=== PATIENT | male | born 1935 | race Caucasian/White ===

== ENCOUNTER → 2018-04-26 16:21 | Outpatient (CLI) | payer MEDICARE, SELFPAY ==
--- NOTE | 2018-04-26 16:25 | DI.MRI.S_ITS ---
PROCEDURE: MR LUMBAR SPINE WO CON INDICATIONS: SACROILIAC JOINT DYSFUNCTION TECHNIQUE: Noncontrast sagittal T1 spin echo and T2 fast echo, sagittal STIR, axial T1 and T2 fast spin echo through the lumbar spine. In cases with scoliosis, additional coronal T2 fast spin echo may be performed. Oblique coronal STIR and T1-weighted images obtained through the sacrum. [facility], 3:20. FINDINGS: Image quality: Excellent. Alignment and Curvature: There is trace L3-L4 and L4-L5 retrolisthesis. There is convex right scoliosis. Bone Marrow: Reactive endplate change is noted adjacent to the L1-L2, L2-L3, L3-L4 and L4-L5 discs.. No acute vertebral body compression fractures. Spinal Cord: Conus medullaris terminates at the L1-2 disc level. Visualized cord demonstrates normal signal and size. Paraspinous Soft Tissues: No paravertebral masses. L1-L2: Loss of disc signal and height. Moderate, diffuse disc bulge. Mild bilateral facet hypertrophy. Mild to moderate narrowing of the central canal. Moderate bilateral neural foraminal narrowing. No neural impingement. L2-L3: Loss of disc signal and height. Moderate, diffuse disc bulge. Mild facet and moderate ligamentum flavum hypertrophy. Moderate narrowing of the central canal. Mild right and moderate left neural foraminal narrowing. No neural impingement. L3-L4: Loss of disc signal and height. Mild, diffuse disc bulge. Mild facet and moderate ligamentum flavum hypertrophy. Moderate to severe narrowing of the central canal. Moderate to severe bilateral neural foraminal narrowing. No neural impingement. L4-L5: Loss of disc signal and height. Moderate, diffuse disc bulge. Moderate bilateral facet hypertrophy. Moderate to severe narrowing of the central canal. Severe bilateral neural foraminal narrowing with flattening deformity exiting L4 nerve roots bilaterally. L5-S1: Loss of disc signal. Mild, diffuse disc bulge. Moderate right mild left facet hypertrophy. No central stenosis. Severe right and moderate left neural foraminal narrowing with flattening deformity right L5 nerve root. Sacrum: Mild osteoarthritic degenerative changes are noted in the sacroiliac joints. The lumbosacral plexus is normal in appearance. IMPRESSION: 1. Convex right scoliosis. 2. Multilevel degenerative disc disease. 3. Multilevel facet arthropathy. 4. Moderate to severe L3-L4 and L4-L5 central canal narrowing. Moderate L2-L3 central canal narrowing. Mild to moderate L1-L2 Central canal narrowing. 5. Severe bilateral L4-L5 neural foraminal narrowing. Severe right and moderate left L5-S1 neural foraminal narrowing. Moderate to severe bilateral L1-L2 and L3-L4 neural foraminal narrowing. Mild right and moderate left L2-L3 neural foraminal narrowing. 6. Flattened deformity exiting bilateral L4 nerve roots and the exiting right L5 nerve root secondary to neural foraminal narrowing. Dictated by: Rosana Salcido MD, PhD on 04/27/2018 at 9:11 Approved by: Rosana Salcido MD, PhD on 04/27/2018 at 9:48
== END ==
PROVIDERS: Family Provider Family Medicine; PCP Family Medicine; Visit Provider Physical Medicine & Rehabilitation
DX: M25.80 Other specified joint disorders, unspecified joint (principal); M41.9 Scoliosis, unspecified; M51.36 Other intervertebral disc degeneration, lumbar region; M47.816 Spondylosis without myelopathy or radiculopathy, lumbar region
CPT/HCPCS: 72148

== ENCOUNTER → 2018-06-21 14:11 | Outpatient (CLI) | payer MEDICARE, SELFPAY ==
--- NOTE | 2018-06-21 | DI.MRI.S_ITS ---
PROCEDURE: MR KNEE LT WO CON INDICATIONS: INTERNAL DERANGEMENT OF LEFT KNEE TECHNIQUE: Noncontrast sagittal PD fast spin echo and T2 fast spin echo with fat saturation, sagittal 3-D FLASH with fat saturation; coronal T1 spin echo and PD fast spin echo with fat saturation, and axial PD fast spin echo with fat saturation through the knee. COMPARISON: None. FINDINGS: Image quality: Excellent. Menisci: There is oblique tear involving posterior horn medial meniscus extending to inferior articulating surface. No focal lateral meniscal tear is seen. The meniscal root ligaments appear intact. Cruciate ligaments: The anterior and posterior cruciate ligaments appear intact. Medial structures: The medial collateral ligament appears intact. The posterior oblique ligament, semimembranosus tendon insertions, oblique popliteal ligament, and meniscocapsular junction appear intact. Visualized portions of the pes anserinus tendons appear normal. No abnormal bursal fluid. Lateral structures: The lateral collateral ligament, long and short heads of the biceps femoris tendon appear intact. The popliteus tendon appears normal; the popliteofibular ligament appears intact. The posterosuperior and anteroinferior popliteomeniscal fascicles appear intact. The arcuate and fabellofibular ligaments appear intact, on either side of the lateral inferior geniculate artery. Iliotibial band appears normal. Anterior structures: Thickened distal quadriceps tendinitis superior patella insertion is seen suggestive of tendinosis. Patellar tendon is intact. Patellar alignment is normal. No femoral trochlear dysplasia or ventral trochlear prominence. No edema in the infrapatellar fat pad. Bones and cartilage: There is [id number] tricompartmental osteoarthritis more prominently patellofemoral compartment. Extensive chondromalacia patella throughout patellar cartilage is seen. No fracture or dislocation. Joint space: There is small amount of knee joint fluid. No Wells's cyst. Normal appearing synovial plicae are incidentally noted. IMPRESSION: 1. 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 No fracture or dislocation. 2. Complete tear involving posterior horn of medial meniscus extending to inferior articulating surface. No focal lateral meniscal tear. 3. Distal quadriceps tendinosis. Patellar tendon is intact. Cruciate ligaments are intact. Dictated by: Irvin Hurst M.D. on 06/21/2018 at 16:04 Approved by: Irvin Hurst M.D. on 06/21/2018 at 16:07
== END ==
PROVIDERS: Family Provider Family Medicine; PCP Family Medicine; Visit Provider Orthopaedic Surgery
DX: S83.242A Other tear of medial meniscus, current injury, left knee, initial encounter (principal); M17.12 Unilateral primary osteoarthritis, left knee; M22.42 Chondromalacia patellae, left knee; M76.892 Other specified enthesopathies of left lower limb, excluding foot
CPT/HCPCS: 73721

== ENCOUNTER → 2019-07-22 09:57 | Outpatient (CLI) | payer MEDICARE, SELFPAY ==
--- NOTE | 2019-07-22 | DI.RAD.S_ITS ---
PROCEDURE: XR CHEST 2V INDICATIONS: DYSPNEA TECHNIQUE: 2 views of the chest were acquired. COMPARISON: None. FINDINGS: Surgical changes and devices: Surgical clip in the right axilla. Lungs and pleura: Mild bibasilar streaky opacity which is most compatible of atelectasis. No consolidation. Asymmetric lucency in the left upper chest. There is blunting of the right posterior phrenic angle which may represent trace pleural effusion. No pneumothorax. Mediastinum: Mediastinal contours are normal. Tortuous aorta. Heart size is normal. Bones and chest wall: No suspicious bony abnormalities. Soft tissues appear unremarkable. IMPRESSION: Bibasilar atelectasis and possible trace right pleural effusion. Dictated by: Orlando Stovall M.D. on 07/22/2019 at 11:15 Approved by: Bill Becerra M.D. on 07/26/2019 at 9:57
[2019-07-22 11:15] LABS: Add Manual Diff / Slide Review NO; Basophils Absolute Auto 100 /uL (0-100); Basophils Percent Auto 1.5 % (0-2); Eosinophils Absolute Auto 300 /uL (0-450); Eosinophils Percent Auto 4.4 % (2-4); Hematocrit 40.7 % (41-53); Hemoglobin 13.7 g/dL (13.5-17.5); Lymphocytes Absolute Auto 1300 /uL (1100-4500); Lymphocytes Percent Auto 17.4 % (25-40); Mean Corpuscular HGB Conc 33.7 % (30-36); Mean Corpuscular Hemoglobin 27.7 PG (26-34); Mean Corpuscular Volume 82.1 fL (80-100); Monocytes Absolute Auto 400 /uL (0-900); Monocytes Percent Auto 5.8 % (3-14); Neutrophils Absolute Auto 5400 /uL (1500-7000); Neutrophils Percent Auto 70.9 % (50-75); Red Blood Cell Count 4.96 X10^6/uL (4.5-5.9); Red Cell Distribution Width 15.7 % (11.6-14.8); White Blood Cell Count 7.6 X10^3/uL (4.5-11.0)
[2019-07-22 11:31] LABS: Alanine Aminotransferase 13 IU/L (21-72); Albumin Globulin Ratio 1.5 (1.0-2.8); Alkaline Phosphatase 82 U/L (38-126); Aspartate Aminotransferase 24 IU/L (17-59); BUN Creatinine Ratio 21.1 (6-22); Bilirubin Total 0.8 mg/dL (0.2-1.3); Blood Urea Nitrogen 19 mg/dL (9-20); Calcium 9.5 mg/dL (8.4-10.2); Carbon Dioxide 25 mmol/L (22-32); Chloride 106 mmol/L (98-107); Cholesterol 149 mg/dL (140-199); Estimated Glomerular Filt Rate > 60.0 mL/min (>60); Globulin 2.7 g/dL (1.7-4.1); Glucose 93 mg/dL (80-110); HDL Cholesterol 42 mg/dL (40-60); HEMOLYSIS < 15 (0-50); LDL Cholesterol Calculated 91 mg/dL (<100); Potassium 4.4 mmol/L (3.4-5.1); Sodium 141 mmol/L (137-145); Total Protein 6.7 g/dL (6.3-8.2); Triglycerides 82 mg/dL (35-150)
[2019-07-22 11:53] LABS: Platelet Count 54 X10^3/uL (150-400)
[2019-07-22 12:34] LABS: Thyroid Stimulating Hormone 1.91 uIU/mL (0.47-4.68)
== END ==
PROVIDERS: Family Provider Family Medicine; PCP Family Medicine; Visit Provider Family Medicine
DX: R06.09 Other forms of dyspnea (principal); R53.83 Other fatigue; J98.11 Atelectasis
CPT/HCPCS: 36415; 71046; 80053; 80061; 84443; 85025

== ENCOUNTER → 2019-08-30 15:11 | Outpatient (CLI) | payer MEDICARE, SELFPAY ==
--- NOTE | 2019-08-30 16:30 | PM.TREADMILL ---
Cardiac Stress Test Report Referral & Results Date Patient Seen: 08/30/19 Procedure Note: Patient was unable to walk on a treadmill even at the lowest speed safely. Therefore the entire test was abandoned and message was left with the ordering physician to reschedule this as a Lexiscan Cardiolite which will avoid patient having to walk on the treadmill at all. Obviously patient was aware of this change in need to reschedule Please note: Actual ECG tracings can be found in the PACS system.
== END ==
PROVIDERS: PCP Family Medicine; Visit Provider Family Medicine
DX: R06.09 Other forms of dyspnea (principal); Z53.09 Procedure and treatment not carried out because of other contraindication

== ENCOUNTER → 2019-09-09 13:42 | Outpatient (CLI) | payer MEDICARE, SELFPAY ==
--- NOTE | 2019-09-09 | DI.NM.S_ITS ---
PROCEDURE: NM VIANCA PERF SPECT R&S PHARM Rest and pharmacological stress myocardial perfusion SPECT with gated imaging and ejection fraction RADIOPHARMACEUTICAL: 25.6 mCi Tc-99m tetrafosmin IV at rest and 25.6 mCi Tc-99m tetrafosmin IV at peak effect of pharmacological stress. [id number] was performed. INDICATIONS: MORGAN TECHNIQUE: Radiopharmaceutical was injected at peak stress test, and also at rest. SPECT images were obtained. SPECT myocardial perfusion images were displayed in short axis, horizontal long axis, and vertical long axis views. Gated images were reviewed using [employer] software. COMPARISON: None. CARDIAC STRESS: A pharmacologic stress test was performed under the supervision of an attending staff, using an infusion of Lexiscan . Hemodynamic data: There is normal blood pressure and heart rate response to pharmacologic stress. Symptoms: The patient denied anginal chest pain. Aminophylline: Not given EKG: No diagnostic changes of ischemia; no ectopy. FINDINGS: Raw data: There is good myocardial uptake of radiotracer. No significant motion artifacts. Cpbv-nc-nrore ratio is 0.32 (normal is less than 0.38 for tetrafosmin tracer). Left ventricle function: Gated images demonstrate hypokinesis of the basal to mid inferior wall at stress; otherwise normal left ventricular wall thickening. No other segmental wall motion abnormalities. No transient ischemic dilation; TID is 0.94 (normal less than 1.3). Left ventricle resting end diastolic volume is 101 mL. Left ventricle stress ejection fraction is 72% ; normal range is above 45%. Myocardial perfusion: There is a moderate size, moderately severe perfusion defect in the basal to mid inferior and inferoseptal wall at stress with partial improvement on stress imaging. There is interfering subdiaphragmatic activity. Otherwise normal distribution of activity in the left ventricular myocardium. No fixed or reversible perfusion defects. IMPRESSION: 1) Probably abnormal myocardial perfusion study with predominantly ischemia in the inferior wall. 2) There is a moderate size, moderately severe perfusion defect in the basal to mid inferior and inferoseptal wall at stress, associated with hypokinesis. This improves on rest images but does not completely resolve, concerning for mixed ischemia and scar. However, there is significant subdiaphrgmatic interfering tracer activity which could not be corrected as patient could not lay prone for prone imaging. 3) No prior studies for comparison. Dictated by: Marlo Li M.D. on 09/12/2019 at 18:23 Approved by: Marlo Li M.D. on 09/12/2019 at 18:32
--- NOTE | 2019-09-09 14:52 | PM.TREADMILL ---
Cardiac Stress Test Report Referral & Results Date Patient Seen: 09/09/19 Requesting provider: Brian Moore Indication: Dyspnea upon exertion Procedure Note: After both written and verbal informed consent the patient had an IV started by the diagnostic imaging RN, and then was hooked up to the treadmill monitoring system. The Lexiscan material, and then the Cardiolite tracer, were administered sequentially. An additional 3 min was spent monitoring the patient while supine on the gurney. The patient had a normal response to all infused materials. Impression: Please see perfusion imaging report for details regarding possible ischemia Please note: Actual ECG tracings can be found in the PACS system.
== END ==
PROVIDERS: PCP Family Medicine; Visit Provider Family Medicine
DX: R06.09 Other forms of dyspnea (principal); I25.9 Chronic ischemic heart disease, unspecified
CPT/HCPCS: 78452; 93016; 93017; 93018; A9502; J2785

== ENCOUNTER → 2019-09-14 08:57 | Outpatient (CLI) | payer MEDICARE, SELFPAY ==
--- NOTE | 2019-09-14 | DI.RAD.S_ITS ---
PROCEDURE: FL BARIUM SWALLOW INDICATIONS: Dysphagia. COMPARISON: [facility], CR, XR CHEST 2V, 07/22/2019, 10:08. FINDINGS: Function: There are thin flash laryngeal penetrations without jayleen tracheal aspiration. There are mild tertiary contractions with mild proximal escape. There is observed gastroesophageal reflux to the level of the yosvany. There is delayed transit of a calibrated barium tablet within the esophagus, with the calibrated barium tablet becoming lodged above a prominent Schatzki's ring and failing to pass into the stomach despite delayed observation. Morphology: There is a small hiatal hernia with a prominent Schatzki's ring. A mild cricopharyngeal bar is identified. Air-contrast images demonstrate normal mucosal morphology. Single contrast views show no diverticula. Limited images of the stomach demonstrate normal appearance. IMPRESSION: 1. Small hiatal hernia with prominent Schatzki's ring, of sufficiently narrowed diameter that an administered calibrated barium tablet lodges above the level of the ring and fails to pass into the stomach despite delayed observation. Consider CT of the chest with contrast and gastroenterology consult if there is continued clinical concern. 2. Mild esophageal dysmotility. 3. Gastroesophageal reflux with mild cricopharyngeal bar formation. 4. Thin flash laryngeal penetrations without jayleen tracheal aspiration. Dictated by: Fabian Freedman M.D. on 09/14/2019 at 13:08 Approved by: Fabian Freedman M.D. on 09/14/2019 at 13:34
== END ==
PROVIDERS: PCP Family Medicine; Visit Provider Otolaryngology
DX: R13.10 Dysphagia, unspecified (principal); K22.2 Esophageal obstruction; K22.4 Dyskinesia of esophagus; K44.9 Diaphragmatic hernia without obstruction or gangrene; K21.9 Gastro-esophageal reflux disease without esophagitis
CPT/HCPCS: 74220

== ENCOUNTER → 2019-10-08 10:58 | Outpatient (CLI) | payer MEDICARE, SELFPAY ==
[2019-10-08 12:53] LABS: Hematocrit 40.7 % (41-53); Hemoglobin 13.2 g/dL (13.5-17.5); Mean Corpuscular HGB Conc 32.5 % (30-36); Mean Corpuscular Hemoglobin 26.9 PG (26-34); Mean Corpuscular Volume 82.8 fL (80-100); Platelet Count 65 X10^3/uL (150-400); Red Blood Cell Count 4.92 X10^6/uL (4.5-5.9); Red Cell Distribution Width 15.1 % (11.6-14.8); White Blood Cell Count 5.1 X10^3/uL (4.5-11.0)
[2019-10-08 12:58] LABS: INR 1.1 (0.9-1.3); Prothrombin Time 12.4 SECONDS (10.1-12.7)
[2019-10-08 13:07] LABS: Blood Urea Nitrogen 16 mg/dL (9-20); Calcium 9.2 mg/dL (8.4-10.2); Carbon Dioxide 27 mmol/L (22-32); Chloride 104 mmol/L (98-107); Estimated Glomerular Filt Rate > 60.0 mL/min (>60); Glucose 115 mg/dL (80-110); HEMOLYSIS < 15 (0-50); Potassium 4.4 mmol/L (3.4-5.1); Sodium 138 mmol/L (137-145)
== END ==
PROVIDERS: PCP Family Medicine; Visit Provider Internal Medicine Interventional Cardiology
DX: R06.09 Other forms of dyspnea (principal); R06.02 Shortness of breath; R94.39 Abnormal result of other cardiovascular function study; I10 Essential (primary) hypertension; E78.5 Hyperlipidemia, unspecified
CPT/HCPCS: 36415; 80048; 85027; 85610

== ENCOUNTER → 2019-11-24 11:20 | Outpatient (CLI) | payer MEDICARE, SELFPAY ==
--- NOTE | 2019-11-24 | DI.CT.S_ITS ---
PROCEDURE: CT CHEST WO CON INDICATIONS: Dyspnea, unspecified TECHNIQUE: Noncontrast 5 mm thick sections acquired from the pulmonary apices to the posterior costophrenic angles. 1 mm lung window, 5 mm thick coronal and sagittal and 7 mm axial MIP reformats were then acquired. For radiation dose reduction, the following was used: automated exposure control, adjustment of mA and/or kV according to patient size. COMPARISON: [facility], CR, XR CHEST 2V, 07/22/2019, 10:08. FINDINGS: Image quality: Excellent. Lungs and pleura: There are lingular, right middle lobe and lower lobe scars and atelectasis. Moderate centrilobular emphysema. No acute air space opacities. No pleural effusions or pneumothorax. Central and peripheral airways are patent and normal in caliber. There are calcified plaques in the right hemidiaphragm. Mediastinum: Heart size is normal. No pericardial effusion. Calcified densities in the pericardium. No mediastinal adenopathy by size criteria. Thoracic aorta and central pulmonary arteries are normal in size. Esophagus is normal in caliber. No hiatal hernia. Bones and chest wall: No suspicious bony lesions. No vertebral body compression fractures. No axillary or supraclavicular adenopathy by size criteria. Thyroid gland is normal. Abdomen: Visualized upper abdominal solid organs and bowel loops appear normal in the absence of contrast. A 1 mm calcification in right kidney, consistent with a nonobstructive stone. IMPRESSION: 1. Moderate centrilobular emphysema. 2. Lingula, right middle lobe and lower lobe scars and atelectasis. 3. Calcified plaques in the right milton-thorax. Recommend clinical correlation for asbestos exposure or prior pleural infection/procedure. 4. Calcified plaques along the pericardium. Recommend echocardiogram for further evaluation to rule out constrictive physiology. Dictated by: Suresh Lo M.D. on 11/24/2019 at 15:47 Approved by: Suresh Lo M.D. on 11/24/2019 at 15:58
== END ==
PROVIDERS: PCP Family Medicine; Visit Provider Family Medicine
DX: R06.00 Dyspnea, unspecified (principal); J43.2 Centrilobular emphysema; J98.4 Other disorders of lung; J98.11 Atelectasis; I31.1 Chronic constrictive pericarditis; N20.0 Calculus of kidney
CPT/HCPCS: 71250

== ENCOUNTER → 2019-12-07 10:56 | Outpatient (CLI) | payer MEDICARE, SELFPAY ==
--- NOTE | 2019-12-12 16:53 | PM.PFT.1 ---
Pulmonary Function Test Referral & Results Date Patient Seen: 12/07/19 Requesting provider: Brian Moore Results: The spirometry demonstrates an FVC of 3.69 L which is 88% of predicted. The FEV1 was measured at 2.11 L which is 72% of predicted. The FEV1/FVC ratio was 57 which is 81% of predicted. Following the administration of bronchodilator there was no significant change. Lung volumes show an SVC of 4.57 L which is 99% of predicted. The diffusing capacity was measured at 17.04 which is 48% of predicted. No hemoglobin value was provided, so no correction for potential anemia could be made, if appropriate. The maximum voluntary ventilation was reduced Interpretation: This study demonstrates mild/moderate obstructive lung disease based on reduction FEV1. There is no evidence of significant benefit following bronchodilator administration Patient's lung volumes are normal so no evidence of restrictive lung disease There is a moderate reduction in diffusing capacity suggesting significant disease at the capillary alveolar level as well
== END ==
PROVIDERS: PCP Family Medicine; Visit Provider Family Medicine
DX: R06.09 Other forms of dyspnea (principal); R53.83 Other fatigue; R94.39 Abnormal result of other cardiovascular function study
CPT/HCPCS: 94060; 94726; 94729

== ENCOUNTER 2020-03-03 21:19 | Emergency (ER) | payer MEDICARE, SELFPAY ==
[2020-03-03 21:36] VITALS: BP 204/90; PULSE 90; RESP 24; TEMP 37.1; O2SAT 99; BMI 24.7
--- NOTE | 2020-03-03 21:38 | ED_ITS ---
HPI - General Adult General Chief complaint: Shortness of Breath/Dyspnea Stated complaint: SOB/Anxiety Time Seen by Provider: 03/03/20 21:23 Source: patient and family Mode of arrival: Ambulatory Limitations: no limitations History of Present Illness HPI narrative: Patient is an 84-year-old male here for evaluation of what he states was anxiety, lack of the ability the sleep shortness of breath. Patient states that his shortness of breath is not new. He has had this for least the past several months. Has seen his primary doctor. Has had a cardiac workup. He states that he has had a cardiac catheterization and echocardiogram which he does not know the specific results but was told that everything was unr emarkable. Has had pulmonary function test. Is scheduled to see an certified ophthalmic medical technician. His shortness of breath that he is having today is not new. He states that his anxiety occurred this morning. He states that he was sleeping. He was woken up by his cat had approximately 0500 hours in the morning. He stated that he could not fall asleep after this which made him somewhat anxious because normally he can fall asleep. He stated that throughout the day he was feeling somewhat anxious about not being able to sleep that morning. He states he normally takes a nap during the day when he laid down to take an appy could not fall asleep again which again made him anxious. He called his daughter who is with him. He states he came into the emergency department this evening because he was anxious about not being able to fall asleep this evening. He states he has no prior history of anxiety. Related Data Home Medications Medication Instructions Recorded Confirmed acetaminophen [Tylenol Extra 1,000 mg PO TID #0 12/08/17 Strength] Previous Rx's Medication Instructions Recorded aspirin 81 mg PO BID #60 01/09/18 hydroxyzine pamoate 25 mg PO Q4HP PRN #60 cap 01/09/18 oxycodone 5 - 10 mg PO Q3HP PRN #60 tab 01/09/18 Allergies Allergy/AdvReac Type Severity Reaction Status Date / Time No Known Allergies Allergy Uncoded 02/17/18 11:56 Review of Systems Constitutional Constitutional: Denies fatigue and Denies headache(s) ENT Ears, Nose, Mouth, and Throat: Denies headache(s) Cardiovascular Cardiovascular: Denies chest pain and Reports dyspnea Respiratory Respiratory: Reports dyspnea Gastrointestinal Gastrointestinal: Denies abdominal pain, Denies nausea and Denies vomiting Musculoskeletal Musculoskeletal: Denies myalgias and Denies arthralgias Integumentary/Breasts Skin/Breast: Reports lesions and Reports rash Neurologic Neurologic: Denies behavioral changes and Denies headache(s) Psychiatric Psychiatric: Denies behavioral changes Endocrine Endocrine: Denies fatigue Hematologic/Lymphatic Hematologic/Lymphatic: Denies easy bleeding and Denies easy bruising Patient History Medical History Shortness of Breath (Inactive) Tricompartment osteoarthritis of right knee (Inactive) Surgical History S/P total knee arthroplasty (Inactive) Social History Smoking Status: Former smoker Smoking Status: Former smoker alcohol intake frequency: 0-2 drinks per day Substance Use Type: does not use Exam Initial Vital Signs Initial Vital Signs: Vital Signs Temperature 98.7 F 03/03/20 21:36 Pulse Rate 90 03/03/20 21:36 Respiratory Rate 24 03/03/20 21:36 Blood Pressure 204/90 H 03/03/20 21:36 Pulse Oximetry 99 03/03/20 21:36 Const General: cooperative, comfortable, well developed and well groomed Limitations: mental status not altered HENGA Head: normal to inspection and normocephalic Resp Effort & Inspection: normal respiratory effort Auscultation: clear to auscultation bilaterally Cardio Rate: regular rate Rhythm: regular rhythm GI Inspection: non-distended Palpation: soft, No firm and No tender Skin Lesions: no lesions Rashes: no rashes Neuro General: alert, awake and oriented x3 Cognition: normal cognition Speech: speech normal Extrem General: normal to inspection and capillary refill normal Psych Appearance: grossly normal and well kempt Thought Process: normal Thought Content: normal Judgment: judgment good Course Orders Ordered: ED Orders 03/03/20 21:30 Basic Metabolic Panel Stat Complete Blood Count AUTO DIFF Stat NT-proBNP (BNP-Adult 18+) Stat Troponin I Stat 03/03/20 21:36 EKG-12 Lead Stat 03/03/20 21:45 XR chest 1V Stat 03/03/20 22:05 Partial Thromboplastin Time Stat Prothrombin Time INR Stat Vital Signs Vital signs: Vital Signs - 8 hr 03/03/20 21:36 03/03/20 21:50 03/03/20 22:18 Temperature 98.7 F Pulse Rate 90 63 79 Respiratory Rate 24 20 20 Blood Pressure 204/90 H Blood Pressure [Right Arm] 196/91 H 157/76 H Pulse Oximetry 99 97 98 03/03/20 22:48 03/03/20 23:37 Temperature Pulse Rate 77 82 Respiratory Rate 20 22 Blood Pressure Blood Pressure [Right Arm] 161/77 H 175/95 H Pulse Oximetry 98 96 Medical Decision Making Lab Data Lab results reviewed: Yes I reviewed the patient's lab results. Result diagrams: 03/03/20 21:30 03/03/20 21:30 Labs: Lab Results 03/03/20 03/03/20 03/03/20 Range/Units 21:30 21:30 22:05 WBC 10.4 (4.5-11.0) X10^3/uL RBC 4.66 (4.5-5.9) X10^6/uL Hgb 12.8 L (13.5-17.5) g/dL Hct 38.5 L (41-53) % MCV 82.6 (80-100) fL MCH 27.5 (26-34) PG MCHC 33.3 (30-36) % RDW 16.5 H (11.6-14.8) % Plt Count 53 L (150-400) X10^3/uL Neut % (Auto) 68.7 (50-75) % Lymph % (Auto) 20.7 L (25-40) % Linn % (Auto) 6.0 (3-14) % Eos % (Auto) 3.5 (2-4) % Baso % (Auto) 1.1 (0-2) % Neut # (Auto) 7200 H (7644-7577) /uL Lymph # (Auto) 2200 (9486-4857) /uL Linn # (Auto) 600 (0-900) /uL Eos # (Auto) 400 (0-450) /uL Baso # (Auto) 100 (0-100) /uL PT 12.9 H (10.1-12.7) SECONDS INR 1.1 (0.9-1.3) APTT 34 (26.4-36.2) SECONDS Sodium 141 (137-145) mmol/L Potassium 3.9 (3.4-5.1) mmol/L Chloride 108 H (98-107) mmol/L Carbon Dioxide 27 (22-32) mmol/L BUN 17 (9-20) mg/dL Creatinine 0.77 (0.66-1.25) mg/dL Estimated GFR > 60.0 (>60) mL/min BUN/Creatinine Ratio 22.1 H (6-22) Glucose 110 (80-110) mg/dL Calcium 9.8 (8.4-10.2) mg/dL Troponin I < 0.012 (0.01-0.034) ng/mL NT-Pro-B Natriuret Pep 1090 H (<450) pg/mL Imaging Data Chest x-ray: Radiologist's Impression: [address] [address] XRay Report Signed Patient: Ady Lombardo SMR#: [id number] : 4Acct:[id number] Age/Sex: 84 / MDate of Service: 03/03/20 Loc: ED Accession Number: [id number] Procedure: XR chest 1V Ordering Provider: José Chun D.O. PROCEDURE: XR CHEST 1V INDICATIONS: Short of breath TECHNIQUE: One view of the chest was acquired. COMPARISON: [facility], , XR CHEST 2V, 07/22/2019, 10:08. FINDINGS: Surgical changes and devices: Right axillary clips are seen. Lungs and pleura: The lungs are hyperexpanded. Mild interstitial prominence is seen. Mild, streaky opacities are seen at the lung bases. No pleural effusions or pneumothorax. Mediastinum: The cardiac contours are within normal limits. The aorta demonstra justin calcification and tortuosity. Bones and chest wall: Age-appropriate bony degenerative changes are seen. Remote right rib fractures. No suspicious bony lesions. Overlying soft tissues appear unremarkable. IMPRESSION: Interstitial prominence is seen throughout. The interstitial promi nence is nonspecific, yet may be related to pulmonary edema. Likely mild atelectasis at the lung bases. Hyperexpanded lungs. Remote right rib fractures. Dictated by: David Biggs M.D. on 03/03/2020 at 21:13 Approved by: David Biggs M.D. on 03/03/2020 at 21:16 ECG Data Attestation: I personally reviewed and interpreted this ECG as follows: Prior ECG tracings: not available for review Interpretation: Sinus rhythm Ventricular rate 84 Normal axis Normal QRS Normal QTC Nonspecific ST T wave changes MDM Narrative Medical decision making narrative: Patient not hypoxic. Not tachypneic. Shortness of breath is not new. Chest x-ray shows no signs of pneumonia. He is not clinically in heart failure. Low suspicion for ACS. Informed patient he should continue talk with his primary doctor about further workup of his shortness of breath. Patient did admit that he is really here because he was anxious about sleeping this evening. We did discuss the use of potential sleep aids and sleep hygiene. He has used melatonin in the past and like to start taking that. He did not want any anxiety medications. Patient was tested for COVID-19 secondary to his shortness of breath. He was informed about precautions related to this. Discharged the patient home. I feel he is safe to be discharged home without further workup. Was given return precautions and follow-up instructions. He expressed understanding and agreement. Discharge Plan Departure Patient Disposition: Home Clinical Impression: Anxiety, Shortness of Breath Discharge Date/Time: 03/03/20 23:44 Instructions: DI for Anxiety -- Adult Activity Restrictions/Additional Instructions: I do recommend that you talk with your primary doctor about continued workup of your shortness of breath and also any long-term anxiety/sleep aids. Until then you can try melatonin. He can also tried Benadryl. Both of these are available [id number]. Return to the emergency department for any new or worsening symptoms. You were tested for COVID-19. We will contact you for any positive your negative results. This test takes anywhere from 2-5 days to result. Prescriptions: No Action acetaminophen [Tylenol Extra Strength] 500 MG tablet 1,000 mg PO TID Qty: 0 RF: 0 aspirin 81 MG tablet,delayed release (DR/EC) 81 mg PO BID Qty: 60 RF: 1 hydroxyzine pamoate 25 MG capsule 25 mg PO Q4HP PRNQty: 60 RF: 0 oxycodone 5 MG tablet 5 - 10 mg PO Q3HP PRNQty: 60 RF: 0 Referrals: Brian Moore MD [Primary Care Provider] -
--- NOTE | 2020-03-03 21:45 | DI.RAD.S_ITS ---
PROCEDURE: XR CHEST 1V INDICATIONS: Short of breath TECHNIQUE: One view of the chest was acquired. COMPARISON: [facility], CR, XR CHEST 2V, 07/22/2019, 10:08. FINDINGS: Surgical changes and devices: Right axillary clips are seen. Lungs and pleura: The lungs are hyperexpanded. Mild interstitial prominence is seen. Mild, streaky opacities are seen at the lung bases. No pleural effusions or pneumothorax. Mediastinum: The cardiac contours are within normal limits. The aorta demonstrates calcification and tortuosity. Bones and chest wall: Age-appropriate bony degenerative changes are seen. Remote right rib fractures. No suspicious bony lesions. Overlying soft tissues appear unremarkable. IMPRESSION: Interstitial prominence is seen throughout. The interstitial prominence is nonspecific, yet may be related to pulmonary edema. Likely mild atelectasis at the lung bases. Hyperexpanded lungs. Remote right rib fractures. Dictated by: David Biggs M.D. on 03/03/2020 at 21:13 Approved by: David Biggs M.D. on 03/03/2020 at 21:16
[2020-03-03 21:50] VITALS: BP 196/91; PULSE 63; RESP 20; O2SAT 97
[2020-03-03 22:02] LABS: Add Manual Diff / Slide Review NO; Basophils Absolute Auto 100 /uL (0-100); Basophils Percent Auto 1.1 % (0-2); Eosinophils Absolute Auto 400 /uL (0-450); Eosinophils Percent Auto 3.5 % (2-4); Hematocrit 38.5 % (41-53); Hemoglobin 12.8 g/dL (13.5-17.5); Lymphocytes Absolute Auto 2200 /uL (1100-4500); Lymphocytes Percent Auto 20.7 % (25-40); Mean Corpuscular HGB Conc 33.3 % (30-36); Mean Corpuscular Hemoglobin 27.5 PG (26-34); Mean Corpuscular Volume 82.6 fL (80-100); Monocytes Absolute Auto 600 /uL (0-900); Neutrophils Absolute Auto 7200 /uL (1500-7000); Neutrophils Percent Auto 68.7 % (50-75); Red Blood Cell Count 4.66 X10^6/uL (4.5-5.9); Red Cell Distribution Width 16.5 % (11.6-14.8); White Blood Cell Count 10.4 X10^3/uL (4.5-11.0)
[2020-03-03 22:03] LABS: BUN Creatinine Ratio 22.1 (6-22); Blood Urea Nitrogen 17 mg/dL (9-20); Calcium 9.8 mg/dL (8.4-10.2); Carbon Dioxide 27 mmol/L (22-32); Chloride 108 mmol/L (98-107); Estimated Glomerular Filt Rate > 60.0 mL/min (>60); Glucose 110 mg/dL (80-110); HEMOLYSIS 30 (0-50); Potassium 3.9 mmol/L (3.4-5.1); Sodium 141 mmol/L (137-145)
[2020-03-03 22:15] LABS: NT-proBNP (BNP-Adult 18+) 1090 pg/mL (<450); Troponin I < 0.012 ng/mL (0.01-0.034)
[2020-03-03 22:18] VITALS: BP 157/76; PULSE 79; RESP 20; O2SAT 98
[2020-03-03 22:20] LABS: INR 1.1 (0.9-1.3); Prothrombin Time 12.9 SECONDS (10.1-12.7)
--- NOTE | 2020-03-03 22:22 | PC.NURSE ---
At 2130 Pt admits pedal edema is normal for him, no increase in swelling.
[2020-03-03 22:23] LABS: PTT Partial Thromboplastin Tim 34 SECONDS (26.4-36.2)
[2020-03-03 22:44] LABS: Platelet Count 53 X10^3/uL (150-400)
[2020-03-03 22:48] VITALS: BP 161/77; PULSE 77; RESP 20; O2SAT 98
[2020-03-03 23:37] VITALS: BP 175/95; PULSE 82; RESP 22; O2SAT 96
[2020-03-07 09:39] LABS: COVID19 Sendout Not Detected (Not Detected)
== END 2020-03-03 23:44 | disposition home or self-care (01) ==
PROVIDERS: Emergency Provider Emergency Medicine; PCP Family Medicine
DX: R06.02 Shortness of breath (principal); F41.9 Anxiety disorder, unspecified
CPT/HCPCS: 36415; 71045; 80048; 83880; 84484; 85025; 85610; 85730; 87635; 93005; 93010; 99284

== ENCOUNTER → 2022-02-17 13:42 | Outpatient (CLI) | payer MEDICARE, SELFPAY ==
--- NOTE | 2022-02-17 13:46 | DI.MRI.S_ITS ---
PROCEDURE: MR SHOULDER LT WO/W CON INDICATIONS: LEFT SHOULDER MASS TECHNIQUE: Noncontrast oblique coronal T1 spin echo and T2 fast spin echo with fat saturation, oblique sagittal T1 spin echo and T2 fast spin echo with fat saturation, axial T1 spin echo and T2 fast spin echo with fat saturation through the shoulder. Post-contrast oblique coronal, oblique sagittal, and axial T1 spin echo with fat saturation through the shoulder. COMPARISON: [facility], CT, CT CHEST WO CON, 11/24/2019, 11:25. [facility], CR, XR SHOULDER 2+ VIEWS LEFT, 02/04/2022, 10:14. FINDINGS: Image quality: Suboptimal due to motion artifacts. Rotator cuff: There is supraspinatus, infraspinatus and subscapularis tendinitis without discrete tendon tear. Sagittal images demonstrate rotator cuff muscle atrophy. Bones and bursae: No suspicious bone marrow enhancement. No bone marrow contusions or fractures. Moderate acromioclavicular and glenohumeral joint degeneration joint degeneration. The acromion demonstrates conventional anatomy, without an os acromiale. Small subcoracoid bursal fluid is present consistent with mild bursitis. Capsule and soft tissues: No suspicious soft tissue enhancement. Labrum is intact. The long head of the biceps tendon demonstrates normal location and morphology. The rotator interval appears normal, without fibrosis. The coracohumeral ligament is normal in thickness. There is a large subcutaneous mass in the posterior medial aspect of the left upper arm measuring 3.7 cm AP, 5.5 cm transverse and 5.9 cm cephalocaudal (series 14, image 18; series 15 image 27; series 6, image 10). The distal portion of the mass is just beyond the field of view. The mass demonstrates lobulated contour and heterogeneous contrast enhancement, highly suspicious for neoplasm. No axillary lymphadenopathy. IMPRESSION: 1. A 3.7 x 5.5 x 5.9 cm subcutaneous mass in the posterior medial aspect of the left upper arm, demonstrating lobulated contour and heterogeneous enhancement. The mass is highly suspicious for neoplasm such as a liposarcoma or metastasis. If clinically indicated, the mass can be biopsied under ultrasound guidance. 2. Supraspinatus, infraspinatus and subscapularis tendinitis. 3. Mild subcoracoid bursitis. 4. Moderate acromioclavicular and glenohumeral joint degeneration. Dictated by: Suresh Lo M.D. on 02/17/2022 at 16:31 Approved by: Suresh Lo M.D. on 02/18/2022 at 12:16
== END ==
PROVIDERS: PCP Family Medicine; Referring Provider Orthopaedic Surgery; Visit Provider Orthopaedic Surgery
DX: R22.32 Localized swelling, mass and lump, left upper limb (principal); M19.012 Primary osteoarthritis, left shoulder; M75.52 Bursitis of left shoulder; M25.512 Pain in left shoulder
CPT/HCPCS: 73223; A9579

== ENCOUNTER → 2022-03-07 13:06 | Outpatient (CLI) | payer MEDICARE, SELFPAY ==
[2022-03-07 14:44] LABS: INR 1.1 (0.9-1.3); Prothrombin Time 12.7 SECONDS (10.1-12.7)
[2022-03-07 14:52] LABS: Add Manual Diff / Slide Review NO; Basophils Absolute Auto 0 /uL (0-100); Basophils Percent Auto 0.9 % (0-2); Eosinophils Absolute Auto 100 /uL (0-450); Eosinophils Percent Auto 2.1 % (2-4); Hemoglobin 12.9 g/dL (13.5-17.5); Lymphocytes Absolute Auto 1100 /uL (1100-4500); Lymphocytes Percent Auto 23.6 % (25-40); Mean Corpuscular HGB Conc 33.1 % (30-36); Mean Corpuscular Volume 81.6 fL (80-100); Monocytes Absolute Auto 500 /uL (0-900); Monocytes Percent Auto 10.1 % (3-14); Neutrophils Absolute Auto 2900 /uL (1500-7000); Neutrophils Percent Auto 63.3 % (50-75); Red Blood Cell Count 4.78 X10^6/uL (4.5-5.9); Red Cell Distribution Width 16.4 % (11.6-14.8); White Blood Cell Count 4.6 X10^3/uL (4.5-11.0)
[2022-03-07 15:14] LABS: Platelet Count 34 X10^3/uL (150-400)
[2022-03-07 15:16] LABS: Anisocytosis 1+
== END ==
PROVIDERS: PCP Family Medicine; Referring Provider Orthopaedic Surgery; Visit Provider Orthopaedic Surgery
DX: M23.92 Unspecified internal derangement of left knee (principal); Z96.651 Presence of right artificial knee joint
CPT/HCPCS: 36415; 85025; 85610

== ENCOUNTER → 2022-03-26 14:44 | Outpatient (CLI) | payer MEDICARE, SELFPAY ==
[2022-03-26 15:16] LABS: COVID19 -Nasal RAPID Negative (Negative)
== END ==
PROVIDERS: PCP Family Medicine; Visit Provider Physician Assistant
DX: Z20.822 Contact with and (suspected) exposure to COVID-19 (principal)
CPT/HCPCS: 87635

== ENCOUNTER → 2022-04-08 09:40 | Outpatient (CLI) | payer MEDICARE, SELFPAY ==
--- NOTE | 2022-04-08 09:42 | DI.MRI.S_ITS ---
PROCEDURE: MR HEAD/BRAIN WO/W CON INDICATIONS: Malignant Melanoma Staging TECHNIQUE: Noncontrast axial T1 spin echo, axial T2 fast spin echo, sagittal and axial FLAIR, coronal T2 fast spin echo, axial gradient echo, axial diffusion and ADC through the brain. After the administration of contrast, axial and coronal T1 spin echo with fat saturation through the brain. COMPARISON: None. FINDINGS: Image quality: Excellent. CSF spaces: Basal cisterns are patent. No extra-axial fluid collections. Ventricles are normal in size and shape. Brain: No midline shift. No intracranial bleeds or masses. No abnormal intracranial enhancement. There is cerebral volume loss for age. There is periventricular white matter chronic small vessel ischemic change. The brainstem appears normal. Diffusion-weighted images demonstrate no acute ischemic insults. No chronic ischemic insults. Normal intravascular flow voids are present. Skull and face: Calvarial marrow is normal in signal. Orbits appear normal. Sinuses: Sinuses and mastoids appear clear. IMPRESSION: 1. No acute intracranial process. No visualized metastatic disease. 2. Moderate atrophy and chronic microvascular ischemic changes. Dictated by: Mitra Sheth M.D. on 04/08/2022 at 13:02 Approved by: Mitra Sheth M.D. on 04/08/2022 at 13:05
== END ==
PROVIDERS: PCP Family Medicine; Referring Provider Internal Medicine Medical Oncology; Visit Provider Internal Medicine Medical Oncology
DX: C43.62 Malignant melanoma of left upper limb, including shoulder (principal); C43.9 Malignant melanoma of skin, unspecified
CPT/HCPCS: 70553; A9579

== ENCOUNTER 2022-06-10 09:48 | Inpatient (IN) | payer MEDICARE, SELFPAY ==
[2022-06-10] VITALS (72 sets, daily range): BP systolic 115–202; BP diastolic 57–95; PULSE 85–135; RESP 11–39; TEMP 36.2–36.8; O2SAT 93–100; BMI 26.4; BMI 25.0
--- NOTE | 2022-06-10 10:06 | ED_ITS ---
HPI - SOB/Dyspnea General Chief Complaint: Shortness of Breath/Dyspnea Stated Complaint: Can't breathe Time Seen by Provider: 06/10/22 10:05 History of Present Illness HPI Narrative: Patient is an 86-year-old male history of COPD recently diagnosed with metastatic melanoma underwent 1st cycle of chemotherapy in. 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 He says that he has been short of breath for at least 2 and half years on the got worse maybe last night. Demanding he needs oxygen right now although his room air O2 sat is 94% he has pursed lipped breathing. Patient denies any chest pain or fever. 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 Related Data Home Medications Medication Instructions Recorded Confirmed acetaminophen 500 mg tablet 1,000 mg PO TID ##0 12/08/17 05/21/22 (Tylenol Extra Strength) budesonide-formoterol HFA 80 1 puff inhalation 06/10/22 mcg-4.5 mcg/actuation aerosol inhaler (Symbicort) Previous Rx's Medication Instructions Recorded prednisone 5 mg tablet,delayed 10 mg PO DAILY #100 tabs 05/14/22 release Allergies Allergy/AdvReac Type Severity Reaction Status Date / Time No Known Allergies Allergy Uncoded 03/31/22 15:53 Review of Systems Review of Systems Narrative: GENERAL: Denies chills, fatigue, malaise, fever, sweats, travel HEENT: Denies sinus pain, ear pain, sore throat, difficulty swallowing, neck pain RESPIRATORY: Denies dyspnea, cough, wheezing, hemoptysis, sputum. CARDIOVASCULAR: Denies chest pain, palpitations, orthopnea, edema GASTROINTESTINAL: Denies nausea, vomiting, abdominal pain, diarrhea, constipation, melena. : Denies dysuria, frequency, incontinence, hematuria, urinary retention, flank pain. MUSCULOSKELETAL: Denies weakness, joint pain, or bony pain SKIN: No rash, no erythema, no pruritus NEUROLOGIC: Denies weakness, dizziness, headache, numbness, change in speech, confusion PSYCHIATRIC: No concerning psychosocial issues. 12 point review of systems is negative except for those stated above and HPI Patient History Medical History Malignant melanoma, metastatic Melanoma Shortness of Breath Tricompartment osteoarthritis of right knee Surgical History S/P total knee arthroplasty Social History Smoking Status: Former smoker alcohol intake: current Smoking Status: Former smoker alcohol intake frequency: 0-2 drinks per day Substance Use Type: does not use Exam Initial Vital Signs Initial Vital Signs: Vital Signs Pulse Rate 134 H 06/10/22 10:03 Respiratory Rate 32 H 06/10/22 10:03 Pulse Oximetry 97 06/10/22 10:03 GENERAL: Alert 86-year-old male and in no acute distress. HEENT: Head atraumatic,EOMI, pupils reactive, face symmetric, moist mucous membranes CARDIOVASCULAR: Regular rate and rhythm without murmurs, rubs or gallops. RESPIRATORY: Decreased breath sounds bilaterally no wheezing pursed lip breathing is slightly tachypneic can speak in full sentences no cyanosis ABDOMEN: Soft, nontender. Normoactive bowel sounds all 4 quadrants. No guarding or rebound. EXTREMITIES: Normal range of motion, no clubbing or bilateral nonpitting edema Neurovascularly intact NEUROLOGICAL: Alert and oriented x4.Normal gait and speech. SKIN: Warm, dry, no laceration, no petechiae, no rashes or lesions. Course Orders Ordered: ED Orders 06/10/22 10:10 XR chest 1V Stat EKG-12 Lead Stat 06/10/22 10:15 ABO RH Type Stat Complete Blood Count AUTO DIFF Stat Comprehensive Metabolic Panel Stat Lipase Stat NT-proBNP (BNP-Adult 18+) Stat Partial Thromboplastin Time Stat Platelets Stat Procalcitonin Stat Prothrombin Time INR Stat Troponin & CK Cardiac Panel Stat 06/10/22 10:34 Blood Culture Stat Lactate (Lactic Acid) Stat 06/10/22 11:02 CT head/brain wo con Stat 06/10/22 11:30 CT angio chest PE protocol Stat 06/10/22 12:40 COVID19 -Nasal RAPID/Pre-Proc Stat Acetaminophen (Acetaminophen 325 Mg Tablet) 650 mg PO Q6HR UMA DILTIAZEM (Diltiazem 125 Mg/125 Ml-D5w) 125 mg in 125 mls @ 5 mls/hr IV TITRATE ONE; Protocol Stop: 06/11/22 14:38 Last Titration: 06/10/22 16:37 Dose: 5 mg/hr, 5 mls/hr Documented By: Admin: 06/10/22 14:08 Dose: 5 mg/hr, 5 mls/hr Documented By: LAURA Pantoprazole Sodium (Pantoprazole Dr 40 Mg Tablet) 40 mg PO 0700 UMA Discontinued Medications Albuterol/Ipratropium (Albuterol/Ipratropium 3 Ml Ampul) 3 ml INH NOW ONE Stop: 06/10/22 13:00 Last Admin: 06/10/22 13:01 Dose: 3 ml Documented By: ZAN Diltiazem HCl (Diltiazem 5 Mg/Ml Sdv) 10 mg IV NOW ONE Stop: 06/10/22 11:21 Last Admin: 06/10/22 11:28 Dose: 10 mg Documented By: LAURA Metoprolol Tartrate (Metoprolol Ir 25 Mg Tablet) 12.5 mg PO NOW ONE Stop: 06/10/22 11:48 Last Admin: 06/10/22 12:31 Dose: 12.5 mg Documented By: LAURA Prednisone (Prednisone 20 Mg Tablet) 60 mg PO NOW ONE Stop: 06/10/22 11:31 Last Admin: 06/10/22 12:30 Dose: 60 mg Documented By: LAURA Vital Signs Vital signs: Vital Signs - 8 hr 06/10/22 11:28 06/10/22 10:30 06/10/22 11:00 Pulse Rate 127 H 129 H 135 H Respiratory Rate 39 H 36 H Blood Pressure 132/80 Pulse Oximetry 100 99 06/10/22 11:16 06/10/22 11:16 06/10/22 11:30 Pulse Rate 127 H Respiratory Rate 36 H Blood Pressure 150/67 H 132/80 Pulse Oximetry 100 06/10/22 11:30 06/10/22 11:35 06/10/22 11:35 Pulse Rate 130 H 104 H Respiratory Rate 21 21 Blood Pressure 144/63 H Pulse Oximetry 99 98 MDM - SOB/Dyspnea Lab Data Result diagrams: 06/10/22 10:15 06/10/22 10:15 Labs: Lab Results 06/10/22 06/10/22 06/10/22 Range/Units 10:15 10:15 10:15 WBC 10.0 (4.5-11.0) X10^3/uL RBC 3.42 L (4.5-5.9) X10^6/uL Hgb 9.6 L (13.5-17.5) g/dL Hct 28.8 L (41-53) % MCV 84.0 (80-100) fL MCH 28.1 (26-34) PG MCHC 33.4 (30-36) % RDW 16.4 H (11.6-14.8) % Plt Count 3 L* (150-400) X10^3/uL Neut % (Auto) 80.7 H (50-75) % Lymph % (Auto) 8.7 L (25-40) % Harris % (Auto) 8.0 (3-14) % Eos % (Auto) 1.6 L (2-4) % Baso % (Auto) 1.0 (0-2) % Neut # (Auto) 8100 H (2110-4813) /uL Lymph # (Auto) 900 L (2111-2693) /uL Harris # (Auto) 800 (0-900) /uL Eos # (Auto) 200 (0-450) /uL Baso # (Auto) 100 (0-100) /uL Platelet Estimate RBC Morphology See below Anisocytosis 1+ H PT 12.7 (10.1-12.7) SECONDS INR 1.1 (0.9-1.3) APTT 29 (26.4-36.2) SECONDS Sodium 136 L (137-145) mmol/L Potassium 3.7 (3.4-5.1) mmol/L Chloride 103 (98-107) mmol/L Carbon Dioxide 22 (22-32) mmol/L BUN 25 H (9-20) mg/dL Creatinine 1.00 (0.66-1.25) mg/dL Estimated GFR > 60 (>60) mL/min BUN/Creatinine Ratio 25.0 H (6-22) Glucose 128 H (80-110) mg/dL Lactate (0.7-2.1) mmol/L Calcium 9.1 (8.4-10.2) mg/dL Total Bilirubin 0.5 (0.2-1.3) mg/dL AST 21 (17-59) IU/L ALT 15 (<50) IU/L Alkaline Phosphatase 62 (38-126) U/L Total Creatine Kinase 48 L (55-170) U/L CK-MB (CK-2) TNP CK-MB (CK-2) Rel Index TNP Troponin I 0.028 (0.01-0.034) ng/mL NT-Pro-B Natriuret Pep 845 H (<450) pg/mL Total Protein 6.6 (6.3-8.2) g/dL Albumin 4.0 (3.5-5.0) g/dL Globulin 2.6 (1.7-4.1) g/dL Albumin/Globulin Ratio 1.5 (1.0-2.8) Lipase 38 (23-300) U/L Procalcitonin (<0.5) ng/mL Blood Type 06/10/22 06/10/22 06/10/22 Range/Units 10:15 10:15 10:34 WBC (4.5-11.0) X10^3/uL RBC (4.5-5.9) X10^6/uL Hgb (13.5-17.5) g/dL Hct (41-53) % MCV (80-100) fL MCH (26-34) PG MCHC (30-36) % RDW (11.6-14.8) % Plt Count (150-400) X10^3/uL Neut % (Auto) (50-75) % Lymph % (Auto) (25-40) % Harris % (Auto) (3-14) % Eos % (Auto) (2-4) % Baso % (Auto) (0-2) % Neut # (Auto) (9496-5383) /uL Lymph # (Auto) (7939-2840) /uL Harris # (Auto) (0-900) /uL Eos # (Auto) (0-450) /uL Baso # (Auto) (0-100) /uL Platelet Estimate RBC Morphology Anisocytosis PT (10.1-12.7) SECONDS INR (0.9-1.3) APTT (26.4-36.2) SECONDS Sodium (137-145) mmol/L Potassium (3.4-5.1) mmol/L Chloride (98-107) mmol/L Carbon Dioxide (22-32) mmol/L BUN (9-20) mg/dL Creatinine (0.66-1.25) mg/dL Estimated GFR (>60) mL/min BUN/Creatinine Ratio (6-22) Glucose (80-110) mg/dL Lactate 2.6 H (0.7-2.1) mmol/L Calcium (8.4-10.2) mg/dL Total Bilirubin (0.2-1.3) mg/dL AST (17-59) IU/L ALT (<50) IU/L Alkaline Phosphatase (38-126) U/L Total Creatine Kinase (55-170) U/L CK-MB (CK-2) CK-MB (CK-2) Rel Index Troponin I (0.01-0.034) ng/mL NT-Pro-B Natriuret Pep (<450) pg/mL Total Protein (6.3-8.2) g/dL Albumin (3.5-5.0) g/dL Globulin (1.7-4.1) g/dL Albumin/Globulin Ratio (1.0-2.8) Lipase (23-300) U/L Procalcitonin 0.16 (<0.5) ng/mL Blood Type O Positive Imaging Data Chest x-ray: Radiologist's Impression: [address] [address] XRay Report Signed Patient: Ady Lombardo MR#: [id number] : 1935 Acct:[id number] Age/Sex: 86 / M Date of Service: 06/10/22 Loc: ED Accession Number: [id number] ?? Procedure: XR chest 1V Ordering Provider: Jacqueline Chawla D.O. PROCEDURE:? XR CHEST 1V ? INDICATIONS:? short of breath ? TECHNIQUE:? One view of the chest was acquired.? ? COMPARISON:? [facility], CT, CT CHEST WO CON, 11/24/2019, 11:25.? [facility], CR, XR CHEST 2V, 07/22/2019, 10:08.? [facility], CR, XR CHEST 1V, 03/03/2020, 21:48. ? FINDINGS:? ? Surgical changes and devices:? Right axillary clips are seen. ? Lungs and pleura:? An incomplete inspiratory result is noted, causing a crowded appearance to the lung markings.? No focal infiltrates are seen.? No pneumothorax or significant pleural effusions are seen. ? ? Mediastinum:? The cardiac contours are within normal limits. The aorta demonstrates calcification and tortuosity. ? Bones and chest wall:? Age-appropriate bony degenerative changes are seen.? No suspicious bony lesions.? Remote right rib fractures can be seen.? Overlying soft tissues appear unremarkable.? ? IMPRESSION:? ? Limited portable chest examination, without a significant cardiopulmonary abnormality identified.? Incidental note is made of: Right axillary clips Remote right rib fractures ? Dictated by: David Biggs M.D. on 06/10/2022 at 10:56 ?? CT scan - chest: Radiologist's Impression: ient: Ady Lombardo MR#: [id number] : 1935 Acct:[id number] Age/Sex: 86 / M Date of Service: 06/10/22 Loc: 90E-1 Accession Number: [id number] ?? Procedure: CT angio chest PE protocol Ordering Provider: Jacqueline Chawla D.O. PROCEDURE:? CT ANGIO CHEST PE PROTOCOL ? INDICATIONS:? Short of breath, new onset afib cancer ? TECHNIQUE:? After the administration of intravenous contrast, 2 mm thick sections acquired from the pulmonary apices to the posterior costophrenic angles.? 3-dimensional maximum intensity projection (MIP) coronal and sagittal reformats were then acquired through the thorax.? For radiation dose reduction, the following was used:? automated exposure control, adjustment of mA and/or kV according to patient size.? ? COMPARISON:? [facility], CT, CT CHEST WO CON, 11/24/2019, 11:25.? [facility], CT, CT HEAD/BRAIN WO CON, 06/10/2022, 11:07.? [facility], CR, XR CHEST 1V, 06/10/2022, 10:21. ? FINDINGS:? Image quality:? The inferior most portions of the lung are not included within the field of view of this study. ? Pulmonary arteries:? Pulmonary arteries are normal in size, and demonstrate no intraluminal filling defects to suggest central pulmonary embolism.? ? Lungs and pleura:? Centrilobular emphysematous changes are seen. These are more prominent at the lung apices than at the lung bases.? Mild dependent atelectasis can be seen.? No pleural effusions or pneumothorax.? Central and peripheral airways are patent.? Areas of pleural calcification are seen. ? Mediastinum:? Heart size is normal, without pericardial effusion.? No mediastinal or hilar adenopathy.? Thoracic aorta is normal in caliber and enhancement.? Esophagus is normal in caliber, without hiatal hernia.? ? Bones and chest wall:? No suspicious bony lesions.? Remote appearing right anterolateral rib fractures are seen.? No acute rib fractures are detected.? Age-appropriate bony degenerative changes are seen.? Accentuated thoracic kyphosis is seen.? ? Thyroid gland demonstrates no significant abnormality.? No axillary or supraclavicular adenopathy.? ? Abdomen:? Visualized upper abdominal solid organs appear normal in the early arterial phase of enhancement.? IMPRESSION:? No findings of pulmonary embolism can be seen. ? ? ? Incidental note is made of: Pleural calcification.? Please correlate with a history of asbestos exposure.? Remote right anterolateral rib fractures ? Dictated by: David Biggs M.D. on 06/10/2022 at 12:17 ? ? CT scan - head: Radiologist's Impression: Signed Patient: Ady Lombardo MR#: [id number] : 1935 Acct:[id number] Age/Sex: 86 / M Date of Service: 06/10/22 Loc: 90E-1 Accession Number: [id number] ?? Procedure: CT head/brain wo con Ordering Provider: Jacqueline Chawla D.O. PROCEDURE:? CT HEAD/BRAIN WO CON ? INDICATIONS:? platelets 3. r/o bleed ? TECHNIQUE:? Noncontrast 4.5 mm thick angled axial sections acquired from the foramen magnum to the vertex, with coronal and sagittal reformats.? For radiation dose reduction, the following was used:? automated exposure control, adjustment of mA and/or kV according to patient size.? ? COMPARISON:? None. ? FINDINGS:? Image quality:? Excellent.? ? CSF spaces:? Basal cisterns are patent.? No extra-axial fluid collections.? The ventricles are symmetric in size and shape.? ? Brain:? No intracranial bleeds or masses.? There is cerebral volume loss for age, with resultant ventricular and sulcal prominence.? There are periventricular and deep white matter chronic small vessel ischemic changes.? There is intracranial internal carotid artery atherosclerosis.? ? Skull and face:? Calvarium and visualized facial bones appear intact, without suspicious lesions.? ? Sinuses:? Visualized sinuses and mastoids are clear.? ? IMPRESSION:? No acute finding. ? ? Dictated by: Shin Kerr M.D. on 06/10/2022 at 11:45 ? ? ECG Data Interpretation: Atrial fibrillation rate [address] changes new from previous EKG MDM Narrative Medical decision making narrative: Patient is found to be in new onset atrial fibrillation with RVR. He received off DuoNeb treatment which didn't seem to help his breathing much. He actually is not hypoxic. Heart rate in the 120s to 130s. He is found to be thrombocytopenic with platelets of 3. Patient is not a candidate for cardioversion difficulty telling when he went into atrial fibrillation might be last night however cannot confirm. He also not indicative for anticoagulation due to severe thrombocytopenia 1100 Dr. Adams, states that we can do a platelet transfusion. States that for the ITP he needs 60 mg of prednisone twice a day for 2 weeks and then taper off Dr. Moore in ED to see and evaluate patient. Diltiazem drip started. Discharge Plan Departure Patient Disposition: Admitted As Inpatient Clinical Impression: Acute ITP, Atrial fibrillation with rapid ventricular response Admit Date/Time: 06/10/22 11:47 Admit Provider: Brian Moore
--- NOTE | 2022-06-10 10:10 | DI.RAD.S_ITS ---
PROCEDURE: XR CHEST 1V INDICATIONS: short of breath TECHNIQUE: One view of the chest was acquired. COMPARISON: [facility], CT, CT CHEST WO CON, 11/24/2019, 11:25. [facility], CR, XR CHEST 2V, 07/22/2019, 10:08. [facility], CR, XR CHEST 1V, 03/03/2020, 21:48. FINDINGS: Surgical changes and devices: Right axillary clips are seen. Lungs and pleura: An incomplete inspiratory result is noted, causing a crowded appearance to the lung markings. No focal infiltrates are seen. No pneumothorax or significant pleural effusions are seen. Mediastinum: The cardiac contours are within normal limits. The aorta demonstrates calcification and tortuosity. Bones and chest wall: Age-appropriate bony degenerative changes are seen. No suspicious bony lesions. Remote right rib fractures can be seen. Overlying soft tissues appear unremarkable. IMPRESSION: Limited portable chest examination, without a significant cardiopulmonary abnormality identified. Incidental note is made of: Right axillary clips Remote right rib fractures Dictated by: David Biggs M.D. on 06/10/2022 at 10:56 Approved by: David Biggs M.D. on 06/10/2022 at 10:59
[2022-06-10 10:47] LABS: INR 1.1 (0.9-1.3); Prothrombin Time 12.7 SECONDS (10.1-12.7)
[2022-06-10 10:50] LABS: PTT Partial Thromboplastin Tim 29 SECONDS (26.4-36.2)
[2022-06-10 10:51] LABS: Basophils Absolute Auto 100 /uL (0-100); Eosinophils Absolute Auto 200 /uL (0-450); Eosinophils Percent Auto 1.6 % (2-4); Hematocrit 28.8 % (41-53); Hemoglobin 9.6 g/dL (13.5-17.5); Lymphocytes Absolute Auto 900 /uL (1100-4500); Lymphocytes Percent Auto 8.7 % (25-40); Mean Corpuscular HGB Conc 33.4 % (30-36); Mean Corpuscular Hemoglobin 28.1 PG (26-34); Monocytes Absolute Auto 800 /uL (0-900); Neutrophils Absolute Auto 8100 /uL (1500-7000); Neutrophils Percent Auto 80.7 % (50-75); Red Blood Cell Count 3.42 X10^6/uL (4.5-5.9); Red Cell Distribution Width 16.4 % (11.6-14.8)
[2022-06-10 10:52] LABS: Alanine Aminotransferase 15 IU/L (<50); Albumin Globulin Ratio 1.5 (1.0-2.8); Alkaline Phosphatase 62 U/L (38-126); Aspartate Aminotransferase 21 IU/L (17-59); Bilirubin Total 0.5 mg/dL (0.2-1.3); Blood Urea Nitrogen 25 mg/dL (9-20); Calcium 9.1 mg/dL (8.4-10.2); Carbon Dioxide 22 mmol/L (22-32); Chloride 103 mmol/L (98-107); Creatine Kinase 48 U/L (55-170); Estimated Glomerular Filt Rate > 60 mL/min (>60); Globulin 2.6 g/dL (1.7-4.1); Glucose 128 mg/dL (80-110); HEMOLYSIS < 15 (0-50); Lipase 38 U/L (23-300); Potassium 3.7 mmol/L (3.4-5.1); Sodium 136 mmol/L (137-145); Total Protein 6.6 g/dL (6.3-8.2)
[2022-06-10 10:56] LABS: Add Manual Diff / Slide Review SLIDE REVIEW; Platelet Count 3 X10^3/uL (150-400)
[2022-06-10 10:57] LABS: Anisocytosis 1+
--- NOTE | 2022-06-10 11:02 | DI.CT.S_ITS ---
PROCEDURE: CT HEAD/BRAIN WO CON INDICATIONS: platelets 3. r/o bleed TECHNIQUE: Noncontrast 4.5 mm thick angled axial sections acquired from the foramen magnum to the vertex, with coronal and sagittal reformats. For radiation dose reduction, the following was used: automated exposure control, adjustment of mA and/or kV according to patient size. COMPARISON: None. FINDINGS: Image quality: Excellent. CSF spaces: Basal cisterns are patent. No extra-axial fluid collections. The ventricles are symmetric in size and shape. Brain: No intracranial bleeds or masses. There is cerebral volume loss for age, with resultant ventricular and sulcal prominence. There are periventricular and deep white matter chronic small vessel ischemic changes. There is intracranial internal carotid artery atherosclerosis. Skull and face: Calvarium and visualized facial bones appear intact, without suspicious lesions. Sinuses: Visualized sinuses and mastoids are clear. IMPRESSION: No acute finding. Dictated by: Shin Kerr M.D. on 06/10/2022 at 11:45 Approved by: Shin Kerr M.D. on 06/10/2022 at 12:06
[2022-06-10 11:05] LABS: NT-proBNP (BNP-Adult 18+) 845 pg/mL (<450); Troponin I 0.028 ng/mL (0.01-0.034)
[2022-06-10 11:09] LABS: Procalcitonin 0.16 ng/mL (<0.5)
[2022-06-10] MEDS: dilTIAZem 5 MG/ML SDV 10 MG IV (11:28)
--- NOTE | 2022-06-10 11:30 | DI.CT.S_ITS ---
PROCEDURE: CT ANGIO CHEST PE PROTOCOL INDICATIONS: Short of breath, new onset afib cancer TECHNIQUE: After the administration of intravenous contrast, 2 mm thick sections acquired from the pulmonary apices to the posterior costophrenic angles. 3-dimensional maximum intensity projection (MIP) coronal and sagittal reformats were then acquired through the thorax. For radiation dose reduction, the following was used: automated exposure control, adjustment of mA and/or kV according to patient size. COMPARISON: [facility], CT, CT CHEST WO CON, 11/24/2019, 11:25. [facility], CT, CT HEAD/BRAIN WO CON, 06/10/2022, 11:07. [facility], CR, XR CHEST 1V, 06/10/2022, 10:21. FINDINGS: Image quality: The inferior most portions of the lung are not included within the field of view of this study. Pulmonary arteries: Pulmonary arteries are normal in size, and demonstrate no intraluminal filling defects to suggest central pulmonary embolism. Lungs and pleura: Centrilobular emphysematous changes are seen. These are more prominent at the lung apices than at the lung bases. Mild dependent atelectasis can be seen. No pleural effusions or pneumothorax. Central and peripheral airways are patent. Areas of pleural calcification are seen. Mediastinum: Heart size is normal, without pericardial effusion. No mediastinal or hilar adenopathy. Thoracic aorta is normal in caliber and enhancement. Esophagus is normal in caliber, without hiatal hernia. Bones and chest wall: No suspicious bony lesions. Remote appearing right anterolateral rib fractures are seen. No acute rib fractures are detected. Age-appropriate bony degenerative changes are seen. Accentuated thoracic kyphosis is seen. Thyroid gland demonstrates no significant abnormality. No axillary or supraclavicular adenopathy. Abdomen: Visualized upper abdominal solid organs appear normal in the early arterial phase of enhancement. IMPRESSION: No findings of pulmonary embolism can be seen. Incidental note is made of: Pleural calcification. Please correlate with a history of asbestos exposure. Remote right anterolateral rib fractures Dictated by: David Biggs M.D. on 06/10/2022 at 12:17 Approved by: David Biggs M.D. on 06/10/2022 at 12:20
[2022-06-10 11:39] LABS: Lactate (Lactic Acid) 2.6 mmol/L (0.7-2.1)
[2022-06-10] MEDS: predniSONE 20 MG TABLET 60 MG PO ×2 (12:30→20:57)
[2022-06-10] MEDS: METOPROLOL IR 25 MG TABLET 12.5 MG PO (12:31)
[2022-06-10] MEDS: ALBUTEROL/IPRATROPIUM 3 ML AMPUL INH (13:01)
[2022-06-10 13:11] LABS: Reflexed Lactate in 2 Hours Y
--- NOTE | 2022-06-10 13:34 | DI.ECHO.S_ITS ---
[facility] +---------+ : : [address] [place] : : : : [id number] : : : : Phone: [phone]+ Echocardiogram Report + + :Name: MARICHUY FOY Study Date: 06/11/2022 Height: 71 in : :[facility] ReadingLocation: Weight: 190 lb : : Gender: Male BSA: 2.1 m2 : :: 1935 Age: 86 yrs BP: 152/74 mmHg: :Reason For Study: ATRIAL FIBRILLATION : :Ordering Physician: CHRIST, : :MONI Performed By: Porsha Rebolledo : :Referring: MONI POLO : + + Interpretation Summary The patient was in atrial fibrillation with heart rates between 78-95 bpm during the exam. The left ventricle is normal in size. The ejection fraction is estimated to be 50-55%. The right ventricle is normal in size and function. The left atrium is severely dilated. There is mild tricuspid regurgitation. The right ventricular systolic pressure is estimated to be at least 31 mmHg based on an estimated right atrial pressure of 8 mm Hg. Procedure: A two-dimensional transthoracic echocardiogram with color flow and Doppler was performed. The study quality was technically adequate. There is no prior echocardiogram noted for this patient. The patient was in atrial fibrillation with heart rates between 78-95 bpm during the exam. Left Ventricle: The left ventricle is normal in size. Left ventricular wall thickness is borderline increased. There is no thrombus. Trabeculae near apex are visualized. No thrombus is observed. The ejection fraction is estimated to be 50-55%. There are no focal wall motion abnormalities. Diastolic function could not be accurately assessed due to atrial fibrillation. Right Ventricle: The right ventricle is normal in size and function. Atria: The left atrium is severely dilated. Right atrial size is normal. There is no Doppler evidence for an interatrial shunt. The interatrial septum bows toward right atrium consistent with elevated left atrial pressure. Mitral Valve: The mitral valve is normal in structure and function. There is systolic anterior motion of the chordal apparatus. There is trace mitral regurgitation. Aortic Valve: The aortic valve is trileaflet. The aortic valve opens well. There is no aortic valve stenosis. There is trace aortic regurgitation. Tricuspid Valve: The tricuspid valve is normal. There is mild tricuspid regurgitation. The right ventricular systolic pressure is estimated to be at least 31 mmHg based on an estimated right atrial pressure of 8 mm Hg. Pulmonic Valve: The pulmonic valve is not well visualized. There is no pulmonic valvular regurgitation. Great Vessels: The aortic root is normal size. The ascending aorta could not be visualized. The IVC is dilated (diameter is greater than 2.1 cm) yet it collapses greater than 50% with a sniff. This suggests a right atrial pressure of 8 mm Hg. Pericardium/ Pleura There is no pericardial effusion. There is an anterior echo-free space consistent with a fat pad. There is no pleural effusion. MMode/2D Measurements & Calculations LVIDd: 4.6 cm LVOT diam: 2.3 cm LVIDs: 3.3 cm Ao root diam: 4.0 cm FS: 26.9 % EPSS: 1.4 cm IVSd: 0.88 cm LVPWd: 1.1 cm LV palma. diameter/BSA (cm/m^2): 2.2 LV sys. diameter/BSA (cm/m^2): 1.6 LA A2 area: 32.9 cm2 RA long axis: 6.1 cm LA A4 area: 30.8 cm2 RA area: 21.3 cm2 LA length (vol): 6.8 cm RA vol: 62.7 ml LA vol: 127.2 ml RA : 30.4 ml/m2 LA vol index: 61.6 ml/m2 IVC diam: 2.2 cm RVD1 (basal): 3.9 cm RVD2 (mid): 3.0 cm TAPSE: 1.8 cm Doppler Measurements & Calculations Ao V2 max: 96.1 cm/sec LVOT Max Hossein: 70.6 cm/sec Ao V2 mean: 75.0 cm/sec LV V1 max P.0 mmHg Ao max P.7 mmHg LV V1 VTI: 14.0 cm Ao mean P.4 mmHg HERNÁN(I,D): 2.8 cm2 Ao V2 VTI: 20.5 cm HERNÁN(V,D): 3.0 cm2 sev ratio: 0.69 HERNÁN indexed to BSA (cm^2/m^2): 1.4 MV E max hossein: 85.8 cm/sec TR max hossein: 241.6 cm/sec MV A max hossein: 2.0 cm/sec TR max P.4 mmHg MV E/A: 44.0 PA V2 max: 72.1 cm/sec Med Peak E' Hossein: 10.8 cm/sec PA V2 mean: 53.2 cm/sec E/E' med: 7.9 PA mean P.3 mmHg Lat Peak E' Hossein: 11.9 cm/sec PA pr(Accel): 27.6 mmHg E/E' lat: 7.2 E/e' average: 7.6 MV dec time: 0.28 sec SV(LVOT): 57.7 ml Reading Physician:11:05 AM
[2022-06-10 13:46] LABS: COVID19 -Nasal RAPID Negative (Negative)
[2022-06-10 14:05] LABS: Lactate 2HR (Lactic Acid Rflx) 2.4 mmol/L (0.7-2.1)
[2022-06-10] MEDS: DILTIAZEM 125 MG/125 ML PIGGYBACK IV (14:08)
--- NOTE | 2022-06-10 18:38 | P.HP_ITS ---
History of Present Illness History of Present Illness Date Patient Seen: 06/10/22 Time Patient Seen: 18:38 Date of Onset of Symptoms: 06/09/22 Chief complaint: Can't breathe Narrative: PATIENT IS AN 86-YEAR-OLD MALE WHO PRESENTS WITH SHORTNESS OF BREATH. HAD ACUTE ONSET LAST NIGHT. NO CHEST PAIN. BUT FELT IF HE COULD HARDLY SLEEP. HAD NO OTHER SIGNIFICANT CHANGE. PATIENT HAS NOT HAD ANY PREVIOUS CARDIAC ISSUE. 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 STARTED TREATMENT. 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 WAS PLACED ON STEROIDS AND HAD BEEN ON STEROID WEAN. LAST NIGHT WAS SITTING AND HOHMANN BEAKING INCREASING SHORTNESS OF BREATH. PATIENT HAS HAD A HISTORY OF COPD AND HAS BEEN ON TREATMENT. HAS SEEN MULTIPLE PULMONARY PROVIDERS. AND HAS DONE WELL. HE HAS NO OTHER SIGNIFICANT CHANGE OR COMPLAINT. HE HAS HAD NO FEVERS CHILLS HEADACHES VISUAL SYMPTOMS NUMBNESS TINGLING WEAKNESS. SHE HAS NOT HAD ANY CHEST PAIN. NO PREVIOUS HISTORY OF CARDIAC DISEASE. PAST MEDICAL HISTORY IS SIGNIFICANT FOR COPD. ITP. Patient History Medical History Malignant melanoma, metastatic Melanoma Shortness of Breath Tricompartment osteoarthritis of right knee Surgical History S/P total knee arthroplasty Family & Social History Social History: Prior Living Arrangements House Safety & Behavioral: Feels Safe in Current Yes Environment Been Physically Hurt or No Threatened By a Person Tobacco & Substance use: Smoking Status Former smoker alcohol intake current alcohol intake frequency 0-2 drinks per day Substance Use Type does not use Meds Home Medications and Allergies Home Medications Medication Instructions Recorded Confirmed Type acetaminophen 500 mg tablet 1,000 mg PO TID ##0 12/08/17 05/21/22 History (Tylenol Extra Strength) prednisone 5 mg tablet,delayed 10 mg PO DAILY #100 tabs 05/14/22 06/10/22 Rx release budesonide-formoterol HFA 80 1 puff inhalation 06/10/22 History mcg-4.5 mcg/actuation aerosol inhaler (Symbicort) Allergies Allergy/AdvReac Type Severity Reaction Status Date / Time No Known Allergies Allergy Verified 06/10/22 18:44 Review of Systems Review of Systems Narrative: SEE ABOVE. Exam Vital Signs (past 8 hours): - 06/10/22 11:28 06/10/22 11:00 06/10/22 11:16 Temperature Pulse Rate 127 H 135 H 127 H Respiratory Rate 36 H 36 H Blood Pressure 132/80 Pulse Oximetry 99 100 Oxygen Flow Rate 06/10/22 11:16 06/10/22 11:30 06/10/22 11:30 Temperature Pulse Rate 130 H Respiratory Rate 21 Blood Pressure 150/67 H 132/80 Pulse Oximetry 99 Oxygen Flow Rate 06/10/22 11:35 06/10/22 11:35 06/10/22 11:48 Temperature Pulse Rate 104 H 104 H Respiratory Rate 21 30 H Blood Pressure 144/63 H Pulse Oximetry 98 Oxygen Flow Rate 06/10/22 11:48 06/10/22 12:00 06/10/22 12:00 Temperature Pulse Rate 112 H Respiratory Rate 27 H Blood Pressure 152/74 H 149/76 H Pulse Oximetry 100 Oxygen Flow Rate 06/10/22 12:30 06/10/22 12:30 06/10/22 14:15 Temperature 97.2 F L Pulse Rate 111 H 106 H Respiratory Rate 26 H 18 Blood Pressure 148/70 H 139/64 Pulse Oximetry 100 Oxygen Flow Rate 06/10/22 14:35 06/10/22 13:00 06/10/22 13:00 Temperature 97.8 F Pulse Rate 107 H 115 H Respiratory Rate 18 31 H Blood Pressure 143/68 H 170/89 H Pulse Oximetry 96 Oxygen Flow Rate 06/10/22 13:30 06/10/22 13:30 06/10/22 14:00 Temperature Pulse Rate 125 H 107 H Respiratory Rate 22 26 H Blood Pressure 202/86 H Pulse Oximetry 93 94 Oxygen Flow Rate 06/10/22 14:01 06/10/22 14:01 06/10/22 15:18 Temperature Pulse Rate 114 H 103 H Respiratory Rate 28 H 23 Blood Pressure 157/74 H Pulse Oximetry 100 99 Oxygen Flow Rate 06/10/22 15:20 06/10/22 15:20 06/10/22 15:22 Temperature Pulse Rate 104 H 96 H Respiratory Rate 24 21 Blood Pressure 126/63 Pulse Oximetry 97 100 Oxygen Flow Rate 06/10/22 15:24 06/10/22 15:24 06/10/22 15:26 Temperature Pulse Rate 99 H 99 H Respiratory Rate 22 21 Blood Pressure 145/63 H Pulse Oximetry 100 99 Oxygen Flow Rate 06/10/22 15:28 06/10/22 15:28 06/10/22 15:30 Temperature Pulse Rate 94 H 106 H Respiratory Rate 24 21 Blood Pressure 139/63 Pulse Oximetry 100 99 Oxygen Flow Rate 06/10/22 15:32 06/10/22 15:32 06/10/22 15:34 Temperature Pulse Rate 100 H 98 H Respiratory Rate 20 17 Blood Pressure 134/68 Pulse Oximetry 100 100 Oxygen Flow Rate 06/10/22 15:36 06/10/22 15:36 06/10/22 15:38 Temperature Pulse Rate 103 H 102 H Respiratory Rate 18 15 Blood Pressure 128/62 Pulse Oximetry 100 100 Oxygen Flow Rate 06/10/22 15:40 06/10/22 15:40 06/10/22 15:42 Temperature Pulse Rate 96 H 104 H Respiratory Rate 16 24 Blood Pressure 126/63 Pulse Oximetry 100 100 Oxygen Flow Rate 06/10/22 15:44 06/10/22 15:44 06/10/22 15:46 Temperature Pulse Rate 104 H 105 H Respiratory Rate 24 24 Blood Pressure 135/68 Pulse Oximetry 100 100 Oxygen Flow Rate 06/10/22 15:48 06/10/22 15:48 06/10/22 15:50 Temperature Pulse Rate 98 H 98 H Respiratory Rate 17 24 Blood Pressure 128/69 Pulse Oximetry 100 100 Oxygen Flow Rate 06/10/22 15:52 06/10/22 15:52 06/10/22 15:54 Temperature Pulse Rate 103 H 102 H Respiratory Rate 24 22 Blood Pressure 120/57 L Pulse Oximetry 99 100 Oxygen Flow Rate 06/10/22 15:56 06/10/22 15:56 06/10/22 15:58 Temperature Pulse Rate 99 H 97 H Respiratory Rate 22 17 Blood Pressure 135/63 Pulse Oximetry 100 100 Oxygen Flow Rate 06/10/22 16:00 06/10/22 16:00 06/10/22 16:02 Temperature Pulse Rate 102 H 99 H Respiratory Rate 11 L 24 Blood Pressure 125/60 Pulse Oximetry 100 100 Oxygen Flow Rate 06/10/22 16:04 06/10/22 16:04 06/10/22 16:06 Temperature Pulse Rate 99 H 98 H Respiratory Rate 15 12 Blood Pressure 127/60 Pulse Oximetry 100 100 Oxygen Flow Rate 06/10/22 16:08 06/10/22 16:08 06/10/22 16:10 Temperature Pulse Rate 99 H 106 H Respiratory Rate 17 24 Blood Pressure 131/62 Pulse Oximetry 100 100 Oxygen Flow Rate 06/10/22 16:12 06/10/22 16:12 06/10/22 16:14 Temperature Pulse Rate 98 H 99 H Respiratory Rate 23 24 Blood Pressure 124/64 Pulse Oximetry 100 100 Oxygen Flow Rate 06/10/22 16:16 06/10/22 16:17 06/10/22 16:17 Temperature Pulse Rate 107 H 107 H Respiratory Rate 18 25 H Blood Pressure 146/63 H Pulse Oximetry 99 99 Oxygen Flow Rate 06/10/22 16:18 06/10/22 16:20 06/10/22 16:20 Temperature Pulse Rate 102 H 102 H Respiratory Rate 21 23 Blood Pressure 129/65 Pulse Oximetry 100 100 Oxygen Flow Rate 06/10/22 16:22 06/10/22 16:24 06/10/22 16:24 Temperature Pulse Rate 104 H 104 H Respiratory Rate 21 28 H Blood Pressure 132/69 Pulse Oximetry 100 100 Oxygen Flow Rate 06/10/22 16:26 06/10/22 16:28 06/10/22 16:30 Temperature Pulse Rate 102 H 116 H Respiratory Rate 29 H 30 H Blood Pressure 157/78 H Pulse Oximetry 100 98 Oxygen Flow Rate 06/10/22 16:30 06/10/22 16:32 06/10/22 16:44 Temperature Pulse Rate 110 H 111 H 129 H Respiratory Rate 28 H 33 H 36 H Blood Pressure Pulse Oximetry 100 95 Oxygen Flow Rate 06/10/22 16:46 06/10/22 16:48 06/10/22 16:50 Temperature Pulse Rate 100 H 107 H 108 H Respiratory Rate 33 H 35 H 35 H Blood Pressure Pulse Oximetry 100 100 98 Oxygen Flow Rate 06/10/22 16:52 06/10/22 16:54 06/10/22 17:07 Temperature 97.8 F Pulse Rate 110 H 101 H 112 H Respiratory Rate 34 H 39 H 24 Blood Pressure 138/81 Pulse Oximetry 99 Oxygen Flow Rate 2 Fraction of Inspired Oxygen 28 Oxygen Delivery Method Nasal Cannula Oxygen Flow Rate 2 Narrative Exam Narrative: ALERT MALE ELDERLY IN NO ACUTE DISTRESS HEENT EXAM IS UNREMARKABLE NECK SUPPLE WITHOUT ADENOPATHY JVD OR BRUITS. LUNGS WITH BASILAR CRACKLES. HEART IS IRREGULAR AND INCREASED RATE. NO MURMURS CLICKS RUBS OR GALLOPS. ABDOMEN IS SOFT POSITIVE BOWEL SOUNDS NONTENDER. EXTREMITIES WITH TRACE TO 1+ EDEMA. WITH NO OTHER CHANGE. NEUROLOGIC EXAM IS NORMAL SKIN WITH MULTIPLE ECCHYMOSIS AREAS BUT NO OTHER CHANGE Objective Labs Result Diagrams: 06/10/22 10:15 06/10/22 10:15 Labs: Laboratory Results - last 24 hr 06/10/22 06/10/22 06/10/22 10:15 10:15 10:15 WBC 10.0 RBC 3.42 L Hgb 9.6 L Hct 28.8 L MCV 84.0 MCH 28.1 MCHC 33.4 RDW 16.4 H Plt Count 3 L* Neut % (Auto) 80.7 H Lymph % (Auto) 8.7 L [place] % (Auto) 8.0 Eos % (Auto) 1.6 L Baso % (Auto) 1.0 Neut # (Auto) 8100 H Lymph # (Auto) 900 L [place] # (Auto) 800 Eos # (Auto) 200 Baso # (Auto) 100 Platelet Estimate RBC Morphology See below Anisocytosis 1+ H PT 12.7 INR 1.1 APTT 29 Sodium 136 L Potassium 3.7 Chloride 103 Carbon Dioxide 22 BUN 25 H Creatinine 1.00 Estimated GFR > 60 BUN/Creatinine Ratio 25.0 H Glucose 128 H Lactate Calcium 9.1 Total Bilirubin 0.5 AST 21 ALT 15 Alkaline Phosphatase 62 Total Creatine Kinase 48 L CK-MB (CK-2) TNP CK-MB (CK-2) Rel Index TNP Troponin I 0.028 NT-Pro-B Natriuret Pep 845 H Total Protein 6.6 Albumin 4.0 Globulin 2.6 Albumin/Globulin Ratio 1.5 Lipase 38 Procalcitonin SARS-CoV-2 (PCR) Blood Type 06/10/22 06/10/22 06/10/22 10:15 10:15 10:34 WBC RBC Hgb Hct MCV MCH MCHC RDW Plt Count Neut % (Auto) Lymph % (Auto) [place] % (Auto) Eos % (Auto) Baso % (Auto) Neut # (Auto) Lymph # (Auto) [place] # (Auto) Eos # (Auto) Baso # (Auto) Platelet Estimate RBC Morphology Anisocytosis PT INR APTT Sodium Potassium Chloride Carbon Dioxide BUN Creatinine Estimated GFR BUN/Creatinine Ratio Glucose Lactate 2.6 H Calcium Total Bilirubin AST ALT Alkaline Phosphatase Total Creatine Kinase CK-MB (CK-2) CK-MB (CK-2) Rel Index Troponin I NT-Pro-B Natriuret Pep Total Protein Albumin Globulin Albumin/Globulin Ratio Lipase Procalcitonin 0.16 SARS-CoV-2 (PCR) Blood Type O Positive 06/10/22 06/10/22 12:40 13:44 WBC RBC Hgb Hct MCV MCH MCHC RDW Plt Count Neut % (Auto) Lymph % (Auto) [place] % (Auto) Eos % (Auto) Baso % (Auto) Neut # (Auto) Lymph # (Auto) [place] # (Auto) Eos # (Auto) Baso # (Auto) Platelet Estimate RBC Morphology Anisocytosis PT INR APTT Sodium Potassium Chloride Carbon Dioxide BUN Creatinine Estimated GFR BUN/Creatinine Ratio Glucose Lactate 2.4 H Calcium Total Bilirubin AST ALT Alkaline Phosphatase Total Creatine Kinase CK-MB (CK-2) CK-MB (CK-2) Rel Index Troponin I NT-Pro-B Natriuret Pep Total Protein Albumin Globulin Albumin/Globulin Ratio Lipase Procalcitonin SARS-CoV-2 (PCR) Negative Blood Type Assessment & Plan Assessment & Plan narrative: NEW ONSET AFIB WITH RVR. WILL ADMIT TO ICU. WILL BEGIN CARDIZEM DRIP. PATIENT OVERALL STABLE. NO EVIDENCE OF CARDIAC DAMAGE. PROBABLY RELATIVELY NEW ONSET. UNABLE TO COVER WITH ANTICOAGULATION SECONDARY TO HIS LOW PLATELETS. WILL SEE HOW THAT GOES. WILL OBTAIN TSH ALSO AT NEXT BLOOD DRAW. ECHO AND FOLLOW FROM THERE. MAY NEED CARDIOLOGY CONSULT. DEPENDING ON HOW THINGS GO. ITP. PER [facility] ONCOLOGIST. 60 MG PREDNISONE B.I.D. WAS GIVEN PLATELETS AND WILL SEE WHERE HE IS AT TOMORROW. MAY NEED MORE DEPENDING ON HOW THINGS GO. SEE HISTORY OF COPD. STABLE AT THIS TIME. USUAL MEDS. DYSPNEA. I THINK THIS IS ALL SECONDARY TO HIS ONSET OF AFIB. WILL SEE HOW THINGS GO. MALIGNANT MELANOMA PER ONCOLOGY. NO TREATMENT AT THIS TIME. GI PROTECTION PLACED ON OMEPRAZOLE SECONDARY TO LOW PLATELETS. DVT PROPHYLAXIS. NO TREATMENT EXCEPT MECHANICAL AT THIS TIME. DISPOSITION. WILL PROBABLY BE HERE AT LEAST 2 DAYS WILL SEE HOW THINGS GO. Time Spent With Patient Critical Care time: I spent a total of [] minutes of critical care time on this patient's care today; this time is exclusive of procedural time.
--- NOTE | 2022-06-10 20:31 | P.TELICUCN_ITS ---
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 No reported chest pain, N/V, fever/chills. CTA PE study showed no evidence of PE. HR notable for A fib w/ RVR. Started on cardiazem infusion and admitted to ICU for further management. In ICU, PLT notable for 3 -> transfused 1 U PLT. On cardiazem infusion 10 mg/hr w/ HR ~90s. Added metoprolol 25 mg BID. COUNTS INCLUDE 234 BEDS AT THE [facility] Medical History Malignant melanoma, metastatic Melanoma Shortness of Breath Tricompartment osteoarthritis of right knee Surgical History S/P total knee arthroplasty Social History Smoking Status: Former smoker alcohol intake: current Current Medications Current Medications Medications: Home Medications acetaminophen 500 mg tablet (Tylenol Extra Strength) 1,000 mg PO TID ##0 12/08/17 [History Confirmed 05/21/22] prednisone 5 mg tablet,delayed release 10 mg PO DAILY #100 tabs 05/14/22 [Rx Confirmed 06/10/22] budesonide-formoterol HFA 80 mcg-4.5 mcg/actuation aerosol inhaler (Symbicort) 1 puff inhalation 06/10/22 [History] Visit Medications (administered) Generic Name Dose Route Start Last Admin Trade Name Freq PRN Reason Stop Dose Admin DILTIAZEM 125 mg in 125 mls @ 5 mls/hr 06/10/22 13:39 06/10/22 18:00 Diltiazem 125 Mg/125 Ml-D5w IV 06/11/22 14:38 10 mg/hr TITRATE ONE 10 mls/hr Titration Protocol 5 MG/HR Exam Vital Signs (past 8 hours): - 06/10/22 14:15 06/10/22 14:35 06/10/22 13:00 Temperature 97.2 F L 97.8 F Pulse Rate 106 H 107 H Respiratory Rate 18 18 Blood Pressure 139/64 143/68 H 170/89 H Pulse Oximetry Oxygen Delivery Method Oxygen Flow Rate 06/10/22 13:00 06/10/22 13:30 06/10/22 13:30 Temperature Pulse Rate 115 H 125 H Respiratory Rate 31 H 22 Blood Pressure 202/86 H Pulse Oximetry 96 93 Oxygen Delivery Method Oxygen Flow Rate 06/10/22 14:00 06/10/22 14:01 06/10/22 14:01 Temperature Pulse Rate 107 H 114 H Respiratory Rate 26 H 28 H Blood Pressure 157/74 H Pulse Oximetry 94 100 Oxygen Delivery Method Oxygen Flow Rate 06/10/22 15:18 06/10/22 15:20 06/10/22 15:20 Temperature Pulse Rate 103 H 104 H Respiratory Rate 23 24 Blood Pressure 126/63 Pulse Oximetry 99 97 Oxygen Delivery Method Oxygen Flow Rate 06/10/22 15:22 06/10/22 15:24 06/10/22 15:24 Temperature Pulse Rate 96 H 99 H Respiratory Rate 21 22 Blood Pressure 145/63 H Pulse Oximetry 100 100 Oxygen Delivery Method Oxygen Flow Rate 06/10/22 15:26 06/10/22 15:28 06/10/22 15:28 Temperature Pulse Rate 99 H 94 H Respiratory Rate 21 24 Blood Pressure 139/63 Pulse Oximetry 99 100 Oxygen Delivery Method Oxygen Flow Rate 06/10/22 15:30 06/10/22 15:32 06/10/22 15:32 Temperature Pulse Rate 106 H 100 H Respiratory Rate 21 20 Blood Pressure 134/68 Pulse Oximetry 99 100 Oxygen Delivery Method Oxygen Flow Rate 06/10/22 15:34 06/10/22 15:36 06/10/22 15:36 Temperature Pulse Rate 98 H 103 H Respiratory Rate 17 18 Blood Pressure 128/62 Pulse Oximetry 100 100 Oxygen Delivery Method Oxygen Flow Rate 06/10/22 15:38 06/10/22 15:40 06/10/22 15:40 Temperature Pulse Rate 102 H 96 H Respiratory Rate 15 16 Blood Pressure 126/63 Pulse Oximetry 100 100 Oxygen Delivery Method Oxygen Flow Rate 06/10/22 15:42 06/10/22 15:44 06/10/22 15:44 Temperature Pulse Rate 104 H 104 H Respiratory Rate 24 24 Blood Pressure 135/68 Pulse Oximetry 100 100 Oxygen Delivery Method Oxygen Flow Rate 06/10/22 15:46 06/10/22 15:48 06/10/22 15:48 Temperature Pulse Rate 105 H 98 H Respiratory Rate 24 17 Blood Pressure 128/69 Pulse Oximetry 100 100 Oxygen Delivery Method Oxygen Flow Rate 06/10/22 15:50 06/10/22 15:52 06/10/22 15:52 Temperature Pulse Rate 98 H 103 H Respiratory Rate 24 24 Blood Pressure 120/57 L Pulse Oximetry 100 99 Oxygen Delivery Method Oxygen Flow Rate 06/10/22 15:54 06/10/22 15:56 06/10/22 15:56 Temperature Pulse Rate 102 H 99 H Respiratory Rate 22 22 Blood Pressure 135/63 Pulse Oximetry 100 100 Oxygen Delivery Method Oxygen Flow Rate 06/10/22 15:58 06/10/22 16:00 06/10/22 16:00 Temperature Pulse Rate 97 H 102 H Respiratory Rate 17 11 L Blood Pressure 125/60 Pulse Oximetry 100 100 Oxygen Delivery Method Oxygen Flow Rate 06/10/22 16:02 06/10/22 16:04 06/10/22 16:04 Temperature Pulse Rate 99 H 99 H Respiratory Rate 24 15 Blood Pressure 127/60 Pulse Oximetry 100 100 Oxygen Delivery Method Oxygen Flow Rate 06/10/22 16:06 06/10/22 16:08 06/10/22 16:08 Temperature Pulse Rate 98 H 99 H Respiratory Rate 12 17 Blood Pressure 131/62 Pulse Oximetry 100 100 Oxygen Delivery Method Oxygen Flow Rate 06/10/22 16:10 06/10/22 16:12 06/10/22 16:12 Temperature Pulse Rate 106 H 98 H Respiratory Rate 24 23 Blood Pressure 124/64 Pulse Oximetry 100 100 Oxygen Delivery Method Oxygen Flow Rate 06/10/22 16:14 06/10/22 16:16 06/10/22 16:17 Temperature Pulse Rate 99 H 107 H 107 H Respiratory Rate 24 18 25 H Blood Pressure Pulse Oximetry 100 99 99 Oxygen Delivery Method Oxygen Flow Rate 06/10/22 16:17 06/10/22 16:18 06/10/22 16:20 Temperature Pulse Rate 102 H Respiratory Rate 21 Blood Pressure 146/63 H 129/65 Pulse Oximetry 100 Oxygen Delivery Method Oxygen Flow Rate 06/10/22 16:20 06/10/22 16:22 06/10/22 16:24 Temperature Pulse Rate 102 H 104 H Respiratory Rate 23 21 Blood Pressure 132/69 Pulse Oximetry 100 100 Oxygen Delivery Method Oxygen Flow Rate 06/10/22 16:24 06/10/22 16:26 06/10/22 16:28 Temperature Pulse Rate 104 H 102 H 116 H Respiratory Rate 28 H 29 H 30 H Blood Pressure Pulse Oximetry 100 100 98 Oxygen Delivery Method Oxygen Flow Rate 06/10/22 16:30 06/10/22 16:30 06/10/22 16:32 Temperature Pulse Rate 110 H 111 H Respiratory Rate 28 H 33 H Blood Pressure 157/78 H Pulse Oximetry 100 95 Oxygen Delivery Method Oxygen Flow Rate 06/10/22 16:44 06/10/22 16:46 06/10/22 16:48 Temperature Pulse Rate 129 H 100 H 107 H Respiratory Rate 36 H 33 H 35 H Blood Pressure Pulse Oximetry 100 100 Oxygen Delivery Method Oxygen Flow Rate 06/10/22 16:50 06/10/22 16:52 06/10/22 16:54 Temperature Pulse Rate 108 H 110 H 101 H Respiratory Rate 35 H 34 H 39 H Blood Pressure Pulse Oximetry 98 Oxygen Delivery Method Oxygen Flow Rate 06/10/22 17:07 06/10/22 12:58 06/10/22 19:00 Temperature 97.8 F Pulse Rate 112 H Respiratory Rate 24 Blood Pressure 138/81 121/85 Pulse Oximetry 99 Oxygen Delivery Method Nasal Cannula Oxygen Flow Rate 2 06/10/22 19:00 06/10/22 19:30 06/10/22 19:30 Temperature Pulse Rate 102 H 104 H Respiratory Rate 26 H 29 H Blood Pressure 142/78 H Pulse Oximetry 100 99 Oxygen Delivery Method Oxygen Flow Rate 06/10/22 20:00 06/10/22 20:00 Temperature 98.3 F Pulse Rate 107 H Respiratory Rate 25 H Blood Pressure 139/80 Pulse Oximetry 99 Oxygen Delivery Method Oxygen Flow Rate 2 Fraction of Inspired Oxygen 28 Oxygen Delivery Method Nasal Cannula Oxygen Flow Rate 2 Narrative Exam Narrative: NAD. Sitting up in bed. Objective Labs Result Diagrams: 06/10/22 10:15 06/10/22 10:15 Labs: Laboratory Results - last 24 hr 06/10/22 06/10/22 06/10/22 10:15 10:15 10:15 WBC 10.0 RBC 3.42 L Hgb 9.6 L Hct 28.8 L MCV 84.0 MCH 28.1 MCHC 33.4 RDW 16.4 H Plt Count 3 L* Neut % (Auto) 80.7 H Lymph % (Auto) 8.7 L [place] % (Auto) 8.0 Eos % (Auto) 1.6 L Baso % (Auto) 1.0 Neut # (Auto) 8100 H Lymph # (Auto) 900 L [place] # (Auto) 800 Eos # (Auto) 200 Baso # (Auto) 100 Platelet Estimate RBC Morphology See below Anisocytosis 1+ H PT 12.7 INR 1.1 APTT 29 Sodium 136 L Potassium 3.7 Chloride 103 Carbon Dioxide 22 BUN 25 H Creatinine 1.00 Estimated GFR > 60 BUN/Creatinine Ratio 25.0 H Glucose 128 H Lactate Calcium 9.1 Total Bilirubin 0.5 AST 21 ALT 15 Alkaline Phosphatase 62 Total Creatine Kinase 48 L CK-MB (CK-2) TNP CK-MB (CK-2) Rel Index TNP Troponin I 0.028 NT-Pro-B Natriuret Pep 845 H Total Protein 6.6 Albumin 4.0 Globulin 2.6 Albumin/Globulin Ratio 1.5 Lipase 38 Procalcitonin SARS-CoV-2 (PCR) Blood Type 06/10/22 06/10/22 06/10/22 10:15 10:15 10:34 WBC RBC Hgb Hct MCV MCH MCHC RDW Plt Count Neut % (Auto) Lymph % (Auto) [place] % (Auto) Eos % (Auto) Baso % (Auto) Neut # (Auto) Lymph # (Auto) [place] # (Auto) Eos # (Auto) Baso # (Auto) Platelet Estimate RBC Morphology Anisocytosis PT INR APTT Sodium Potassium Chloride Carbon Dioxide BUN Creatinine Estimated GFR BUN/Creatinine Ratio Glucose Lactate 2.6 H Calcium Total Bilirubin AST ALT Alkaline Phosphatase Total Creatine Kinase CK-MB (CK-2) CK-MB (CK-2) Rel Index Troponin I NT-Pro-B Natriuret Pep Total Protein Albumin Globulin Albumin/Globulin Ratio Lipase Procalcitonin 0.16 SARS-CoV-2 (PCR) Blood Type O Positive 06/10/22 06/10/22 12:40 13:44 WBC RBC Hgb Hct MCV MCH MCHC RDW Plt Count Neut % (Auto) Lymph % (Auto) [place] % (Auto) Eos % (Auto) Baso % (Auto) Neut # (Auto) Lymph # (Auto) [place] # (Auto) Eos # (Auto) Baso # (Auto) Platelet Estimate RBC Morphology Anisocytosis PT INR APTT Sodium Potassium Chloride Carbon Dioxide BUN Creatinine Estimated GFR BUN/Creatinine Ratio Glucose Lactate 2.4 H Calcium Total Bilirubin AST ALT Alkaline Phosphatase Total Creatine Kinase CK-MB (CK-2) CK-MB (CK-2) Rel Index Troponin I NT-Pro-B Natriuret Pep Total Protein Albumin Globulin Albumin/Globulin Ratio Lipase Procalcitonin SARS-CoV-2 (PCR) Negative Blood Type Assessment & Plan Assessment & Plan narrative: NEURO: # Decondition -- Seek PT/OT -- Encourage early mobility RESP: # Hx of COPD -- On 2 liters NC -- On albuterol as needed -- Need outpatient PFTs to confirm airflow obstruction CVS: # A fib w/ RVR -- On dilatiazem infusion -- Added metoprolol 25 mg BID -- NOt a candidate for systemic AC given PLT 3 from ITP -- High lytes goal -- GOal HR < 11 HEME: # Anemia -- Daily CBC -- Goal Hb > 7 # Hx of ITP -- On chronic prednisone mg BID -- Daily CBC ENDO: D/w RN and patient. -- Goal BS < Time Spent With Patient Critical Care time: I spent a total of 32 minutes of critical care time on this patient's care today; this time is exclusive of procedural time.
[2022-06-10] MEDS: METOPROLOL IR 25 MG TABLET PO (20:57)
[2022-06-11] VITALS (27 sets, daily range): BP systolic 104–147; BP diastolic 56–108; PULSE 72–112; RESP 14–48; TEMP 36.3–36.8; O2SAT 91–100
[2022-06-11] MEDS: MELATONIN 3 MG TABLET 6 MG PO ×2 (00:35→20:43)
[2022-06-11] MEDS: DILTIAZEM 125 MG/125 ML PIGGYBACK 10 MG IV (01:53)
[2022-06-11 05:10] LABS: Hematocrit 25.3 % (41-53); Hemoglobin 8.5 g/dL (13.5-17.5); Mean Corpuscular HGB Conc 33.6 % (30-36); Mean Corpuscular Hemoglobin 28.2 PG (26-34); Mean Corpuscular Volume 83.7 fL (80-100); Red Blood Cell Count 3.03 X10^6/uL (4.5-5.9); Red Cell Distribution Width 16.7 % (11.6-14.8); White Blood Cell Count 7.1 X10^3/uL (4.5-11.0)
[2022-06-11 05:18] LABS: Alanine Aminotransferase 14 IU/L (<50); Albumin 3.8 g/dL (3.5-5.0); Albumin Globulin Ratio 1.6 (1.0-2.8); Alkaline Phosphatase 51 U/L (38-126); Aspartate Aminotransferase 20 IU/L (17-59); BUN Creatinine Ratio 30.1 (6-22); Bilirubin Total 0.4 mg/dL (0.2-1.3); Blood Urea Nitrogen 25 mg/dL (9-20); Calcium 8.9 mg/dL (8.4-10.2); Carbon Dioxide 20 mmol/L (22-32); Chloride 104 mmol/L (98-107); Estimated Glomerular Filt Rate > 60 mL/min (>60); Globulin 2.4 g/dL (1.7-4.1); Glucose 139 mg/dL (80-110); HEMOLYSIS < 15 (0-50); Potassium 4.3 mmol/L (3.4-5.1); Sodium 135 mmol/L (137-145); Total Protein 6.2 g/dL (6.3-8.2)
[2022-06-11 05:30] LABS: Platelet Count 7 X10^3/uL (150-400)
[2022-06-11 05:44] LABS: Thyroid Stimulating Hormone 0.143 uIU/mL (0.47-4.68)
[2022-06-11 07:09] LABS: Anisocytosis 1+; Neutrophils Absolute Manual 6319 /uL (3000-5900); Platelet Estimate Decreased on smear; Total Cells Counted 100
[2022-06-11] MEDS: PANTOPRAZOLE DR 40 MG TABLET PO (07:39)
--- NOTE | 2022-06-11 08:17 | P.PN_ITS ---
Subjective Subjective Date Patient Seen: 06/11/22 Time Patient Seen: 08:17 Interval history: Patient seen in follow-up of atrial fibrillation and thrombocytopenia. No other significant change. Feeling well. No chest pain. Or other changes. Patient usually takes Spiriva and Symbicort at home. Otherwise feeling well. No chest pain or shortness of breath. Heart rate seem better. Appreciate CCU evaluation. Exam Vital Signs (past 8 hours): - 06/11/22 01:00 06/11/22 01:00 06/11/22 02:00 Temperature Pulse Rate 93 H Respiratory Rate 34 H Blood Pressure 120/63 127/62 Pulse Oximetry 96 Oxygen Delivery Method Oxygen Flow Rate 2 06/11/22 02:00 06/11/22 03:00 06/11/22 03:01 Temperature Pulse Rate 90 106 H 105 H Respiratory Rate 27 H 34 H 34 H Blood Pressure Pulse Oximetry 96 97 96 Oxygen Delivery Method Oxygen Flow Rate 2 06/11/22 03:01 06/11/22 03:00 06/11/22 04:00 Temperature Pulse Rate 100 H Respiratory Rate 43 H Blood Pressure 134/108 H Pulse Oximetry 96 Oxygen Delivery Method Nasal Cannula Oxygen Flow Rate 06/11/22 04:01 06/11/22 04:01 06/11/22 05:00 Temperature 97.3 F L Pulse Rate 101 H Respiratory Rate 30 H Blood Pressure 104/76 115/80 Pulse Oximetry 97 Oxygen Delivery Method Oxygen Flow Rate 2 06/11/22 05:00 06/11/22 06:00 06/11/22 06:00 Temperature Pulse Rate 94 H 91 H Respiratory Rate 16 23 Blood Pressure 127/60 Pulse Oximetry 100 97 Oxygen Delivery Method Oxygen Flow Rate 2 06/11/22 07:00 06/11/22 07:00 Temperature Pulse Rate 90 Respiratory Rate 35 H Blood Pressure 121/73 Pulse Oximetry 98 Oxygen Delivery Method Oxygen Flow Rate Fraction of Inspired Oxygen 28 Oxygen Delivery Method Nasal Cannula Oxygen Flow Rate 2 Narrative Exam Narrative: Alert male smiling no acute distress HEENT exam is unremarkable neck supple without adenopathy JVD or bruits lungs are clear. Heart is irregular without murmurs clicks rubs or gallops. Rate is much better control. Extremities without edema. Objective Labs Result Diagrams: 06/11/22 04:25 06/11/22 04:25 Labs: Laboratory Results - last 24 hr 0806/10/22 06/10/22 10:15 10:15 10:15 WBC 10.0 RBC 3.42 L Hgb 9.6 L Hct 28.8 L MCV 84.0 MCH 28.1 MCHC 33.4 RDW 16.4 H Plt Count 3 L* Neut % (Auto) 80.7 H Lymph % (Auto) 8.7 L [place] % (Auto) 8.0 Eos % (Auto) 1.6 L Baso % (Auto) 1.0 Neut # (Auto) 8100 H Lymph # (Auto) 900 L [place] # (Auto) 800 Eos # (Auto) 200 Baso # (Auto) 100 Total Counted Seg Neutrophils % Band Neutrophils % Lymphocytes % (Manual) Neutrophils # (Manual) Platelet Estimate RBC Morphology See below Anisocytosis 1+ H PT 12.7 INR 1.1 APTT 29 Sodium 136 L Potassium 3.7 Chloride 103 Carbon Dioxide 22 BUN 25 H Creatinine 1.00 Estimated GFR > 60 BUN/Creatinine Ratio 25.0 H Glucose 128 H Lactate Calcium 9.1 Total Bilirubin 0.5 AST 21 ALT 15 Alkaline Phosphatase 62 Total Creatine Kinase 48 L CK-MB (CK-2) TNP CK-MB (CK-2) Rel Index TNP Troponin I 0.028 NT-Pro-B Natriuret Pep 845 H Total Protein 6.6 Albumin 4.0 Globulin 2.6 Albumin/Globulin Ratio 1.5 Lipase 38 Procalcitonin TSH Nasal Screen MRSA (PCR) SARS-CoV-2 (PCR) Blood Type 06/10/22 06/10/22 06/10/22 10:15 10:15 10:34 WBC RBC Hgb Hct MCV MCH MCHC RDW Plt Count Neut % (Auto) Lymph % (Auto) [place] % (Auto) Eos % (Auto) Baso % (Auto) Neut # (Auto) Lymph # (Auto) [place] # (Auto) Eos # (Auto) Baso # (Auto) Total Counted Seg Neutrophils % Band Neutrophils % Lymphocytes % (Manual) Neutrophils # (Manual) Platelet Estimate RBC Morphology Anisocytosis PT INR APTT Sodium Potassium Chloride Carbon Dioxide BUN Creatinine Estimated GFR BUN/Creatinine Ratio Glucose Lactate 2.6 H Calcium Total Bilirubin AST ALT Alkaline Phosphatase Total Creatine Kinase CK-MB (CK-2) CK-MB (CK-2) Rel Index Troponin I NT-Pro-B Natriuret Pep Total Protein Albumin Globulin Albumin/Globulin Ratio Lipase Procalcitonin 0.16 TSH Nasal Screen MRSA (PCR) SARS-CoV-2 (PCR) Blood Type O Positive 06/10/22 06/10/22 06/10/22 12:40 13:44 16:55 WBC RBC Hgb Hct MCV MCH MCHC RDW Plt Count Neut % (Auto) Lymph % (Auto) [place] % (Auto) Eos % (Auto) Baso % (Auto) Neut # (Auto) Lymph # (Auto) [place] # (Auto) Eos # (Auto) Baso # (Auto) Total Counted Seg Neutrophils % Band Neutrophils % Lymphocytes % (Manual) Neutrophils # (Manual) Platelet Estimate RBC Morphology Anisocytosis PT INR APTT Sodium Potassium Chloride Carbon Dioxide BUN Creatinine Estimated GFR BUN/Creatinine Ratio Glucose Lactate 2.4 H Calcium Total Bilirubin AST ALT Alkaline Phosphatase Total Creatine Kinase CK-MB (CK-2) CK-MB (CK-2) Rel Index Troponin I NT-Pro-B Natriuret Pep Total Protein Albumin Globulin Albumin/Globulin Ratio Lipase Procalcitonin TSH Nasal Screen MRSA (PCR) Negative for mrsa SARS-CoV-2 (PCR) Negative Blood Type 06/11/22 06/11/22 06/11/22 04:20 04:25 04:25 WBC 7.1 RBC 3.03 L Hgb 8.5 L Hct 25.3 L MCV 83.7 MCH 28.2 MCHC 33.6 RDW 16.7 H Plt Count 7 L* Neut % (Auto) Lymph % (Auto) [place] % (Auto) Eos % (Auto) Baso % (Auto) Neut # (Auto) Lymph # (Auto) [place] # (Auto) Eos # (Auto) Baso # (Auto) Total Counted 100 Seg Neutrophils % 87.0 H Band Neutrophils % 2.0 L Lymphocytes % (Manual) 11.0 L Neutrophils # (Manual) 6319 H Platelet Estimate Decreased on smear RBC Morphology Not Reportable Anisocytosis 1+ H PT INR APTT Sodium 135 L Potassium 4.3 Chloride 104 Carbon Dioxide 20 L BUN 25 H Creatinine 0.83 Estimated GFR > 60 BUN/Creatinine Ratio 30.1 H Glucose 139 H Lactate Calcium 8.9 Total Bilirubin 0.4 AST 20 ALT 14 Alkaline Phosphatase 51 Total Creatine Kinase CK-MB (CK-2) CK-MB (CK-2) Rel Index Troponin I NT-Pro-B Natriuret Pep Total Protein 6.2 L Albumin 3.8 Globulin 2.4 Albumin/Globulin Ratio 1.6 Lipase Procalcitonin TSH 0.143 L Nasal Screen MRSA (PCR) SARS-CoV-2 (PCR) Blood Type [facility] Medical History Malignant melanoma, metastatic Melanoma Shortness of Breath Tricompartment osteoarthritis of right knee Surgical History S/P total knee arthroplasty Social History Smoking Status: Former smoker alcohol intake: current Assessment & Plan Assessment & Plan narrative: ITP. Patient still with a 7 platelet count. Will repeat platelets today. Continue prednisone 60 b.i.d. as per oncologist re-evaluate in a.m.. New onset AFib with RVR. Echo today. Rate seems to be controlled or at least improved on Cardizem and beta-juana. Will switch to oral today. See how he tolerates it. Possible discharge tomorrow depending on hand things go and where his platelet count is but otherwise stable. No evidence of significant ischemic disease although will need to be worked up as an outpatient. Cardiology appointment will be set up as outpatient. COPD. Patient will be restarted on his inhalers today. Will follow. Dyspnea. I think this primarily is issue with his heart rate control which seems to be stable. Will see how things go. Is on the small-bowel oxygen. But looks like he was doing well otherwise ruled will follow from that. GI protection. On omeprazole. DVT prophylaxis no treatment secondary to low platelets Disposition. Unclear whether he will be discharged tomorrow or Thursday will see how things go. Time Spent With Patient Critical Care time: I spent a total of [] minutes of critical care time on this patient's care today; this time is exclusive of procedural time.
[2022-06-11] MEDS: dilTIAZem 30 MG TABLET PO ×3 (08:46→20:42)
[2022-06-11] MEDS: METOPROLOL IR 25 MG TABLET PO ×2 (08:46→20:43)
[2022-06-11] MEDS: predniSONE 20 MG TABLET 60 MG PO ×2 (08:46→20:42)
--- NOTE | 2022-06-11 10:30 | P.TELICUPN_ITS ---
Subjective Subjective Consent obtained for tele-wide area network administrator care: Yes Patient Location: ICU Provider location (State): [place] Other participants/roles: rn Interval history: Patient imrpoving, HR currently controlled on cardizen @ 10 Current Medications Current Medications Medications: Home Medications acetaminophen 500 mg tablet (Tylenol Extra Strength) 1,000 mg PO TID ##0 12/08/17 [History Confirmed 05/21/22] prednisone 5 mg tablet,delayed release 10 mg PO DAILY #100 tabs 05/14/22 [Rx Confirmed 06/10/22] budesonide-formoterol HFA 80 mcg-4.5 mcg/actuation aerosol inhaler (Symbicort) 1 puff inhalation 06/10/22 [History] Visit Medications (administered) Generic Name Dose Route Start Last Admin Trade Name Freq PRN Reason Stop Dose Admin Acetaminophen 650 mg 06/10/22 18:00 06/11/22 08:36 Acetaminophen 325 Mg Tablet PO Not Given Q6HR UMA Diltiazem HCl 30 mg 06/11/22 09:00 06/11/22 08:46 Diltiazem 30 Mg Tablet PO 30 mg Q6H UMA Administration Melatonin 6 mg 06/11/22 00:33 06/11/22 00:35 Melatonin 3 Mg Tablet PO 6 mg BEDTIME PRN Administration Insomnia Metoprolol Tartrate 25 mg 06/10/22 21:00 06/11/22 08:46 Metoprolol Ir 25 Mg Tablet PO 25 mg BID UMA Administration Pantoprazole Sodium 40 mg 06/11/22 07:00 06/11/22 07:[address] 40 Mg Tablet PO 40 mg 0700 UMA Administration Prednisone 60 mg 06/10/22 21:00 06/11/22 08:46 Prednisone 20 Mg Tablet PO 60 mg BID UMA Administration Objective Labs Result Diagrams: 06/11/22 04:25 06/11/22 04:25 Labs: Laboratory Results - last 24 hr 06/10/22 06/10/22 06/10/22 10:15 10:15 10:15 WBC 10.0 RBC 3.42 L Hgb 9.6 L Hct 28.8 L MCV 84.0 MCH 28.1 MCHC 33.4 RDW 16.4 H Plt Count 3 L* Neut % (Auto) 80.7 H Lymph % (Auto) 8.7 L Hudson % (Auto) 8.0 Eos % (Auto) 1.6 L Baso % (Auto) 1.0 Neut # (Auto) 8100 H Lymph # (Auto) 900 L Hudson # (Auto) 800 Eos # (Auto) 200 Baso # (Auto) 100 Total Counted Seg Neutrophils % Band Neutrophils % Lymphocytes % (Manual) Neutrophils # (Manual) Platelet Estimate RBC Morphology See below Anisocytosis 1+ H PT 12.7 INR 1.1 APTT 29 Sodium 136 L Potassium 3.7 Chloride 103 Carbon Dioxide 22 BUN 25 H Creatinine 1.00 Estimated GFR > 60 BUN/Creatinine Ratio 25.0 H Glucose 128 H Lactate Calcium 9.1 Total Bilirubin 0.5 AST 21 ALT 15 Alkaline Phosphatase 62 Total Creatine Kinase 48 L CK-MB (CK-2) TNP CK-MB (CK-2) Rel Index TNP Troponin I 0.028 NT-Pro-B Natriuret Pep 845 H Total Protein 6.6 Albumin 4.0 Globulin 2.6 Albumin/Globulin Ratio 1.5 Lipase 38 Procalcitonin TSH Nasal Screen MRSA (PCR) SARS-CoV-2 (PCR) Blood Type 06/10/22 06/10/22 06/10/22 10:15 10:15 10:34 WBC RBC Hgb Hct MCV MCH MCHC RDW Plt Count Neut % (Auto) Lymph % (Auto) Hudson % (Auto) Eos % (Auto) Baso % (Auto) Neut # (Auto) Lymph # (Auto) Hudson # (Auto) Eos # (Auto) Baso # (Auto) Total Counted Seg Neutrophils % Band Neutrophils % Lymphocytes % (Manual) Neutrophils # (Manual) Platelet Estimate RBC Morphology Anisocytosis PT INR APTT Sodium Potassium Chloride Carbon Dioxide BUN Creatinine Estimated GFR BUN/Creatinine Ratio Glucose Lactate 2.6 H Calcium Total Bilirubin AST ALT Alkaline Phosphatase Total Creatine Kinase CK-MB (CK-2) CK-MB (CK-2) Rel Index Troponin I NT-Pro-B Natriuret Pep Total Protein Albumin Globulin Albumin/Globulin Ratio Lipase Procalcitonin 0.16 TSH Nasal Screen MRSA (PCR) SARS-CoV-2 (PCR) Blood Type O Positive 06/10/22 06/10/22 06/10/22 12:40 13:44 16:55 WBC RBC Hgb Hct MCV MCH MCHC RDW Plt Count Neut % (Auto) Lymph % (Auto) Hudson % (Auto) Eos % (Auto) Baso % (Auto) Neut # (Auto) Lymph # (Auto) Hudson # (Auto) Eos # (Auto) Baso # (Auto) Total Counted Seg Neutrophils % Band Neutrophils % Lymphocytes % (Manual) Neutrophils # (Manual) Platelet Estimate RBC Morphology Anisocytosis PT INR APTT Sodium Potassium Chloride Carbon Dioxide BUN Creatinine Estimated GFR BUN/Creatinine Ratio Glucose Lactate 2.4 H Calcium Total Bilirubin AST ALT Alkaline Phosphatase Total Creatine Kinase CK-MB (CK-2) CK-MB (CK-2) Rel Index Troponin I NT-Pro-B Natriuret Pep Total Protein Albumin Globulin Albumin/Globulin Ratio Lipase Procalcitonin TSH Nasal Screen MRSA (PCR) Negative for mrsa SARS-CoV-2 (PCR) Negative Blood Type 06/11/22 06/11/22 06/11/22 04:20 04:25 04:25 WBC 7.1 RBC 3.03 L Hgb 8.5 L Hct 25.3 L MCV 83.7 MCH 28.2 MCHC 33.6 RDW 16.7 H Plt Count 7 L* Neut % (Auto) Lymph % (Auto) Hudson % (Auto) Eos % (Auto) Baso % (Auto) Neut # (Auto) Lymph # (Auto) Hudson # (Auto) Eos # (Auto) Baso # (Auto) Total Counted 100 Seg Neutrophils % 87.0 H Band Neutrophils % 2.0 L Lymphocytes % (Manual) 11.0 L Neutrophils # (Manual) 6319 H Platelet Estimate Decreased on smear RBC Morphology Not Reportable Anisocytosis 1+ H PT INR APTT Sodium 135 L Potassium 4.3 Chloride 104 Carbon Dioxide 20 L BUN 25 H Creatinine 0.83 Estimated GFR > 60 BUN/Creatinine Ratio 30.1 H Glucose 139 H Lactate Calcium 8.9 Total Bilirubin 0.4 AST 20 ALT 14 Alkaline Phosphatase 51 Total Creatine Kinase CK-MB (CK-2) CK-MB (CK-2) Rel Index Troponin I NT-Pro-B Natriuret Pep Total Protein 6.2 L Albumin 3.8 Globulin 2.4 Albumin/Globulin Ratio 1.6 Lipase Procalcitonin TSH 0.143 L Nasal Screen MRSA (PCR) SARS-CoV-2 (PCR) Blood Type Exam Vital Signs (past 8 hours): - 06/11/22 03:00 06/11/22 03:01 06/11/22 03:01 Temperature Pulse Rate 106 H 105 H Respiratory Rate 34 H 34 H Blood Pressure 134/108 H Pulse Oximetry 97 96 Oxygen Delivery Method Oxygen Flow Rate 06/11/22 03:00 06/11/22 04:00 06/11/22 04:01 Temperature Pulse Rate 100 H 101 H Respiratory Rate 43 H 30 H Blood Pressure Pulse Oximetry 96 97 Oxygen Delivery Method Nasal Cannula Oxygen Flow Rate 06/11/22 04:01 06/11/22 05:00 06/11/22 05:00 Temperature 97.3 F L Pulse Rate 94 H Respiratory Rate 16 Blood Pressure 104/76 115/80 Pulse Oximetry 100 Oxygen Delivery Method Oxygen Flow Rate 2 2 06/11/22 06:00 06/11/22 06:00 06/11/22 07:00 Temperature Pulse Rate 91 H Respiratory Rate 23 Blood Pressure 127/60 121/73 Pulse Oximetry 97 Oxygen Delivery Method Oxygen Flow Rate 06/11/22 07:00 06/11/22 08:00 06/11/22 08:00 Temperature Pulse Rate 90 93 H Respiratory Rate 35 H 33 H Blood Pressure 147/82 H Pulse Oximetry 98 99 Oxygen Delivery Method Oxygen Flow Rate 06/11/22 08:46 06/11/22 09:00 06/11/22 09:00 Temperature Pulse Rate 96 H 100 H Respiratory Rate 26 H Blood Pressure 147/82 H 118/86 Pulse Oximetry 91 Oxygen Delivery Method Oxygen Flow Rate 06/11/22 10:00 06/11/22 10:00 Temperature Pulse Rate 77 Respiratory Rate 26 H Blood Pressure 119/58 L Pulse Oximetry 98 Oxygen Delivery Method Oxygen Flow Rate Fraction of Inspired Oxygen 28 Oxygen Delivery Method Nasal Cannula Oxygen Flow Rate 2 Narrative Exam Narrative: surrogate for exam is primary team Quality TeleICU VTE Deep Vein Thrombosis/Pulmonary Embolism Present on Admission: No Stress Ulcer Stress ulcer prophylaxis: yes Assessment & Plan Assessment and plan (1) Atrial fibrillation with rapid ventricular response: Status: Acute (2) Malignant melanoma, metastatic: Status: Acute (3) Acute ITP: Status: Acute Assessment & Plan narrative: [address] [address] Teleintensivist Consult Note Patient: Ady Lombardo MR#: [id number] : 1935 Acct:[id number] Age/Sex: 86 / M ? Date of Service: 06/10/22 Provider:?Martinez Solomon MD History of Present Illness Consult details Date Patient Seen: 06/10/22 Chief complaint: Can't breathe Reason for consult: A fib RVR Consent obtained for tele-wide area network administrator care: Yes Patient Location: ICU Provider location (State): [place] Other participants/roles: STORM Brown Narrative: Patient is a 86 year old male with history of ITP and metastatic melanoma who presents with shortness of breath. No reported chest pain, N/V, fever/chills. CTA PE study showed no evidence of PE. HR notable for A fib w/ RVR. Started on cardiazem infusion and admitted to ICU for further management. In ICU, PLT notable for 3 -> transfused 1 U PLT.? On cardiazem infusion 10 mg/hr w/ HR ~90s. Added metoprolol 25 mg BID.? PFSH Medical History? Malignant melanoma, metastatic Melanoma Shortness of Breath Tricompartment osteoarthritis of right knee Surgical History? S/P total knee arthroplasty Social History? Smoking Status:? Former smoker alcohol intake:? current Current Medications Current Medications Medications: Home Medications acetaminophen 500 mg tablet (Tylenol Extra Strength) 1,000 mg PO TID ##0 12/08/17 [History Confirmed 05/21/22] prednisone 5 mg tablet,delayed release 10 mg PO DAILY #100 tabs 05/14/22 [Rx Confirmed 06/10/22] budesonide-formoterol HFA 80 mcg-4.5 mcg/actuation aerosol inhaler (Symbicort) 1 puff inhalation 06/10/22 [History] Visit Medications (administered) Generic Name Dose Route Start Last Admin ? Trade Name Freq? PRN Reason Stop Dose Admin DILTIAZEM ?125 mg in 125 mls @ 5 mls/hr ?06/10/22 13:39 ?06/10/22 18:00 ? Diltiazem 125 Mg/125 Ml-D5w ?IV ?06/11/22 14:38 ?10 mg/hr ? ?TITRATE ONE ? ?10 mls/hr ?Titration ? ?Protocol ?5 MG/HR ? ? Exam Vital Signs (past 8 hours): - ? 06/10/22 14:15 06/10/22 14:35 06/10/22 13:00 Temperature 97.2 F L 97.8 F ? Pulse Rate 106 H 107 H ? Respiratory Rate 18 18 ? Blood Pressure 139/64 143/68 H 170/89 H Pulse Oximetry ? ? ? Oxygen Delivery Method ? ? ? Oxygen Flow Rate ? 06/10/22 13:00 06/10/22 13:30 06/10/22 13:30 Temperature ? ? ? Pulse Rate 115 H ? 125 H Respiratory Rate 31 H ? 22 Blood Pressure ? 202/86 H ? Pulse Oximetry 96 ? 93 Oxygen Delivery Method ? ? ? Oxygen Flow Rate ? 06/10/22 14:00 06/10/22 14:01 06/10/22 14:01 Temperature ? ? ? Pulse Rate 107 H 114 H ? Respiratory Rate 26 H 28 H ? Blood Pressure ? ? 157/74 H Pulse Oximetry 94 100 ? Oxygen Delivery Method ? ? ? Oxygen Flow Rate ? 06/10/22 15:18 06/10/22 15:20 06/10/22 15:20 Temperature ? ? ? Pulse Rate 103 H ? 104 H Respiratory Rate 23 ? 24 Blood Pressure ? 126/63 ? Pulse Oximetry 99 ? 97 Oxygen Delivery Method ? ? ? Oxygen Flow Rate ? 06/10/22 15:22 06/10/22 15:24 06/10/22 15:24 Temperature ? ? ? Pulse Rate 96 H ? 99 H Respiratory Rate 21 ? 22 Blood Pressure ? 145/63 H ? Pulse Oximetry 100 ? 100 Oxygen Delivery Method ? ? ? Oxygen Flow Rate ? 06/10/22 15:26 06/10/22 15:28 06/10/22 15:28 Temperature ? ? ? Pulse Rate 99 H ? 94 H Respiratory Rate 21 ? 24 Blood Pressure ? 139/63 ? Pulse Oximetry 99 ? 100 Oxygen Delivery Method ? ? ? Oxygen Flow Rate ? 06/10/22 15:30 06/10/22 15:32 06/10/22 15:32 Temperature ? ? ? Pulse Rate 106 H ? 100 H Respiratory Rate 21 ? 20 Blood Pressure ? 134/68 ? Pulse Oximetry 99 ? 100 Oxygen Delivery Method ? ? ? Oxygen Flow Rate ? 06/10/22 15:34 06/10/22 15:36 06/10/22 15:36 Temperature ? ? ? Pulse Rate 98 H ? 103 H Respiratory Rate 17 ? 18 Blood Pressure ? 128/62 ? Pulse Oximetry 100 ? 100 Oxygen Delivery Method ? ? ? Oxygen Flow Rate ? 06/10/22 15:38 06/10/22 15:40 06/10/22 15:40 Temperature ? ? ? Pulse Rate 102 H ? 96 H Respiratory Rate 15 ? 16 Blood Pressure ? 126/63 ? Pulse Oximetry 100 ? 100 Oxygen Delivery Method ? ? ? Oxygen Flow Rate ? 06/10/22 15:42 06/10/22 15:44 06/10/22 15:44 Temperature ? ? ? Pulse Rate 104 H ? 104 H Respiratory Rate 24 ? 24 Blood Pressure ? 135/68 ? Pulse Oximetry 100 ? 100 Oxygen Delivery Method ? ? ? Oxygen Flow Rate ? 06/10/22 15:46 06/10/22 15:48 06/10/22 15:48 Temperature ? ? ? Pulse Rate 105 H ? 98 H Respiratory Rate 24 ? 17 Blood Pressure ? 128/69B ? Pulse Oximetry 100 ? 100 Oxygen Delivery Method ? ? ? Oxygen Flow Rate ? 06/10/22 15:50 06/10/22 15:52 06/10/22 15:52 D Temperature ? ? ? Pulse Rate 98 H ? 103 H Respiratory Rate 24 ? 24 Blood Pressure ? 120/57 L ? Pulse Oximetry 100 ?B 99 Oxygen Delivery Method ? ? ? Oxygen Flow Rate ? 06/10/22 15:54 06/10/22 15:56 06/10/22 15:56 Temperature ? ? ? Pulse Rate 102 H ? 99 H Respiratory Rate 22 ? 22 Blood Pressure ? 135/63 ? Pulse Oximetry 100 ? 100 Oxygen Delivery Method ? ? ? Oxygen Flow Rate ? 06/10/22 15:58 06/10/22 16:00 06/10/22 16:00 Temperature ? ? ? Pulse Rate 97 H ? 102 H Respiratory Rate 17 ? 11 L Blood Pressure ? 125/60 ? Pulse Oximetry 100 ? 100 Oxygen Delivery Method ? ? ? Oxygen Flow Rate ? 06/10/22 16:02 06/10/22 16:04 06/10/22 16:04 Temperature ? ? ? Pulse Rate 99 H ? 99 H Respiratory Rate 24 ? 15 Blood Pressure ? 127/60 ? Pulse Oximetry 100 ? 100 Oxygen Delivery Method ? ? ? Oxygen Flow Rate ? 06/10/22 16:06 06/10/22 16:08 06/10/22 16:08 Temperature ? ? ? Pulse Rate 98 H ? 99 H Respiratory Rate 12 ? 17 Blood Pressure ? 131/62 ? Pulse Oximetry 100 ? 100 Oxygen Delivery Method ? ? ? Oxygen Flow Rate ? 06/10/22 16:10 06/10/22 16:12 06/10/22 16:12 Temperature ? ? ? Pulse Rate 106 H ? 98 H Respiratory Rate 24 ? 23 Blood Pressure ? 124/64 ? Pulse Oximetry 100 ? 100 Oxygen Delivery Method ? ? ? Oxygen Flow Rate ? 06/10/22 16:14 06/10/22 16:16 06/10/22 16:17 Temperature ? ? ? Pulse Rate 99 H 107 H 107 H Respiratory Rate 24 18 25 H Blood Pressure ? ? ? Pulse Oximetry 100 99 99 Oxygen Delivery Method ? ? ? Oxygen Flow Rate ? 06/10/22 16:17 06/10/22 16:18 06/10/22 16:20 Temperature ? ? ? Pulse Rate ? 102 H ? Respiratory Rate ? 21 ? Blood Pressure 146/63 H ? 129/65 Pulse Oximetry ? 100 ? Oxygen Delivery Method ? ? ? Oxygen Flow Rate ? 06/10/22 16:20 06/10/22 16:22 06/10/22 16:24 Temperature ? ? ? Pulse Rate 102 H 104 H ? Respiratory Rate 23 21 ? Blood Pressure ? ? 132/69 Pulse Oximetry 100 100 ? Oxygen Delivery Method ? ? ? Oxygen Flow Rate ? 06/10/22 16:24 06/10/22 16:26 06/10/22 16:28 Temperature ? ? ? Pulse Rate 104 H 102 H 116 H Respiratory Rate 28 H 29 H 30 H Blood Pressure ? ? ? Pulse Oximetry 100 100 98 Oxygen Delivery Method ? ? ? Oxygen Flow RateB ? 06/10/22 16:30 06/10/22 16:30 06/10/22 16:32 Temperature ? ? ? Pulse Rate ? 110 H 111 H Respiratory Rate ? 28 H 33 H Blood Pressure 157/78 H ? ? Pulse Oximetry ? 100 95 Oxygen Delivery Method ? ? ? Oxygen Flow Rate ? 06/10/22 16:44 06/10/22 16:46 06/10/22 16:48 Temperature ? ? ? Pulse Rate 129 H 100 H 107 H Respiratory Rate 36 H 33 H 35 H Blood Pressure ? ? ? Pulse Oximetry ? 100 100 Oxygen Delivery Method ? ? ? Oxygen Flow Rate ? 06/10/22 16:50 06/10/22 16:52 06/10/22 16:54 Temperature ? ? ? Pulse Rate 108 H 110 H 101 H Respiratory Rate 35 H 34 H 39 H Blood Pressure ? ? ? Pulse Oximetry 98 ? ? Oxygen Delivery Method ? ? ? Oxygen Flow Rate ? 06/10/22 17:07 06/10/22 12:58 06/10/22 19:00 Temperature 97.8 F ? ? Pulse Rate 112 H ? ? Respiratory Rate 24B ? ? Blood Pressure 138/81 ? 121/85 Pulse Oximetry 99 ? ? Oxygen Delivery Method ? Nasal Cannula ? Oxygen Flow Rate 2 ? ? ? 06/10/22 19:00 06/10/22 19:30 06/10/22 19:30 Temperature ? ? ? Pulse Rate 102 H 104 H ? Respiratory Rate 26 H 29 H ? Blood Pressure ? ? 142/78 H Pulse Oximetry 100 99 ? Oxygen Delivery Method ? ? ? Oxygen Flow Rate ? 06/10/22 20:00 06/10/22 20:00 Temperature ? 98.3 F Pulse Rate ? 107 H Respiratory Rate ? 25 H Blood Pressure 139/80 ? Pulse Oximetry ? 99 Oxygen Delivery Method ? ? Oxygen Flow Rate ? 2 Fraction of Inspired Oxygen ? 28? Oxygen Delivery Method? Nasal Cannula ? Oxygen Flow Rate? 2 ? Narrative Exam Narrative: NAD. Sitting up in bed. Objective Labs Result Diagrams: 06/10/22 10:15? 06/10/22 10:15? Labs: Laboratory Results - last 24 hr ? 06/10/22 06/10/22 06/10/22 ? 10:15 10:15 10:15 WBC ? ?10.0 ? RBC ? ?3.42 L ? Hgb ? ?9.6 L ? HctB ? ?28.8 L ? MCV ? ?84.0 ? MCH ? ?28.1 ? D MCHC ? ?33.4 ? RDW ? ?16.4 H ? Plt Count ? ?3 L* ? Neut % (Auto) ? ?80.7 H ? Lymph % (Auto) ? ?8.7 L ? Hudson % (Auto) ? ?8.0 ? Eos % (Auto) ? ?1.6 L ? Baso % (Auto) ?B ?1.0 ? Neut # (Auto) ? ?8100 H ? Lymph # (Auto) ? ?900 L ? Hudson # (Auto) ? ?800 ? Eos # (Auto) ? ?200 ? Baso # (Auto) ? ?100 ? Platelet Estimate ? ? ? RBC Morphology ? ?See below ? Anisocytosis ? ?1+ H ? PT ?12.7 ? ? INR ?1.1 ? ? APTT ?29 ? ? Sodium ? ? ?136 L Potassium ? ? ?3.7 Chloride ? ? ?103 Carbon Dioxide ? ? ?22 BUN ? ? ?25 H Creatinine ? ? ?1.00 Estimated GFR ?B ? ?> 60 BUN/Creatinine Ratio ? ? ?25.0 H Glucose ? ? ?128 H Lactate ? ? ? Calcium ? ? ?9.1 Total Bilirubin ? ? ?0.5 AST ? ? ?21 ALT ? ? ?15 Alkaline Phosphatase ? ? ?62 Total Creatine Kinase ? ? ?48 L CK-MB (CK-2) ? ? ?TNP CK-MB (CK-2) Rel Index ? ? ?TNP Troponin I ? ? ?0.028 NT-Pro-B Natriuret Pep ? ? ?845 H Total Protein ? ? ?6.6 Albumin ? ? ?4.0 Globulin ? ? ?2.6 Albumin/Globulin Ratio ? ? ?1.5 Lipase ? ? ?38 Procalcitonin ? ? ? SARS-CoV-2 (PCR) ? ? ? Blood Type ? 06/10/22 06/10/22 06/10/22 ? 10:15 10:15 10:34 WBC ? ? ? RBC ? ? ? Hgb ? ? ? Hct ? ? ? MCV ? ? ? MCH ? ? ? MCHC ? ?B ? RDW ? ? ? Plt Count ? ? ? D Neut % (Auto) ? ? ? Lymph % (Auto) ? ? ? Hudson % (Auto) ? ? ? Eos % (Auto) ? ? ? Baso % (Auto) ? ? ? Neut # (Auto) ? ? ? Lymph # (Auto) ? ? ? Hudson # (Auto) ? ? ? Eos # (Auto) ? ? ? Baso # (Auto) ? ? ? Platelet Estimate ? ? ? RBC Morphology ? ? ? Anisocytosis ? ?B ? PT ? ? ? INR ? ? ? APTT ? ? ? Sodium ? ? ? Potassium ? ? ? Chloride ? ? ? Carbon Dioxide ? ? ? BUN ? ? ? Creatinine ? ? ? Estimated GFR ? ? ? BUN/Creatinine Ratio ? ? ? Glucose ? ? ? Lactate ? ? ?2.6 H Calcium ? ? ? Total Bilirubin ? ? ? AST ? ? ? ALT ? ? ? Alkaline Phosphatase ? ? ? Total Creatine Kinase ? ? ? CK-MB (CK-2) ? ? ? CK-MB (CK-2) Rel Index ? ? ? Troponin I ? ? ? NT-Pro-B Natriuret Pep ? ? ? Total Protein ? ? ? Albumin ? ? ? Globulin ? ? ? Albumin/Globulin Ratio ? ? ? Lipase ? ? ? Procalcitonin ?0.16 ? ? SARS-CoV-2 (PCR) ? ? ? Blood Type ? ?O Positive ? ? 06/10/22 06/10/22 ? 12:40 13:44 WBC ? ? RBC ? ? Hgb ? ? Hct ? ? MCV ? ? MCH ? ? MCHC ? ? RDW ? ? Plt Count ? ? Neut % (Auto) ? ? Lymph % (Auto) ? ? Hudson % (Auto) ? ? Eos % (Auto) ? ? Baso % (Auto) ? ? Neut # (Auto) ? ? Lymph # (Auto) ? ? Hudson # (Auto) ? ? Eos # (Auto) ? ? Baso # (Auto) ? ? Platelet Estimate ? ? RBC Morphology ? ? Anisocytosis ? ? PT ? ? INR ? ? APTT ? ? Sodium ? ? Potassium ? ? Chloride ? ? Carbon Dioxide ? ? BUN ? ? Creatinine ? ? Estimated GFR ? ? BUN/Creatinine Ratio ? ? Glucose ? ? D Lactate ? ?2.4 H Calcium ? ? Total Bilirubin ? ? AST ? ? ALT ? ? Alkaline Phosphatase ? ? Total Creatine Kinase ? ? CK-MB (CK-2) ? ? CK-MB (CK-2) Rel Index ? ? Troponin I ? ? NT-Pro-B Natriuret Pep ? ? Total Protein ? ? Albumin ? ? Globulin ? ? Albumin/Globulin Ratio ? ? Lipase ? ? Procalcitonin ? ? SARS-CoV-2 (PCR) ?Negative ? Blood Type ? ? Assessment & Plan Assessment & Plan narrative: -- Seek PT/OT -- Encourage early mobility -- On 2 liters NC -- On albuterol as needed -- Need outpatient PFTs to confirm airflow obstruction -- On dilatiazem infusion -- Added metoprolol 25 mg BID -- NOt a candidate for systemic AC given PLT 3 from ITP -- High lytes goal -- GOal HR < 110 -- Daily CBC -- Goal Hb > 7 -- On chronic prednisone? mg BID -- Blood glucose control Time Spent With Patient Critical Care time: I spent a total of [35] minutes of critical care time on this patient's care today; this time is exclusive of procedural time.
--- NOTE | 2022-06-11 16:39 | CM.DANOTE ---
Initial Discharge Planning Note: Case received, EMR reviewed. Patient known to me, identified my role. Payer:[employer] and [employer] 86 year old admitted 06/10/22 with SOB. History of COPD, newer dx of malignant melanoma and started 1st round of chemotherapy. Admitted with AFib with RVR and acute ITP. Platelets=7 this morning, per nurse will be receiving platelet transfusion. Cardiperlitam now po. MD wants early ambulation and PT/OT recommended per notes. Patient lives alone and is independent in ADLs. His daughter Morenita (a local [employer] CONSULTANT) is his POA and support. They visit or speak daily. He would benefit from Home Health upon discharge. Plan: Follow closely, speak with daughter with patient permission. Discuss Home Health with patient (he is familiar with, his had in past). [place] Discharge Planning/Care Management CM Discharge Assessment Start: 06/11/22 16:37 Freq: Status: Active Protocol: Document 06/11/22 16:37 (Rec: 06/11/22 16:39 [id number]) Discharge Planning Assessment Assigned Corporation Pilot Soniya Austin RN/DCP Advance Directives? Yes Advance Directives on File No History Provided By Patient Prior Living Arrangements House Household Members none Comment daughter lives up the street Type of transporation used prior to Drives own vehicle admit Independent with ADL's Yes Is patient alert and oriented? Yes Needs Assistance With Home Chores / Shopping Caregiver for Another No Comment possible home health Barriers to Discharge No Discharge Plan Home Additional Comment possible HH Review Status In Process Next Review Type Continued Stay Review
[2022-06-11] MEDS: ALBUTEROL 2.5 MG/3 ML NEB (ADULT) INH (18:07)
[2022-06-11] MEDS: FAMOTIDINE 20 MG TABLET PO (20:43)
[2022-06-11] MEDS: ACETAMINOPHEN 325 MG TABLET 650 MG PO (23:33)
[2022-06-12] VITALS (9 sets, daily range): BP systolic 125–153; BP diastolic 64–71; PULSE 73–109; RESP 17–24; TEMP 36.3–36.9; O2SAT 93–100
[2022-06-12] MEDS: dilTIAZem 30 MG TABLET PO ×2 (03:51→08:48)
[2022-06-12 04:27] LABS: Add Manual Diff / Slide Review NO; Basophils Absolute Auto 0 /uL (0-100); Basophils Percent Auto 0.1 % (0-2); Eosinophils Absolute Auto 0 /uL (0-450); Hematocrit 24.1 % (41-53); Lymphocytes Absolute Auto 500 /uL (1100-4500); Lymphocytes Percent Auto 3.9 % (25-40); Mean Corpuscular HGB Conc 33.2 % (30-36); Mean Corpuscular Volume 84.3 fL (80-100); Monocytes Absolute Auto 400 /uL (0-900); Monocytes Percent Auto 2.6 % (3-14); Neutrophils Absolute Auto 12900 /uL (1500-7000); Neutrophils Percent Auto 93.4 % (50-75); Red Blood Cell Count 2.86 X10^6/uL (4.5-5.9); Red Cell Distribution Width 17.7 % (11.6-14.8); White Blood Cell Count 13.8 X10^3/uL (4.5-11.0)
[2022-06-12 04:34] LABS: Alanine Aminotransferase 40 IU/L (<50); Albumin Globulin Ratio 1.6 (1.0-2.8); Alkaline Phosphatase 58 U/L (38-126); Aspartate Aminotransferase 43 IU/L (17-59); BUN Creatinine Ratio 31.6 (6-22); Bilirubin Total 0.4 mg/dL (0.2-1.3); Blood Urea Nitrogen 30 mg/dL (9-20); Calcium 9.2 mg/dL (8.4-10.2); Carbon Dioxide 24 mmol/L (22-32); Chloride 104 mmol/L (98-107); Estimated Glomerular Filt Rate > 60 mL/min (>60); Globulin 2.5 g/dL (1.7-4.1); Glucose 137 mg/dL (80-110); HEMOLYSIS < 15 (0-50); Sodium 136 mmol/L (137-145); Total Protein 6.5 g/dL (6.3-8.2)
[2022-06-12 04:35] LABS: Potassium 5.2 mmol/L (3.4-5.1)
[2022-06-12 04:42] LABS: Platelet Count 43 X10^3/uL (150-400)
[2022-06-12] MEDS: PANTOPRAZOLE DR 40 MG TABLET PO (06:08)
[2022-06-12] MEDS: ACETAMINOPHEN 325 MG TABLET 650 MG PO ×2 (06:08→11:48)
--- NOTE | 2022-06-12 06:34 | PC.NURSE ---
At 0625, patient had 26 beats of V-tach from the monitor, re-assessed was done, patient was alert and oriented, denies any pain/discomfort, vital signs are stable and within acceptable limits, Dr. Dunaway notified about the the V-tach and K level of 5.2, ordered stat Magnesium. Will continue to monitor.
[2022-06-12 06:47] LABS: Magnesium 2.2 mg/dL (1.6-2.3)
[2022-06-12] MEDS: ALBUTEROL 2.5 MG/3 ML NEB (ADULT) INH ×2 (08:38→11:25)
[2022-06-12] MEDS: BUDESONIDE 0.5 MG/2 ML NEB INH (08:38)
[2022-06-12] MEDS: METOPROLOL IR 25 MG TABLET PO (08:41)
[2022-06-12] MEDS: predniSONE 20 MG TABLET 60 MG PO (08:41)
[2022-06-12] MEDS: FAMOTIDINE 20 MG TABLET PO (08:41)
--- NOTE | 2022-06-12 10:55 | OT.IP.EVAL ---
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) Unspecified atrial fibrillation (06/10/22) Past Medical History (Last Reviewed 06/10/22 @ 18:44 by Brian Moore MD) Malignant melanoma, metastatic Melanoma Shortness of Breath Tricompartment osteoarthritis of right knee Surgical History (Last Reviewed 06/10/22 @ 18:44 by Brian Moore MD) S/P total knee arthroplasty Occupational Therapy Inpatient Evaluation/Re-Eval M1 PT/OT-IP Prior Functional Status Start: 06/12/22 12:44 Freq: NEEDED Status: Active Protocol: Document 06/12/22 10:55 [facility] (Rec: 06/12/22 13:02 [facility] [id number]) Medical Review Prior Functional Status Medical History Reviewed Yes Communication Independent Mobility and Gait Pt states does not use a device, however will use a wc for doctors appointments when his daughter is with him. Pt states at times furniture cruises in the house. Activities of Daily Living and IADL's Completely independent with all ADL and IADl needs. Prior Functional Level (Other details) Per pt diagnosed with Multiple melanoma with mets 2 months ago. Pt's daughter lives just up the street from him and a family member check on him daily. Social History Household Members none Living Arrangements House Number of Floors (Floors) Two Floors Number of Stairs To Enter/Railing? From the garage 7 steps with left hand rail and then landing and then another 7 step with left rail while going up to the main level. Home Environment High Toilet,Walk in Shower,Tub /Shower Home Equipment Front Wheel Walker,Four Wheel Walker,Quad Cane,Straight Cane ,Manual Wheelchair,Raised Toilet Seat w/Armrests,Grab Bars Near Toilet,Grab Bars In Shower Additional Social History Comment Pt has a built in shower seat, and transfer pole by his recliner. Pt states can have his grandson stay with him initially if needed. M2 OT-IP Current Condition Start: 06/12/22 12:44 Freq: Status: Active Protocol: Document 06/12/22 10:55 [facility] (Rec: 06/12/22 13:02 [facility] [id number]) Occupational Therapy Current Condition Current Condition Evaluation Date 06/12/22 Treatment Diagnosis New onset A-fib with RVR Diagnosis Onset Date 06/10/22 M3 OT- IP Subjective and Pain Start: 06/12/22 12:44 Freq: Status: Active Protocol: Document 06/12/22 10:55 [facility] (Rec: 06/12/22 13:02 [facility] [id number]) OT- Subjective Occupational Therapy Visit Type Type Initial Evaluation Visit Start Time 10:55 Visit Stop Time 10:33 Total Visit Minutes 44 Occupational Therapy Visit Comments Patient Comments Pt agreed to get up to brush his teeth at the sink. Patient/Caregiver Goals TO go home. OT Pain Assessment Pain When Pain Assessed At Rest Pain Present Pain Present Denied Pain M4 OT- IP ADL's Start: 06/12/22 12:44 Freq: Status: Active Protocol: Document 06/12/22 10:55 [facility] (Rec: 06/12/22 13:02 [facility] [id number]) OT [id number] Comments OT Self-Feeding Comments Not at meal time. OT ADL-Grooming General Evaluation Grooming Ability Independent Comments OT Grooming Comments able to do while standing at the sink with FWW. OT ADL-Oral Care General Eval Oral Care Ability Independent OT ADL-Dressing General Eval Lower Body Dressing Ability Independent Comments OT Dressing Comments Pt able to geoffrey/doff his socks while seated at the edge of the bed. OT ADL-Toileting Comments OT Toileting Comments Pt not having to go and states has been using the urinal on his own. Pt states usually uses the urinal at night 2-3 times at home. OT ADL-Bathing Comments OT Bathing Comments Not performed. M5 OT- IP IADL's Start: 06/12/22 12:44 Freq: Status: Active Protocol: Document 06/12/22 10:55 [facility] (Rec: 06/12/22 13:02 [facility] [id number]) OT-Instrumental Activities of Daily Living Home Safety Awareness Awareness of Need for Assistance at Home Good Awareness Home Safety Comments Due to decreased activity tolerance, pt would benefit from someone to assist with his needs at home initially. M6 OT- IP Functional Cognition Start: 06/12/22 12:44 Freq: Status: Active Protocol: Document 06/12/22 10:55 [facility] (Rec: 06/12/22 13:02 [facility] [id number]) Cognitive Factors Limiting Selfcare Function Cognitive Ability Level of Alertness Alert Patient Orientation Name,Age,Birthday,Month,Date, Year,Day of Week,Place, Situation Ability to Follow Commands Able to Follow One Step Commands Safety Awareness Underestimates Need for Assistance Cognitive Comments Cognitive Assessment Comments Pt able to follow commands for ADl and mobility needs. Pt feels thats he will be okay to take care of himself but open to having a family member stay with him after suggestion by OT. OT- Vision and Hearing OT- Hearing Assessment OT- Hearing Assessment WFL OT- Vision Assessment Visual Acuity Glasses All The Time M7 OT- IP Mobility and Balance Start: 06/12/22 12:44 Freq: Status: Active Protocol: Document 06/12/22 10:55 [facility] (Rec: 06/12/22 13:02 [facility] [id number]) OT- Bed Mobility Assessment Supine to Sit Supine to Sit Assist Standby Assistance Sit to Supine Sit to Supine Assist Standby Assistance OT-Transfer Assessment Sit to and From Stand Sit to and from Stand Standby Assistance Transfers Transfer Ability Standby Assistance,Contact Guard Assistance Technique Transfer Destination Bed Transfer Technique Stand Step Pivot Devices Transfer Assistive Devices Gait Belt,Front Wheeled Walker Comments Mobility Comments SBA for bed mobility needs. Pt much steadier on his feet with use of FWW and needing CGA for balance without a device at this time. Pt'2 O2 not able to get an accurate reading, RT came in and able to attach the probe on his forehead and reading 98%. OT- Balance Assessment Sitting Balance and Reactions Static Sitting Balance Ability Good Dynamic Sitting Balance Ability Fair Standing Balance and Reactions Static Standing Balance Ability Fair Dynamic Standing Balance Ability Poor Comments Other Balance Tests/Deviations/Treatment Pt having loss of balance to : the left while trying to geoffrey his right sock. M8 OT- IP Objective Assessments Start: 06/12/22 12:44 Freq: Status: Active Protocol: Document 06/12/22 10:55 [facility] (Rec: 06/12/22 13:02 [facility] [id number]) OT Gross Range of Motion Upper Extremity Range of Motion Assessment Within Functional Limits OT Strength Upper Extremity Strength Assessment Within Functional Limits OT- Coordination Assessment Upper Extremity Finger to Nose Test Within Functional Limits OT-Muscle Tone Assessment Muscle Tone WNL Yes M9 OT- IP Assessment and Plan Start: 06/12/22 12:44 Freq: Status: Active Protocol: Document 06/12/22 10:55 [facility] (Rec: 06/12/22 13:02 [facility] [id number]) OT Summary Assessment and Plan Potential Rehabilitation Potential Good Analytic Complexity at Evaluation Moderate Summary OT Impairments Balance,Functional Mobility, Dressing,Toileting,Bathing, Toilet Transfers,Shower Transfers,Activity Tolerance Progress Towards Goals Slow Progress due to Medical Issues,Slow Progress due to Activity Tolerance Assessment Summary Pt MOD complexity and main barriers are steps, decreased activity tolerance and dynamic balance and would benefit from someone to stay with the pt initially at home to assist with his needs. Pt would also benefit from home health. Goals Grooming Goal Independent Dressing Goal Independent Toileting Goal Independent Bathing Goal Independent Toilet Transfer Goal Independent Shower Transfer Goal Independent Patient/Caregiver Education Goal Demonstrate Energy Conservation and Pacing Days to Meet Goals 2 Frequency of Treatment Frequency Of Treatment Once a Day Treatment Plan OT Treatment Plan ADL Training,Functional Mobility,Patient/Family Education,Discharge Planning Other Treatment Recommendations and Next shower, energy conservation Treatment Focus Discharge Recommendations OT Discharge Recommendations Home with 24/7 Assist Available Other Discharge Recommendations Pt does not need 1:1 assist, but someone to stay with him initially due to his decreased activity tolerance and dynamic balance. Transportation Needs at Discharge Private Vehicle
--- NOTE | 2022-06-12 11:51 | CM.DPNOTE ---
Faxed referral to [facility]. Ramonita Larson CM Assist.
--- NOTE | 2022-06-12 11:53 | CM.DPC ---
Addendum entered by TERE Ellison 06/13/22 07:56: ADD: Per , pt remains stable for d/c home and discharged yesterday evening 06/12/22 after SW shift and SW faxed d/c summary to [facility] today as referral and F2F and orders previously faxed yesterday. BF Original Note: DCP Cont: Per MD, pt making good progress and to work with PT/OT today and orders placed and RT to assess for possible need for new Home O2 and likely stable for discharge today vs tomorrow. MD agreeable with likely need of HH and signed F2F. Per OT, pt a little below baseline with weakness but able to ambulate and recommending FWW which pt already has at home and feels pt would benefit from HH and recommending family stay the first night or two for additional assist and pt has local family support. SW made HH referral based on [employer] Calendar and JAMEE Shipman kindly faxed referral along with F2F and orders to [facility] and SW provided the brochure to RN to give to pt at d/c. Plan: SW to follow for plan of pt d/c home with local family assist and new [facility] referral made either today or tomorrow when medically stable. D/C summary just needs to be faxed to [facility] at discharge. TERE Ellison
--- NOTE | 2022-06-12 11:55 | PT.IIE ---
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) Unspecified atrial fibrillation (06/10/22) Surgical History (Last Reviewed 06/10/22 @ 18:44 by Brian Moore MD) S/P total knee arthroplasty Medical History (Last Reviewed 06/10/22 @ 18:44 by Brian Moore MD) Malignant melanoma, metastatic Melanoma Shortness of Breath Tricompartment osteoarthritis of right knee Physical Therapy Inpatient Evaluation/Re-Eval M1 PT/OT-IP Prior Functional Status Start: 06/12/22 13:39 Freq: NEEDED Status: Active Protocol: Document 06/12/22 11:55 [facility] (Rec: 06/12/22 13:59 [facility] [id number]) Medical Review Prior Functional Status Communication able to make needs known; MARSHALL Mobility and Gait pt stated that he is modified independent with all mobilities and ambulation without AD Activities of Daily Living and IADL's per OT note: Completely independent with all ADL and IADl needs. Social History Household Members none Living Arrangements House Number of Floors (Floors) Two Floors Number of Stairs To Enter/Railing? no steps to enter the house; from the garage door: 7 steps+ landing +7 steps R rails to get to main level of the house Home Environment Standard Height Toilet,Walk in Shower,Tub/Shower Home Equipment Front Wheel Walker,Four Wheel Walker,Manual Wheelchair, Raised Toilet Seat w/Armrests, Shower Seat with Backrest,Grab Bars Near Toilet,Grab Bars In Shower Additional Social History Comment Pt stated that somebody checks on him daily: daughter and grandson lives ~ 1 mile away per OT note: Pt has a built in shower seat,and transfer pole by his recliner. Pt states can have his grandson stay with him initially if needed. M2 PT-IP Current Condition Start: 06/12/22 13:39 Freq: NEEDED Status: Active Protocol: Document 06/12/22 11:55 [facility] (Rec: 06/12/22 13:59 [facility] [id number]) Physical Therapy Current Condition Current Condition Evaluation Date 06/12/22 Treatment Diagnosis Acute ITP; A-fib; difficulty in walking Onset Date 06/10/22 M3 PT-IP Subjective Start: 06/12/22 13:39 Freq: NEEDED Status: Active Protocol: Document 06/12/22 11:55 [facility] (Rec: 06/12/22 13:59 [facility] [id number]) Subjective Physical Therapy Visit Type Type Initial Evaluation Visit Start Time 11:55 Visit Stop Time 12:25 Total Visit Minutes 30 Number of PLASTICS FABRICATION SUPERVISOR Visits 0 Physical Therapy Visit Comments Patient Comments agreeable to do PT M4 PT-IP Mobility and Gait Start: 06/12/22 13:39 Freq: NEEDED Status: Active Protocol: Document 06/12/22 11:55 [facility] (Rec: 06/12/22 13:59 [facility] [id number]) PT-Bed Mobility Assessment Supine to Sit Supine to Sit Standby Assistance PT-Transfer Assessment Sit to and From Stand Sit to and from Stand Moderate Assistance,1 Person Assistance,Use of Upper Extremities Equipment Transfer Assistive Device Gait Belt,Front Wheeled Walker Orthotic/Prosthetic Devices or Brace: No Transfers Transfer Destination Chair Transfer Technique ambulated Transfer Ability Level of Assist Contact Guard Assistance,1 Person Assistance,Use of Upper Extremities Comments Mobility Comments O2 sat at room air: 96-98%. completed supine to sit SBA. able to sit on EOB SBA. completed sit to stand mod A and cues. attempted ambulation without AD but unable to take up step requiring max A and LOB. instructed to sit back down. educated on safety and agreed to use FWW. completed sit to stand mod A and ambulated to the chair using FWW CGA. agreed to sit up on the chair for lunch and set up. call light and table placed within reach. Gait Assessment Gait Gait Assistance Required: Contact Guard Assist,Maximum Assistance,1 Person Assist Distance (Feet) 12 Able to Maintain Weight Bearing Status Yes During Gait Assistive Devices Assistive Device Gait Belt,Front Wheeled Walker Orthotic/Prosthetic Devices or Brace: No Gait Deviations General Gait Pattern Ataxic,Decreased Stride Length ,Decreased Feet Clearance, Narrow Based Gait,Step-to Gait Factors Limiting Gait Function Factors Limiting Gait Function Decreased Activity Tolerance, Decreased Strength,Difficulty Following Directions,Limited Range of Motion,Poor Balance, Poor Safety Awareness, Respiratory Distress PT-Balance Assessment Sitting Balance and Reactions Static Sitting Balance Ability Good Dynamic Sitting Balance Ability Good Standing Balance and Reactions Static Standing Balance Ability Fair Dynamic Standing Balance Ability Fair Device Used FWW M5 PT-IP Objective Assessments Start: 06/12/22 13:39 Freq: NEEDED Status: Active Protocol: Document 06/12/22 11:55 [facility] (Rec: 06/12/22 13:59 [facility] [id number]) Orientation Orientation/Cognition Level of Alertness Alert Orientation Name,Place Language Function Ability Hard of Hearing Safety Awareness Decreased Safety Awareness Memory Description Short Term Impaired Gross Range of Motion Lower Extremity ROM Assessment Within Functional Limits Strength Lower Extremity Strength Assessment Left Impaired Hip 4-/5 Knee 4-/5 Comments Strength Comments RLE: 4/5 Coordination Assessment Gross Coordination Gross Coordination WNL Sensation Assessment Sensation Gross Sensation WNL Muscle Tone Muscle Tone WNL Yes M6 PT-IP Treatment Start: 06/12/22 13:39 Freq: NEEDED Status: Active Protocol: Document 06/12/22 11:55 [facility] (Rec: 06/12/22 13:59 [facility] [id number]) Physical Therapy Treatment Education Education Provided Safety M7 PT-IP Assessment and Plan Start: 06/12/22 13:39 Freq: NEEDED Status: Active Protocol: Document 06/12/22 11:55 [facility] (Rec: 06/12/22 13:59 [facility] [id number]) PT Summary Assessment and Plan Potential Rehabilitation Potential Fair Status of Condition at Evaluation Evolving Summary Impairments Pain,ROM,Strength,Balance, Coordination,Sensation,Tone, Cognition,Bed Mobility, Transfers,Gait,Activity Tolerance Assessment Summary pt requiring CGA with ambulation using FWW and recommending use of fWW at this time. Pt unable to ambulate without AD and with LOB in standing without AD max A. pt will need assistance at home and HHPT. will continue to assess progress. Goals Bed Mobility Goal Independent Transfer Goal Independent,Front Wheeled Walker Gait Goal Independent,Front Wheel Walker Gait Distance 200 Other Goals up/down 15 steps B rails SBA Days to Meet Goals 10 Frequency of Treatment Frequency Of Treatment Once a Day Treatment Plan Physical Therapy Treatment Plan Bed Mobility Training,Transfer Training,Gait Training, Therapeutic Exercise,Balance Retraining,Discharge Planning, Hot or Cold Pack,Neuromuscular Re-ed,Coordination Retraining Precautions Other Precautions falls Recommendations To Nursing Amount of Assist Needed 1 Person Assist Discharge Recommendations PT Discharge Recommendations Home with Assistance,Home Health Transportation Needs at Discharge Private Vehicle
--- NOTE | 2022-06-12 15:16 | P.DS_ITS ---
History of Present Illness History of Present Illness Date Patient Seen: 06/12/22 Time Patient Seen: 09:00 Chief complaint: Can't breathe Narrative: Feeling well this morning ate breakfast with gusto, platelets are almost normalized s/p xfusion yesterday, potassium is coming down nicely, he feels ready to go home. Worked with PT today who confirm he is good to go with RW and assistance at home. Passed O2 test ambulating not hypoxic. Discharge Providers Provider Date of admission: 06/10/22 11:47 Discharge Date: 06/12/22 Primary care physician: Brian Moore MD Consults: 06/10/22 13:31 Consult to Tele-concessions manager Routine Comment: Consulting Provider: Robbie [employer] Reason for consultation: [employer] services 06/12/22 09:39 Consult to Occupational Therapy Evaluate & Treat Comment: Physician Instructions: Evaluate and treat Consult to Physical Therapy Evaluate & Treat Comment: Physician Instructions: Evaluate and Treat 06/12/22 10:37 Consult to Home Health Routine Comment: AFIB with RVR, COPD, metastatic melanoma Reason For Exam: Set up HH RN/PT/OT for discharge home Discharge provider: Trey León MD Summary Hospital Course Discharge Diagnosis: ITP Afib w/RVR COPD Dyspnea Hospital Course: admitted via ED with shortness of breath found to be acutely thrombocytopenia in setting of ITP, this seems to have resolved with increased steroids and platelet transufions. She idd have aom afib swith RVR as well as some runs while sleeping which responded to cardizem dripwhich transitioned to orals ok. By DoD he was VSS and ambulating ok on RA with PT who recommended HH and RW. Status at Discharge Cognitive/behavioral status at discharge: at baseline, confused Functional status at discharge: uses cane/walker Overall status at discharge: patient is progressing back to baseline Exam Vital Signs (past 8 hours): - 06/12/22 08:00 06/12/22 08:38 06/12/22 08:48 Temperature 97.4 F L Pulse Rate 88 91 H 98 H Respiratory Rate 24 20 Blood Pressure 125/64 125/64 Pulse Oximetry 98 93 Oxygen Delivery Method Room Air Oxygen Flow Rate 0 06/12/22 08:49 06/12/22 10:30 06/12/22 11:25 Temperature Pulse Rate 94 H 107 H Respiratory Rate 20 20 Blood Pressure Pulse Oximetry 93 98 Oxygen Delivery Method Room Air Nasal Cannula Room Air Oxygen Flow Rate 06/12/22 12:00 Temperature 98.5 F Pulse Rate 73 Respiratory Rate 17 Blood Pressure 153/71 H Pulse Oximetry 96 Oxygen Delivery Method Oxygen Flow Rate Fraction of Inspired Oxygen 28 Oxygen Delivery Method Room Air Oxygen Flow Rate 0 Narrative Exam Narrative: sitting up in bed watching TV Const General: cooperative and healthy appearing Eyes General: appearance normal, both eyes and all related structures Resp Other: moving air well clear to auscultation bilaterally Cardio Other: regular rate strong pulses bilaterally GI Other: soft nontender nondistended normal bowel sounds Skin General: no rashes or lesions noted Neuro General: patient alert, patient awake, patient oriented x3 and CN's II-XI intact bilaterally Extrem General: normal to inspection Psych Appearance: grossly normal Mental Status: mental status grossly normal Speech and Movement: speech and movement normal Thought Process: tangential (discoursive but redirectable) Objective Labs Result Diagrams: 06/12/22 04:09 06/12/22 04:09 Labs: Laboratory Results - last 24 hr 06/10/22 06/12/22 06/12/22 10:15 04:09 04:09 WBC 13.8 H D RBC 2.86 L Hgb 8.0 L Hct 24.1 L MCV 84.3 MCH 28.0 MCHC 33.2 RDW 17.7 H Plt Count 43 L Neut % (Auto) 93.4 H Lymph % (Auto) 3.9 L [place] % (Auto) 2.6 L Eos % (Auto) 0.0 L Baso % (Auto) 0.1 Neut # (Auto) 48209 H Lymph # (Auto) 500 L [place] # (Auto) 400 Eos # (Auto) 0 Baso # (Auto) 0 Sodium 136 L Potassium 5.2 H Chloride 104 Carbon Dioxide 24 BUN 30 H Creatinine 0.95 Estimated GFR > 60 BUN/Creatinine Ratio 31.6 H Glucose 137 H Calcium 9.2 Magnesium Total Bilirubin 0.4 AST 43 ALT 40 Alkaline Phosphatase 58 Total Protein 6.5 Albumin 4.0 Globulin 2.5 Albumin/Globulin Ratio 1.6 Blood Type O Positive 06/12/22 04:09 WBC RBC Hgb Hct MCV MCH MCHC RDW Plt Count Neut % (Auto) Lymph % (Auto) [place] % (Auto) Eos % (Auto) Baso % (Auto) Neut # (Auto) Lymph # (Auto) [place] # (Auto) Eos # (Auto) Baso # (Auto) Sodium Potassium Chloride Carbon Dioxide BUN Creatinine Estimated GFR BUN/Creatinine Ratio Glucose Calcium Magnesium 2.2 Total Bilirubin AST ALT Alkaline Phosphatase Total Protein Albumin Globulin Albumin/Globulin Ratio Blood Type [facility] Medical History Malignant melanoma, metastatic Melanoma Shortness of Breath Tricompartment osteoarthritis of right knee Surgical History S/P total knee arthroplasty Social History household members: none Smoking Status: Former smoker alcohol intake: current Discharge Assessment & Plan Assessment and Plan Assessment: #ITP:Platelets better after transfusion yesterday. Continue high dose prednisone on d/c. #new aFib with RVR Echo looks ok today but i do note atrial enlargement. Rate seems controlled or at least improved on Cardizem and beta-juana with successful switch to orals yesterday.? Cardiology appointment will be set up as outpatient.? #COPD: doing well breathing easy today resume home inhalers #Dyspnea: seems resolved today breathing ok passed O2 testing on room air Dispo: home with HH to f/u with PCP and oncology as outpt Discharge Plan Discharge Plan Patient Disposition: Home Health Service Discharge orders & Medications Prescriptions: New prednisone 20 mg Tablet 60 mg PO BID Qty: 14 0RF diltiazem HCl 30 mg Tablet 30 mg PO Q6H Qty: 120 0RF metoprolol tartrate 25 mg Tablet 25 mg PO BID Qty: 60 0RF Continued acetaminophen [Tylenol Extra Strength] 500 MG tablet 1,000 mg PO TID Qty: 0 budesonide-formoterol [Symbicort] 80-4.5 mcg/actuation HFA aerosol inhaler 2 puff INHALATION BID Discontinued prednisone 5 mg Tablet,Delayed Release (Dr/Ec) 10 mg PO DAILY Qty: 100 0RF Rx Instructions: TAake 4 tablets daily for 1 week then 3 tablets daily for 1 week 2 tablets daily for 1 week then 1 tablets daily for 1 week Follow up/Referrals: Brian Moore MD [Primary Care Provider] - Discharge Data Primary Care Provider: Oscar,Brian P Quality VTE Deep Vein Thrombosis/Pulmonary Embolism Present on Admission: No
--- NOTE | 2022-06-12 16:07 | PC.NURSE ---
1610- Patient discharge instruction given to him and family member. IV x2 removed and Telemetry removed. Patient and family member state they understand the instruction. Patient discharged via wheelchair to private car.
== END 2022-06-12 16:10 | disposition home health service (06) | DRG 309 ==
LOC: ED 10:05 → AC 11:48 → ICU 16:44
PROVIDERS: Family Medicine; Admitting Provider Family Medicine; Emergency Provider Emergency Medicine; PCP Family Medicine; Referring Provider Emergency Medicine; Visit Provider Family Medicine
DX: I48.91 Unspecified atrial fibrillation (principal); D69.3 Immune thrombocytopenic purpura; C49.9 Malignant neoplasm of connective and soft tissue, unspecified; C79.9 Secondary malignant neoplasm of unspecified site; D63.0 Anemia in neoplastic disease; J44.9 Chronic obstructive pulmonary disease, unspecified; Z87.891 Personal history of nicotine dependence; Z20.822 Contact with and (suspected) exposure to COVID-19
CPT/HCPCS: 36415; 36430; 70450; 71045; 71275; 80053; 82550; 83605; 83690; 83735; 83880; 84145; 84443; 84484; 85025; 85610; 85730; 86900; 86901; 87040; 87635; 87797; 93005; 93306; 94618; 94640; 94762; 96365; 96366; 96376; 97162; 97166; 99285; C9803; A9270; J7613; P9035; Q9967

== ENCOUNTER → 2022-11-04 11:00 | Outpatient (CLI) | payer MEDICARE, SELFPAY ==
[2022-06-10 12:58] VITALS: BMI 25.0
[2022-11-04 11:37] LABS: Add Manual Diff / Slide Review NO; Basophils Absolute Auto 100 /uL (0-100); Basophils Percent Auto 0.7 % (0-2); Eosinophils Absolute Auto 200 /uL (0-450); Eosinophils Percent Auto 1.9 % (2-4); Hematocrit 31.7 % (41-53); Hemoglobin 10.3 g/dL (13.5-17.5); Lymphocytes Absolute Auto 800 /uL (1100-4500); Lymphocytes Percent Auto 7.6 % (25-40); Mean Corpuscular HGB Conc 32.7 % (30-36); Mean Corpuscular Hemoglobin 24.9 PG (26-34); Mean Corpuscular Volume 76.4 fL (80-100); Monocytes Absolute Auto 1400 /uL (0-900); Monocytes Percent Auto 14.3 % (3-14); Neutrophils Absolute Auto 7600 /uL (1500-7000); Neutrophils Percent Auto 75.5 % (50-75); Platelet Count 121 X10^3/uL (150-400); Red Blood Cell Count 4.15 X10^6/uL (4.5-5.9)
[2022-11-04 11:53] LABS: Alanine Aminotransferase 14 IU/L (<50); Albumin 3.7 g/dL (3.5-5.0); Albumin Globulin Ratio 1.1 (1.0-2.8); Alkaline Phosphatase 85 U/L (38-126); Aspartate Aminotransferase 23 IU/L (17-59); BUN Creatinine Ratio 17.6 (6-22); Bilirubin Total 0.4 mg/dL (0.2-1.3); Blood Urea Nitrogen 13 mg/dL (9-20); Calcium 9.1 mg/dL (8.4-10.2); Carbon Dioxide 28 mmol/L (22-32); Chloride 97 mmol/L (98-107); Estimated Glomerular Filt Rate > 60 mL/min (>60); Globulin 3.3 g/dL (1.7-4.1); Glucose 105 mg/dL (80-110); HEMOLYSIS < 15 (0-50); Potassium 4.4 mmol/L (3.4-5.1); Sodium 134 mmol/L (137-145)
[2022-11-04 16:39] LABS: C-Reactive Protein Quant 0.7 mg/dL (<1.0)
== END ==
PROVIDERS: Internal Medicine Medical Oncology; PCP Family Medicine; Referring Provider Internal Medicine Gastroenterology; Visit Provider Internal Medicine Gastroenterology
DX: D64.9 Anemia, unspecified (principal); R19.7 Diarrhea, unspecified; C43.9 Malignant melanoma of skin, unspecified
CPT/HCPCS: 36415; 80053; 85025; 86140

== ENCOUNTER 2022-12-13 17:06 | Inpatient (IN) | payer MEDICARE, SELFPAY ==
[2022-06-10 12:58] VITALS: BMI 25.0
[2022-12-13] VITALS (21 sets, daily range): BP systolic 127–161; BP diastolic 58–77; PULSE 109–123; RESP 18–30; TEMP 36.4–37.2; O2SAT 92–98; BMI 25.4
[2022-12-13 17:23] LABS: Add Manual Diff / Slide Review NO; Basophils Absolute Auto 100 /uL (0-100); Basophils Percent Auto 0.4 % (0-2); Eosinophils Absolute Auto 0 /uL (0-450); Hematocrit 34.7 % (41-53); Hemoglobin 11.1 g/dL (13.5-17.5); Lymphocytes Absolute Auto 800 /uL (1100-4500); Lymphocytes Percent Auto 3.6 % (25-40); Mean Corpuscular HGB Conc 31.9 % (30-36); Mean Corpuscular Hemoglobin 24.6 PG (26-34); Mean Corpuscular Volume 77.1 fL (80-100); Monocytes Absolute Auto 2000 /uL (0-900); Monocytes Percent Auto 8.4 % (3-14); Neutrophils Absolute Auto 20500 /uL (1500-7000); Neutrophils Percent Auto 87.6 % (50-75); Platelet Count 192 X10^3/uL (150-400); Red Cell Distribution Width 16.7 % (11.6-14.8); White Blood Cell Count 23.4 X10^3/uL (4.5-11.0)
[2022-12-13 17:27] LABS: Alanine Aminotransferase 23 IU/L (<50); Albumin 4.2 g/dL (3.5-5.0); Albumin Globulin Ratio 1.2 (1.0-2.8); Alkaline Phosphatase 111 U/L (38-126); Aspartate Aminotransferase 28 IU/L (17-59); BUN Creatinine Ratio 26.7 (6-22); Bilirubin Total 0.4 mg/dL (0.2-1.3); Blood Urea Nitrogen 23 mg/dL (9-20); Calcium 9.7 mg/dL (8.4-10.2); Carbon Dioxide 25 mmol/L (22-32); Chloride 97 mmol/L (98-107); Estimated Glomerular Filt Rate > 60 mL/min (>60); Globulin 3.5 g/dL (1.7-4.1); Glucose 132 mg/dL (80-110); HEMOLYSIS < 15 (0-50); Lipase 112 U/L (23-300); Potassium 4.4 mmol/L (3.4-5.1); Sodium 137 mmol/L (137-145); Total Protein 7.7 g/dL (6.3-8.2)
--- NOTE | 2022-12-13 17:35 | DI.RAD.S_ITS ---
PROCEDURE: XR CHEST 1V INDICATIONS: Eval for pneumonia TECHNIQUE: One view of the chest was acquired. COMPARISON: [facility], CR, XR CHEST 1V, 06/10/2022, 10:21. FINDINGS: Surgical changes and devices: None. Lungs and pleura: Left basilar atelectasis and infiltrate. Both pleural spaces are clear. Mediastinum: Mediastinal contours appear normal. Heart size is normal. Bones and chest wall: No suspicious bony lesions. Overlying soft tissues appear unremarkable. Generalized osteopenia IMPRESSION: Left basilar atelectasis and or infiltrate Approved by: Jovanny Chaidez M.D. on 12/13/2022 at 17:19
[2022-12-13 17:36] LABS: Appearance Urine UA CLEAR; Bilirubin Urine UA NEGATIVE (NEGATIVE); Color Urine UA YELLOW; Glucose Urine UA NEGATIVE (Negative); Ketones Urine UA NEGATIVE (NEGATIVE); Leukocyte Esterase Urine UA NEGATIVE (NEGATIVE); Nitrite Urine UA NEGATIVE (Negative); Occult Blood Urine UA TRACE-INTACT (Negative); Protein Urine UA NEGATIVE (Negative); Urobilinogen Urine UA 0.2 E.U./dL (0.2)
--- NOTE | 2022-12-13 17:37 | ED_ITS ---
HPI - General Adult <José Chun DO - Last Filed: 12/14/22 07:10> General Chief complaint: Abdominal Pain Stated complaint: Pain all over & Urinary retention Time Seen by Provider: 12/13/22 17:19 Source: patient and family Mode of arrival: Ambulatory Limitations: no limitations History of Present Illness HPI narrative: Patient is an 87-year-old male. Does have a history of metastatic melanoma. Is under the care of Oncology. He is getting immunotherapy. He is here for continued shortness of breath. He has a history of emphysema and he states this is baseline for him. He also states he has ?pain all over? he states that he is also constipated and feeling like he needs to use the bathroom but is having diarrhea. He is unable to empty his bladder. Is having penile pain. Is having itching all over his skin. Is having problems swallowing because of potential thrush. Has not been eating solid foods but is able to tolerate boost in other liquid drinks. He has been putting Biofreeze on his skin because of itching. He describes abdominal pain. Does have lower extremity swelling. Is here with his family providing some of the HPI Related Data Home Medications Medication Instructions Recorded Confirmed acetaminophen 500 mg tablet 1,000 mg PO TID ##0 12/08/17 12/13/22 (Tylenol Extra Strength) budesonide-formoterol HFA 80 2 puff inhalation DAILY 06/10/22 12/13/22 mcg-4.5 mcg/actuation aerosol inhaler (Symbicort) psyllium 1 packet PO TID 10/08/22 12/13/22 Previous Rx's Medication Instructions Recorded eltrombopag 50 mg tablet (Promacta) 50 mg PO DAILY #30 tabs 07/09/22 ondansetron 4 mg disintegrating 4 mg PO Q4HR PRN Nausea #30 tabs 12/03/22 tablet ondansetron 4 mg disintegrating 4 mg PO Q4HR PRN Nausea #30 tabs 12/03/22 tablet Allergies Allergy/AdvReac Type Severity Reaction Status Date / Time No Known Allergies Allergy Verified 12/13/22 18:27 Review of Systems <DO Douglas Carrasco Last Filed: 12/14/22 07:10> Review of Systems ROS Unobtainable: All systems reviewed & are unremarkable except as noted in HPI and below Patient History <José Chun DO - Last Filed: 12/14/22 07:10> Medical History Malignant melanoma, metastatic Melanoma Shortness of Breath Tricompartment osteoarthritis of right knee Surgical History S/P total knee arthroplasty Social History household members: none Smoking Status: Former smoker alcohol intake: former Smoking Status: Former smoker tobacco type: cigarettes alcohol intake frequency: 0-2 drinks per day Substance Use Type: does not use Exam <José Chun DO - Last Filed: 12/14/22 07:10> Initial Vital Signs Initial Vital Signs: Vital Signs Temperature 97.6 F 12/13/22 17:00 Pulse Rate 116 H 12/13/22 17:00 Respiratory Rate 20 12/13/22 17:00 Blood Pressure 161/77 H 12/13/22 17:00 Pulse Oximetry 98 12/13/22 17:00 Oxygen Delivery Method 12/13/22 17:00 Const General: cooperative and No acute distress HENMT Head: normal to inspection Mouth: No moist mucous membranes (Dry mucous membranes) and tongue abnormal (White patches on tongue) Chest Chest: No crepitus and No tenderness Resp Effort & Inspection: not labored, no respiratory distress and tachypneic Auscultation: clear to auscultation bilaterally Cardio Rate: tachycardic Rhythm: regular rhythm GI Inspection: normal to inspection Palpation: soft, No firm and No tender Other: Fried catheter in place Skin Other: No indication of cellulitis Neuro General: patient alert, patient awake, patient oriented x3 and moves all extremities Extrem General: edema Psych Appearance: grossly normal and well kempt <Lucia Pettti MD - Last Filed: 12/14/22 00:29> Initial Vital Signs Initial Vital Signs: Vital Signs Temperature 97.6 F 12/13/22 17:00 Pulse Rate 116 H 12/13/22 17:00 Respiratory Rate 20 12/13/22 17:00 Blood Pressure 161/77 H 12/13/22 17:00 Pulse Oximetry 98 12/13/22 17:00 Oxygen Delivery Method 12/13/22 17:00 Scores <José Chun DO - Last Filed: 12/14/22 07:10> [facility]CS [place] coma scale eye opening: Spontaneous [place] coma scale verbal response: Orientated [place] coma scale motor response: Obey commands [place] coma scale total score: 15 <Lucia Pettit MD - Last Filed: 12/14/22 00:29> GCS [place] coma scale total score: 15 Course <José Chun DO - Last Filed: 12/14/22 07:10> Orders Ordered: Acetaminophen (Acetaminophen 325 Mg Tablet) 650 mg PO Q6H PRN PRN Reason: Fever/Mild Pain (1-3) Last Admin: 12/14/22 00:53 Dose: 650 mg Documented By: Albuterol (Albuterol 2.5 Mg/3 Ml Neb (Adult)) 2.5 mg INH [id number] PRN PRN Reason: Shortness Of Breath Albuterol (Albuterol 2.5 Mg/3 Ml Neb (Adult)) 2.5 mg INH [id number] [facility] Last Admin: 12/14/22 01:04 Dose: Not Given Documented By: Bisacodyl (Bisacodyl 5 Mg Tablet) 10 mg PO DAILY PRN PRN Reason: Constipation Budesonide (Budesonide 0.5 Mg/2 Ml Neb) 0.5 mg INH RTBID [facility] Clotrimazole (Clotrimazole Rosa 10 Mg) 10 mg PO 5XD [facility] Last Admin: 12/14/22 06:42 Dose: Not Given Documented By: Admin: 12/13/22 23:30 Dose: Not Given Documented By: Ceftriaxone Sodium 1,000 mg/ (Sodium Chloride) 100 mls @ 200 mls/hr IV Q24H [facility] Magnesium Hydroxide (Magnesium Hydroxide 30 Ml Udc) 30 ml PO DAILY PRN PRN Reason: Constipation Naloxone HCl (Naloxone 0.4 Mg/Ml Vial) 0.2 mg IV Q2MIN PRN PRN Reason: Opiate Reversal Non-Formulary Medication (Eltrombopag [Promacta]) 50 mg PO DAILY [facility] Nystatin (Nystatin Susp 500,000 Unit/5 Ml Udc) 500,000 unit PO QID [facility] Ondansetron HCl (Ondansetron 4 Mg/2 Ml Inj) 4 mg IV Q6HR PRN PRN Reason: Nausea And Vomiting Oxycodone HCl (Oxycodone Ir 5 Mg Tablet) 5 mg PO Q3H PRN PRN Reason: Pain, Moderate (4-6) Psyllium Hydrophilic Mucilloid (Psyllium Husk 1 Packet) 1 packet PO TID UMA Discontinued Medications Clotrimazole (Clotrimazole Rosa 10 Mg) 10 mg PO NOW ONE Stop: 12/13/22 18:22 Last Admin: 12/13/22 19:58 Dose: Not Given Documented By: OSVALDOS Sodium Chloride (Normal Saline 0.9%) 1,000 mls @ 1,000 mls/hr IV BOLUS ONE Stop: 12/13/22 18:35 Last Infusion: 12/13/22 18:46 Dose: 0 mls/hr Documented By: Admin: 12/13/22 17:53 Dose: 1,000 mls/hr Documented By: ZAHRAA Vancomycin HCl (Vancomycin) 1,000 mg in 200 mls @ 200 mls/hr IV NOW ONE Stop: 12/13/22 18:43 Last Infusion: 12/13/22 20:31 Dose: 0 mls/hr Documented By: Admin: 12/13/22 18:47 Dose: 200 mls/hr Documented By: ZAHRAA Ceftriaxone Sodium 1,000 mg/ (Sodium Chloride) 100 mls @ 200 mls/hr IV NOW ONE Stop: 12/13/22 17:45 Last Infusion: 12/13/22 18:47 Dose: 0 mls/hr Documented By: Admin: 12/13/22 18:00 Dose: 200 mls/hr Documented By: ZAHRAA Sodium Chloride (Normal Saline 0.9%) 1,000 mls @ 150 mls/hr IV CONT UMA Last Infusion: 12/14/22 02:22 Dose: 0 mls/hr Documented By: Infusion: 12/13/22 22:07 Dose: 150 mls/hr Documented By: Admin: 12/13/22 18:47 Dose: 150 mls/hr Documented By: ZAHRAA Nystatin (Nystatin Susp 500,000 Unit/5 Ml Udc) 500,000 unit PO NOW ONE Stop: 12/13/22 21:04 Last Admin: 12/13/22 21:33 Dose: 500,000 unit Documented By: JIMBO Ondansetron HCl (Ondansetron 4 Mg Odt) 4 mg PO NOW PRN PRN Reason: Nausea And Vomiting Ondansetron HCl (Ondansetron 4 Mg/2 Ml Inj) 4 mg IV NOW PRN PRN Reason: Nausea And Vomiting Vital Signs Vital signs: Vital Signs - 8 hr 12/13/22 17:00 12/13/22 17:20 12/13/22 17:30 Temperature 97.6 F Pulse Rate 116 H 115 H Respiratory Rate 20 20 Blood Pressure 161/77 H 133/63 Pulse Oximetry 98 96 Oxygen Delivery Method Room Air 12/13/22 17:30 12/13/22 17:45 12/13/22 18:00 Temperature Pulse Rate 113 H 110 H Respiratory Rate 29 H 25 H Blood Pressure 142/59 H Pulse Oximetry 96 97 Oxygen Delivery Method Room Air 12/13/22 18:00 12/13/22 18:15 12/13/22 18:30 Temperature Pulse Rate 109 H 112 H 121 H Respiratory Rate 26 H 26 H 30 H Blood Pressure Pulse Oximetry 95 97 Oxygen Delivery Method Room Air 12/13/22 18:45 12/13/22 19:00 12/13/22 19:19 Temperature Pulse Rate 115 H 114 H 117 H Respiratory Rate 28 H 19 25 H Blood Pressure Pulse Oximetry 96 95 96 Oxygen Delivery Method 12/13/22 19:30 12/13/22 19:45 12/13/22 20:00 Temperature Pulse Rate 116 H 115 H 115 H Respiratory Rate 20 22 26 H Blood Pressure Pulse Oximetry 92 94 Oxygen Delivery Method 12/13/22 20:15 12/13/22 20:30 12/13/22 20:41 Temperature Pulse Rate 114 H 115 H Respiratory Rate 19 19 Blood Pressure 142/63 H Pulse Oximetry 95 95 Oxygen Delivery Method 12/13/22 20:41 12/13/22 20:45 12/13/22 21:00 Temperature Pulse Rate 116 H 116 H Respiratory Rate 20 19 Blood Pressure 127/58 L Pulse Oximetry 95 95 Oxygen Delivery Method 12/13/22 21:00 12/13/22 21:15 Temperature Pulse Rate 117 H 117 H Respiratory Rate 20 21 Blood Pressure Pulse Oximetry 94 94 Oxygen Delivery Method <Lucia Pettit MD - Last Filed: 12/14/22 00:29> Orders Ordered: Acetaminophen (Acetaminophen 325 Mg Tablet) 650 mg PO Q6H PRN PRN Reason: Fever/Mild Pain (1-3) Last Admin: 12/14/22 00:53 Dose: 650 mg Documented By: Albuterol (Albuterol 2.5 Mg/3 Ml Neb (Adult)) 2.5 mg INH [id number] PRN PRN Reason: Shortness Of Breath Albuterol (Albuterol 2.5 Mg/3 Ml Neb (Adult)) 2.5 mg INH [id number] [facility] Last Admin: 12/14/22 01:04 Dose: Not Given Documented By: Bisacodyl (Bisacodyl 5 Mg Tablet) 10 mg PO DAILY PRN PRN Reason: Constipation Budesonide (Budesonide 0.5 Mg/2 Ml Neb) 0.5 mg INH RTBID [facility] Clotrimazole (Clotrimazole Rosa 10 Mg) 10 mg PO 5XD [facility] Last Admin: 12/14/22 06:42 Dose: Not Given Documented By: Admin: 12/13/22 23:30 Dose: Not Given Documented By: Ceftriaxone Sodium 1,000 mg/ (Sodium Chloride) 100 mls @ 200 mls/hr IV Q24H [facility] Magnesium Hydroxide (Magnesium Hydroxide 30 Ml Udc) 30 ml PO DAILY PRN PRN Reason: Constipation Naloxone HCl (Naloxone 0.4 Mg/Ml Vial) 0.2 mg IV Q2MIN PRN PRN Reason: Opiate Reversal Non-Formulary Medication (Eltrombopag [Promacta]) 50 mg PO DAILY [facility] Nystatin (Nystatin Susp 500,000 Unit/5 Ml Udc) 500,000 unit PO QID [facility] Ondansetron HCl (Ondansetron 4 Mg/2 Ml Inj) 4 mg IV Q6HR PRN PRN Reason: Nausea And Vomiting Oxycodone HCl (Oxycodone Ir 5 Mg Tablet) 5 mg PO Q3H PRN PRN Reason: Pain, Moderate (4-6) Psyllium Hydrophilic Mucilloid (Psyllium Husk 1 Packet) 1 packet PO TID [facility] Discontinued Medications Clotrimazole (Clotrimazole Rosa 10 Mg) 10 mg PO NOW ONE Stop: 12/13/22 18:22 Last Admin: 12/13/22 19:58 Dose: Not Given Documented By: KLS Sodium Chloride (Normal Saline 0.9%) 1,000 mls @ 1,000 mls/hr IV BOLUS ONE Stop: 12/13/22 18:35 Last Infusion: 12/13/22 18:46 Dose: 0 mls/hr Documented By: Admin: 12/13/22 17:53 Dose: 1,000 mls/hr Documented By: ZAHRAA Vancomycin HCl (Vancomycin) 1,000 mg in 200 mls @ 200 mls/hr IV NOW ONE Stop: 12/13/22 18:43 Last Infusion: 12/13/22 20:31 Dose: 0 mls/hr Documented By: Admin: 12/13/22 18:47 Dose: 200 mls/hr Documented By: ZAHRAA Ceftriaxone Sodium 1,000 mg/ (Sodium Chloride) 100 mls @ 200 mls/hr IV NOW ONE Stop: 12/13/22 17:45 Last Infusion: 12/13/22 18:47 Dose: 0 mls/hr Documented By: Admin: 12/13/22 18:00 Dose: 200 mls/hr Documented By: ZAHRAA Sodium Chloride (Normal Saline 0.9%) 1,000 mls @ 150 mls/hr IV CONT UMA Last Infusion: 12/14/22 02:22 Dose: 0 mls/hr Documented By: Infusion: 12/13/22 22:07 Dose: 150 mls/hr Documented By: Admin: 12/13/22 18:47 Dose: 150 mls/hr Documented By: ZAHRAA Nystatin (Nystatin Susp 500,000 Unit/5 Ml Udc) 500,000 unit PO NOW ONE Stop: 12/13/22 21:04 Last Admin: 12/13/22 21:33 Dose: 500,000 unit Documented By: JIMBO Ondansetron HCl (Ondansetron 4 Mg Odt) 4 mg PO NOW PRN PRN Reason: Nausea And Vomiting Ondansetron HCl (Ondansetron 4 Mg/2 Ml Inj) 4 mg IV NOW PRN PRN Reason: Nausea And Vomiting Vital Signs Vital signs: Vital Signs - 8 hr 12/13/22 17:00 12/13/22 17:20 12/13/22 17:30 Temperature 97.6 F Pulse Rate 116 H 115 H Respiratory Rate 20 20 Blood Pressure 161/77 H 133/63 Pulse Oximetry 98 96 Oxygen Delivery Method Room Air 12/13/22 17:30 12/13/22 17:45 12/13/22 18:00 Temperature Pulse Rate 113 H 110 H Respiratory Rate 29 H 25 H Blood Pressure 142/59 H Pulse Oximetry 96 97 Oxygen Delivery Method Room Air 12/13/22 18:00 12/13/22 18:15 12/13/22 18:30 Temperature Pulse Rate 109 H 112 H 121 H Respiratory Rate 26 H 26 H 30 H Blood Pressure Pulse Oximetry 95 97 Oxygen Delivery Method Room Air 12/13/22 18:45 12/13/22 19:00 12/13/22 19:19 Temperature Pulse Rate 115 H 114 H 117 H Respiratory Rate 28 H 19 25 H Blood Pressure Pulse Oximetry 96 95 96 Oxygen Delivery Method 12/13/22 19:30 12/13/22 19:45 12/13/22 20:00 Temperature Pulse Rate 116 H 115 H 115 H Respiratory Rate 20 22 26 H Blood Pressure Pulse Oximetry 92 94 Oxygen Delivery Method 12/13/22 20:15 12/13/22 20:30 12/13/22 20:41 Temperature Pulse Rate 114 H 115 H Respiratory Rate 19 19 Blood Pressure 142/63 H Pulse Oximetry 95 95 Oxygen Delivery Method 12/13/22 20:41 12/13/22 20:45 12/13/22 21:00 Temperature Pulse Rate 116 H 116 H Respiratory Rate 20 19 Blood Pressure 127/58 L Pulse Oximetry 95 95 Oxygen Delivery Method 12/13/22 21:00 12/13/22 21:15 Temperature Pulse Rate 117 H 117 H Respiratory Rate 20 21 Blood Pressure Pulse Oximetry 94 94 Oxygen Delivery Method Medical Decision Making <José Chun DO - Last Filed: 12/14/22 07:10> Medical Records Medical records reviewed: Yes I reviewed the patient's medical records. Lab Data Lab results reviewed: Yes I reviewed the patient's lab results. 12/13/22 17:00 12/13/22 17:00 Labs: Lab Results 12/13/22 12/13/22 12/13/22 Range/Units 17:00 17:00 17:00 WBC 23.4 H (4.5-11.0) X10^3/uL RBC 4.50 (4.5-5.9) X10^6/uL Hgb 11.1 L (13.5-17.5) g/dL Hct 34.7 L (41-53) % MCV 77.1 L (80-100) fL MCH 24.6 L (26-34) PG MCHC 31.9 (30-36) % RDW 16.7 H (11.6-14.8) % Plt Count 192 (150-400) X10^3/uL Neut % (Auto) 87.6 H (50-75) % Lymph % (Auto) 3.6 L (25-40) % [place] % (Auto) 8.4 (3-14) % Eos % (Auto) 0.0 L (2-4) % Baso % (Auto) 0.4 (0-2) % Neut # (Auto) 73810 H (4581-5258) /uL Lymph # (Auto) 800 L (8522-7279) /uL [place] # (Auto) 2000 H (0-900) /uL Eos # (Auto) 0 (0-450) /uL Baso # (Auto) 100 (0-100) /uL Sodium 137 (137-145) mmol/L Potassium 4.4 (3.4-5.1) mmol/L Chloride 97 L (98-107) mmol/L Carbon Dioxide 25 (22-32) mmol/L BUN 23 H (9-20) mg/dL Creatinine 0.86 (0.66-1.25) mg/dL Estimated GFR > 60 (>60) mL/min BUN/Creatinine Ratio 26.7 H (6-22) Glucose 132 H (80-110) mg/dL Lactate 4.1 H* (0.7-2.1) mmol/L Calcium 9.7 (8.4-10.2) mg/dL Total Bilirubin 0.4 (0.2-1.3) mg/dL AST 28 (17-59) IU/L ALT 23 (<50) IU/L Alkaline Phosphatase 111 (38-126) U/L Total Creatine Kinase (55-170) U/L CK-MB (CK-2) CK-MB (CK-2) Rel Index Troponin I (0.01-0.034) ng/mL NT-Pro-B Natriuret Pep (<450) pg/mL Total Protein 7.7 (6.3-8.2) g/dL Albumin 4.2 (3.5-5.0) g/dL Globulin 3.5 (1.7-4.1) g/dL Albumin/Globulin Ratio 1.2 (1.0-2.8) Lipase 112 (23-300) U/L Procalcitonin (<0.5) ng/mL Urine Color Urine Appearance Urine pH (4.5-8.0) Ur Specific [place] (1.000-1.035) Urine Protein (Negative) Urine Glucose (UA) (Negative) g/dL Urine Ketones (NEGATIVE) Urine Occult Blood (Negative) Urine Nitrate (Negative) Urine Bilirubin (NEGATIVE) Urine Urobilinogen (0.2) E.U./dL Ur Leukocyte Esterase (NEGATIVE) Urine RBC (0-5/HPF) Urine WBC (0-5/HPF) Urine Bacteria (None) Ur Culture Indicated? SARS-CoV-2 (PCR) (Negative) Influenza A (RT-PCR) (NEGATIVE) Influenza B (RT-PCR) (NEGATIVE) RSV (PCR) (Negative) 12/13/22 12/13/22 12/13/22 Range/Units 17:00 17:00 17:15 WBC (4.5-11.0) X10^3/uL RBC (4.5-5.9) X10^6/uL Hgb (13.5-17.5) g/dL Hct (41-53) % MCV (80-100) fL MCH (26-34) PG MCHC (30-36) % RDW (11.6-14.8) % Plt Count (150-400) X10^3/uL Neut % (Auto) (50-75) % Lymph % (Auto) (25-40) % [place] % (Auto) (3-14) % Eos % (Auto) (2-4) % Baso % (Auto) (0-2) % Neut # (Auto) (2196-4810) /uL Lymph # (Auto) (4676-5669) /uL [place] # (Auto) (0-900) /uL Eos # (Auto) (0-450) /uL Baso # (Auto) (0-100) /uL Sodium (137-145) mmol/L Potassium (3.4-5.1) mmol/L Chloride (98-107) mmol/L Carbon Dioxide (22-32) mmol/L BUN (9-20) mg/dL Creatinine (0.66-1.25) mg/dL Estimated GFR (>60) mL/min BUN/Creatinine Ratio (6-22) Glucose (80-110) mg/dL Lactate (0.7-2.1) mmol/L Calcium (8.4-10.2) mg/dL Total Bilirubin (0.2-1.3) mg/dL AST (17-59) IU/L ALT (<50) IU/L Alkaline Phosphatase (38-126) U/L Total Creatine Kinase 89 (55-170) U/L CK-MB (CK-2) TNP CK-MB (CK-2) Rel Index TNP Troponin I 0.017 (0.01-0.034) ng/mL NT-Pro-B Natriuret Pep 2410 H (<450) pg/mL Total Protein (6.3-8.2) g/dL Albumin (3.5-5.0) g/dL Globulin (1.7-4.1) g/dL Albumin/Globulin Ratio (1.0-2.8) Lipase (23-300) U/L Procalcitonin 0.30 (<0.5) ng/mL Urine Color Yellow Urine Appearance Clear Urine pH 6.0 (4.5-8.0) Ur Specific [place] 1.010 (1.000-1.035) Urine Protein Negative (Negative) Urine Glucose (UA) Negative (Negative) g/dL Urine Ketones Negative (NEGATIVE) Urine Occult Blood Trace-intact (Negative) Urine Nitrate Negative (Negative) Urine Bilirubin Negative (NEGATIVE) Urine Urobilinogen 0.2 (0.2) E.U./dL Ur Leukocyte Esterase Negative (NEGATIVE) Urine RBC 5-10/hpf H (0-5/HPF) Urine WBC 0-1/hpf (0-5/HPF) Urine Bacteria Occasional (0-1) (None) Ur Culture Indicated? Cult not indicated SARS-CoV-2 (PCR) (Negative) Influenza A (RT-PCR) (NEGATIVE) Influenza B (RT-PCR) (NEGATIVE) RSV (PCR) (Negative) 12/13/22 12/13/22 Range/Units 17:48 19:43 WBC (4.5-11.0) X10^3/uL RBC (4.5-5.9) X10^6/uL Hgb (13.5-17.5) g/dL Hct (41-53) % MCV (80-100) fL MCH (26-34) PG MCHC (30-36) % RDW (11.6-14.8) % Plt Count (150-400) X10^3/uL Neut % (Auto) (50-75) % Lymph % (Auto) (25-40) % [place] % (Auto) (3-14) % Eos % (Auto) (2-4) % Baso % (Auto) (0-2) % Neut # (Auto) (8102-4925) /uL Lymph # (Auto) (8911-3747) /uL [place] # (Auto) (0-900) /uL Eos # (Auto) (0-450) /uL Baso # (Auto) (0-100) /uL Sodium (137-145) mmol/L Potassium (3.4-5.1) mmol/L Chloride (98-107) mmol/L Carbon Dioxide (22-32) mmol/L BUN (9-20) mg/dL Creatinine (0.66-1.25) mg/dL Estimated GFR (>60) mL/min BUN/Creatinine Ratio (6-22) Glucose (80-110) mg/dL Lactate 2.8 H (0.7-2.1) mmol/L Calcium (8.4-10.2) mg/dL Total Bilirubin (0.2-1.3) mg/dL AST (17-59) IU/L ALT (<50) IU/L Alkaline Phosphatase (38-126) U/L Total Creatine Kinase (55-170) U/L CK-MB (CK-2) CK-MB (CK-2) Rel Index Troponin I (0.01-0.034) ng/mL NT-Pro-B Natriuret Pep (<450) pg/mL Total Protein (6.3-8.2) g/dL Albumin (3.5-5.0) g/dL Globulin (1.7-4.1) g/dL Albumin/Globulin Ratio (1.0-2.8) Lipase (23-300) U/L Procalcitonin (<0.5) ng/mL Urine Color Urine Appearance Urine pH (4.5-8.0) Ur Specific [place] (1.000-1.035) Urine Protein (Negative) Urine Glucose (UA) (Negative) g/dL Urine Ketones (NEGATIVE) Urine Occult Blood (Negative) Urine Nitrate (Negative) Urine Bilirubin (NEGATIVE) Urine Urobilinogen (0.2) E.U./dL Ur Leukocyte Esterase (NEGATIVE) Urine RBC (0-5/HPF) Urine WBC (0-5/HPF) Urine Bacteria (None) Ur Culture Indicated? SARS-CoV-2 (PCR) Negative (Negative) Influenza A (RT-PCR) Flu a negative (NEGATIVE) Influenza B (RT-PCR) Flu b negative (NEGATIVE) RSV (PCR) Negative (Negative) Imaging Data Chest x-ray: Radiologist's Impression: [address] [address] XRay Report Signed Patient: Ady Lombardo MR#: [id number] : 1935 Acct:[id number] Age/Sex: 87 / M Date of Service: 12/13/22 Loc: ED Accession Number: [id number] ?? Procedure: XR chest 1V Ordering Provider: José Chun D.O. PROCEDURE:? XR CHEST 1V ? INDICATIONS:? Eval for pneumonia ? TECHNIQUE:? One view of the chest was acquired.? ? COMPARISON:? [facility], CR, XR CHEST 1V, 06/10/2022, 10:21. ? FINDINGS:? ? Surgical changes and devices:? None.? ? Lungs and pleura:? Left basilar atelectasis and infiltrate.? Both pleural spaces are clear. ? Mediastinum:? Mediastinal contours appear normal.? Heart size is normal.? ? Bones and chest wall:? No suspicious bony lesions.? Overlying soft tissues appear unremarkable.? Generalized osteopenia ? IMPRESSION:? Left basilar atelectasis and or infiltrate ? ? ? Approved by: Jovanny Chaidez M.D. on 12/13/2022 at 17:19? ECG Data Attestation: I personally reviewed and interpreted this ECG as follows: Interpretation: Sinus tachycardia Ventricular rate 112 Normal axis We will QRS Normal QTC No ST T wave changes MDM Narrative Medical decision making narrative: Patient does have metastatic melanoma. Is receiving immunotherapy. Arrived with multiple complaints. Is tachycardic. Not hypotensive. Is tachypneic. Does have leukocytosis. Has an elevated lactate. Cultures were obtained. Antibiotics ordered. Will hold on the 30 cc/kilogram because the patient is mentating fine, is not hypotensive, is tolerating oral intake and also has signs of fluid overload secondary to lower extremity swelling. Urinary catheter placed in the patient states he feels much better. There was no signs of urinary tract infection. He does have thrush. Clotrimazole ordered. There does not appear to be any signs of a cellulitis. Does have shortness of breath but not worse than his baseline. Care turned over to Dr. Pettit to continue to evaluate and disposition. <Lucia Pettit MD - Last Filed: 12/14/22 00:29> Lab Data Labs: Lab Results 12/13/22 12/13/22 12/13/22 Range/Units 17:00 17:00 17:00 WBC 23.4 H (4.5-11.0) X10^3/uL RBC 4.50 (4.5-5.9) X10^6/uL Hgb 11.1 L (13.5-17.5) g/dL Hct 34.7 L (41-53) % MCV 77.1 L (80-100) fL MCH 24.6 L (26-34) PG MCHC 31.9 (30-36) % RDW 16.7 H (11.6-14.8) % Plt Count 192 (150-400) X10^3/uL Neut % (Auto) 87.6 H (50-75) % Lymph % (Auto) 3.6 L (25-40) % [place] % (Auto) 8.4 (3-14) % Eos % (Auto) 0.0 L (2-4) % Baso % (Auto) 0.4 (0-2) % Neut # (Auto) 63854 H (7105-1513) /uL Lymph # (Auto) 800 L (6285-8373) /uL [place] # (Auto) 2000 H (0-900) /uL Eos # (Auto) 0 (0-450) /uL Baso # (Auto) 100 (0-100) /uL Sodium 137 (137-145) mmol/L Potassium 4.4 (3.4-5.1) mmol/L Chloride 97 L (98-107) mmol/L Carbon Dioxide 25 (22-32) mmol/L BUN 23 H (9-20) mg/dL Creatinine 0.86 (0.66-1.25) mg/dL Estimated GFR > 60 (>60) mL/min BUN/Creatinine Ratio 26.7 H (6-22) Glucose 132 H (80-110) mg/dL Lactate 4.1 H* (0.7-2.1) mmol/L Calcium 9.7 (8.4-10.2) mg/dL Total Bilirubin 0.4 (0.2-1.3) mg/dL AST 28 (17-59) IU/L ALT 23 (<50) IU/L Alkaline Phosphatase 111 (38-126) U/L Total Creatine Kinase (55-170) U/L CK-MB (CK-2) CK-MB (CK-2) Rel Index Troponin I (0.01-0.034) ng/mL NT-Pro-B Natriuret Pep (<450) pg/mL Total Protein 7.7 (6.3-8.2) g/dL Albumin 4.2 (3.5-5.0) g/dL Globulin 3.5 (1.7-4.1) g/dL Albumin/Globulin Ratio 1.2 (1.0-2.8) Lipase 112 (23-300) U/L Procalcitonin (<0.5) ng/mL Urine Color Urine Appearance Urine pH (4.5-8.0) Ur Specific [place] (1.000-1.035) Urine Protein (Negative) Urine Glucose (UA) (Negative) g/dL Urine Ketones (NEGATIVE) Urine Occult Blood (Negative) Urine Nitrate (Negative) Urine Bilirubin (NEGATIVE) Urine Urobilinogen (0.2) E.U./dL Ur Leukocyte Esterase (NEGATIVE) Urine RBC (0-5/HPF) Urine WBC (0-5/HPF) Urine Bacteria (None) Ur Culture Indicated? SARS-CoV-2 (PCR) (Negative) Influenza A (RT-PCR) (NEGATIVE) Influenza B (RT-PCR) (NEGATIVE) RSV (PCR) (Negative) 12/13/22 12/13/22 12/13/22 Range/Units 17:00 17:00 17:15 WBC (4.5-11.0) X10^3/uL RBC (4.5-5.9) X10^6/uL Hgb (13.5-17.5) g/dL Hct (41-53) % MCV (80-100) fL MCH (26-34) PG MCHC (30-36) % RDW (11.6-14.8) % Plt Count (150-400) X10^3/uL Neut % (Auto) (50-75) % Lymph % (Auto) (25-40) % [place] % (Auto) (3-14) % Eos % (Auto) (2-4) % Baso % (Auto) (0-2) % Neut # (Auto) (8118-2501) /uL Lymph # (Auto) (5366-7443) /uL [place] # (Auto) (0-900) /uL Eos # (Auto) (0-450) /uL Baso # (Auto) (0-100) /uL Sodium (137-145) mmol/L Potassium (3.4-5.1) mmol/L Chloride (98-107) mmol/L Carbon Dioxide (22-32) mmol/L BUN (9-20) mg/dL Creatinine (0.66-1.25) mg/dL Estimated GFR (>60) mL/min BUN/Creatinine Ratio (6-22) Glucose (80-110) mg/dL Lactate (0.7-2.1) mmol/L Calcium (8.4-10.2) mg/dL Total Bilirubin (0.2-1.3) mg/dL AST (17-59) IU/L ALT (<50) IU/L Alkaline Phosphatase (38-126) U/L Total Creatine Kinase 89 (55-170) U/L CK-MB (CK-2) TNP CK-MB (CK-2) Rel Index TNP Troponin I 0.017 (0.01-0.034) ng/mL NT-Pro-B Natriuret Pep 2410 H (<450) pg/mL Total Protein (6.3-8.2) g/dL Albumin (3.5-5.0) g/dL Globulin (1.7-4.1) g/dL Albumin/Globulin Ratio (1.0-2.8) Lipase (23-300) U/L Procalcitonin 0.30 (<0.5) ng/mL Urine Color Yellow Urine Appearance Clear Urine pH 6.0 (4.5-8.0) Ur Specific [place] 1.010 (1.000-1.035) Urine Protein Negative (Negative) Urine Glucose (UA) Negative (Negative) g/dL Urine Ketones Negative (NEGATIVE) Urine Occult Blood Trace-intact (Negative) Urine Nitrate Negative (Negative) Urine Bilirubin Negative (NEGATIVE) Urine Urobilinogen 0.2 (0.2) E.U./dL Ur Leukocyte Esterase Negative (NEGATIVE) Urine RBC 5-10/hpf H (0-5/HPF) Urine WBC 0-1/hpf (0-5/HPF) Urine Bacteria Occasional (0-1) (None) Ur Culture Indicated? Cult not indicated SARS-CoV-2 (PCR) (Negative) Influenza A (RT-PCR) (NEGATIVE) Influenza B (RT-PCR) (NEGATIVE) RSV (PCR) (Negative) 12/13/22 12/13/22 Range/Units 17:48 19:43 WBC (4.5-11.0) X10^3/uL RBC (4.5-5.9) X10^6/uL Hgb (13.5-17.5) g/dL Hct (41-53) % MCV (80-100) fL MCH (26-34) PG MCHC (30-36) % RDW (11.6-14.8) % Plt Count (150-400) X10^3/uL Neut % (Auto) (50-75) % Lymph % (Auto) (25-40) % [place] % (Auto) (3-14) % Eos % (Auto) (2-4) % Baso % (Auto) (0-2) % Neut # (Auto) (9586-7071) /uL Lymph # (Auto) (9853-5578) /uL [place] # (Auto) (0-900) /uL Eos # (Auto) (0-450) /uL Baso # (Auto) (0-100) /uL Sodium (137-145) mmol/L Potassium (3.4-5.1) mmol/L Chloride (98-107) mmol/L Carbon Dioxide (22-32) mmol/L BUN (9-20) mg/dL Creatinine (0.66-1.25) mg/dL Estimated GFR (>60) mL/min BUN/Creatinine Ratio (6-22) Glucose (80-110) mg/dL Lactate 2.8 H (0.7-2.1) mmol/L Calcium (8.4-10.2) mg/dL Total Bilirubin (0.2-1.3) mg/dL AST (17-59) IU/L ALT (<50) IU/L Alkaline Phosphatase (38-126) U/L Total Creatine Kinase (55-170) U/L CK-MB (CK-2) CK-MB (CK-2) Rel Index Troponin I (0.01-0.034) ng/mL NT-Pro-B Natriuret Pep (<450) pg/mL Total Protein (6.3-8.2) g/dL Albumin (3.5-5.0) g/dL Globulin (1.7-4.1) g/dL Albumin/Globulin Ratio (1.0-2.8) Lipase (23-300) U/L Procalcitonin (<0.5) ng/mL Urine Color Urine Appearance Urine pH (4.5-8.0) Ur Specific [place] (1.000-1.035) Urine Protein (Negative) Urine Glucose (UA) (Negative) g/dL Urine Ketones (NEGATIVE) Urine Occult Blood (Negative) Urine Nitrate (Negative) Urine Bilirubin (NEGATIVE) Urine Urobilinogen (0.2) E.U./dL Ur Leukocyte Esterase (NEGATIVE) Urine RBC (0-5/HPF) Urine WBC (0-5/HPF) Urine Bacteria (None) Ur Culture Indicated? SARS-CoV-2 (PCR) Negative (Negative) Influenza A (RT-PCR) Flu a negative (NEGATIVE) Influenza B (RT-PCR) Flu b negative (NEGATIVE) RSV (PCR) Negative (Negative) MDM Narrative Medical decision making narrative: Patient does have metastatic melanoma. Is receiving immunotherapy. Arrived with multiple complaints. Is tachycardic. Not hypotensive. Is tachypneic. Does have leukocytosis. Has an elevated lactate. Cultures were obtained. Antibiotics ordered. Will hold on the 30 cc/kilogram because the patient is mentating fine, is not hypotensive, is tolerating oral intake and also has signs of fluid overload secondary to lower extremity swelling. Urinary catheter placed in the patient states he feels much better. There was no signs of urinary tract infection. He does have thrush. Clotrimazole ordered. There does not appear to be any signs of a cellulitis. Does have shortness of breath but not worse than his baseline. Care turned over to Dr. Pettit to continue to evaluate and disposition. 845pm care is assumed. Patient is independently examined and notes reviewed. Studies independently reviewed: Chest x-ray suggests left basilar atelectasis or infiltrate. CT scan of the chest abdomen and pelvis shows no acute pathology does note increased stool throughout with fecal impaction in the rectum Lactic acid has come down nicely Discussion: 87-year-old gentleman with multiple medical problems and multiple acute exacerbations of some of his chronic ones. I am still concerned that he is septic with an unidentified source given his persistent tachycardia and general malaise. He is feeling much better with his Fried catheter in place and notes that he typically had been voiding 12-15 times night with significant sleep deprivation as a result of that. With the bladder decompressed he is not having the pain on his rectum and declines manual disimpaction for the CTA identified rectal fecal impaction. Clotrimazole troches to treat his thrush are not going to be available until pharmacy is open in the morning we will see if nystatin swish and swallow may be available this evening. His exam does not suggest significant wheezing or rhonchi. I do not think that steroids are going to be of benefit at this point. He is not hypoxic nor tachypneic. He is not complaining of headache nor showing any signs of nuchal rigidity to suggest meningitis as an etiology. Reviewed all findings with the patient and suggested hospital admission overnight to make sure that all of his symptoms are returning to baseline, that his heart rate comes down and that his leukocytosis resolves. High concern for blood cultures that will eventually turned positive given that initial leukocytosis without additional source identified. At this point remains normotensive, tachycardic, oxygen saturations 94% on room air with continued global weakness. Consultation: Dr Lechuga is lead fire protection engineer for Dr Arndt. Care is reviewed with him and he will admit the patient. Additional Information: Severe Sepsis Criteria [ x ] bacterial source of infection suspected and documented [ ] 2 SIRS Criteria met [ x ] HR >90 [ ] RR >20 [ ] fever or hypothermia [ x] leukocytosis/leukopenia/bandemia [ ] Evidence of at least 1 organ system dysfunction [ x] Lactate > 2 [ ] BP < 90 or MAP <65, >40mm decrease from normal baseline [ ] Creat > 2.0 [ ] T. Bili > 2.0 [ ] platelet count < 100k [ ] altered mental status [ ] mechanical ventilation [ ] provider documentation of severe sepsis Severe Sepsis Determination. the patient has been screened and [ x ] DOES meet criteria for severe sepsis [ ] DOES NOT meet criteria for severe sepsis Goal directed treatment Within 3 hours [ x ] blood cx drawn prior to abx [ x] broad spectrum abx started [ x] lactic acid level checked [ x] lactic redrawn within 6 hours if >2.0 Septic Shock Criteria [ ] lactic > 4 at any time [ ] SBP ,90 or MAP , 65 [ ] documentation of septic shock Time Septic Shock diagnosed: [ ] Septic Shock Determination. the patient has been screened and [ ] DOES meet criteria for septic shock [ ] DOES NOT meet criteria for septic shock Goal directed therapy within 3 hours of septic shock or initial hypotension [ ] 30ml/kg fluid [ ] ABW used [ ] IBW (33.6) used due to BMI > 30 [ x ] patient or advocate declining fluid administration after shared decision making conversation Clinical reason for NOT initiating fluid bolus: Patient with clinical volume overload, elevated proBNP and elevated blood pressure. Fluids are not indicated clinically at this time Within 6 hours (if continued hypotension after fluids or initial lactate >4) [ ] repeat volume status and tissue perfusion assessment documented after fluid bolus was completed at [Date/Time] Must include vital signs, cardiopulmonary exam, capillary refill, peripheral pulse evaluation, skin exam [ ] Initiate vasopressor therapy if persistent hypotension after adequate fluid bolus Discharge Plan Departure Patient Disposition: Admitted As Inpatient Clinical Impression: Thrush of mouth and esophagus, Acute urinary retention, Acute exacerbation of chronic obstructive pulmonary disease, Fecal impaction in rectum Leukocytosis Qualifiers: Leukocytosis type: unspecified Qualified Code(s): D72.829 - Elevated white blood cell count, unspecified CHF (congestive heart failure) Qualifiers: Heart failure type: unspecified Heart failure chronicity: acute on chronic Qualified Code(s): I50.9 - Heart failure, unspecified Sepsis Qualifiers: Sepsis type: sepsis due to unspecified organism Sepsis acute organ dysfunction status: unspecified Qualified Code(s): A41.9 - Sepsis, unspecified organism Admit Date/Time: 12/13/22 21:19 Admit Provider: Malcolm Lechuga
[2022-12-13 17:43] LABS: Lactate (Lactic Acid) 4.1 mmol/L (0.7-2.1)
[2022-12-13 17:51] LABS: Bacteria Urine Occasional (0-1); Culture Indicated Urine Cult Not Indicated; RBC Urine 5-10/HPF (0-5/HPF); WBC Urine 0-1/HPF (0-5/HPF)
[2022-12-13] MEDS: SODIUM CHLORIDE 0.9% 1,000 ML 1000 ML IV (17:53)
[2022-12-13] MEDS: cefTRIAXone 1,000 MG in SODIUM CHLORIDE 0.9% 100 ML 200 MG IV (18:00)
[2022-12-13 18:07] LABS: Creatine Kinase 89 U/L (55-170)
--- NOTE | 2022-12-13 18:31 | DI.CT.S_ITS ---
PROCEDURE: CT CHEST ABD PEL W CON COMPARISON: [place], [place], [place] PET CT FUSION WHOLE BODY, 04/09/2022, 11:08. INDICATIONS: sepsis, met melanoma, abd pain, dyspnea FINDINGS: Image quality: Excellent. CHEST: Lungs and pleura: The lungs have centrilobular emphysematous changes. There is bibasilar atelectasis. No pleural effusions or pneumothorax. Central and peripheral airways are patent and normal in caliber. Pleural calcifications are seen in the right lung posteriorly. Mediastinum: Heart size is normal. No pericardial effusion. No mediastinal adenopathy by size criteria. Thoracic aorta and central pulmonary arteries are normal in size. Aorta atherosclerotic calcifications. Esophagus is normal in caliber. No hiatal hernia. Chest wall: No axillary or supraclavicular adenopathy by size criteria. Thyroid gland is normal . A soft tissue mass in the left posterior shoulder measuring 5.0 x 1.8 cm is seen, similar to prior PET scan.. ABDOMEN: Liver: The liver has no mass or intrahepatic biliary ductal dilatation. The portal vein and hepatic veins are patent. Biliary: The gallbladder has no gallstones, pericholecystic fluid, gallbladder wall thickening, or surrounding inflammatory change. Pancreas: The pancreas has no mass or ductal dilatation. There is no surrounding inflammation. Spleen: Normal size. There are no masses. Adrenals: No hypertrophy or nodules. Kidneys: No obstructive calculus or hydronephrosis. No solid mass. No cystic mass. Bowel: The distal esophagus and stomach are normal. The small bowel has a normal caliber and appearance. The terminal ileum is normal. The large bowel has increased stool throughout with fecal impaction in the rectum.. The appendix is not definitively visualized and therefore acute appendicitis cannot be excluded; however there are no secondary findings to suggest acute appendicitis. No free fluid or air. An 8 millimeter nodule in the right lower quadrant posteriorly series 2, image 96 which previously had hypermetabolic activity is unchanged. An 8 millimeter nodule in the left lower quadrant laterally series 2, image 85 which previously had hypermetabolic activity is unchanged. Nodes and vessels: No retroperitoneal or mesenteric adenopathy by size criteria. The aorta has atherosclerosis with no aneurysmal dilatation. Abdominal wall: Fat containing left inguinal hernia. A right inguinal hernia has a 2.4 x 1.9 centimeter nodule in the inguinal canal, larger compared to prior PET scan. A subcutaneous soft tissue nodule in the left flank series 2, image 78 is unchanged compared to prior PET scan. A previously seen nodule in the left intergluteal fold on prior PET scan is not seen on today's CT. No new subcutaneous nodules are present. Soft tissue density of the medial right clavicle is unchanged and previously had no hypermetabolic activity. PELVIS: Genitourinary: The bladder is decompressed with a Fried. Bone: Multilevel degenerative changes. Degenerative disc disease with intradiscal gas in the lumbar spine. No vertebral body compression fractures. IMPRESSION: 1. No acute abnormality of the chest, abdomen, or pelvis. 2. Unchanged nodules and masses in the left flank and left posterior shoulder compared to prior PET scan. 3. Previously hypermetabolic nodules in the abdomen are unchanged. 4. No abnormality seen to explain fever or abdominal pain. Dictated by: Alistair Castrejon M.D. on 12/13/2022 at 19:36 Approved by: Alistair Castrejon M.D. on 12/13/2022 at 19:53
[2022-12-13 18:32] LABS: Influenza A - CEPHEID Flu A NEGATIVE (NEGATIVE); Influenza B - CEPHEID Flu B NEGATIVE (NEGATIVE); Respiratory Syncytial Virus Negative (Negative)
[2022-12-13] MEDS: VANCOMYCIN 1,000 MG/200 ML PIGGYBACK 200 MG IV (18:47)
[2022-12-13] MEDS: SODIUM CHLORIDE 0.9% 1,000 ML 150 ML IV (18:47)
[2022-12-13 18:48] LABS: COVID-19 CEPHEID 4-PLEX PCR Negative (Negative)
[2022-12-13 18:52] LABS: NT-proBNP (BNP-Adult 18+) 2410 pg/mL (<450); Troponin I 0.017 ng/mL (0.01-0.034)
[2022-12-13 19:30] LABS: Reflexed Lactate in 2 Hours Y
[2022-12-13 20:21] LABS: Lactate 2HR (Lactic Acid Rflx) 2.8 mmol/L (0.7-2.1)
[2022-12-13] MEDS: NYSTATIN SUSP 500,000 UNIT/5 ML UDC 500000 UNIT PO (21:33)
--- NOTE | 2022-12-14 00:22 | PC.NURSE ---
admitted pt to acute care; pt alert, oriented, and able to provide past medical history and medication list; wallet itemized and placed in safe; full skin assessment documented and pictures taken as follows
[2022-12-14] MEDS: ACETAMINOPHEN 325 MG TABLET 650 MG PO ×3 (00:53→18:04)
[2022-12-14 06:01] LABS: Add Manual Diff / Slide Review NO; Basophils Absolute Auto 0 /uL (0-100); Basophils Percent Auto 0.3 % (0-2); Eosinophils Absolute Auto 100 /uL (0-450); Eosinophils Percent Auto 0.9 % (2-4); Hematocrit 28.9 % (41-53); Hemoglobin 9.3 g/dL (13.5-17.5); Lymphocytes Absolute Auto 800 /uL (1100-4500); Lymphocytes Percent Auto 5.7 % (25-40); Mean Corpuscular HGB Conc 32.2 % (30-36); Mean Corpuscular Hemoglobin 24.9 PG (26-34); Mean Corpuscular Volume 77.1 fL (80-100); Monocytes Absolute Auto 1800 /uL (0-900); Monocytes Percent Auto 13.1 % (3-14); Neutrophils Absolute Auto 11000 /uL (1500-7000); Platelet Count 145 X10^3/uL (150-400); Red Blood Cell Count 3.75 X10^6/uL (4.5-5.9); Red Cell Distribution Width 16.3 % (11.6-14.8); White Blood Cell Count 13.7 X10^3/uL (4.5-11.0)
[2022-12-14 06:05] LABS: Alanine Aminotransferase 17 IU/L (<50); Albumin 3.2 g/dL (3.5-5.0); Albumin Globulin Ratio 1.1 (1.0-2.8); Alkaline Phosphatase 81 U/L (38-126); Aspartate Aminotransferase 22 IU/L (17-59); BUN Creatinine Ratio 23.4 (6-22); Bilirubin Total 0.7 mg/dL (0.2-1.3); Blood Urea Nitrogen 18 mg/dL (9-20); Calcium 8.4 mg/dL (8.4-10.2); Carbon Dioxide 24 mmol/L (22-32); Chloride 106 mmol/L (98-107); Estimated Glomerular Filt Rate > 60 mL/min (>60); Glucose 121 mg/dL (80-110); HEMOLYSIS < 15 (0-50); Potassium 3.9 mmol/L (3.4-5.1); Sodium 138 mmol/L (137-145); Total Protein 6.2 g/dL (6.3-8.2)
[2022-12-14 06:12] LABS: NT-proBNP (BNP-Adult 18+) 2420 pg/mL (<450)
[2022-12-14 07:55] VITALS: BP 141/69; PULSE 101; RESP 16; TEMP 36.7; O2SAT 95
[2022-12-14] MEDS: NYSTATIN SUSP 500,000 UNIT/5 ML UDC 500000 UNIT PO ×4 (08:18→21:08)
[2022-12-14] MEDS: BISACODYL 5 MG TABLET 10 MG PO (08:18)
[2022-12-14] MEDS: BUDESONIDE 0.5 MG/2 ML NEB INH ×2 (08:55→19:24)
[2022-12-14] MEDS: ALBUTEROL 2.5 MG/3 ML NEB (ADULT) INH ×4 (08:55→19:24)
[2022-12-14 09:02] VITALS: O2SAT 93
--- NOTE | 2022-12-14 09:21 | PC.NURSE ---
0830 Patient stated that he spoke with his daughter over his cell phone and asked her to bring his ELTROMBOPAG (PROMACTA) from home since our pharmacy does not carry it.
[2022-12-14] MEDS: CLOTRIMAZOLE TROCHE 10 MG PO ×4 (09:40→21:08)
--- NOTE | 2022-12-14 10:00 | P.HP_ITS ---
History of Present Illness History of Present Illness Date Patient Seen: 12/14/22 Time Patient Seen: 10:00 Chief complaint: Pain all over & Urinary retention Narrative: 87-year-old male being actively treated with immunotherapy for metastatic melanoma via Oncology here at [facility] presented to the emergency department with generalized pain some slight increased dyspnea rectal pain urinary pain etcetera. ER evaluation suggested infectious etiology had elevated lactate levels was tachycardic and tachypneic with leukocytosis. Initial chest x-ray suggested pneumonia but follow-up CT scan did not demonstrate pneumonia. No clear source of infection has been discovered his urine is unremarkable and again CT imaging did not support a source of infection. He was given broad-spectrum IV antibiotics. Repeat lactate improved significantly. Vital signs improved some with some IV fluids although they were not given as per sepsis protocol over concerns about possible congestive heart failure etcetera. Patient was admitted for further evaluation Patient's medical history otherwise reviewed history of COPD, paroxysmal atrial fibrillation, and chronic ITP. Patient is tachycardic upon presentation but in a sinus tachycardia not AFib Patient History Medical History (Updated 12/14/22 @ 09:59 by Malcolm Lechuga MD) Chronic ITP (idiopathic thrombocytopenic purpura) COPD (chronic obstructive pulmonary disease) Malignant melanoma, metastatic Melanoma Paroxysmal atrial fibrillation Shortness of Breath Tricompartment osteoarthritis of right knee Surgical History S/P total knee arthroplasty Family & Social History Social History: household members none Prior Living Arrangements House Safety & Behavioral: Feels Safe in Current Yes Environment Been Physically Hurt or No Threatened By a Person Tobacco & Substance use: Smoking Status Former smoker alcohol intake former alcohol intake frequency 0-2 drinks per day Substance Use Type does not use Meds Home Medications and Allergies Home Medications Medication Instructions Recorded Confirmed Type acetaminophen 500 mg tablet 1,000 mg PO TID ##0 12/08/17 12/13/22 History (Tylenol Extra Strength) budesonide-formoterol HFA 80 2 puff inhalation DAILY 06/10/22 12/13/22 History mcg-4.5 mcg/actuation aerosol inhaler (Symbicort) eltrombopag 50 mg tablet (Promacta) 50 mg PO DAILY #30 tabs 07/09/22 12/13/22 Rx psyllium 1 packet PO TID 10/08/22 12/13/22 History ondansetron 4 mg disintegrating 4 mg PO Q4HR PRN Nausea #30 tabs 12/03/22 12/13/22 Rx tablet ondansetron 4 mg disintegrating 4 mg PO Q4HR PRN Nausea #30 tabs 12/03/22 12/13/22 Rx tablet Allergies Allergy/AdvReac Type Severity Reaction Status Date / Time No Known Allergies Allergy Verified 12/13/22 18:27 Review of Systems Review of Systems ROS: Yes All systems reviewed with the patient and are negative except as otherwise documented Exam Vital Signs (past 8 hours): - 12/14/22 09:02 12/14/22 07:00 Pulse Oximetry 93 Oxygen Delivery Method Room Air Room Air Oxygen Delivery Method Room Air Oxygen Flow Rate 0 Narrative Exam Narrative: Elderly male in no obvious distress lying in his hospital bed HEENT-unremarkable, normocephalic atraumatic Neck-no lymphadenopathy no bruits Lungs-clear anteriorly and posteriorly no wheezes no crackles good breath sounds Heart-regular rate and rhythm, no murmur, rub, or gallop. normal S1-S2 Abdomen-positive bowel tones, soft, nontender, nondistended, no hepatosplenomegaly, no masses palpable Neuro-normal to screening exam, gait not tested Extremities-no cyanosis clubbing or edema Objective Labs 12/14/22 05:00 12/14/22 05:00 Labs: Laboratory Results - last 24 hr 12/13/22 12/13/22 12/13/22 17:00 17:00 17:00 WBC 23.4 H RBC 4.50 Hgb 11.1 L Hct 34.7 L MCV 77.1 L MCH 24.6 L MCHC 31.9 RDW 16.7 H Plt Count 192 Neut % (Auto) 87.6 H Lymph % (Auto) 3.6 L [place] % (Auto) 8.4 Eos % (Auto) 0.0 L Baso % (Auto) 0.4 Neut # (Auto) 01171 H Lymph # (Auto) 800 L [place] # (Auto) 2000 H Eos # (Auto) 0 Baso # (Auto) 100 Sodium 137 Potassium 4.4 Chloride 97 L Carbon Dioxide 25 BUN 23 H Creatinine 0.86 Estimated GFR > 60 BUN/Creatinine Ratio 26.7 H Glucose 132 H Lactate 4.1 H* Calcium 9.7 Total Bilirubin 0.4 AST 28 ALT 23 Alkaline Phosphatase 111 Total Creatine Kinase CK-MB (CK-2) CK-MB (CK-2) Rel Index Troponin I NT-Pro-B Natriuret Pep Total Protein 7.7 Albumin 4.2 Globulin 3.5 Albumin/Globulin Ratio 1.2 Lipase 112 Procalcitonin Urine Color Urine Appearance Urine pH Ur Specific [place] Urine Protein Urine Glucose (UA) Urine Ketones Urine Occult Blood Urine Nitrate Urine Bilirubin Urine Urobilinogen Ur Leukocyte Esterase Urine RBC Urine WBC Urine Bacteria Ur Culture Indicated? SARS-CoV-2 (PCR) Influenza A (RT-PCR) Influenza B (RT-PCR) RSV (PCR) 12/13/22 12/13/22 12/13/22 17:00 17:00 17:15 WBC RBC Hgb Hct MCV MCH MCHC RDW Plt Count Neut % (Auto) Lymph % (Auto) [place] % (Auto) Eos % (Auto) Baso % (Auto) Neut # (Auto) Lymph # (Auto) [place] # (Auto) Eos # (Auto) Baso # (Auto) Sodium Potassium Chloride Carbon Dioxide BUN Creatinine Estimated GFR BUN/Creatinine Ratio Glucose Lactate Calcium Total Bilirubin AST ALT Alkaline Phosphatase Total Creatine Kinase 89 CK-MB (CK-2) TNP CK-MB (CK-2) Rel Index TNP Troponin I 0.017 NT-Pro-B Natriuret Pep 2410 H Total Protein Albumin Globulin Albumin/Globulin Ratio Lipase Procalcitonin 0.30 Urine Color Yellow Urine Appearance Clear Urine pH 6.0 Ur Specific [place] 1.010 Urine Protein Negative Urine Glucose (UA) Negative Urine Ketones Negative Urine Occult Blood Trace-intact Urine Nitrate Negative Urine Bilirubin Negative Urine Urobilinogen 0.2 Ur Leukocyte Esterase Negative Urine RBC 5-10/hpf H Urine WBC 0-1/hpf Urine Bacteria Occasional (0-1) Ur Culture Indicated? Cult not indicated SARS-CoV-2 (PCR) Influenza A (RT-PCR) Influenza B (RT-PCR) RSV (PCR) 12/13/22 12/13/22 12/14/22 17:48 19:43 05:00 WBC 13.7 H RBC 3.75 L Hgb 9.3 L Hct 28.9 L MCV 77.1 L MCH 24.9 L MCHC 32.2 RDW 16.3 H Plt Count 145 L Neut % (Auto) 80.0 H Lymph % (Auto) 5.7 L [place] % (Auto) 13.1 Eos % (Auto) 0.9 L Baso % (Auto) 0.3 Neut # (Auto) 90331 H Lymph # (Auto) 800 L [place] # (Auto) 1800 H Eos # (Auto) 100 Baso # (Auto) 0 Sodium Potassium Chloride Carbon Dioxide BUN Creatinine Estimated GFR BUN/Creatinine Ratio Glucose Lactate 2.8 H Calcium Total Bilirubin AST ALT Alkaline Phosphatase Total Creatine Kinase CK-MB (CK-2) CK-MB (CK-2) Rel Index Troponin I NT-Pro-B Natriuret Pep Total Protein Albumin Globulin Albumin/Globulin Ratio Lipase Procalcitonin Urine Color Urine Appearance Urine pH Ur Specific [place] Urine Protein Urine Glucose (UA) Urine Ketones Urine Occult Blood Urine Nitrate Urine Bilirubin Urine Urobilinogen Ur Leukocyte Esterase Urine RBC Urine WBC Urine Bacteria Ur Culture Indicated? SARS-CoV-2 (PCR) Negative Influenza A (RT-PCR) Flu a negative Influenza B (RT-PCR) Flu b negative RSV (PCR) Negative 12/14/22 05:00 WBC RBC Hgb Hct MCV MCH MCHC RDW Plt Count Neut % (Auto) Lymph % (Auto) [place] % (Auto) Eos % (Auto) Baso % (Auto) Neut # (Auto) Lymph # (Auto) [place] # (Auto) Eos # (Auto) Baso # (Auto) Sodium 138 Potassium 3.9 Chloride 106 Carbon Dioxide 24 BUN 18 Creatinine 0.77 Estimated GFR > 60 BUN/Creatinine Ratio 23.4 H Glucose 121 H Lactate Calcium 8.4 Total Bilirubin 0.7 AST 22 ALT 17 Alkaline Phosphatase 81 Total Creatine Kinase CK-MB (CK-2) CK-MB (CK-2) Rel Index Troponin I NT-Pro-B Natriuret Pep 2420 H Total Protein 6.2 L Albumin 3.2 L Globulin 3.0 Albumin/Globulin Ratio 1.1 Lipase Procalcitonin Urine Color Urine Appearance Urine pH Ur Specific [place] Urine Protein Urine Glucose (UA) Urine Ketones Urine Occult Blood Urine Nitrate Urine Bilirubin Urine Urobilinogen Ur Leukocyte Esterase Urine RBC Urine WBC Urine Bacteria Ur Culture Indicated? SARS-CoV-2 (PCR) Influenza A (RT-PCR) Influenza B (RT-PCR) RSV (PCR) Assessment & Plan Assessment & Plan narrative: 1. Infectious disease-patient with elevated lactate and leukocytosis consistent with some source of infection. Unclear as to exact etiology at this point. Patient's course receiving immunotherapy for his metastatic melanoma which would increase his overall risk. Continue with parental broad-spectrum antibiotics and await culture results as he is had blood and urine cultured. Continue with gentle IV fluids as well. 2. Acute urinary retention-patient had Fried catheter placed in the ER with relief of his acute urinary symptoms. This also helped with his rectal pain. Plan to leave Fried in place until his clinical course is more well defined hopefully in the next 24 hours or so it can be removed 3. Fecal impaction/chronic constipation-will use gentle oral methods and or if need be suppositories to help with patient's rectal impaction/chronic constipation. Symptoms much improved once bladder was drained with Fried catheter that maybe having a role as well and ensuring he has adequate drainage of his bladder may well help significantly with his stool issues 4. Chronic ITP-CBC appears stable with platelet count pretty much at baseline for patient. No further intervention at this time. Not a candidate for any sort of heparin of course because of his ITP 5. VTE prophylaxis-SCDs alone. Not a candidate for any form of heparin given his platelet disorder 6. Code status-patient previously requested do not resuscitate in the setting of a sudden cardiac or respiratory arrest which is confirmed for this hospitalization as well. 7. Chronic anemia-patient with a chronic microcytic anemia. Numbers currently are pretty much at baseline for patient. Defer further evaluation workup to patient's local oncologist. No need for transfusion or intervention at this time in my opinion 8. Question congestive heart failure-patient with elevated BNP but no clear evidence of congestive heart failure on CT imaging of his chest. Continue to be gentle with IV fluids. Echo done in June 2022 when he was hospitalized for atrial fibrillation showed probably normal left ventricular function and no significant valvular abnormalities. He should be able to tolerate some IV fluids therefore. Patient not hypoxic and I do not believe has evidence of active congestive heart failure at this time COVID-19 COVID-19 status: Negative Result date/Date tested (Pos, Neg/Pending): 12/13/22 Quality VTE Deep Vein Thrombosis/Pulmonary Embolism Present on Admission: No
[2022-12-14 11:13] VITALS: O2SAT 93
--- NOTE | 2022-12-14 11:17 | CM.DANOTE ---
Patient is an 87 yo male who was admitted on 12/13/22 for Urinary Retention/Feeling Ill. Pt has [facility] and [employer] for insurance and his PCP is Dr. Brian Moore. EMR was reviewed. Per MD, pt with metastatic melanoma at baseline and getting immunotherapy with Oncology and admitted for thrush, urinary retention, tachy, fluid overload. SW met bedside with pt and explained role and he confirms that he lives in [place] but that Son grazyna moved in with him a few months ago which helps a lot when I need something or assist. Pt states he typically ambulates with a cane but has walker at home but has been having bowel issues and therefore has a commode next to my bed, next to my chair when I watch tv and typically I can make it to the toilet without having an accident. Pt cannot remember if R[facility] GONZALEZ started services with him when he discharged last summer in Jun 2022 when he was last admitted. Pt thinks he would be agreeable to HH if recommended at d/c but suggested SW call his Yevgeniyr/CECILIA Xavier. Pt clearly still feeling poorly and per not yet medically stable to discharge yet today. Pt's Oncologist is Dr. Adams at [facility]. Plan: SW to follow closely tomorrow towards determining any d/c planning needs and coordination with pt and family to r/o HH and any further identified discharge needs. TERE Ellison Discharge Planning/Care Management CM Discharge Assessment Start: 12/14/22 11:13 Freq: Status: Active Protocol: Document 12/14/22 11:13 BF (Rec: 12/14/22 11:15 BF [id number]) Discharge Planning Assessment Assigned Textile Conservator TERE Vann/Assigned Designee Name Bina Xavier Advance Directives? Yes Advance Directives on File No History Provided By Patient,Medical Record Has Patient been admitted in last 30 No days? Comment Last admission in Jun 2022 last year and discharged home with Ritu GONZALEZ Prior Living Arrangements House Comment 2 story home; pt is able to go up and down the stairs; Household Members family Comment Pt states that is Son grazyna moved in with him a few months ago and assists when needed Type of transporation used prior to Relies on Others admit Independent with ADL's Yes: somewhat Is patient alert and oriented? Yes Needs Assistance With Meal Prep,Managing Medications ,Home Chores / Shopping Caregiver for Another No DME Already Rented / Owned FWW / Walker Comment Pending pt's needs, r/o HH Barriers to Discharge No Discharge Plan Home Transportation Arrangement Likely family to transport when medically stable Additional Comment possible HH Whiteboard Updated in Patient Room with Yes name and ext. # of Textile Conservator Review Status In Process Please Provide Date Initial DC 12/14/22 Assessment Was Performed Next Review Type Continued Stay Review
[2022-12-14] MEDS: ELTROMBOPAG 50 MG 50 EACH PO (12:45)
[2022-12-14] MEDS: HYDROCORTISONE 1% CREAM 28 GM 1 APPLIC TOP (13:46)
[2022-12-14] MEDS: OXYCODONE IR 5 MG TABLET PO (13:47)
[2022-12-14 14:00] VITALS: BP 120/62; PULSE 101; RESP 25; TEMP 36.8; O2SAT 96
[2022-12-14] MEDS: LORazepam 0.5 MG TABLET PO ×2 (14:12→21:08)
--- NOTE | 2022-12-14 14:23 | PC.NURSE ---
[address] Lechuga and left voicemail that patient is very anxious. Patient stated I am panicking. I can't breathe. Bilateral lungs sound clear, RR is 25 per minute, temp is 98.2 by temporal, BP is 120/62 (80), heart rate 101. RT called and states he is coming as soon as he can to give patient a breathing treatment. 1415 Dr. Lechuga ordered Lorazepam 0.5mg PO. Given to patient and explained to patient it is for anxiety and that RT is coming as soon as he can.
[2022-12-14 14:39] VITALS: O2SAT 99
[2022-12-14] MEDS: cefTRIAXone 1,000 MG in SODIUM CHLORIDE 0.9% 100 ML 200 MG IV (18:04)
[2022-12-14 20:00] VITALS: BP 106/73; PULSE 101; RESP 18; TEMP 36.9; O2SAT 95
[2022-12-15] MEDS: OXYCODONE IR 5 MG TABLET PO ×2 (00:26→10:05)
[2022-12-15] MEDS: LORazepam 0.5 MG TABLET PO ×2 (00:27→21:48)
--- NOTE | 2022-12-15 05:39 | PC.NURSE ---
Patient sleeping off and on throughout shift. Calling out multiple times for help, confused but slowly clearing mentally as morning arrived. Spoke with daughter and she states that the patient has not showered or changed clothes in 2 weeks, but to fear of falling. Patient slightly awakening then falling back to sleep.
[2022-12-15] MEDS: ELTROMBOPAG 50 MG 50 EACH PO (05:50)
[2022-12-15] MEDS: CLOTRIMAZOLE TROCHE 10 MG PO ×3 (05:50→21:51)
[2022-12-15 09:10] VITALS: BP 125/61; PULSE 105; RESP 21; TEMP 37; O2SAT 92
[2022-12-15 09:26] VITALS: O2SAT 98
[2022-12-15] MEDS: ALBUTEROL 2.5 MG/3 ML NEB (ADULT) INH ×2 (09:26→15:23)
[2022-12-15] MEDS: BUDESONIDE 0.5 MG/2 ML NEB INH (09:26)
[2022-12-15] MEDS: NYSTATIN SUSP 500,000 UNIT/5 ML UDC 500000 UNIT PO ×4 (10:05→21:51)
[2022-12-15] MEDS: PSYLLIUM HUSK 1 PACKET PO ×3 (10:05→21:51)
[2022-12-15] MEDS: ACETAMINOPHEN 325 MG TABLET 650 MG PO ×2 (10:05→21:48)
[2022-12-15] MEDS: BISACODYL 5 MG TABLET 10 MG PO (10:11)
--- NOTE | 2022-12-15 11:44 | DIET.CONS ---
Dietary Consultation Note Admission Date: 12/13/2022 21:19 Assessment: 87y M admitted for UTI and pain referred to nutrition for food aversions and difficulty eating. Pt sleeping when RD visited, spoke with bedside nurse and performed chart review. Pt recently diagnosed with malignant metastatic melanoma having [place] [facility] Pt not tolerating solid diet, has several food aversions. Oncologist noted pt gained 7# between visits due to initiation of ONS therapy-Boost. Pt accepting OJ, ONS and chicken noodle soup at this time. Pt does not currently meet criteria for malnutrition as he is weight stable with current home ONS intervention. Pt at high risk of malnutrition due to chemotherapy treatments and food aversion in the future. Ht: 182.88 cm Wt: 81.6 kg BMI: 25.4 UBW: 82kg Last BM: 12/15/22 (12/15/22 03:32) MNA: 5 Moises Score: 18 Diet: 12/13/22 Breakfast Low Sodium Diet (2gm) Diet Modifications: Nutrition Percent Meal Consumed 0% 12/14/22 08:30 Labs: RBC 3.75 X10^6/uL (4.5-5.9) L 12/14/22 05:00 Hgb 9.3 g/dL (13.5-17.5) L 12/14/22 05:00 Hct 28.9 % (41-53) L 12/14/22 05:00 Creatinine 0.77 mg/dL (0.66-1.25) 12/14/22 05:00 Lactate 2.8 mmol/L (0.7-2.1) H 12/13/22 19:43 NT-Pro-B Natriuret Pep 2420 pg/mL (<450) H 12/14/22 05:00 Nutrition Diagnosis: none at this time. Interventions: 1. Sending ONS Chocolate Ensure Enlive tid to support nutrition status in addition to meal items of choice. ONS provides 50-75% kcal and 80% protein needs in addition to meal trays. Pt can consume 4/d as desired to better meet nutrition needs if additional meal choices are limited. EER: 80g PRO (1.g/kg per elder nutrition), 4563-4211 kcals (25-30kcal/kg) Monitoring/Evaluations: Electronically Signed by: Clarissa Be 12/15/22 11:44 Clinical Dietitian [address] [address]
--- NOTE | 2022-12-15 11:56 | PC.NURSE ---
Addendum entered by Eusebia Mares R.N. 12/15/22 18:06: Patient just given a fleets enema, he is trying to have a bowel movement. We are doing this before trying digital impaction. Patients abdomen is slightly distended. Will continue to watch progress. Addendum entered by Eusebia Mares R.N. 12/15/22 16:19: Patient is doing well, he is now letting this RN do care and help him with needs. We are going to try digital impaction for patient to see if this will help promote a bowel movement. Addendum entered by Eusebia Mares R.N. 12/15/22 14:34: Patients daughter Pamela states that her father may not working with woman and does better with male care givers. Addendum entered by Eusebia Mares R.N. 12/15/22 13:29: Patient also being rude to his daughter, and she states that he can be like this at home. She is concerned that he will not be able to care for himself at home, he sits in his chair and states that he cannot walk but daughter states that he can. He was taking metamucil and then exlax to try and preston have a bowel movement but it just ende up constipating him. Patient seems to be confused and he is not making any sense. He has had oxycodone for discomfort and this was helpful to him but this may have made him also confused and agitated. We will just use tylenol from now on for discomfort. Addendum entered by Eusebia Mares R.N. 12/15/22 13:22: Patient being rude to staff, doesnt want to tell staff what he needs. Patient was cooperative and pleasant this morning but demeanor has changed. Addendum entered by Eusebia Mares R.N. 12/15/22 12:34: Patient seems confused, he wants us to rub his abdomen to try and promote a bowel movement, this is what he has been doing. This RN also tried for a few minutes. Patient just given a suppository, explained to patient to try and keep this in his rectum for about 30 minutes and he did not understand. Explained to patient that this will allow the glycerin to melt and promote a bowel movement. He did not understand what this RN meant. Patient rolled onto his r.side so that we could put the suppository in and he had a medium soft stool. Patient is visiting with his daughter now. Resting comfortably. Original Note: Patient is alert and oriented x4 today. Given percolone and tylenol for discomfort to back, hydrocortisone cream applied to chest and back, and this seems to have helped patient feel better. He is napping now. Lunch will be here soon. Patient can be anxious at times, but he easily calms down.
--- NOTE | 2022-12-15 15:09 | CM.DPC ---
DCP Cont: Per RN, pt more confused and agitated today and Dtr was bedside earlier today and SW was unable to meet with her again to provide the additional PP CG list that was printed. Per RN, family now considering SNF but unsure if pt would be agreeable. PT ordered and pending until tomorrow when PT available to eval towards assist in determining home with family and new [facility] HH referral made vs possible SNF. Family lives in town and [facility] would be the preference per staff. SW called [facility] and made initial referral requesting review in case SNF needed pending pt progress and PT eval tomorrow. MD has not rounded bedside yet and therefore F2F not yet signed by MD but filled out. Plan: SW to follow closely for pt progress and PT eval tomorrow towards determining home with family and new [facility] HH referral vs possible SNF and [facility] reviewing. TERE Ellison
[2022-12-15] MEDS: FLEETS ENEMA 1 EACH PR (17:33)
--- NOTE | 2022-12-15 17:51 | PM.PN.1 ---
Subjective Subjective Date Patient Seen: 12/15/22 Time Patient Seen: 08:33 Interval history: Met with patient and and reviewed chart and reviewed workup thus far. Patient states that he feels 100% better since he was admitted to the hospital but he is trying to have a bowel movement. He is not having any nausea or vomiting. His pain seems to be well-controlled. He would some confusion with oxycodone that was given for pain. Patient denies any chest pain. He is a history of shortness of breath but is not having any acute respiratory symptoms Twelve point review of systems is otherwise negative Exam Vital Signs (past 8 hours): Oxygen Delivery Method Room Air Oxygen Flow Rate 0 Narrative Exam Narrative: Patient is alert and oriented in no apparent distress. HEENT shows dry mucous membranes Chest: Clear to auscultation without wheezes rhonchi or crackles but prolonged expiratory phase and decreased breath sounds bilateral bases Cor: Regular rate and rhythm with distant S1-S2 Abdomen: Positive bowel sounds x4. Abdomen feels slightly distended but there is no guarding or rebound and he does not have clear tenderness. Extremities: Show trace edema. Skin: Patient has chronic cracking, lichenification of bilateral feet Diffusely patient has ecchymosis throughout the skin Neurologic exam is nonfocal Objective Labs 12/14/22 05:00 12/14/22 05:00 [facility] Medical History (Updated 12/14/22 @ 09:59 by Malcolm Lechuga MD) Chronic ITP (idiopathic thrombocytopenic purpura) COPD (chronic obstructive pulmonary disease) Malignant melanoma, metastatic Melanoma Paroxysmal atrial fibrillation Shortness of Breath Tricompartment osteoarthritis of right knee Surgical History S/P total knee arthroplasty Social History household members: family Smoking Status: Former smoker alcohol intake: former Assessment & Plan Assessment & Plan narrative: 1. Infectious disease-patient with elevated lactate and leukocytosis consistent with some source of infection.? Unclear as to exact etiology at this point.? Patient's course receiving immunotherapy for his metastatic melanoma which would increase his overall risk.? Continue with parental broad-spectrum antibiotics, ceftriaxone and await culture results as he is had blood and urine cultured.? Continue with gentle IV fluids as well.? 2. Acute urinary retention-patient had Fried catheter placed in the ER with relief of his acute urinary symptoms.? This also helped with his rectal pain.? Plan to leave Fried in place until his clinical course is more well defined and constipation is treated and then likely will give a trial of discontinuing. 3. Fecal impaction/chronic constipation-will use gentle oral methods and or if need be suppositories to help with patient's rectal impaction/chronic constipation.? Symptoms much improved once bladder was drained with Fried catheter that maybe having a role as well and ensuring he has adequate drainage of his bladder may well help significantly with his stool issues. We have given him Metamucil and nurse recently gave him an enema on he is had some results. We will add MiraLax. This seems that it has been a chronic problem for him in may be the extent of his symptoms. 4.? Chronic ITP-CBC appears stable with platelet count pretty much at baseline for patient.? No further intervention at this time.? Not a candidate for any sort of heparin of course because of his ITP. Will recheck CBC tomorrow. 5.? VTE prophylaxis-SCDs alone.? Not a candidate for any form of heparin given his platelet disorder 6.? Code status-patient previously requested do not resuscitate in the setting of a sudden cardiac or respiratory arrest which is confirmed for this hospitalization as well. 7. Chronic anemia-patient with a chronic microcytic anemia.? Numbers currently are pretty much at baseline for patient.? Defer further evaluation workup to patient's local oncologist.? No evidence of acute bleeding. We will continue to monitor. We will recheck CBC in a.m.. 8.? Question congestive heart failure-patient with elevated BNP but no clear evidence of congestive heart failure on CT imaging of his chest.? Continue to be gentle with IV fluids.? Echo done in June 2022 when he was hospitalized for atrial fibrillation showed probably normal left ventricular function and no significant valvular abnormalities.? He should be able to tolerate some IV fluids therefore.? Patient not hypoxic and I do not believe has evidence of active congestive heart failure at this time. We will continue to monitor. BNP was stable today. COVID-19 COVID-19 status: Negative Result date/Date tested (Pos, Neg/Pending): 12/13/22 Time Spent With Patient Critical Care time: I spent a total of [] minutes of critical care time on this patient's care today; this time is exclusive of procedural time. Quality VTE Deep Vein Thrombosis/Pulmonary Embolism Present on Admission: No
[2022-12-15] MEDS: cefTRIAXone 1,000 MG in SODIUM CHLORIDE 0.9% 100 ML 200 MG IV (18:33)
[2022-12-15] MEDS: polyethylene glycoL 3350 17 GM POWD.PACK PO ×2 (18:34→21:50)
[2022-12-15 19:05] VITALS: BP 132/75; PULSE 98; RESP 18; TEMP 36.9; O2SAT 96
[2022-12-16] VITALS (7 sets, daily range): BP systolic 125–132; BP diastolic 74–80; PULSE 106–118; RESP 17–21; TEMP 36.7–37; O2SAT 91–94
[2022-12-16] MEDS: LORazepam 0.5 MG TABLET PO ×4 (02:13→23:56)
[2022-12-16 04:49] LABS: Add Manual Diff / Slide Review NO; Basophils Absolute Auto 100 /uL (0-100); Basophils Percent Auto 0.8 % (0-2); Eosinophils Absolute Auto 200 /uL (0-450); Eosinophils Percent Auto 1.8 % (2-4); Hematocrit 29.3 % (41-53); Hemoglobin 9.5 g/dL (13.5-17.5); Lymphocytes Absolute Auto 800 /uL (1100-4500); Lymphocytes Percent Auto 7.4 % (25-40); Mean Corpuscular HGB Conc 32.4 % (30-36); Mean Corpuscular Hemoglobin 25.1 PG (26-34); Mean Corpuscular Volume 77.6 fL (80-100); Monocytes Absolute Auto 1700 /uL (0-900); Monocytes Percent Auto 16.1 % (3-14); Neutrophils Absolute Auto 8000 /uL (1500-7000); Neutrophils Percent Auto 73.9 % (50-75); Platelet Count 199 X10^3/uL (150-400); Red Blood Cell Count 3.78 X10^6/uL (4.5-5.9); Red Cell Distribution Width 16.1 % (11.6-14.8); White Blood Cell Count 10.8 X10^3/uL (4.5-11.0)
[2022-12-16 05:11] LABS: Alanine Aminotransferase 16 IU/L (<50); Albumin Globulin Ratio 0.9 (1.0-2.8); Alkaline Phosphatase 83 U/L (38-126); Aspartate Aminotransferase 22 IU/L (17-59); BUN Creatinine Ratio 23.2 (6-22); Bilirubin Total 0.4 mg/dL (0.2-1.3); Blood Urea Nitrogen 16 mg/dL (9-20); Calcium 8.2 mg/dL (8.4-10.2); Carbon Dioxide 26 mmol/L (22-32); Chloride 104 mmol/L (98-107); Estimated Glomerular Filt Rate > 60 mL/min (>60); Globulin 3.2 g/dL (1.7-4.1); Glucose 97 mg/dL (80-110); HEMOLYSIS < 15 (0-50); Potassium 4.1 mmol/L (3.4-5.1); Sodium 138 mmol/L (137-145); Total Protein 6.2 g/dL (6.3-8.2)
[2022-12-16] MEDS: CLOTRIMAZOLE TROCHE 10 MG PO (05:38)
[2022-12-16] MEDS: ELTROMBOPAG 50 MG 50 EACH PO (05:38)
[2022-12-16] MEDS: OXYCODONE IR 5 MG TABLET PO ×3 (05:38→16:29)
[2022-12-16] MEDS: ACETAMINOPHEN 325 MG TABLET 650 MG PO ×3 (05:39→20:07)
[2022-12-16] MEDS: ALBUTEROL 2.5 MG/3 ML NEB (ADULT) INH ×4 (08:11→19:36)
[2022-12-16] MEDS: BUDESONIDE 0.5 MG/2 ML NEB INH ×2 (08:11→19:36)
--- NOTE | 2022-12-16 08:33 | P.PN_ITS ---
Subjective Subjective Date Patient Seen: 12/16/22 Time Patient Seen: 08:34 Interval history: Patient seen in follow-up of dehydration constipation and urinary retention. Patient feeling better today. Had a large bowel movement yesterday. Still being treated for his constipation. No abdominal pain. Otherwise feeling better. Mouth is bothering him less. Has no other changes. Energy level slowly getting better. Exam Vital Signs (past 8 hours): - 12/16/22 08:13 Pulse Oximetry 92 Oxygen Delivery Method Room Air Oxygen Delivery Method Room Air Oxygen Flow Rate 0 Narrative Exam Narrative: Alert elderly male no acute distress Mucous membranes moist. No thrush. Neck supple without adenopathy. Lungs are clear. Heart is regular rate and rhythm. Neurologic exam is nonfocal. Fatigued in appearance Objective Labs 12/16/22 03:58 12/16/22 03:58 Labs: Laboratory Results - last 24 hr 12/16/22 12/16/22 03:58 03:58 WBC 10.8 RBC 3.78 L Hgb 9.5 L Hct 29.3 L MCV 77.6 L MCH 25.1 L MCHC 32.4 RDW 16.1 H Plt Count 199 Neut % (Auto) 73.9 Lymph % (Auto) 7.4 L Cobb % (Auto) 16.1 H Eos % (Auto) 1.8 L Baso % (Auto) 0.8 Neut # (Auto) 8000 H Lymph # (Auto) 800 L Cobb # (Auto) 1700 H Eos # (Auto) 200 Baso # (Auto) 100 Sodium 138 Potassium 4.1 Chloride 104 Carbon Dioxide 26 BUN 16 Creatinine 0.69 Estimated GFR > 60 BUN/Creatinine Ratio 23.2 H Glucose 97 Calcium 8.2 L Total Bilirubin 0.4 AST 22 ALT 16 Alkaline Phosphatase 83 Total Protein 6.2 L Albumin 3.0 L Globulin 3.2 Albumin/Globulin Ratio 0.9 L [facility] Medical History (Updated 12/14/22 @ 09:59 by Malcolm Lechuga MD) Chronic ITP (idiopathic thrombocytopenic purpura) COPD (chronic obstructive pulmonary disease) Malignant melanoma, metastatic Melanoma Paroxysmal atrial fibrillation Shortness of Breath Tricompartment osteoarthritis of right knee Surgical History S/P total knee arthroplasty Social History household members: family Smoking Status: Former smoker alcohol intake: former Assessment & Plan Assessment & Plan narrative: Acute urinary retention. Long discussion with patient. He would like to keep catheter. Feels like he has persistent frequent urination and just would like to continue with catheter. We had a long discussion about risks of catheter which he understands especially infection. And would prefer to stay with that. Will make living at his house easier. And does not want to make any changes. Discussed with nurse on catheter management. Education. Infectious disease. Her elevated lactate but everything looks okay will repeat CBC and CMP tomorrow. May have been secondary to urinary but culture does not appear to be present. Blood cultures are negative. Will repeat UA. Consider discontinue antibiotics tomorrow. Almost certainly well. Fecal impaction chronic constipation. Patient on constipation treatment. Will go home on MiraLax. But hopefully tomorrow will be the day. Chronic ITP. CBC stable. No change. Generalized weakness. Patient basically wheelchair managing at home. Will have PT see him today. Plan for home discharge home tomorrow as long as they feel like he is stable. Chronic anemia. Stable. Congestive heart failure probably more related to chronic renal failure but nothing significant. Do not believe there has been a significant change. Will continue current therapy and re-evaluate a.m.. Code status DNR. Disposition. Probable discharge tomorrow. Time Spent With Patient Critical Care time: I spent a total of [] minutes of critical care time on this patient's care today; this time is exclusive of procedural time. Quality VTE Deep Vein Thrombosis/Pulmonary Embolism Present on Admission: No
[2022-12-16] MEDS: NYSTATIN SUSP 500,000 UNIT/5 ML UDC 500000 UNIT PO ×3 (09:18→20:07)
[2022-12-16] MEDS: polyethylene glycoL 3350 17 GM POWD.PACK PO (09:18)
[2022-12-16] MEDS: PSYLLIUM HUSK 1 PACKET PO (09:18)
[2022-12-16] MEDS: HYDROCORTISONE 1% CREAM 28 GM 1 APPLIC TOP (09:19)
[2022-12-16] MEDS: ONDANSETRON 4 MG/2 ML INJ IV (09:19)
[2022-12-16 13:32] LABS: Bacteria Urine None Seen; Culture Indicated Urine Cult Not Indicated; RBC Urine 1-5/HPF (0-5/HPF); Squamous Epithelial Cell Urine None Seen (0-5/HPF); WBC Urine None Seen (0-5/HPF)
--- NOTE | 2022-12-16 13:58 | PT-IP ANOTE ---
PT rory received. EMR reviewed. check on pt and pt refused PT. stated that he is going home tomorrow and does not want to do PT here in the hospital. stated that he is going home tomorrow, will have homehealth services and his family will help him at home. informed pt regarding importance of PT here in the hospital but pt refused. pt stated that he does not want to argue with PT but he does not want to do PT and that he is just going to rest today. asked pt if he wants PT to check on him this afternoon. pt stated that it is up to PT but he is not going to do anything today. informed casework specialist.
[2022-12-16] MEDS: hydrOXYzine pamoate 25 MG CAPSULE PO ×2 (14:09→20:07)
--- NOTE | 2022-12-16 14:16 | CM.DPC ---
DCP Cont: Met with patient's daughter, Morenita, outside of the room. Gave her the private caregiver list. Confirmed that patient is mostly in his wheel-chair at home, son lives with him, works from home, daughter indicated, he's not really a caregiver. Asked her if she has Senior Resources Guide, stated, she already has. Discussed [facility] care, patient takes on more than 5000.00 with social security, would not qualify for any type of Medicaid. Daughter indicated, he can't afford to go to assisted living either. Daughter works in mental health social worker. Encouraged her to start making phone calls today, daughter had not started calling. She was hoping that patient might be able to go to skilled temporarily, until home, if she can talk him into going. Let daughter know that skilled can be attempted, and can follow up with [facility], as is noted that they were sent the referral. Contacted Jessica at [facility]. She has been reviewing, stated, her concerns are that he does not have a true diagnosis. Checked with Agustina in [facility], as case had been sent to EHR, and was made inpatient for bacteremia/sepsis, as patient is immunocompromised, and has been getting chemo. Left Jessica another message. P: DCP to continue to follow. Patient may be ready for discharge tomorrow, either home with R[facility] versus residential. Daughter may appeal discharge, does not feel that patient is at his cognitive baseline, but will see if provider can call and update daughter. Radha Pierre, RN/Commercial Loan Manager
[2022-12-16] MEDS: cefTRIAXone 1,000 MG in SODIUM CHLORIDE 0.9% 100 ML 200 MG IV (18:51)
--- NOTE | 2022-12-16 21:03 | DI.RAD.S_ITS ---
PROCEDURE: XR KUB INDICATIONS: constipation TECHNIQUE: One view of the abdomen acquired. COMPARISON: [facility], CT, CT CHEST ABD PEL W CON, 12/13/2022, 19:10. FINDINGS: Surgical changes and devices: None. Bowel: Bowel gas pattern demonstrates moderate stool distention within the rectosigmoid colon as well as a moderate amount of colonic stool in a tortuous sigmoid colon or ascending colon. Moderate gaseous distention also demonstrated in the colon. Soft tissues: No suspicious abdominal calcifications. Bones: No suspicious bony lesions. IMPRESSION: 1. Moderate stool distention in the rectosigmoid colon consistent with history of constipation and possible stool impaction. 2. Moderate gaseous distention in the colon may reflect an ileus or developing obstruction secondary to stool impaction distally. Dictated by: Aleksandr Santiago M.D. on 12/16/2022 at 22:07 Approved by: Aleksandr Santiago M.D. on 12/16/2022 at 22:10
[2022-12-16 21:52] LABS: Hematocrit 30.9 % (41-53); Hemoglobin 9.8 g/dL (13.5-17.5); Mean Corpuscular HGB Conc 31.6 % (30-36); Mean Corpuscular Hemoglobin 24.6 PG (26-34); Mean Corpuscular Volume 77.9 fL (80-100); Platelet Count 245 X10^3/uL (150-400); Red Blood Cell Count 3.97 X10^6/uL (4.5-5.9); Red Cell Distribution Width 16.4 % (11.6-14.8); White Blood Cell Count 20.6 X10^3/uL (4.5-11.0)
[2022-12-16 22:12] LABS: Alanine Aminotransferase 18 IU/L (<50); Albumin 3.1 g/dL (3.5-5.0); Albumin Globulin Ratio 0.9 (1.0-2.8); Alkaline Phosphatase 82 U/L (38-126); Aspartate Aminotransferase 24 IU/L (17-59); Bilirubin Total 0.6 mg/dL (0.2-1.3); Blood Urea Nitrogen 20 mg/dL (9-20); Calcium 8.1 mg/dL (8.4-10.2); Carbon Dioxide 25 mmol/L (22-32); Chloride 102 mmol/L (98-107); Estimated Glomerular Filt Rate > 60 mL/min (>60); Globulin 3.3 g/dL (1.7-4.1); Glucose 108 mg/dL (80-110); HEMOLYSIS < 15 (0-50); Potassium 4.8 mmol/L (3.4-5.1); Sodium 136 mmol/L (137-145); Total Protein 6.4 g/dL (6.3-8.2)
--- NOTE | 2022-12-16 22:34 | DI.RAD.S_ITS ---
PROCEDURE: XR CHEST 1V INDICATIONS: hypoxia TECHNIQUE: One view of the chest was acquired. COMPARISON: [facility], CR, XR CHEST 1V, 12/13/2022, 17:36. FINDINGS: Surgical changes and devices: None. Lungs and pleura: No pleural effusions or pneumothorax. There is bilateral pulmonary edema with medial left retrocardiac and confluent right suprahilar. Mediastinum: Mediastinal contours appear normal. Heart size is normal. Bones and chest wall: No suspicious bony lesions. Overlying soft tissues appear unremarkable. IMPRESSION: 1. Pulmonary edema with left retrocardiac and confluent right suprahilar atelectasis or consolidation. Dictated by: Aleksandr Santiago M.D. on 12/17/2022 at 0:16 Approved by: Aleksandr Santiago M.D. on 12/17/2022 at 0:17
[2022-12-17] MEDS: PIPERACILLIN/TAZO 3.375 GM in SODIUM CHLORIDE 0.9% 100 ML IV ×3 (01:46→15:57)
[2022-12-17 02:05] VITALS: O2SAT 95
[2022-12-17] MEDS: ACETAMINOPHEN 325 MG TABLET 650 MG PO ×3 (04:54→22:15)
[2022-12-17] MEDS: hydrOXYzine pamoate 25 MG CAPSULE PO ×3 (04:54→22:15)
[2022-12-17] MEDS: HYDROCORTISONE 1% CREAM 28 GM 1 APPLIC TOP (04:58)
[2022-12-17 05:54] LABS: Add Manual Diff / Slide Review NO; Basophils Absolute Auto 100 /uL (0-100); Basophils Percent Auto 0.5 % (0-2); Eosinophils Absolute Auto 100 /uL (0-450); Eosinophils Percent Auto 0.6 % (2-4); Hematocrit 31.7 % (41-53); Hemoglobin 9.9 g/dL (13.5-17.5); Lymphocytes Absolute Auto 800 /uL (1100-4500); Lymphocytes Percent Auto 3.7 % (25-40); Mean Corpuscular HGB Conc 31.1 % (30-36); Mean Corpuscular Hemoglobin 24.5 PG (26-34); Mean Corpuscular Volume 78.6 fL (80-100); Monocytes Absolute Auto 3000 /uL (0-900); Neutrophils Absolute Auto 17700 /uL (1500-7000); Neutrophils Percent Auto 81.2 % (50-75); Platelet Count 257 X10^3/uL (150-400); Red Blood Cell Count 4.04 X10^6/uL (4.5-5.9); White Blood Cell Count 21.8 X10^3/uL (4.5-11.0)
[2022-12-17 06:06] LABS: Alanine Aminotransferase 17 IU/L (<50); Albumin 3.3 g/dL (3.5-5.0); Alkaline Phosphatase 87 U/L (38-126); Aspartate Aminotransferase 25 IU/L (17-59); Bilirubin Total 0.8 mg/dL (0.2-1.3); Blood Urea Nitrogen 20 mg/dL (9-20); Calcium 8.4 mg/dL (8.4-10.2); Carbon Dioxide 27 mmol/L (22-32); Chloride 102 mmol/L (98-107); Estimated Glomerular Filt Rate > 60 mL/min (>60); Globulin 3.3 g/dL (1.7-4.1); Glucose 98 mg/dL (80-110); HEMOLYSIS < 15 (0-50); Potassium 4.6 mmol/L (3.4-5.1); Sodium 138 mmol/L (137-145); Total Protein 6.6 g/dL (6.3-8.2)
[2022-12-17] MEDS: ELTROMBOPAG 50 MG 50 EACH PO (06:22)
[2022-12-17] MEDS: CLOTRIMAZOLE TROCHE 10 MG PO ×2 (06:22→21:39)
[2022-12-17] MEDS: ALBUTEROL 2.5 MG/3 ML NEB (ADULT) INH ×4 (07:53→19:42)
[2022-12-17] MEDS: BUDESONIDE 0.5 MG/2 ML NEB INH ×2 (07:53→19:42)
[2022-12-17 07:57] VITALS: O2SAT 92
[2022-12-17 08:00] VITALS: BP 123/68; PULSE 104; RESP 16; TEMP 36.7; O2SAT 95
--- NOTE | 2022-12-17 08:44 | DI.CT.S_ITS ---
PROCEDURE: CT ABDOMEN PELVIS W CON INDICATIONS: abd distention and increase wbc TECHNIQUE: After the administration of intravenous contrast, axial sections acquired from the lung bases to the pubic symphysis. Coronal and sagittal reformats were performed. For radiation dose reduction, the following was used: automated exposure control, adjustment of mA and/or kV according to patient size. COMPARISON: None. FINDINGS: Image quality: Excellent. Lung bases: Trace pleural effusions. Pleural calcifications. Trace fluid adjacent to the esophagus. Heart: No significant findings. ABDOMEN: Liver: Unremarkable. Gallbladder: Distended, without wall thickening. No radiopaque stones. Biliary ducts: Unremarkable. Pancreas: Unremarkable. Spleen: Unremarkable. Adrenal Glands: Unremarkable. Kidneys and Ureters: Small burden of punctate, nonobstructing stones. Stomach and Bowel: Large burden of stool within the large bowel and rectum. No wall thickening to suggest stercoral colitis or proctitis. Peritoneum: No abnormal intraperitoneal fluid. No free air. Ventral Wall: No hernias. Abdominal Nodes: No retroperitoneal or mesenteric adenopathy by size criteria. Vessels: Aorta and inferior vena cava are normal in size. PELVIS: Pelvic Organs: Unremarkable. Bladder: Fried catheter present. Pelvic Nodes: No enlarged lymph nodes. Miscellaneous: Small, fat containing left inguinal hernia. Bones: Osteoporosis by Hounsfield unit criteria. IMPRESSION: 1. Large burden of stool within the large bowel and rectum. No wall thickening to suggest stercoral colitis or proctitis. 2. Gallbladder distension without secondary evidence of acute cholecystitis. 3. Trace pleural effusions. Dictated by: Nato Stephens M.D. on 12/17/2022 at 11:15 Approved by: Nato Stephens M.D. on 12/17/2022 at 11:28
--- NOTE | 2022-12-17 08:45 | DI.CT.S_ITS ---
PROCEDURE: CT ANGIO CHEST PE PROTOCOL INDICATIONS: respiratory failure TECHNIQUE: After the administration of intravenous contrast, 2 mm thick sections acquired from the pulmonary apices to the posterior costophrenic angles. 3-dimensional maximum intensity projection (MIP) coronal and sagittal reformats were then acquired through the thorax. For radiation dose reduction, the following was used: automated exposure control, adjustment of mA and/or kV according to patient size. COMPARISON: [facility], [place], CT ANGIO CHEST PE PROTOCOL, 06/10/2022, 11:39. FINDINGS: Image quality: Excellent. Pulmonary arteries: Pulmonary arteries are normal in size, and demonstrate no intraluminal filling defects to suggest central pulmonary embolism. Lungs and pleura: There is severe centrilobular emphysema. Patchy airspace opacities are present within the posterior right upper lobe. Loculated fluid is present within the right oblique fissure. There are small low-density bilateral pleural effusions and compressive atelectasis in the dependent lungs bilaterally. There is a small region of calcified pleural plaque within the right hemithorax. Mediastinum: Heart size is normal, without pericardial effusion. No mediastinal or hilar adenopathy. Thoracic aorta is normal in caliber and enhancement. Esophagus is normal in caliber, without hiatal hernia. Bones and chest wall: No suspicious bony lesions. Ribs and thoracic spine appear intact throughout. Thyroid gland is unremarkable. No axillary or supraclavicular adenopathy. Abdomen: Visualized upper abdominal solid organs appear normal in the early arterial phase of enhancement. IMPRESSION: 1. No acute pulmonary embolus. 2. Small low-density pleural effusions and compressive atelectasis. 3. Focal airspace opacities within the posterior right upper lobe suspicious for aspiration/infection. Short interval follow-up to resolution is recommended to exclude underlying neoplasm. Dictated by: Mali Wagner M.D. on 12/17/2022 at 10:58 Approved by: Mali Wagner M.D. on 12/17/2022 at 11:37
--- NOTE | 2022-12-17 08:48 | PM.PN.1 ---
Subjective Subjective Date Patient Seen: 12/17/22 Time Patient Seen: 08:48 Interval history: Patient seen in follow-up of respiratory failure and delirium. Increasing abdominal pain and constipation/obstipation. Patient actually having no pain today. Does not have any chest pain. No shortness of breath. Does not have any significant abdominal discomfort although he feels swollen and uncomfortable when trying to go to the bathroom. There has been aggressive efforts to deal with this. No other significant change. Has had no fever. No other change. Patient has not been on DVT prophylaxis secondary to history of platelet issue. Exam Vital Signs (past 8 hours): - 12/17/22 02:05 12/17/22 07:57 Pulse Oximetry 95 92 Oxygen Delivery Method Room Air Oxygen Flow Rate 3 Oxygen Delivery Method Room Air Oxygen Flow Rate 3 Narrative Exam Narrative: Alert elderly male mildly fatigued but interactive and appropriate. Mucous membranes appear moist neck supple without adenopathy lungs appear clear heart is regular rate and rhythm abdomen is distended with hyperactive bowel sounds tympanic but nontender. Extremities without significant edema does have some calf tenderness bilaterally. Objective Labs 12/17/22 05:05 12/17/22 05:05 Labs: Laboratory Results - last 24 hr 12/16/22 12/16/22 12/16/22 12:45 21:43 21:43 WBC 20.6 H D RBC 3.97 L Hgb 9.8 L Hct 30.9 L MCV 77.9 L MCH 24.6 L MCHC 31.6 RDW 16.4 H Plt Count 245 Neut % (Auto) Lymph % (Auto) [place] % (Auto) Eos % (Auto) Baso % (Auto) Neut # (Auto) Lymph # (Auto) [place] # (Auto) Eos # (Auto) Baso # (Auto) Sodium 136 L Potassium 4.8 Chloride 102 Carbon Dioxide 25 BUN 20 Creatinine 0.80 Estimated GFR > 60 BUN/Creatinine Ratio 25.0 H Glucose 108 Calcium 8.1 L Total Bilirubin 0.6 AST 24 ALT 18 Alkaline Phosphatase 82 Total Protein 6.4 Albumin 3.1 L Globulin 3.3 Albumin/Globulin Ratio 0.9 L Urine RBC 1-5/hpf Urine WBC None seen Ur Squamous Epith Cells None seen Urine Bacteria None seen Ur Culture Indicated? Cult not indicated 12/17/22 12/17/22 05:05 05:05 WBC 21.8 H RBC 4.04 L Hgb 9.9 L Hct 31.7 L MCV 78.6 L MCH 24.5 L MCHC 31.1 RDW 16.0 H Plt Count 257 Neut % (Auto) 81.2 H Lymph % (Auto) 3.7 L [place] % (Auto) 14.0 Eos % (Auto) 0.6 L Baso % (Auto) 0.5 Neut # (Auto) 97720 H Lymph # (Auto) 800 L [place] # (Auto) 3000 H Eos # (Auto) 100 Baso # (Auto) 100 Sodium 138 Potassium 4.6 Chloride 102 Carbon Dioxide 27 BUN 20 Creatinine 0.80 Estimated GFR > 60 BUN/Creatinine Ratio 25.0 H Glucose 98 Calcium 8.4 Total Bilirubin 0.8 AST 25 ALT 17 Alkaline Phosphatase 87 Total Protein 6.6 Albumin 3.3 L Globulin 3.3 Albumin/Globulin Ratio 1.0 Urine RBC Urine WBC Ur Squamous Epith Cells Urine Bacteria Ur Culture Indicated? [facility] Medical History (Updated 12/14/22 @ 09:59 by Malcolm Lechuga MD) Chronic ITP (idiopathic thrombocytopenic purpura) COPD (chronic obstructive pulmonary disease) Malignant melanoma, metastatic Melanoma Paroxysmal atrial fibrillation Shortness of Breath Tricompartment osteoarthritis of right knee Surgical History S/P total knee arthroplasty Social History household members: family Smoking Status: Former smoker alcohol intake: former Assessment & Plan Assessment & Plan narrative: Elevation in white count. Etiology is somewhat unclear. Possibly secondary to abdominal issues and possible obstruction. Maybe secondary to the obstipation. Will obtain CT scan of abdomen and pelvis. Consulted Dr. Kurtz for evaluation of whether not this is related to his abdominal issue. Patient is also now mildly hypoxic which is new and chest x-ray shows possible failure. At this point unclear definitively as the cause. Will see what workup shows. Discussed with Dr. Kurtz. Patient was switched to Zosyn last night in attempt to cover wider spectrum. Does not appear to be an aspiration risk. Possible intra-abdominal infection. Should have adequate coverage of lung issues. Respiratory failure. Appears to be new. Patient is not on DVT prophylaxis due to platelet history issue. X-ray shows possible some fluid overload. Does not appear to be cardiac he is having no symptoms or issues. Will give Lasix today will get CT scan of chest to make sure not pulmonary embolus and evaluate for pneumonia. Patient does have elevated white count. Without obvious source at this time. Vital signs have been stable without fever. Will follow. O2 as needed. Acute urinary retention. Will continue catheter. Patient would prefer it stays in. Will make no changes. Infectious disease. Did a history of elevated lactate. White count was coming down. Now elevated significantly. Question whether this is pulmonary or intra-abdominal. Unclear at this time. Would lean more towards abdominal issue. Will see what surgical consult recommends. Should have adequate antibiotic coverage at this time. For abdominal process. Fecal impaction/obstipation. Surgical consult to see what recommendation will be. History of chronic ITP. CBC stable at this time. No change. No evidence of platelet issue. CHF. Maybe in mild CHF. Will add Lasix today. Code status DNR. Disposition. Have read recent note from daughter. Clearly need to have defined issues with pulmonary and abdominal issues before he goes home certainly not anytime soon. At this point. Will see what Dr. Kurtz recommends. After reading note from daughter tried to call twice and have been able to will continue to contact today. It appears as if he is failing at home. The question is whether hospice or comfort care is more appropriate is hard to tell at this point. Will define causes of change and then decide at that time. Certainly concerning with changes that happened today. In this 87-year-old individual. But will follow closely. Recheck later today. Time Spent With Patient Critical Care time: I spent a total of [] minutes of critical care time on this patient's care today; this time is exclusive of procedural time. Quality VTE Deep Vein Thrombosis/Pulmonary Embolism Present on Admission: No
[2022-12-17] MEDS: ONDANSETRON 4 MG/2 ML INJ IV (10:22)
[2022-12-17] MEDS: FUROSEMIDE 20 MG/2 ML VIAL IV (10:22)
--- NOTE | 2022-12-17 13:18 | PT-IP ANOTE ---
checked on pt again today and continues to refuse. stated that he has an agreement with Dr. Moore to start PT when he goes home tomorrow. pt stated that he does not want to move and cannot move with PT today. pt does not want PT to check back.
--- NOTE | 2022-12-17 14:04 | CM.DPC ---
DCP Cont: Per MD and RN, pt does not seem to be making medical progress and possible pneumonia and MD even considering if pt might be moving more towards Comfort Measures but still too early to tell. Pt not yet medically stable to d/c yet today. Pt again declined PT eval two days in a row stating MD in agreement with pt doing PT at home when he discharges. PT cancelled order. SW attempted to meet with pt but he has some confusion and sleeping soundly. Family usually bedside in the afternoon. Ritu referral previously made and F2F completed and signed and pt likely would not qualify for SNF rehab ([facility] reviewing and PASRR done) but since pt not participating with PT then likely will not qualify. Plan: SW to follow for family to arrive to update on pt declining PT and likely not SNF option and to inquire if they have started to call [facility] agencies yet. Soo Leblanc MSW
[2022-12-17] MEDS: NYSTATIN SUSP 500,000 UNIT/5 ML UDC 500000 UNIT PO ×3 (14:20→21:38)
[2022-12-17] MEDS: PSYLLIUM HUSK 1 PACKET PO (14:20)
[2022-12-17] MEDS: polyethylene glycoL 3350 17 GM POWD.PACK PO ×2 (14:21→21:38)
[2022-12-17] MEDS: LORazepam 0.5 MG TABLET PO ×2 (15:57→22:15)
--- NOTE | 2022-12-17 17:16 | P.CONS_ITS ---
History of Present Illness Consult details Date Patient Seen: 12/17/22 Time Patient Seen: 17:16 Chief complaint: Pain all over & Urinary retention Narrative: Mr. Lombardo is an 87-year-old man who has metastatic melanoma and has been treated by Dr. Adams who was admitted to the hospital about 3 days ago with urinary retention and fecal impaction. A CT scan on admission showed significant stool burden in the colon. He had actually had frequent loose bowel movements last month when he was being treated for his melanoma. He is a poor historian but he did mentioned that he had been eating crackers recently. He reports that he has been passing some gas recently. He did have another CT scan of the abdomen this morning which showed continued stool burden with no evidence for perforation or colitis. He denies any recent narcotic consumption. He did consume most of the oral Gastrografin for the CT scan today. Meds Home Medications and Allergies Home Medications Medication Instructions Recorded Confirmed Type acetaminophen 500 mg tablet 1,000 mg PO TID ##0 12/08/17 12/13/22 History (Tylenol Extra Strength) budesonide-formoterol HFA 80 2 puff inhalation DAILY 06/10/22 12/13/22 History mcg-4.5 mcg/actuation aerosol inhaler (Symbicort) eltrombopag 50 mg tablet (Promacta) 50 mg PO DAILY #30 tabs 07/09/22 12/13/22 Rx psyllium 1 packet PO TID 10/08/22 12/13/22 History ondansetron 4 mg disintegrating 4 mg PO Q4HR PRN Nausea #30 tabs 12/03/22 12/13/22 Rx tablet ondansetron 4 mg disintegrating 4 mg PO Q4HR PRN Nausea #30 tabs 12/03/22 12/13/22 Rx tablet Allergies Allergy/AdvReac Type Severity Reaction Status Date / Time No Known Allergies Allergy Verified 12/13/22 18:27 Exam Vital Signs (past 8 hours): Oxygen Delivery Method Room Air Oxygen Flow Rate 3 Narrative Exam Narrative: Abdomen soft, nontender Moderately distended Objective Labs 12/17/22 05:05 12/17/22 05:05 Labs: Laboratory Results - last 24 hr 12/16/22 12/16/22 12/17/22 21:43 21:43 05:05 WBC 20.6 H D 21.8 H RBC 3.97 L 4.04 L Hgb 9.8 L 9.9 L Hct 30.9 L 31.7 L MCV 77.9 L 78.6 L MCH 24.6 L 24.5 L MCHC 31.6 31.1 RDW 16.4 H 16.0 H Plt Count 245 257 Neut % (Auto) 81.2 H Lymph % (Auto) 3.7 L [place] % (Auto) 14.0 Eos % (Auto) 0.6 L Baso % (Auto) 0.5 Neut # (Auto) 48832 H Lymph # (Auto) 800 L [place] # (Auto) 3000 H Eos # (Auto) 100 Baso # (Auto) 100 Sodium 136 L Potassium 4.8 Chloride 102 Carbon Dioxide 25 BUN 20 Creatinine 0.80 Estimated GFR > 60 BUN/Creatinine Ratio 25.0 H Glucose 108 Calcium 8.1 L Total Bilirubin 0.6 AST 24 ALT 18 Alkaline Phosphatase 82 Total Protein 6.4 Albumin 3.1 L Globulin 3.3 Albumin/Globulin Ratio 0.9 L 12/17/22 05:05 WBC RBC Hgb Hct MCV MCH MCHC RDW Plt Count Neut % (Auto) Lymph % (Auto) [place] % (Auto) Eos % (Auto) Baso % (Auto) Neut # (Auto) Lymph # (Auto) [place] # (Auto) Eos # (Auto) Baso # (Auto) Sodium 138 Potassium 4.6 Chloride 102 Carbon Dioxide 27 BUN 20 Creatinine 0.80 Estimated GFR > 60 BUN/Creatinine Ratio 25.0 H Glucose 98 Calcium 8.4 Total Bilirubin 0.8 AST 25 ALT 17 Alkaline Phosphatase 87 Total Protein 6.6 Albumin 3.3 L Globulin 3.3 Albumin/Globulin Ratio 1.0 [facility] Medical History (Updated 12/17/22 @ 17:19 by Alexi Kurtz MD) Chronic ITP (idiopathic thrombocytopenic purpura) COPD (chronic obstructive pulmonary disease) Malignant melanoma, metastatic Melanoma Paroxysmal atrial fibrillation Shortness of Breath Tricompartment osteoarthritis of right knee Surgical History S/P total knee arthroplasty Social History household members: family Tobacco & Substance Use Smoking Status: Former smoker alcohol intake: former Assessment & Plan Assessment and plan (1) Constipation: Qualifiers: Constipation type: unspecified constipation type Qualified Code(s): K59.00 - Constipation, unspecified Status: Acute Plan Recommend twice daily Fleet's enemas. Once things start moving he should stay on a high-fiber diet and avoid refined grains products like white bread or crackers. Time Spent With Patient Critical Care time: I spent a total of [] minutes of critical care time on this patient's care today; this time is exclusive of procedural time.
[2022-12-17 19:46] VITALS: O2SAT 95
[2022-12-17 20:00] VITALS: BP 134/63; PULSE 104; RESP 18; TEMP 36.4; O2SAT 96
[2022-12-17] MEDS: FLEETS ENEMA 1 EACH PR (21:37)
[2022-12-17] MEDS: LORATADINE 10 MG TABLET PO (21:38)
[2022-12-18] VITALS (11 sets, daily range): BP systolic 104–127; BP diastolic 50–74; PULSE 59–119; RESP 17–24; TEMP 36.5–37.9; O2SAT 91–97
[2022-12-18] MEDS: PIPERACILLIN/TAZO 3.375 GM in SODIUM CHLORIDE 0.9% 100 ML IV ×3 (00:47→16:52)
[2022-12-18] MEDS: hydrOXYzine pamoate 25 MG CAPSULE PO ×3 (03:46→21:03)
[2022-12-18] MEDS: LORazepam 0.5 MG TABLET PO ×4 (03:46→22:08)
[2022-12-18 05:13] LABS: Add Manual Diff / Slide Review NO; Basophils Absolute Auto 100 /uL (0-100); Basophils Percent Auto 0.8 % (0-2); Eosinophils Absolute Auto 200 /uL (0-450); Eosinophils Percent Auto 1.9 % (2-4); Hematocrit 29.4 % (41-53); Hemoglobin 9.2 g/dL (13.5-17.5); Lymphocytes Absolute Auto 600 /uL (1100-4500); Mean Corpuscular HGB Conc 31.4 % (30-36); Mean Corpuscular Hemoglobin 24.5 PG (26-34); Monocytes Absolute Auto 1800 /uL (0-900); Monocytes Percent Auto 14.9 % (3-14); Neutrophils Absolute Auto 9400 /uL (1500-7000); Neutrophils Percent Auto 77.4 % (50-75); Platelet Count 230 X10^3/uL (150-400); Red Blood Cell Count 3.77 X10^6/uL (4.5-5.9); Red Cell Distribution Width 15.9 % (11.6-14.8); White Blood Cell Count 12.1 X10^3/uL (4.5-11.0)
[2022-12-18 05:18] LABS: Alanine Aminotransferase 17 IU/L (<50); Albumin 3.2 g/dL (3.5-5.0); Albumin Globulin Ratio 0.9 (1.0-2.8); Alkaline Phosphatase 86 U/L (38-126); Aspartate Aminotransferase 24 IU/L (17-59); BUN Creatinine Ratio 21.2 (6-22); Bilirubin Total 0.6 mg/dL (0.2-1.3); Blood Urea Nitrogen 18 mg/dL (9-20); Calcium 8.1 mg/dL (8.4-10.2); Carbon Dioxide 28 mmol/L (22-32); Chloride 101 mmol/L (98-107); Estimated Glomerular Filt Rate > 60 mL/min (>60); Globulin 3.4 g/dL (1.7-4.1); Glucose 107 mg/dL (80-110); HEMOLYSIS < 15 (0-50); Potassium 3.8 mmol/L (3.4-5.1); Sodium 138 mmol/L (137-145); Total Protein 6.6 g/dL (6.3-8.2)
[2022-12-18] MEDS: ELTROMBOPAG 50 MG 50 EACH PO (06:29)
[2022-12-18] MEDS: ALBUTEROL 2.5 MG/3 ML NEB (ADULT) INH ×3 (08:10→19:47)
[2022-12-18] MEDS: BUDESONIDE 0.5 MG/2 ML NEB INH ×2 (08:10→19:47)
--- NOTE | 2022-12-18 08:31 | PM.PN.1 ---
Subjective Subjective Date Patient Seen: 12/18/22 Time Patient Seen: 08:31 Interval history: Patient seen in follow-up of constipation/obstipation and respiratory failure. Weakness. Patient continues to be relatively weak acknowledges that his week. But feels like he can do what he needs to do at home. No other significant changes. No pain. Still requiring 2 L of O2. Patient did have a large bowel movement last night Exam Vital Signs (past 8 hours): - 12/18/22 08:10 12/18/22 08:20 Pulse Rate 98 H 104 H Respiratory Rate 18 20 Oxygen Delivery Method Nasal Cannula Nasal Cannula Oxygen Flow Rate 2 1 Oxygen Delivery Method Nasal Cannula Oxygen Flow Rate 1 Narrative Exam Narrative: Fatigued-appearing male interactive but sleepy in no acute distress. Lungs with occasional expiratory wheeze. Heart is regular rate and rhythm. Abdomen is mildly less distended. Nontender. No change in bowel sounds. Objective Labs 12/18/22 04:10 12/18/22 04:10 Labs: Laboratory Results - last 24 hr 12/18/22 12/18/22 04:10 04:10 WBC 12.1 H RBC 3.77 L Hgb 9.2 L Hct 29.4 L MCV 78.0 L MCH 24.5 L MCHC 31.4 RDW 15.9 H Plt Count 230 Neut % (Auto) 77.4 H Lymph % (Auto) 5.0 L [place] % (Auto) 14.9 H Eos % (Auto) 1.9 L Baso % (Auto) 0.8 Neut # (Auto) 9400 H Lymph # (Auto) 600 L [place] # (Auto) 1800 H Eos # (Auto) 200 Baso # (Auto) 100 Sodium 138 Potassium 3.8 Chloride 101 Carbon Dioxide 28 BUN 18 Creatinine 0.85 Estimated GFR > 60 BUN/Creatinine Ratio 21.2 Glucose 107 Calcium 8.1 L Total Bilirubin 0.6 AST 24 ALT 17 Alkaline Phosphatase 86 Total Protein 6.6 Albumin 3.2 L Globulin 3.4 Albumin/Globulin Ratio 0.9 L [facility] Medical History (Updated 12/17/22 @ 17:19 by Alexi Kurtz MD) Chronic ITP (idiopathic thrombocytopenic purpura) COPD (chronic obstructive pulmonary disease) Malignant melanoma, metastatic Melanoma Paroxysmal atrial fibrillation Shortness of Breath Tricompartment osteoarthritis of right knee Surgical History S/P total knee arthroplasty Social History household members: family Smoking Status: Former smoker alcohol intake: former Assessment & Plan Assessment & Plan narrative: White count elevation. Much improved. Down to 12. Question whether this was secondary to his obstipation or whether this was secondary to possible aspiration pneumonia. Still requiring 2 L oxygen. White count improved today. Will continue IV antibiotics today. Switch to oral. Would consider Augmentin. More likely aspiration then abdominal issues. Appreciate Dr. Ramonita Egan's consult. Respiratory failure. Possible secondary to aspiration pneumonia. Maybe mild congestive heart failure. Not getting a lot of fluids. Will repeat Lasix today. Chest x-ray tomorrow. Will need to continue on antibiotics but hope we can switch to oral tomorrow. His lungs white count continues to be decreased. Possible aspiration. Will increase to clear liquids today. Also with his constipation. If not doing well or any question will need speech therapy at this point he does not seem to have a swallowing problem Weakness. Probably multifactorial. Patient has been as far as his daughter feels failing over the last couple of weeks. And really over the last several months has not been doing a lot. Patient is very weak today. Discussed with patient that I do not think he can go home with this kind of weakness and patient is feeling like he does not want to push himself. But we discussed that if he can not do physical therapy may not be able to go home. He will have to prove that he can do okay at home. I personally am not sure he can go home and will be looking more at placement. Urinary retention. Stable. Continue catheter as per patient's wishes. Infectious disease. Appears to be mostly pulmonary. Seems to be improving will continue to follow. Fecal impaction/obstipation. Appreciate Dr. Tavarez's input. Working with mostly enemas. Will continue. History of ITP. Stable at this time. CHF. Lasix again today. Recheck chest x-ray tomorrow. Code status DNR. DVT prophylaxis. With history of ITP. Will not use heparin products. External devices. Disposition. Will take a couple days to clear him out completely. And make sure oxygen and pulmonary status is more stable. Discussed with social service. Probably will need placement will see how things go. See what his strength is. Involvement with physical therapy. Will discuss with daughter. Time Spent With Patient Critical Care time: I spent a total of [] minutes of critical care time on this patient's care today; this time is exclusive of procedural time. Quality VTE Deep Vein Thrombosis/Pulmonary Embolism Present on Admission: No
[2022-12-18] MEDS: polyethylene glycoL 3350 17 GM POWD.PACK PO ×3 (09:01→21:02)
[2022-12-18] MEDS: NYSTATIN SUSP 500,000 UNIT/5 ML UDC 500000 UNIT PO ×4 (09:01→21:03)
[2022-12-18] MEDS: FLEETS ENEMA 1 EACH PR (09:01)
[2022-12-18] MEDS: FUROSEMIDE 40 MG/4 ML VIAL 20 MG IV (09:01)
[2022-12-18] MEDS: CLOTRIMAZOLE TROCHE 10 MG PO ×4 (11:00→22:07)
[2022-12-18] MEDS: MAGNESIUM HYDROXIDE 30 ML UDC PO (11:00)
--- NOTE | 2022-12-18 12:15 | PT.IIE ---
Current Diagnoses Constipation, unspecified (12/13/22) Retention of urine, unspecified (12/13/22) Surgical History (Last Reviewed 06/10/22 @ 18:44 by Brian Moore MD) S/P total knee arthroplasty Medical History (Last Updated 12/14/22 @ 09:59 by Malcolm Lechuga MD) Chronic ITP (idiopathic thrombocytopenic purpura) COPD (chronic obstructive pulmonary disease) Malignant melanoma, metastatic Melanoma Paroxysmal atrial fibrillation Shortness of Breath Tricompartment osteoarthritis of right knee Physical Therapy Inpatient Evaluation/Re-Eval M1 PT/OT-IP Prior Functional Status Start: 12/18/22 15:28 Freq: NEEDED Status: Active Protocol: Document 12/18/22 12:15 AB (Rec: 12/18/22 15:50 AB [id number]) Medical Review Prior Functional Status Medical History Reviewed Yes Communication able to make needs known Mobility and Gait pt stated that he has not walked for 6 months and has been using his w/c. stated that he is able to climb up his steps to get into the house using his rail and able to transfer in/out of his w/c. pt sleeps on his lift chair and has a transfer pole next to his chair and transfers w/c <>lift chair using transfer pole. stated that he is able to transfer from w/c to toilet by himself. Social History Household Members family Living Arrangements House Number of Floors (Floors) Two Floors Number of Stairs To Enter/Railing? pt stays on main level of the house has 8 steps B rails to enter the house Home Environment Standard Height Toilet,Walk in Shower,Built-In Shower Seat Home Equipment Manual Wheelchair,Raised Toilet Seat w/Armrests,Hand Held Shower,Lift Recliner Additional Social History Comment pt stated that he has 4 people to assist him at home: son/ grandsons pt has a transfer pole next to his lift chair M2 PT-IP Current Condition Start: 12/18/22 15:28 Freq: NEEDED Status: Active Protocol: Document 12/18/22 12:15 AB (Rec: 12/18/22 15:50 AB [id number]) Physical Therapy Current Condition Current Condition Evaluation Date 12/18/22 Treatment Diagnosis thrush; constipation; generalized weakness Onset Date 12/13/22 M3 PT-IP Subjective Start: 12/18/22 15:28 Freq: NEEDED Status: Active Protocol: Document 12/18/22 12:15 AB (Rec: 12/18/22 15:50 AB [id number]) Subjective Physical Therapy Visit Type Type Initial Evaluation Visit Start Time 12:15 Visit Stop Time 12:57 Total Visit Minutes 42 Number of GARDE MANAGER Visits 0 M4 PT-IP Mobility and Gait Start: 12/18/22 15:28 Freq: NEEDED Status: Active Protocol: Document 12/18/22 12:15 AB (Rec: 12/18/22 15:50 AB [id number]) PT-Bed Mobility Assessment Supine to Sit Supine to Sit Maximum Assistance,2 Person Assistance,Bedrails Sit to Supine Sit to Supine Maximum Assistance,2 Person Assistance,Bedrails Scooting Scooting to Edge of Bed Maximum Assistance PT-Transfer Assessment Sit to and From Stand Sit to and from Stand Maximum Assistance,2 Person Assistance,Use of Upper Extremities Equipment Transfer Assistive Device Gait Belt,Front Wheeled Walker Orthotic/Prosthetic Devices or Brace: No Comments Mobility Comments pt stated that he made an agreement with Dr. moore that if he works with PT today, he will go home tomorrow but stated that he cannot understand what is the difference between doing PT now vs him going home and doing PT. stated that he has 4 people that will assist him at home. educated pt on PT's purpose during hospital stay but pt stated: I don't want to argue with you but I will do what you asked me because I told Dr. Moore that I will do it. informed pt what the plan during mobility. PT putting non-skid socks on pt and pt screamed and stated to get socks off him because he is not going to stand. stated that he has not walked for 6 months. tried to explain to pt that socks is for pt to be able to transfer but pt refuses to listen. took socks off pt. instructed pt to sit on the EOB. stated that he cannot do it and needs help. instructed pt to move LE to EOB. pt stated that he can't move his legs even before trying but stated that he already tried and tried. max A x 2 for sit to supine. pt sat on EOB with initial max A. total A for scooting and positioning on EOB. pt stated What's next. asked pt if he can transfer to the chair. pt was trying to slide over to the chair in sitting position. PT asked pt, how can he transfer without standing if he is refusing to stand. Pt then stated I see what you are saying and agreed to have socks on and stand this time. completed sit to stand max Ax 2 and max cues. unable to fully stand upright and only tolerated ~ 5 sec standing using fWW max A x 2. pt then stated that he had enough. assisted pt back to bed. max A x 2 for sit to supine. total A for positioning in bed. call ligth and table placed within reach. informed pt that PT will check back tomorrow. pt stated that he is going home tomorrow . stated that Dr. Moore told him that he will send him home tomorrow if he works with PT. PT-Balance Assessment Sitting Balance and Reactions Static Sitting Balance Ability Fair Dynamic Sitting Balance Ability Poor Standing Balance and Reactions Static Standing Balance Ability Poor Dynamic Standing Balance Ability Poor Device Used FWW M5 PT-IP Objective Assessments Start: 12/18/22 15:28 Freq: NEEDED Status: Active Protocol: Document 12/18/22 12:15 AB (Rec: 12/18/22 15:50 AB [id number]) Orientation Orientation/Cognition Level of Alertness Confusional State Orientation Name,Place,Situation Safety Awareness Decreased Safety Awareness Memory Description Short Term Impaired Gross Range of Motion Lower Extremity ROM Assessment Within Functional Limits Strength Lower Extremity Strength Assessment Bilaterally Impaired Hip 3-/5 Knee 3+/5 Muscle Tone Muscle Tone WNL Yes M6 PT-IP Treatment Start: 12/18/22 15:28 Freq: NEEDED Status: Active Protocol: Document 12/18/22 12:15 AB (Rec: 12/18/22 15:50 AB [id number]) Physical Therapy Treatment Education Education Provided Safety M7 PT-IP Assessment and Plan Start: 12/18/22 15:28 Freq: NEEDED Status: Active Protocol: Document 12/18/22 12:15 AB (Rec: 12/18/22 15:50 AB [email or web address]) PT Summary Assessment and Plan Potential Rehabilitation Potential Fair Status of Condition at Evaluation Evolving Summary Impairments Pain,ROM,Strength,Balance, Coordination,Sensation,Tone, Cognition,Bed Mobility, Transfers,Gait,Activity Tolerance Assessment Summary pt requiring max A x 2 for bed mobility and sit to stand. unable to transfer at this time and will be a mechanical lift transfer with nursing staff. pt also not motivated to do PT and stated that he has 4 people to help him at home. will continue to assess progress but if pt keeps refusing or not limiting his activity, will have to d/c. Goals Bed Mobility Goal Minimal Assistance Transfer Goal Minimal Assistance,Front Wheeled Walker Days to Meet Goals 10 Frequency of Treatment Frequency Of Treatment Once a Day Treatment Plan Physical Therapy Treatment Plan Bed Mobility Training,Transfer Training,Therapeutic Exercise ,Balance Retraining,Discharge Planning,Hot or Cold Pack, Neuromuscular Re-ed, Coordination Retraining,Manual Therapy Discharge Recommendations Other Discharge Recommendations pt may require LT care placement Transportation Needs at Discharge Stretcher/Ambulance
[2022-12-18] MEDS: ACETAMINOPHEN 325 MG TABLET 650 MG PO (15:47)
[2022-12-18] MEDS: SODIUM CHLORIDE 0.9% 250 ML 1000 ML IV (16:39)
[2022-12-18] MEDS: SODIUM CHLORIDE 0.9% 1,000 ML 75 ML IV (16:40)
[2022-12-18] MEDS: BISACODYL 5 MG TABLET 10 MG PO (17:42)
[2022-12-18 18:01] LABS: Add Manual Diff / Slide Review NO; Basophils Absolute Auto 100 /uL (0-100); Eosinophils Absolute Auto 200 /uL (0-450); Eosinophils Percent Auto 1.6 % (2-4); Hematocrit 29.1 % (41-53); Hemoglobin 9.3 g/dL (13.5-17.5); Lymphocytes Absolute Auto 600 /uL (1100-4500); Lymphocytes Percent Auto 5.4 % (25-40); Mean Corpuscular HGB Conc 31.8 % (30-36); Mean Corpuscular Hemoglobin 24.5 PG (26-34); Monocytes Absolute Auto 1500 /uL (0-900); Monocytes Percent Auto 13.5 % (3-14); Neutrophils Absolute Auto 9000 /uL (1500-7000); Neutrophils Percent Auto 78.5 % (50-75); Platelet Count 269 X10^3/uL (150-400); Red Blood Cell Count 3.78 X10^6/uL (4.5-5.9); White Blood Cell Count 11.4 X10^3/uL (4.5-11.0)
[2022-12-18 18:24] LABS: Lactate (Lactic Acid) 1.3 mmol/L (0.7-2.1)
[2022-12-18 18:41] LABS: Procalcitonin 0.84 ng/mL (<0.5)
[2022-12-18] MEDS: NYSTATIN CREAM 30 GM 1 APPLIC TOP (21:02)
[2022-12-18] MEDS: LORATADINE 10 MG TABLET PO (21:03)
[2022-12-19] VITALS (9 sets, daily range): BP systolic 113–130; BP diastolic 66–73; PULSE 90–128; RESP 16–24; TEMP 36.2–37.1; O2SAT 94–100
[2022-12-19] MEDS: PIPERACILLIN/TAZO 3.375 GM in SODIUM CHLORIDE 0.9% 100 ML IV ×2 (00:32→10:23)
[2022-12-19] MEDS: LORazepam 0.5 MG TABLET PO (02:30)
[2022-12-19 05:08] LABS: Add Manual Diff / Slide Review NO; Basophils Absolute Auto 100 /uL (0-100); Basophils Percent Auto 0.8 % (0-2); Eosinophils Absolute Auto 200 /uL (0-450); Eosinophils Percent Auto 1.8 % (2-4); Hematocrit 29.7 % (41-53); Hemoglobin 9.6 g/dL (13.5-17.5); Lymphocytes Absolute Auto 600 /uL (1100-4500); Lymphocytes Percent Auto 4.3 % (25-40); Mean Corpuscular HGB Conc 32.1 % (30-36); Mean Corpuscular Hemoglobin 24.6 PG (26-34); Mean Corpuscular Volume 76.7 fL (80-100); Monocytes Absolute Auto 1300 /uL (0-900); Monocytes Percent Auto 9.4 % (3-14); Neutrophils Absolute Auto 11900 /uL (1500-7000); Neutrophils Percent Auto 83.7 % (50-75); Platelet Count 311 X10^3/uL (150-400); Red Blood Cell Count 3.88 X10^6/uL (4.5-5.9); Red Cell Distribution Width 15.9 % (11.6-14.8); White Blood Cell Count 14.2 X10^3/uL (4.5-11.0)
[2022-12-19 05:12] LABS: Alanine Aminotransferase 19 IU/L (<50); Albumin 3.2 g/dL (3.5-5.0); Alkaline Phosphatase 95 U/L (38-126); Aspartate Aminotransferase 26 IU/L (17-59); BUN Creatinine Ratio 19.8 (6-22); Bilirubin Total 0.6 mg/dL (0.2-1.3); Blood Urea Nitrogen 16 mg/dL (9-20); Carbon Dioxide 26 mmol/L (22-32); Chloride 103 mmol/L (98-107); Estimated Glomerular Filt Rate > 60 mL/min (>60); Globulin 3.3 g/dL (1.7-4.1); Glucose 116 mg/dL (80-110); HEMOLYSIS < 15 (0-50); Potassium 3.5 mmol/L (3.4-5.1); Sodium 138 mmol/L (137-145); Total Protein 6.5 g/dL (6.3-8.2)
[2022-12-19] MEDS: CLOTRIMAZOLE TROCHE 10 MG PO ×5 (05:47→22:57)
[2022-12-19] MEDS: ELTROMBOPAG 50 MG 50 EACH PO (05:47)
[2022-12-19] MEDS: SODIUM CHLORIDE 0.9% 1,000 ML 75 ML IV ×2 (05:59→18:28)
--- NOTE | 2022-12-19 06:22 | DI.RAD.S_ITS ---
PROCEDURE: XR CHEST 1V INDICATIONS: Changed of breathing. TECHNIQUE: One view of the chest was acquired. COMPARISON: [facility], CT, CT ANGIO CHEST PE PROTOCOL, 12/17/2022, 10:37. [facility], CR, XR CHEST 1V, 12/16/2022, 22:44. [facility], CR, XR CHEST 1V, 12/13/2022, 17:36. FINDINGS: Surgical changes and devices: None. Lungs and pleura: Emphysematous change. Bilateral hazy opacity there is not significantly changed. The right major fissure lesion is not well seen. Mediastinum: Mediastinal contours appear similar. Heart size is normal. Bones and chest wall: No suspicious bony lesions. Overlying soft tissues appear unremarkable. IMPRESSION: Bilateral hazy opacity is not significantly changed. This could represent pneumonia or atelectasis. Dictated by: Orlando Stovall M.D. on 12/19/2022 at 9:59 Approved by: Orlando Stovall M.D. on 12/19/2022 at 10:02
--- NOTE | 2022-12-19 06:25 | PC.NURSE ---
Dr. Moore notified patient needs 2-3 persons to assist him with mobility. Order changed to CXR one view, tech. notified here to do portable CXR. Pt. did not sleep well last night, even after medicated 2 doses of Lorazepam 0.5 mg PO. Will cont. POC & monitor.
[2022-12-19] MEDS: ALBUTEROL 2.5 MG/3 ML NEB (ADULT) INH ×4 (07:54→23:13)
[2022-12-19] MEDS: BUDESONIDE 0.5 MG/2 ML NEB INH ×2 (07:54→20:13)
[2022-12-19] MEDS: POTASSIUM CHLORIDE 20 MEQ/15 ML UDC 40 MEQ PO (10:23)
[2022-12-19] MEDS: polyethylene glycoL 3350 17 GM POWD.PACK PO ×3 (10:24→21:08)
[2022-12-19] MEDS: NYSTATIN CREAM 30 GM 1 APPLIC TOP ×2 (10:24→21:07)
[2022-12-19] MEDS: FLEETS ENEMA 1 EACH PR (10:24)
[2022-12-19] MEDS: NYSTATIN SUSP 500,000 UNIT/5 ML UDC 500000 UNIT PO ×4 (10:24→21:07)
[2022-12-19] MEDS: BISACODYL 5 MG TABLET 10 MG PO (13:07)
[2022-12-19] MEDS: ACETAMINOPHEN 325 MG TABLET 650 MG PO (13:08)
--- NOTE | 2022-12-19 13:24 | PM.PN.1 ---
Subjective Subjective Date Patient Seen: 12/19/22 Time Patient Seen: 13:24 Interval history: Patient had difficult night last night. He was unable to sleep. He was given lorazepam and this was not effective. He continues with nasal cannula oxygen at 2 L to maintain O2 sats in the mid 90s. He is had poor p.o. intake and has IV fluids running at 75 cc an hour. He continues to be constipated and obstipated with large load of stool in the rectum. Recently disimpacted with a large softball size amount of stool by nurse with significant pain when this occurred. Reviewed chart and met with patient. Since I saw him last he was diagnosed with aspiration pneumonia and is being treated with IV antibiotics and nasal cannula oxygen. He had a CT scan of the abdomen [address] scan of the abdomen showed large amount of stool and surgery consulted x1. He continues to moan and groan lying in the bed. He is not wanting to participate in physical therapy. Exam Vital Signs (past 8 hours): - 12/19/22 07:54 12/19/22 08:01 12/19/22 08:00 Temperature 98.7 F Pulse Rate 116 H 108 H 118 H Respiratory Rate 22 24 16 Blood Pressure 115/66 Pulse Oximetry 96 96 Oxygen Delivery Method Nasal Cannula Oxygen Flow Rate 2 Oxygen Delivery Method Nasal Cannula Oxygen Flow Rate 2 Narrative Exam Narrative: Afebrile vital signs are stable This is a chronically ill appearing male who appears older than his stated age of 87. He appears pale but in no acute distress No increased work of breathing HEENT shows mucous membranes moist Neck without masses Chest with decreased breath sounds bibasilar Cor distant S1-S2 Abdomen: Distended, protuberant but no guarding no rebound mild tenderness with palpation bowel sounds x4 but slightly tympanitic in the upper. Extremities: Trace edema Neurologic exam is nonfocal Skin diffuse bruising and abrasions Objective Labs 12/19/22 04:36 12/19/22 04:36 Labs: Laboratory Results - last 24 hr 12/18/22 12/18/22 12/18/22 16:20 16:20 16:20 WBC 11.4 H RBC 3.78 L Hgb 9.3 L Hct 29.1 L MCV 77.0 L MCH 24.5 L MCHC 31.8 RDW 16.0 H Plt Count 269 Neut % (Auto) 78.5 H Lymph % (Auto) 5.4 L [place] % (Auto) 13.5 Eos % (Auto) 1.6 L Baso % (Auto) 1.0 Neut # (Auto) 9000 H Lymph # (Auto) 600 L [place] # (Auto) 1500 H Eos # (Auto) 200 Baso # (Auto) 100 Sodium Potassium Chloride Carbon Dioxide BUN Creatinine Estimated GFR BUN/Creatinine Ratio Glucose Lactate 1.3 Calcium Total Bilirubin AST ALT Alkaline Phosphatase Total Protein Albumin Globulin Albumin/Globulin Ratio Procalcitonin 0.84 H 12/19/22 12/19/22 04:36 04:36 WBC 14.2 H RBC 3.88 L Hgb 9.6 L Hct 29.7 L MCV 76.7 L MCH 24.6 L MCHC 32.1 RDW 15.9 H Plt Count 311 Neut % (Auto) 83.7 H Lymph % (Auto) 4.3 L [place] % (Auto) 9.4 Eos % (Auto) 1.8 L Baso % (Auto) 0.8 Neut # (Auto) 83030 H Lymph # (Auto) 600 L [place] # (Auto) 1300 H Eos # (Auto) 200 Baso # (Auto) 100 Sodium 138 Potassium 3.5 Chloride 103 Carbon Dioxide 26 BUN 16 Creatinine 0.81 Estimated GFR > 60 BUN/Creatinine Ratio 19.8 Glucose 116 H Lactate Calcium 8.0 L Total Bilirubin 0.6 AST 26 ALT 19 Alkaline Phosphatase 95 Total Protein 6.5 Albumin 3.2 L Globulin 3.3 Albumin/Globulin Ratio 1.0 Procalcitonin [facility] Medical History (Updated 12/17/22 @ 17:19 by Alexi Kurtz MD) Chronic ITP (idiopathic thrombocytopenic purpura) COPD (chronic obstructive pulmonary disease) Malignant melanoma, metastatic Melanoma Paroxysmal atrial fibrillation Shortness of Breath Tricompartment osteoarthritis of right knee Surgical History S/P total knee arthroplasty Social History household members: family Smoking Status: Former smoker alcohol intake: former Assessment & Plan Assessment & Plan narrative: Assessment & Plan narrative: Assessment 1. Leukocytosis, suspect related to overall illness and possible aspiration pneumonia. Improving overall stable but still slightly elevated. Plan: Continue with antibiotics but we will switch from IV to oral Augmentin. Assessment 2. Respiratory failure. Possible secondary to aspiration pneumonia. Will continue with antibiotics but switch to oral antibiotics. We will monitor for congestive heart failure. We will continue with small amount IV fluids to support as he is not taking in a lot orally. We will check a BNP tomorrow. Assessment 3. Possible aspiration. Will increase to clear liquids today. Continue with antibiotics Assessment 4. Fecal obstipation and impaction. Essentially patient has failed all treatment including multiple enemas, Dulcolax. He was disimpacted today. He is not done this previously because he has refused. Likely they are still a large amount of stool remaining. Reviewed CT scans done [address] Tavarez's note. I will discuss with surgery to get their opinion about oral treatments or other options. Assessment 5. Weakness. Probably multifactorial. Patient has been as far as his daughter feels failing over the last couple of weeks. Really over last several months. Patient will need skilled care facility on discharge. Discharge planning is working on this. At this point patient is not amenable to doing this but I see no other option. Assessment 6. Agitation in the evening failed lorazepam. Plan: Will give a trial of Seroquel tonight. Assessment 7. Metastatic melanoma: Currently unable to treat because of ongoing other medical problems and comorbidities Assessment 8. Urinary retention. Stable. Continue catheter as per patient's wishes. Assessment 9. Infectious disease. Appears to be mostly pulmonary. Seems to be improving will continue to follow. Assessment 10. History Of ITP. Stable at this time. Assessment 11. CHF. Recheck chest x-ray tomorrow. Code status DNR. DVT prophylaxis. With history of ITP. Will not use heparin products. External devices. 60 minutes spent with patient and discussing with nursing and physicians and reviewing chart and formulating a plan and documentation. Time Spent With Patient Critical Care time: I spent a total of [] minutes of critical care time on this patient's care today; this time is exclusive of procedural time. Quality VTE Deep Vein Thrombosis/Pulmonary Embolism Present on Admission: No
--- NOTE | 2022-12-19 14:14 | PM.CALLCOV.1 ---
Call Coverage Note Note Date of Patient Contact: 12/19/22 Time of Patient Contact: 14:14 Narrative of Care Provided: If no BM by tomorrow(Sat) will discuss with patient disimpaction under anesthesia. NPO after midnight tonight
[2022-12-19] MEDS: QUETIAPINE 100 MG TABLET 12.5 MG PO (14:53)
--- NOTE | 2022-12-19 15:06 | PT-IP ANOTE ---
checked on pt and stated that he wants to talked to his son and then talk to Dr. webb. informed pt that PT is in he room for PT and stated that he knows that but not right now. stated that he knows what PT wants him to do: sit up on the side of the bed and for him to sit on the chair. PT confirmed but pt stated that he wants to postpone it to day and maybe do it tomorrow. Pt educated again on PT but pt refused today. nurse informed.
[2022-12-19] MEDS: QUETIAPINE 25 MG TABLET PO (21:07)
[2022-12-19] MEDS: LORATADINE 10 MG TABLET PO (21:07)
[2022-12-19] MEDS: AMOXICILLIN/CLAV 875/125 MG 1 TAB PO (21:07)
[2022-12-20] VITALS (9 sets, daily range): BP systolic 103–124; BP diastolic 53–70; PULSE 78–120; RESP 16–21; TEMP 36.6–37.1; O2SAT 2–99
[2022-12-20 05:07] LABS: Add Manual Diff / Slide Review NO; Basophils Absolute Auto 100 /uL (0-100); Basophils Percent Auto 1.3 % (0-2); Eosinophils Absolute Auto 200 /uL (0-450); Eosinophils Percent Auto 2.3 % (2-4); Hematocrit 28.3 % (41-53); Hemoglobin 9.1 g/dL (13.5-17.5); Lymphocytes Absolute Auto 600 /uL (1100-4500); Lymphocytes Percent Auto 8.1 % (25-40); Mean Corpuscular HGB Conc 32.2 % (30-36); Mean Corpuscular Hemoglobin 24.7 PG (26-34); Mean Corpuscular Volume 76.6 fL (80-100); Monocytes Absolute Auto 1000 /uL (0-900); Neutrophils Absolute Auto 5500 /uL (1500-7000); Neutrophils Percent Auto 75.3 % (50-75); Platelet Count 292 X10^3/uL (150-400); Red Cell Distribution Width 16.3 % (11.6-14.8); White Blood Cell Count 7.3 X10^3/uL (4.5-11.0)
[2022-12-20 05:27] LABS: Alanine Aminotransferase 20 IU/L (<50); Albumin 2.9 g/dL (3.5-5.0); Albumin Globulin Ratio 0.9 (1.0-2.8); Alkaline Phosphatase 82 U/L (38-126); Aspartate Aminotransferase 25 IU/L (17-59); BUN Creatinine Ratio 15.7 (6-22); Bilirubin Total 0.6 mg/dL (0.2-1.3); Blood Urea Nitrogen 11 mg/dL (9-20); Carbon Dioxide 24 mmol/L (22-32); Chloride 112 mmol/L (98-107); Estimated Glomerular Filt Rate > 60 mL/min (>60); Globulin 3.1 g/dL (1.7-4.1); Glucose 106 mg/dL (80-110); HEMOLYSIS < 15 (0-50); Potassium 4.1 mmol/L (3.4-5.1); Sodium 143 mmol/L (137-145)
[2022-12-20 05:35] LABS: NT-proBNP (BNP-Adult 18+) 6980 pg/mL (<450)
[2022-12-20] MEDS: ELTROMBOPAG 50 MG 50 EACH PO (06:16)
[2022-12-20] MEDS: ACETAMINOPHEN 325 MG TABLET 650 MG PO ×3 (06:17→23:45)
[2022-12-20] MEDS: OXYCODONE IR 5 MG TABLET PO ×4 (06:17→23:45)
--- NOTE | 2022-12-20 06:41 | PC.NURSE ---
Pt. has had several incontinent stools through the night ranging from small to extra large this am. The stool is a mixture of formed and loose stools. Pt. abdomen however is still a little bit distended and tympanic when percussed.
[2022-12-20] MEDS: ALBUTEROL 2.5 MG/3 ML NEB (ADULT) INH ×3 (07:45→18:55)
[2022-12-20] MEDS: BUDESONIDE 0.5 MG/2 ML NEB INH ×2 (07:45→18:55)
[2022-12-20] MEDS: NYSTATIN SUSP 500,000 UNIT/5 ML UDC 500000 UNIT PO ×4 (09:21→20:52)
[2022-12-20] MEDS: AMOXICILLIN/CLAV 875/125 MG 1 TAB PO ×2 (09:21→20:54)
[2022-12-20] MEDS: NYSTATIN CREAM 30 GM 1 APPLIC TOP (09:22)
[2022-12-20] MEDS: CLOTRIMAZOLE TROCHE 10 MG PO ×4 (09:22→23:45)
[2022-12-20] MEDS: SODIUM CHLORIDE 0.9% 1,000 ML 75 ML IV (09:23)
--- NOTE | 2022-12-20 10:51 | P.PN_ITS ---
Subjective Subjective Date Patient Seen: 12/20/22 Time Patient Seen: 10:51 Interval history: Sleeping, exhausted from being up all nite with pooping Exam Vital Signs (past 8 hours): - 12/20/22 04:00 12/20/22 07:49 12/20/22 09:24 Temperature 98.2 F 98 F Pulse Rate 120 H 98 H Respiratory Rate 21 20 Blood Pressure 103/61 111/70 Pulse Oximetry 99 2 L 96 Oxygen Delivery Method Nasal Cannula Oxygen Flow Rate 2 95 0 Fraction of Inspired Oxygen 28 SaO2/FiO2 Ratio 357 Oxygen Delivery Method Nasal Cannula Oxygen Flow Rate 0 Narrative Exam Narrative: Abdomen is soft and benign Objective Labs 12/20/22 04:43 12/20/22 04:43 Labs: Laboratory Results - last 24 hr 12/20/22 12/20/22 12/20/22 04:43 04:43 04:43 WBC 7.3 RBC 3.70 L Hgb 9.1 L Hct 28.3 L MCV 76.6 L MCH 24.7 L MCHC 32.2 RDW 16.3 H Plt Count 292 Neut % (Auto) 75.3 H Lymph % (Auto) 8.1 L [place] % (Auto) 13.0 Eos % (Auto) 2.3 Baso % (Auto) 1.3 Neut # (Auto) 5500 Lymph # (Auto) 600 L [place] # (Auto) 1000 H Eos # (Auto) 200 Baso # (Auto) 100 Sodium 143 Potassium 4.1 Chloride 112 H Carbon Dioxide 24 BUN 11 Creatinine 0.70 Estimated GFR > 60 BUN/Creatinine Ratio 15.7 Glucose 106 Calcium 8.0 L Total Bilirubin 0.6 AST 25 ALT 20 Alkaline Phosphatase 82 NT-Pro-B Natriuret Pep 6980 H Total Protein 6.0 L Albumin 2.9 L Globulin 3.1 Albumin/Globulin Ratio 0.9 L PFSH Medical History (Updated 12/17/22 @ 17:19 by Alexi Kurtz MD) Chronic ITP (idiopathic thrombocytopenic purpura) COPD (chronic obstructive pulmonary disease) Malignant melanoma, metastatic Melanoma Paroxysmal atrial fibrillation Shortness of Breath Tricompartment osteoarthritis of right knee Surgical History S/P total knee arthroplasty Social History household members: family Smoking Status: Former smoker alcohol intake: former Assessment & Plan Assessment & Plan narrative: KUB to see if rectal stool ball has resolved as well as his constipation Time Spent With Patient Time with patient: less than 30 minutes Critical Care time: I spent a total of [] minutes of critical care time on this patient's care today; this time is exclusive of procedural time. Quality VTE Deep Vein Thrombosis/Pulmonary Embolism Present on Admission: No
--- NOTE | 2022-12-20 10:53 | DI.RAD.S_ITS ---
PROCEDURE: XR ABDOMEN MIN 2V INDICATIONS: constipation, large stool ball TECHNIQUE: 2 views of the abdomen were acquired. COMPARISON: [facility], CT, CT ABDOMEN PELVIS W CON, 12/17/2022, 10:37. [facility], CR, XR CHEST 1V, 12/19/2022, 6:22. FINDINGS: Surgical changes and devices: Right groin clips are seen. Bowel: No pneumoperitoneum. Abnormally dilated loops of colon can be seen, which measure up to 10.5 cm. No frankly dilated loops of small bowel are seen. A mild amount of stool can be seen at the rectum. Soft tissues: No masses; visualized solid organ contours appear normal in size. No suspicious abdominal calcifications. Bones: No suspicious bony abnormalities. Age-appropriate bony degenerative changes are seen. Mild dextroconvex scoliotic curvature is seen. IMPRESSION: There is a mild amount of stool seen at the rectum, which appears improved compared the prior CT. Continued abnormally dilated gas-filled loops of colon are seen. Dictated by: David Biggs M.D. on 12/20/2022 at 11:38 Approved by: David Biggs M.D. on 12/20/2022 at 11:40
[2022-12-20] MEDS: polyethylene glycoL 3350 17 GM POWD.PACK PO ×2 (12:03→17:40)
--- NOTE | 2022-12-20 12:39 | PM.PN.1 ---
Subjective Subjective Date Patient Seen: 12/20/22 Time Patient Seen: 12:39 Interval history: Patient had difficulty sleeping overnight due to frequent stooling. Three-view of the abdomen is pending currently. Twelve point review of systems is otherwise negative Exam Vital Signs (past 8 hours): - 12/20/22 07:49 12/20/22 09:24 12/20/22 10:55 Temperature 98 F Pulse Rate 98 H 104 H Respiratory Rate 20 16 Blood Pressure 111/70 Pulse Oximetry 2 L 96 94 Oxygen Delivery Method Nasal Cannula Room Air Oxygen Flow Rate 95 0 Fraction of Inspired Oxygen 28 SaO2/FiO2 Ratio 357 Oxygen Delivery Method Room Air Oxygen Flow Rate 0 Objective Labs 12/20/22 04:43 12/20/22 04:43 Labs: Laboratory Results - last 24 hr 12/20/22 12/20/22 12/20/22 04:43 04:43 04:43 WBC 7.3 RBC 3.70 L Hgb 9.1 L Hct 28.3 L MCV 76.6 L MCH 24.7 L MCHC 32.2 RDW 16.3 H Plt Count 292 Neut % (Auto) 75.3 H Lymph % (Auto) 8.1 L [place] % (Auto) 13.0 Eos % (Auto) 2.3 Baso % (Auto) 1.3 Neut # (Auto) 5500 Lymph # (Auto) 600 L [place] # (Auto) 1000 H Eos # (Auto) 200 Baso # (Auto) 100 Sodium 143 Potassium 4.1 Chloride 112 H Carbon Dioxide 24 BUN 11 Creatinine 0.70 Estimated GFR > 60 BUN/Creatinine Ratio 15.7 Glucose 106 Calcium 8.0 L Total Bilirubin 0.6 AST 25 ALT 20 Alkaline Phosphatase 82 NT-Pro-B Natriuret Pep 6980 H Total Protein 6.0 L Albumin 2.9 L Globulin 3.1 Albumin/Globulin Ratio 0.9 L [facility] Medical History (Updated 12/17/22 @ 17:19 by Alexi Kurtz MD) Chronic ITP (idiopathic thrombocytopenic purpura) COPD (chronic obstructive pulmonary disease) Malignant melanoma, metastatic Melanoma Paroxysmal atrial fibrillation Shortness of Breath Tricompartment osteoarthritis of right knee Surgical History S/P total knee arthroplasty Social History household members: family Smoking Status: Former smoker alcohol intake: former Assessment & Plan Assessment & Plan narrative: Assessment 1. Leukocytosis, improving and now back to normal. Suspect related to overall illness and possible aspiration pneumonia Plan: Stable and improvement with treating aspiration pneumonia as well as fecal impaction Assessment 2. Respiratory failure.? Improved. Patient is now stable on room air. Possible secondary to aspiration pneumonia.? Will continue with antibiotics but switch to oral antibiotics.? Will stop the IV fluids. Will recheck BNP in the morning. Will continue to monitor for CHF. No worsening breathing. Assessment 3.? Possible aspiration.? Will increase to clear liquids today.? Continue with antibiotics. Stable on oral Augmentin. Currently on room air. Will continue to monitor Assessment 4.? Fecal obstipation and impaction.? Patient partially disimpacted yesterday. He continued to stool all night. Three-view of the abdomen is pending to see if he is clear. Appreciate surgery input. Assessment 5. ? Weakness.? Probably multifactorial.? Patient has been as far as his daughter feels failing over the last couple of weeks.? Really over last several months.? Patient will need skilled care facility on discharge.? Discharge planning is working on this.? At this point patient is not amenable to doing this but I see no other option. Discussed with patient's daughter. Assessment 6. Agitation in the evening failed lorazepam. Plan:? Patient tolerated Seroquel, will continue with same. Assessment 7. Metastatic melanoma: Currently unable to treat because of ongoing other medical problems and comorbidities Assessment 8.? Urinary retention.? Stable.? Continue catheter as per patient's wishes. Assessment 9.? Infectious disease.? Appears to be mostly pulmonary.? Seems to be improving will continue to follow. Assessment 10.? History Of ITP.? Stable at this time. Assessment 11.? CHF.? Overall stable. Fluids are off. Will continue to monitor and check a BNP tomorrow. Code status DNR. DVT prophylaxis.? With history of ITP.? Will not use heparin products.? External devices. 45 minutes spent with patient and discussing with family as well as nursing and reviewing chart and examining patient and formulating a plan and documentation Time Spent With Patient Critical Care time: I spent a total of [] minutes of critical care time on this patient's care today; this time is exclusive of procedural time. Quality VTE Deep Vein Thrombosis/Pulmonary Embolism Present on Admission: No
--- NOTE | 2022-12-20 14:49 | PC.NURSE ---
pt was coughing after taking oral nystatin. notified provider. placed speech eval. I thickened patient's fluid and it seemed to help. patient continues to have liquid bowel movement. ok not give enema per provider.
--- NOTE | 2022-12-20 15:00 | PT.IPTN ---
Current Diagnoses Constipation, unspecified (12/13/22) Retention of urine, unspecified (12/13/22) Physical Therapy Treatment Note M2 PT-IP Current Condition Start: 12/18/22 15:28 Freq: NEEDED Status: Active Protocol: Document 12/18/22 12:15 AB (Rec: 12/18/22 15:50 AB [id number]) Physical Therapy Current Condition Current Condition Evaluation Date 12/18/22 Treatment Diagnosis thrush; constipation; generalized weakness Onset Date 12/13/22 M3 PT-IP Subjective Start: 12/18/22 15:28 Freq: NEEDED Status: Active Protocol: Document 12/20/22 15:00 AB (Rec: 12/20/22 17:11 AB [id number]) Subjective Physical Therapy Visit Type Type Treatment Note Visit Start Time 15:00 Visit Stop Time 15:25 Total Visit Minutes 25 Number of GRILL PREP COOK Visits 0 Physical Therapy Visit Comments Patient Comments initially stated that he already did PT and informed pt that he had not; pt then said he had it yesterday and reminded pt that he refused yesterday. pt then said ok then, I cannot argue with Dr. Moore. M4 PT-IP Mobility and Gait Start: 12/18/22 15:28 Freq: NEEDED Status: Active Protocol: Document 12/20/22 15:00 AB (Rec: 12/20/22 17:11 AB [id number]) PT-Bed Mobility Assessment Supine to Sit Supine to Sit Maximum Assistance,Head of Bed Elevated,Bedrails Sit to Supine Sit to Supine Maximum Assistance,Head of Bed Elevated,Bedrails PT-Transfer Assessment Sit to and From Stand Sit to and from Stand Maximum Assistance,2 Person Assistance,Use of Upper Extremities Equipment Transfer Assistive Device Gait Belt,Front Wheeled Walker Orthotic/Prosthetic Devices or Brace: No Comments Mobility Comments completed supine to sit max A and max cues with HOB elevated . able to sit on EOB SBA. completed sit to stand max A x 2 and max cues x 2 attempts to stand. stooped posture and cued to be upright. pt only tolerated ~ 5 sec of stand and sat back down. informed pt that he is going to stand again and transfer to the chair. Pt stated that he is afraid of falling due to his falling and dying. reassured pt that he is not going to fall but pt getting anxious. informed pt that we will start with just marching in placed and not transfer and pt agreed. pt completed sit to stand max A x 2 and max cues and completed 2 standing marches max A x 2 using FWW. pt wanting to sit down but instructed to take side steps towards HOB for positioning in bed and completed 2 side steps using FWW max A x 2 and max cues. completed sit to supine max A x 2 and max cues. pt needing to be cleaned up. Left pt with NAC. M5 PT-IP Objective Assessments Start: 12/18/22 15:28 Freq: NEEDED Status: Active Protocol: Document 12/18/22 12:15 AB (Rec: 12/18/22 15:50 AB [id number]) Orientation Orientation/Cognition Level of Alertness Confusional State Orientation Name,Place,Situation Safety Awareness Decreased Safety Awareness Memory Description Short Term Impaired Gross Range of Motion Lower Extremity ROM Assessment Within Functional Limits Strength Lower Extremity Strength Assessment Bilaterally Impaired Hip 3-/5 Knee 3+/5 Muscle Tone Muscle Tone WNL Yes M6 PT-IP Treatment Start: 12/18/22 15:28 Freq: NEEDED Status: Active Protocol: Document 12/20/22 15:00 AB (Rec: 12/20/22 17:11 AB [id number]) Physical Therapy Treatment Education Education Provided Safety M7 PT-IP Assessment and Plan Start: 12/18/22 15:28 Freq: NEEDED Status: Active Protocol: Document 12/20/22 15:00 AB (Rec: 12/20/22 17:11 AB [id number]) PT Summary Assessment and Plan Potential Rehabilitation Potential Fair Summary Impairments Pain,ROM,Strength,Balance, Coordination,Sensation,Tone, Cognition,Bed Mobility, Transfers,Gait,Activity Tolerance Progress Towards Goals Slow Progress due to Medical Issues,Slow Progress due to Activity Tolerance,Slow Progress - Other Assessment Summary Pt requiring max A x 2 with mobility and unable to transfer and pt expressing fear of falling. Pt continues to require increase motivation to participate. will continue to assess progress. pt will need SNF rehab to improve overall strength and mobility. Goals Bed Mobility Goal Minimal Assistance Transfer Goal Minimal Assistance,Front Wheeled Walker Days to Meet Goals 10 Frequency of Treatment Frequency Of Treatment Once a Day Treatment Plan Physical Therapy Treatment Plan Bed Mobility Training,Transfer Training,Therapeutic Exercise ,Balance Retraining,Discharge Planning,Hot or Cold Pack, Neuromuscular Re-ed, Coordination Retraining,Manual Therapy Discharge Recommendations PT Discharge Recommendations SNF Rehab Other Discharge Recommendations pt may require LT care placement Transportation Needs at Discharge Wheelchair/Cabulance,Stretcher /Ambulance
--- NOTE | 2022-12-20 15:34 | CM.DPNOTE ---
Discharge Planning Note: Patient is weak, in bed, is oriented x 2, calling out at times. Is thirsty but difficulty with drinking. Patient states he is ready to , he is emotional at times and cries. Spoke with daughter Morenita regarding options on discharge. He lives in own home alone down the street from Morenita and her and her family who look in on him and assist him daily. He is declining over time. Discussed Hospice with daughter and she is amenable to having patient live in their spare room with a hospital bed and be able to assist him with hospice on board. Spoke with patient about this as well and he states he agrees with this plan. Spoke with Dr Dunaway who is also in agreement. Called [facility], and provided referral and faxed. She will be contacting their manager metal to see when earliest they can get out. She will call daughter. Equipment (hospital bed, BSC, etc) will be needed. Daughter has been given caregiver resources previously. Plan: Discharge to daughter's home with Hospice once medically cleared. Soniya Austin RN/DCP
[2022-12-20] MEDS: QUETIAPINE 25 MG TABLET PO (20:54)
[2022-12-20] MEDS: hydrOXYzine pamoate 25 MG CAPSULE PO (20:54)
[2022-12-20] MEDS: LORATADINE 10 MG TABLET PO (20:54)
[2022-12-20] MEDS: LORazepam 0.5 MG TABLET PO (23:46)
[2022-12-21] VITALS: BP 129/45; PULSE 119; RESP 19; TEMP 37.1; O2SAT 95
[2022-12-21 04:00] VITALS: BP 131/61; PULSE 120; RESP 17; TEMP 37.1; O2SAT 95
[2022-12-21 05:13] LABS: Add Manual Diff / Slide Review NO; Basophils Absolute Auto 100 /uL (0-100); Basophils Percent Auto 1.4 % (0-2); Eosinophils Absolute Auto 400 /uL (0-450); Eosinophils Percent Auto 5.6 % (2-4); Hematocrit 26.2 % (41-53); Hemoglobin 8.4 g/dL (13.5-17.5); Lymphocytes Absolute Auto 800 /uL (1100-4500); Lymphocytes Percent Auto 12.6 % (25-40); Mean Corpuscular Hemoglobin 24.4 PG (26-34); Mean Corpuscular Volume 76.2 fL (80-100); Monocytes Absolute Auto 900 /uL (0-900); Monocytes Percent Auto 14.1 % (3-14); Neutrophils Absolute Auto 4200 /uL (1500-7000); Neutrophils Percent Auto 66.3 % (50-75); Platelet Count 286 X10^3/uL (150-400); Red Blood Cell Count 3.44 X10^6/uL (4.5-5.9); Red Cell Distribution Width 16.2 % (11.6-14.8); White Blood Cell Count 6.4 X10^3/uL (4.5-11.0)
[2022-12-21 05:26] LABS: BUN Creatinine Ratio 12.7 (6-22); Blood Urea Nitrogen 9 mg/dL (9-20); Calcium 7.9 mg/dL (8.4-10.2); Carbon Dioxide 23 mmol/L (22-32); Chloride 113 mmol/L (98-107); Estimated Glomerular Filt Rate > 60 mL/min (>60); Glucose 89 mg/dL (80-110); HEMOLYSIS < 15 (0-50); Potassium 3.9 mmol/L (3.4-5.1); Sodium 141 mmol/L (137-145)
[2022-12-21] MEDS: OXYCODONE IR 5 MG TABLET PO ×4 (06:22→20:06)
[2022-12-21] MEDS: CLOTRIMAZOLE TROCHE 10 MG PO ×2 (06:22→20:06)
[2022-12-21] MEDS: ELTROMBOPAG 50 MG 50 EACH PO (06:22)
[2022-12-21] MEDS: ACETAMINOPHEN 325 MG TABLET 650 MG PO ×2 (06:22→17:16)
[2022-12-21] MEDS: hydrOXYzine pamoate 25 MG CAPSULE PO ×2 (06:23→17:16)
[2022-12-21 08:00] VITALS: BP 121/59; PULSE 73; RESP 20; TEMP 36.7; O2SAT 92
[2022-12-21] MEDS: NYSTATIN SUSP 500,000 UNIT/5 ML UDC 500000 UNIT PO ×2 (08:25→20:08)
[2022-12-21] MEDS: LORazepam 0.5 MG TABLET PO ×3 (09:24→20:06)
--- NOTE | 2022-12-21 09:26 | PC.NURSE ---
patient anxious and restless. refusing some care including certain medications.
--- NOTE | 2022-12-21 09:39 | PM.PN.1 ---
Subjective Subjective Date Patient Seen: 12/21/22 Time Patient Seen: 09:39 Interval history: Patient is feeling much better today. Is having liquid bowel movements. He is still having difficulty eating and complaining about this. He is also complaining about all the different people who come in his room and ask him how he is doing. States that this is in sincere. Patient is having no further abdominal pain Patient is having no shortness of breath or cough or chest pain Patient still has a Fried catheter in at his request 12 point review of systems is otherwise negative Exam Vital Signs (past 8 hours): - 12/21/22 04:00 12/21/22 07:00 12/21/22 08:00 Temperature 98.7 F 98.1 F Pulse Rate 120 H 73 Respiratory Rate 17 20 Blood Pressure 131/61 121/59 L Pulse Oximetry 95 92 Oxygen Delivery Method Room Air Oxygen Flow Rate 0 Fraction of Inspired Oxygen 21 SaO2/FiO2 Ratio 471 Oxygen Delivery Method Room Air Oxygen Flow Rate 0 Narrative Exam Narrative: Afebrile, vital signs are stable Neck: Supple Chest: Clear to auscultation with prolonged expiratory phase Cor: Regular rate and rhythm with distant S1-S2 Abdomen: No longer distended. Positive bowel sounds x4. No tenderness. Extremities: Still with trace, nonpitting edema, pulses intact, same skin changes with lichenification and dystrophic thickened toenails diffusely Neurologic exam nonfocal Objective Labs 12/21/22 05:01 12/21/22 05:01 Labs: Laboratory Results - last 24 hr 12/21/22 12/21/22 05:01 05:01 WBC 6.4 RBC 3.44 L Hgb 8.4 L Hct 26.2 L MCV 76.2 L MCH 24.4 L MCHC 32.0 RDW 16.2 H Plt Count 286 Neut % (Auto) 66.3 Lymph % (Auto) 12.[address] % (Auto) 14.1 H Eos % (Auto) 5.6 H Baso % (Auto) 1.4 Neut # (Auto) 4200 Lymph # (Auto) [address] # (Auto) 900 Eos # (Auto) 400 Baso # (Auto) 100 Sodium 141 Potassium 3.9 Chloride 113 H Carbon Dioxide 23 BUN 9 Creatinine 0.71 Estimated GFR > 60 BUN/Creatinine Ratio 12.7 Glucose 89 Calcium 7.9 L [facility] Medical History (Updated 12/17/22 @ 17:19 by Alexi Kurtz MD) Chronic ITP (idiopathic thrombocytopenic purpura) COPD (chronic obstructive pulmonary disease) Malignant melanoma, metastatic Melanoma Paroxysmal atrial fibrillation Shortness of Breath Tricompartment osteoarthritis of right knee Surgical History S/P total knee arthroplasty Social History household members: family Smoking Status: Former smoker alcohol intake: former Assessment & Plan Assessment & Plan narrative: Assessment & Plan narrative: Assessment 1. Leukocytosis, back to normal.? Suspect related to overall illness and possible aspiration pneumonia Plan:? Stable and improvement with treating aspiration pneumonia as well as fecal impaction. Continue with same Augmentin Assessment 2. Respiratory failure.? Improved.? Patient is now stable on room air.? Possible secondary to aspiration pneumonia.? Will continue with antibiotics but switch to oral antibiotics.?? Will stop the IV fluids.? Will continue to monitor for CHF.? No worsening breathing. Assessment 3.? Possible aspiration.? Will increase to clear liquids today.? Continue with antibiotics.? Stable on oral Augmentin.? Currently on room air.? Will continue to monitor Assessment 4.? Fecal obstipation and impaction.? Patient partially disimpacted Thursday and then patient has had frequent stools, now liquid stools and three-view of the abdomen showed improvement of severe fecal impaction and so we have decreased the MiraLax and will continue to monitor but seems to be resolved. Assessment 5. ? Weakness.? Probably multifactorial.? Patient has been as far as his daughter feels failing over the last couple of weeks.? Really over last several months.? Lengthy discussion with patient's daughter as well as discharge planning and at this point they plan to take him home with hospice and we are getting this arranged. Likely this will be arranged tomorrow. We may use hospice from [facility] home health. Assessment 6. Agitation in the evening failed lorazepam. Plan:? Patient tolerated Seroquel, will continue with same. Assessment 7. Metastatic melanoma: Currently unable to treat because of ongoing other medical problems and comorbidities. Will go home on hospice tomorrow or Thursday Assessment 8.? Urinary retention.? Stable.? Continue catheter as per patient's wishes. Assessment 9.? Infectious disease.? Improving plan: Continue Augmentin Assessment 10.? History Of ITP.? Stable at this time. Assessment 11.? CHF.? Overall stable.? Fluids are off and patient is stable on room air Assessment 12. Slight worsening in anemia. Suspect related to multiple medical problems. No evidence of blood loss. Code status DNR. 40 minutes spent with patient in reviewing chart and meeting with patient and his family and discussing with nursing DVT prophylaxis.? With history of ITP.? Will not use heparin products.? External devices. Time Spent With Patient Critical Care time: I spent a total of [] minutes of critical care time on this patient's care today; this time is exclusive of procedural time. Quality VTE Deep Vein Thrombosis/Pulmonary Embolism Present on Admission: No
[2022-12-21] MEDS: QUETIAPINE 25 MG TABLET PO (10:45)
--- NOTE | 2022-12-21 12:29 | CM.DPC ---
Addendum entered by TERE Ellison 12/22/22 08:00: ADD: SW met with Dtr Morenita and her Marc yesterday towards end of shift and discussed at length LTC vs SNF rehab vs Hospice and strongly stated that EVEN if pt gets accepted for SNF rehab he will still need CG set up for additional assist due to pt's age, slow recovery, and medical needs along with family clearly stating they are burned out and exhausted. SW expressed need for Goals of Care with pt as family was stating they were having a hard time determining Hospice vs Rehab and distinguishing between their own goals and pt's goals. Marc met bedside with pt and discussed pt's goals, but pt also somewhat confused, and pt stated to Marc he wanted to get stronger and get back home. Family wants SW to pursue [facility] and advocate for pt and SW stressed that pt will need to actually work with PT this afternoon or AM and that [facility] has to review with their team in the AM. Family was not agreeable to other SNF referrals, only want [facility]. SW called [facility] and updated on situation and they will follow in the AM to make a final determination. BF Addendum entered by TERE Ellison 12/21/22 13:27: ADD: SW called Dtr Morenita and explained barriers to SNF placement and Dtr states she feels pt has flip flopped on his decision of SNF vs Hospice and she realizes that they would need to hire caregivers if pt comes home on Hospice and was thinking SNF would be more care but SW explained the difference between SNF rehab and LTC at [facility] and coverage or lack there of from Medicare for LTC. Dtr and her spouse will be bedside within the hour to have better goals of care discussion with pt to determine SNF vs Hospice. BF Original Note: DCP Cont: Per MD, pt medically stable for discharge and discussion regarding [facility]/Hospice and plan is home with Hospice tomorrow Thursday once Hospice confirmed and DME delivered. SW called [facility] who received referral yesterday 12/20/22 and they currently are short staffed for [facility] and do not have a date available on their schedule for start of care. SW called [facility] [phone] and made new referral as they have a turn around of within 24 hours to open pt to service in [place]. [facility] faxed requested clinicals to fax [phone] and their clinical director Ewelina Riddle called back stating pt seemed to meet criteria for Hospice and their Hospice MD was making a final review she will call Dt[facility] with Info Visit and confirm DME and then DME could be ordered today for delivery tomorrow and they can schedule RN start of care in the home based on the time of transport for tomorrow Thu12/22/22. SW checked PT note and RN to determine if pt could safely d/c via POV vs BLS and pt likely could transport via POV but his anxiety limiting his ambulation and will need to discuss further with family. MANI received a call back from Ewelina at [facility] and states she completed Hospice Info Visit with Bina Xavier and Dtr stating we are not yet ready for Hospice, we are wanting [facility] SNF at d/c. Family headed in for bedside visit this afternoon. MANI called [facility] admissions to do final review to determine if they could accept pt as he has not been participating much with PT and unclear if pt would be agreeable with rehab. April in admissions states that their medical team will need to do a final review tomorrow Thu12/22/22 but if SNF wanted may need to make additional SNF referrals. Plan: [facility] to follow closely for family visit bedside this afternoon towards determining home with [facility] vs possible SNF rehab. TERE Ellison
[2022-12-21 12:41] VITALS: BP 134/75; PULSE 112; RESP 20; TEMP 37.1; O2SAT 98
[2022-12-21 16:00] VITALS: BP 150/74; PULSE 120; RESP 20; TEMP 36.8; O2SAT 97
[2022-12-21] MEDS: BUDESONIDE 0.5 MG/2 ML NEB INH (19:21)
[2022-12-21] MEDS: ALBUTEROL 2.5 MG/3 ML NEB (ADULT) INH (19:21)
[2022-12-21 20:00] VITALS: BP 127/62; PULSE 111; RESP 15; TEMP 36.8; O2SAT 99
[2022-12-21] MEDS: QUETIAPINE 25 MG TABLET 50 MG PO (20:06)
[2022-12-21] MEDS: LORATADINE 10 MG TABLET PO (20:06)
[2022-12-21] MEDS: NYSTATIN CREAM 30 GM 1 APPLIC TOP (20:08)
[2022-12-22] VITALS (10 sets, daily range): BP systolic 93–117; BP diastolic 50–64; PULSE 18–122; RESP 17–103; TEMP 36.8–37.6; O2SAT 95–98
[2022-12-22] MEDS: ACETAMINOPHEN 325 MG TABLET 650 MG PO ×3 (02:40→21:20)
[2022-12-22] MEDS: OXYCODONE IR 5 MG TABLET PO ×4 (02:42→21:20)
[2022-12-22] MEDS: CLOTRIMAZOLE TROCHE 10 MG PO ×5 (05:24→21:20)
[2022-12-22] MEDS: ELTROMBOPAG 50 MG 50 EACH PO (05:24)
--- NOTE | 2022-12-22 06:30 | PC.NURSE ---
Pt expressed I want to , I'm done, I just want someone to kill me to KIA Dhillon. Suicide Risk Assessment deferred d/t pt asleep. On-call attending provider, Magdalene Dunaway MD notified @0634 and informed @0640. No new orders given at this time.
[2022-12-22] MEDS: NYSTATIN SUSP 500,000 UNIT/5 ML UDC 500000 UNIT PO ×4 (09:03→21:20)
[2022-12-22] MEDS: QUETIAPINE 25 MG TABLET PO (09:03)
[2022-12-22] MEDS: AMOXICILLIN/CLAV 875/125 MG 1 TAB PO ×2 (09:03→21:20)
[2022-12-22] MEDS: NYSTATIN CREAM 30 GM 1 APPLIC TOP ×2 (09:04→21:19)
--- NOTE | 2022-12-22 09:45 | PT.IPTN ---
Current Diagnoses Constipation, unspecified (12/13/22) Retention of urine, unspecified (12/13/22) Physical Therapy Treatment Note M2 PT-IP Current Condition Start: 12/18/22 15:28 Freq: NEEDED Status: Active Protocol: Document 12/18/22 12:15 AB (Rec: 12/18/22 15:50 AB [id number]) Physical Therapy Current Condition Current Condition Evaluation Date 12/18/22 Treatment Diagnosis thrush; constipation; generalized weakness Onset Date 12/13/22 M3 PT-IP Subjective Start: 12/18/22 15:28 Freq: NEEDED Status: Active Protocol: Document 12/22/22 09:45 AW (Rec: 12/22/22 11:07 AW [id number]) Subjective Physical Therapy Visit Type Type Treatment Note Visit Start Time 09:15 Visit Stop Time 09:45 Total Visit Minutes 30 Notes In hallway, pt's family reported pt was interested in working with therapy. Number of AVIATION PROJECT MANAGER Visits 0 Physical Therapy Visit Comments Patient Comments Pt requires some encouragement from staff and from family but is ultimately willing to participate with PT. Therapy Pain Assessment Pain When Pain Assessed During Mobility Location Generalized Scale Used not quantified Description With Movement Pain Behaviors Facial Grimacing,Restlessness, Wincing Pain Management Techniques Distraction,Re-positioning, Timing of Activity with Medications M4 PT-IP Mobility and Gait Start: 12/18/22 15:28 Freq: NEEDED Status: Active Protocol: Document 12/22/22 09:45 AW (Rec: 12/22/22 11:07 AW [id number]) PT-Bed Mobility Assessment Supine to Sit Supine to Sit Minimal Assistance,1 Person Assistance,Head of Bed Elevated,Bedrails Sit to Supine Sit to Supine Minimal Assistance,1 Person Assistance,Bedrails Scooting Scooting to Edge of Bed Minimal Assistance Scooting Up and Down in Bed Maximum Assistance PT-Transfer Assessment Sit to and From Stand Sit to and from Stand Moderate Assistance,2 Person Assistance,Use of Upper Extremities Equipment Transfer Assistive Device Gait Belt,Front Wheeled Walker Orthotic/Prosthetic Devices or Brace: No Comments Mobility Comments Pt was sitting up in bed as PT arrived. He agreed to sit up EOB and needed just min A to move his legs toward EOB. PT did also provide some assist via draw pad to get pt closer to feet flat on floor. Pt sat with severely flexed trunk initially but needed to physical support. He responded well to cues to sit up tall and look out the window but quickly reverted to flexed posture. In tall sitting, he was able to raise his arms and support himself without UE on the bed. AIRSET CASTER arrived to assist and pt was able to stand mod A x 2. He used FWW to steady himself and stood ~ 15 seconds before needing to sit. Pt initially refused standing second time but ultimately did stand with PT to initiate pivot transfer to the chair. However, in standing, pt refused transfer and sat after ~15 seconds. Discussed potential squat pivot transfer with pt but he refused. Min A for sit to supine and max A to boost up in the bed. Pt was left with nursing. Gait Assessment Comments Gait Comments Unable to progress to transfers or gait at this time . Pt expresses heightened fear of falling. PT-Balance Assessment Sitting Balance and Reactions Static Sitting Balance Ability Fair Dynamic Sitting Balance Ability Fair Standing Balance and Reactions Static Standing Balance Ability Poor Dynamic Standing Balance Ability Poor Device Used FWW Comments Other Balance Tests/Deviations/Treatment Pt able to sit and raise his : arms. Able to reach outside CARLOS MANUEL in sitting min A. M5 PT-IP Objective Assessments Start: 12/18/22 15:28 Freq: NEEDED Status: Active Protocol: Document 12/18/22 12:15 AB (Rec: 12/18/22 15:50 AB [id number]) Orientation Orientation/Cognition Level of Alertness Confusional State Orientation Name,Place,Situation Safety Awareness Decreased Safety Awareness Memory Description Short Term Impaired Gross Range of Motion Lower Extremity ROM Assessment Within Functional Limits Strength Lower Extremity Strength Assessment Bilaterally Impaired Hip 3-/5 Knee 3+/5 Muscle Tone Muscle Tone WNL Yes M6 PT-IP Treatment Start: 12/18/22 15:28 Freq: NEEDED Status: Active Protocol: Document 12/22/22 09:45 AW (Rec: 12/22/22 11:07 AW [id number]) Physical Therapy Treatment Exercises Exercises Ankle Pumps,Gluteal Sets,Quad Sets Education Education Provided Safety Other Treatments Other Treatment Performed Educated pt on importance of continued mobility. Exercises performed in supine pre- mobility x 10 reps each. M7 PT-IP Assessment and Plan Start: 12/18/22 15:28 Freq: NEEDED Status: Active Protocol: Document 12/22/22 09:45 AW (Rec: 12/22/22 11:07 AW [id number]) PT Summary Assessment and Plan Potential Rehabilitation Potential Fair Summary Impairments Pain,ROM,Strength,Balance, Coordination,Sensation,Tone, Cognition,Bed Mobility, Transfers,Gait,Activity Tolerance Progress Towards Goals Slow Progress due to Medical Issues,Slow Progress due to Activity Tolerance,Slow Progress - Other Assessment Summary Pt participated in supine exercises today before sitting up. He improved with bed mobility, requiring only min assist with HOB elevated. He required mod assist x 2 for sit to stand with FWW. He is greatly fearful of falling and continues to refuse transfer. May do well with squat pivot transfers. Pt is able to participate with skilled therapy and would benefit from SNF rehab. Goals Bed Mobility Goal Minimal Assistance Transfer Goal Minimal Assistance,Front Wheeled Walker Days to Meet Goals 10 Frequency of Treatment Frequency Of Treatment Once a Day Treatment Plan Physical Therapy Treatment Plan Bed Mobility Training,Transfer Training,Therapeutic Exercise ,Balance Retraining,Discharge Planning,Hot or Cold Pack, Neuromuscular Re-ed, Coordination Retraining,Manual Therapy Other Recommendations and Next Treatment demonstrate squat pivot Focus transfer; attempt to transfer Discharge Recommendations PT Discharge Recommendations SNF Rehab Other Discharge Recommendations pt may require LT care placement Transportation Needs at Discharge Wheelchair/Cabulance,Stretcher /Ambulance
--- NOTE | 2022-12-22 11:07 | CM.DPC ---
Addendum entered by TERE Ellison 12/22/22 15:33: ADD: [facility]: Teresa called back, willing to review to see if they could accept for PP Respite Stay, faxed clinicals and Teresa will call Yevgeniyr/CECILIA Faye to discuss. [facility]: [place] called back stating she was willing to discuss, provided Dtr/DPOA Neyda with [place]'s number [phone]. Mihaela Bernard: updated Linda that pt's Onc tx is once a month shot at [facility] and next dose is in the clinic 12/31/22 and family willing to postpone or skip the next dose. SW met with Heide Tran and updated on facility search and they are agreeable to Mihaela especially if pt can go under his Medicare for rehab or really any other Respite Stay. SW asked family to begin calling other AFHs and ALFs in the Senior Resource Guidebook. Family requested SW provide d/c options to pt bedside and SW explained that pt does not seem to be cognitively tracking well for multiple options and would likely confuse and frustrate him and that it would be less frustrating for pt if options were determined and then provided to pt. Family requested SW discuss his discharge with him and SW met bedside with pt and Bina and KIM and discussed current discharge orders and need for d/c plan and pt was not able to grasp discussion of discharge and appeal process and initially did not want to involve his family and did not appear to be able to fully make an informed decision at this time. SW provided the Medicare Message regarding appeal as pt states he wants to stay in the hospital and family able to discuss with pt and currently calling [facility] to initiate Appeal and contest his discharge. Plan: SW to follow closely in the AM with above facilities with 1) [facility]ela [facility] first and for faxing [facility] pt's clinical information to review for Appeal Process once [facility] faxing request for clinicals to Care Management. BF Addendum entered by TERE Ellison 12/22/22 14:37: ADD: Per [facility], they cannot accept pt due to behaviors, waxing/waning of motivation for rehab, unclear d/c plan from their facility. SW updated Bina Tran and they inquired about pt remaining in the hospital while they figure out next steps since he needs 24/7 care. SW discussed the need to medically justify staying hospital level of care and stable for d/c to lower level of care. Family inquired about contesting discharge and SW discussed the process. SW discussed possible options of home with HH and family, home with Hospice and family, PP Caregivers, PP facility Respite Stay. Family requested SW ask [facility] if they could accept pt Private Pay. [facility] declines. MANI updated MD who confirms no medical reason to remain in the hospital and called family and wrote discharge knowing family will likely contest. MANI called following facilities regarding Private Pay Respite: [facility]- left msg [facility]- currently no beds available for 3 or more days [facility]- no [facility]- no open beds due to staffing at this time [facility] is unsure about availability, left msg for [place] to call [facility] back. [facility]- left msg [facility]- their one open bed is being toured by another family [facility]- minimum of 14 days for Respite, their Director is out of the office but will request she call MANI Bernard- per Linda: If a patient has been made inpatient and they have standard Medicare, not a Medicare HMO, I would always bring them in skilled and have nursing and therapy eval and assess to see if we could keep them under a skilled stay. If after evaluation they do not meet criteria, then we would change them to private or Medicaid. My only concern bringing him in skilled would be the cost of the medication he is on for his metastatic melanoma. His referral is currently in review. Plan: SW awaiting family to arrive bedside around 1400 today towards finalizing d/c plan of either home, PP Respite/SNF [facility], or contesting discharge and working on plan. TERE Ellison Original Note: DCP Cont: SW spoke to PT and requested they triage and prioritize pt today if possible to determine if he will participate and be a candidate for SNF per Dtr/KIM request. SW met bedside with PT and KIM Tran and PT confirms pt required coaxing and encouragement but participated and PT feels pt could benefit from SNF rehab before home. KIM Tran confirms that he is aware pt waxes and wanes on his motivation and preference is still [facility]. MANI called [facility] admissions and updated on pt status and that lengthy discussion with family regarding d/c needs after SNF and they confirmed they have financial means for PP CGs or PP LTC if needed and would be willing to have pt move into their extra room in their house as well. [facility] will do final review with their team and Seroquel is a barrier as pt does not have a dx for Seroquel (cannot be dementia) but will review and call back. TERE Ellison
[2022-12-22] MEDS: ALBUTEROL 2.5 MG/3 ML NEB (ADULT) INH ×3 (11:23→19:11)
[2022-12-22] MEDS: BUDESONIDE 0.5 MG/2 ML NEB INH ×2 (11:24→19:11)
--- NOTE | 2022-12-22 16:49 | P.DS_ITS ---
History of Present Illness History of Present Illness Date Patient Seen: 12/22/22 Time Patient Seen: 16:50 Date of Onset of Symptoms: 11/13/22 Chief complaint: Pain all over & Urinary retention Narrative: 87-year-old male being actively treated with immunotherapy for metastatic melanoma via Oncology here at [facility] presented to the emergency department with generalized pain some slight increased dyspnea rectal pain urinary pain etcetera.? ER evaluation suggested infectious etiology had elevated lactate levels was tachycardic and tachypneic with leukocytosis.? Initial chest x-ray suggested pneumonia but follow-up CT scan did not demonstrate pneumonia.? No clear source of infection has been discovered his urine is unremarkable and again CT imaging did not support a source of infection.? He was given broad-spectrum IV ant ibiotics.? Repeat lactate improved significantly.? Vital signs improved some with some IV fluids although they were not given as per sepsis protocol over concerns about possible congestive heart failure etcetera.? Patient was admitted for further evaluation Patient's medical history otherwise reviewed history of COPD, paroxysmal atrial fibrillation, and chronic ITP.? Patient is tachycardic upon presentation but in a sinus tachycardia not AFib Discharge Providers Provider Date of admission: 12/13/22 21:19 Discharge Date: 12/22/22 Primary care physician: Brian Moore MD Consults: 12/14/22 08:00 Consult to Dietitian, Adult Routine Comment: Reason For Exam: decreased appetite; food aversion; poor dentition 12/15/22 14:48 Consult to Physical Therapy Evaluate & Treat Comment: Physician Instructions: Evaluate and Treat 12/16/22 08:32 Consult to Physical Therapy Evaluate & Treat Comment: Evaluation for home Physician Instructions: Evaluate and Treat 12/17/22 08:43 Consult to Physician Routine Comment: Consulting Provider: Alexi Kurtz Reason for consultation: abd distention Has provider been notified: Yes 12/18/22 08:29 Consult to Physical Therapy Evaluate & Treat Comment: Physician Instructions: Evaluate and Treat 12/20/22 14:33 Consult to Speech Therapy Evaluate & Treat Comment: aspiration Physician Instructions: Evaluate and treat Discharge provider: Brian Moore MD Summary Hospital Course Discharge Diagnosis: Leukocytosis Respiratory failure new line possible aspiration Fecal obstipation and impaction Weakness Agitation Metastatic melanoma urinary retention History of ITP Hospital Course: Leukocytosis patient was admitted and did have a positive lactic acid. Initial presentation was felt to be mostly secondary to his obstipation and urinary retention neither 1 of which seem to have an infectious component. On day 3 his white count went to 22. Chest CT and abdominal CT showed maybe aspiration pneumonia but no other findings. No evidence of intra-abdominal process. Patient was placed initially on broad-spectrum antibiotics Zosyn in a attempt to cover intra or abdomen issues. And was kept going with coverage for aspiration that is switch to Augmentin. His white count resolve the overall seem to be doing well. He will be discharged on no medication. With normal white count no evidence of infection. Respiratory failure. On day 3 patient also developed some respiratory failure. O2 requirement. Partial which was related to his mental status and part of the issue was related to his possible pneumonia. It was unclear. Patient does have history of asthma but did not appear to be flare. He was treated with nebulizers and IV antibiotics. And seem to resolve he was completely off oxygen and feeling well with no respiratory component. No other changes. Patient will be followed as an outpatient. Fecal obstipation and impaction. This probably was the 1. Cause of his admission. Patient was markedly obstipated. Do the fact that we are unable to get any movement from the superior aspect orally surgery was consulted and enemas were obtained which did not completely resolve it. He was manually extracted on the Thursday before discharge and that seemed to work he is in had significant discharge of material the question of whether not he was going to need to be taken to the operating room was discussed we appreciate the surgeon's input but last x-ray showed significant reduction in stool volume and he will be sent home on MiraLax once a day. Urinary obstruction. Patient was noted to have urinary obstruction on admission. Patient had probably been an obstruction for a while he is urinating up to 17 times a day. He was noted not to have an infection. He did well with catheter and do the fact that he has frequent urination would like to continue with catheter we had a long discussion about risk for infection and possible terminal infection he understands but does not want to change. He understands. Will be sent home with catheter. Agitation. Patient was agitated intermittently throughout his course he was placed on 1st Ativan which made no difference and then Seroquel which actually did well. He will be followed as an outpatient. Weakness. [place] to be combination of multiple issues this is probably something that has been coming on for months. And not just acute although it certainly worsened with his current situation. Patient was not interested in participating in physical therapy I think he is a rehab candidate but due to the fact that he will not participate adequately he was deemed not a candidate for rehab which is sad because this would have been the best thing for him and possibly gotten him home due to the fact that he is not participating he will be sent to either hospice or to self-pay rehab. Metastatic melanoma unable to treat during his course will have to follow with oncology. Will be determined whether not he is going to hospice or not will determine where we go from here. History of ITP. Was unable to give medication secondary to or at risk for DVT secondary to his history. But otherwise was stable throughout his course. Difficulty swallowing. Question aspiration. Was seen by speech therapy felt like he was okay with thin liquids but needed observation because he was rushing multiple swallows at a time. Otherwise he did well. Exam Vital Signs (past 8 hours): - 12/22/22 11:24 12/22/22 09:03 12/22/22 12:00 Temperature 98.9 F Pulse Rate 18 L 80 Respiratory Rate 103 H 17 Blood Pressure 111/59 L Pulse Oximetry 95 96 Oxygen Delivery Method Room Air Room Air Oxygen Flow Rate 0 0 Fraction of Inspired Oxygen 21 12/22/22 16:02 Temperature Pulse Rate 109 H Respiratory Rate 18 Blood Pressure Pulse Oximetry 95 Oxygen Delivery Method Room Air Oxygen Flow Rate 0 Fraction of Inspired Oxygen 21 Fraction of Inspired Oxygen 21 SaO2/FiO2 Ratio 452 Oxygen Delivery Method Room Air Oxygen Flow Rate 0 Narrative Exam Narrative: Alert elderly male in no acute distress Lungs are clear heart regular rate and rhythm abdomen much less distended from my last visit nontender no masses. Extremities without edema. Objective Labs 12/21/22 05:01 12/21/22 05:01 [facility] Medical History (Updated 12/17/22 @ 17:19 by Alexi Kurtz MD) Chronic ITP (idiopathic thrombocytopenic purpura) COPD (chronic obstructive pulmonary disease) Malignant melanoma, metastatic Melanoma Paroxysmal atrial fibrillation Shortness of Breath Tricompartment osteoarthritis of right knee Surgical History S/P total knee arthroplasty Social History household members: family Smoking Status: Former smoker alcohol intake: former Discharge Assessment & Plan Assessment and Plan Assessment: Ready for discharge. Plan of Treatment: Discharged to self-pay intermediate Discharge Plan Discharge Plan Patient Disposition: SNF Other facility: unkown as of now self pay Under care of provider: provider on staff Discharge orders & Medications Prescriptions: New quetiapine 25 mg Tablet 25 mg PO DAILY Qty: 30 0RF quetiapine 25 mg Tablet 50 mg PO BEDTIME Qty: 30 0RF loratadine 10 mg Tablet 10 mg PO BEDTIME Qty: 60 0RF hydroxyzine pamoate 25 mg Capsule 25 mg PO Q6HR PRN (Reason: Itching) Qty: 60 0RF polyethylene glycol 3350 17 gram Powder In Packet 17 gm PO DAILY Qty: 100 0RF Continued acetaminophen [Tylenol Extra Strength] 500 MG tablet 1,000 mg PO TID Qty: 0 Promacta 50 mg Tablet 50 mg PO DAILY Qty: 30 6RF Rx Instructions: administer on an empty stomach, at least 1 hour before or 2 hours after food/meal(s) psyllium Packet 1 packet PO TID Rx Instructions: mix into at least 8 oz of water or juice before administering ondansetron 4 mg tablet,disintegrating 4 mg PO Q4HR PRN (Reason: Nausea) Qty: 30 0RF Discontinued ondansetron 4 mg tablet,disintegrating 4 mg PO Q4HR PRN (Reason: Nausea) Qty: 30 0RF Label Comments: pt states he no longer takes budesonide-formoterol [Symbicort] 80-4.5 mcg/actuation HFA aerosol inhaler 2 puff INHALATION DAILY Follow up/Referrals: Brian Moore MD [Primary Care Provider] - 2 Weeks Discharge Health Status Multidrug resistant organism: No MDRO Precautions: [place] Diet/Activity/Treatments Liquid consistency: Normal/Thin Food texture: Soft Diet comment: supervsed all meals patient to sit up at ninety degrees Activity: bed rest with bathroom priveledge Catheter: 3-way Fried Skin/Wound/Dressing Care Report to your healthcare provider any signs of infection, such as:: chills, fever, night sweats, increased pain, unusual drainage and unusual redness Visit Report/Discharge Packet Stand Alone Forms: Patient Portal/API Discharge Data Primary Care Provider: Oscar,Brian P Quality VTE Deep Vein Thrombosis/Pulmonary Embolism Present on Admission: No
--- NOTE | 2022-12-22 17:03 | ST.IPCSEOM ---
Visit Care Team Role Provider Type Alexi Kurtz MD Other Providers Physician Specialty: General Surgery Address: [address] [place] [address], [address], [place], [address] Email: [email or web address] Lucia Pettit MD Emergency Provider Physician Referring Provider Specialty: Emergency Medicine Address: [address] [place] [address], [address] Email: Brian Moore MD Attending Provider Physician Primary Care Provider Specialty: Family Practice Address: [facility], [place], [address] Email: [email or web address] Malcolm Lechuga MD Admit Provider Physician Other Providers Specialty: Internal Medicine Address: [address] [place] [address], [address], [place], [address] Email: [email or web address] Current Diagnoses Constipation, unspecified (12/13/22) Retention of urine, unspecified (12/13/22) Past Medical History (Last Updated 12/14/22 @ 09:59 by Malcolm Lechuga MD) Chronic ITP (idiopathic thrombocytopenic purpura) (Medical) COPD (chronic obstructive pulmonary disease) (Medical) Malignant melanoma, metastatic (Medical) Melanoma (Medical) Paroxysmal atrial fibrillation (Medical) Shortness of Breath (Medical) Tricompartment osteoarthritis of right knee (Medical) Speech-Language Pathology Swallow Evaluation VISUAL PRESENTATION MANAGER Clinical Swallow Evaluation Start: 12/22/22 13:07 Freq: Status: Active Protocol: Document 12/22/22 13:09 CG (Rec: 12/22/22 13:25 CG [id number]) Clinical Swallow Evaluation Session Time Visit Start Time 12:10 Visit Stop Time 01:05 Total Visit Minutes 55 Visit Information Visit Number 1 Setting Assessment Location Acute Care Visit Type Note Type Initial evaluation Next Note Type Next Note Type Treatment Note Patient Information Identification Type Name History Per H&P: 87-year-old male being actively treated with immunotherapy for metastatic melanoma via Oncology here at [facility] presented to the emergency department with generalized pain some slight increased dyspnea rectal pain urinary pain etcetera. ER evaluation suggested infectious etiology had elevated lactate levels was tachycardic and tachypneic with leukocytosis. Initial chest x-ray suggested pneumonia but follow-up CT scan did not demonstrate pneumonia. No clear source of infection has been discovered his urine is unremarkable and again CT imaging did not support a source of infection. He was given broad-spectrum IV antibiotics. Repeat lactate improved significantly . Vital signs improved some with some IV fluids although they were not given as per sepsis protocol over concerns about possible congestive heart failure etcetera. Patient was admitted for further evaluation Patient's medical history otherwise reviewed history of COPD, paroxysmal atrial fibrillation, and chronic ITP. Patient is tachycardic upon presentation but in a sinus tachycardia not AFib. Pt was seen for a modified barium swallow in 2019 which revealed flash penetration ( no further details from radiology report, unable to locate VISUAL PRESENTATION MANAGER report). Subjective Observations Pt was seated slightly reclined in bed upon ST entry to the room. He was mildly tachypnic and his speech presented with occasional dysfluencies and word-finding difficulties. Reported by Patient Other Symptoms Coughing,Difficulty swallowing liquids,Difficulty swallowing solids,History of aspiration or pneumonia,Weight loss Comment Pt reports he has been unable to swallow for about 2 weeks and has hardly eaten anything since admit to the hospital. Current Diet Regular Baseline Feeding Method Independent in self-feeding Objective Assessment Mental Status Alert,Cooperative,Impulsive Oral Integrity Oral residue Dentition Within normal limits Lip Function Moderate impairment Observation of Lips at Rest Symmetrical Pucker Reduced range of motion Lip Retraction Within normal limits Alternating Pucker/Lip Retraction Incoordination Tongue Function Moderate impairment Observations of Tongue at Rest Within normal limits Tongue Protrusion Within normal limits Tongue Lateralization Within normal limits Jaw Function Mild impairment Observations of Jaw at Rest Within normal limits Jaw Opening Reduced range of motion Jaw Closing Reduced strength Nasality Within normal limits Phonation Within normal limits Respiratory Sufficiency Moderate impairment Comment Labial strength and range of motion present as mildly- moderately impaired as evidenced by reduced agility with alternating smile/pucker and reduced protrusion with labial pucker exercise. A-P and lateral lingual strength were WFL though lingual retraction is likely reduced based on difficulty with A-P propulsion of solids. Mandibular strength for mandibular opening was WNL though ROM was slightly reduced. Mandibular closing presented with reduced strength which was further supported by excessive mastication time. Volitional cough was WFL. Food and Liquid Trials Position During Assessment Slightly reclined,In bed Liquids Trialed Thin Solids Trialed Puree,Dysphagia Mechanical, Regular Administration Type Straw,Needs some assistance Oral Impairment Severely impaired Oral Phase Comments Trials initiated with regular solids (egg salad sandwich). Pt demonstrated excessive mastication time/perseverative chewing, but was unable to initiate swallow. Eventually, he was cued to spit out the food in his mouth, which took multiple trials in order to remove all residue. Trials of mech soft solids (just the egg salad filling, no bread) resulted in the same perseverative chewing pattern and inability to initiate pharyngeal swallow. Pt presented with shortness of breath throughout mastication. During trials puree ( applesauce), A-P propulsion was mildly delayed, but pharyngeal swallow was initiated successfully, indicating propulsion was more functional with puree solids. During trials thin, oral phase appeared WFL for labial seal, bolus formation, and A-P transport, but suspect premature spillage to the vallecula. Pharyngeal Impairment Moderately impaired Pharyngeal Phase Comments Reflexive throat clearing was observed on trials thin liquids in which pt was not cued to take small sips. Additionally, nursing reported coughing on large liquid boluses, which were not trialed due to aspiration risk . Given small sips via small straw, the pt did not present with overt s/s aspiration. However, silent aspiration cannot be ruled out without an instrumental assessment. Trials puree were WFL for pharyngeal phase of the swallow. Fatigue/Endurance Severe fatigue Comment Pt was severely short of breath during mastication, and stated he was done eating after only 4 bites of food for lunch. Strategies Attempted Chin tuck,Effortful swallow Response/Comments Chin tuck was trialed with effortful swallow to promote clearance of mech soft solid boluses (egg salad), but was not deemed a functional strategy given multiple cues and swallows still required. Findings Swallowing Function Oropharyngeal phase dysphagia Severity of Swallow Impairment Moderately-severely impaired Contributing Factors to Swallow Reduced oral strength/ Impairment coordination/sensation, Mastication inefficiency, Impaired oral-pharyngeal transport,Delayed swallow initiation,Impaired airway protection,Excessive oral residue,Excessive pharyngeal residue Prognosis Guarded Based on Cognitive status,Age,History of aspiration/aspiration pneumonia,Comorbidities Impact on Safety and Functioning Risk for aspiration,Risk for inadequate nutrition/hydration Recommendations Instrumental Assessment No Swallowing Treatment Yes Recommended Solids Minced Recommended Liquids Thin Safety Precautions/Swallowing Supervision needed for all Recommendations meals,1 to 1 distant supervision,Feed only when alert,Remain upright (90 degrees) during all oral intake,Needs verbal cues to use recommended strategies, Small bites and sips when eating,Check for pocketing Medication Recommendations Crushed in Carrier Discharge Recommendations [facility] facility Education Patient/Caregiver Education Described results of evaluation,Patient expressed understanding of evaluation, Patient expressed agreement with goals & treatment plans, Patient expressed understanding of feeding recommendations,Patient requires further education/ training,Family/caregivers require further education/ training Goals Short-term Goals Pt will demonstrate understanding of and compliance with safe swallow strategies/precautions to reduce the risk of aspiration. Pt will consume least restrictive diet without overt s/s aspiration in order to meet nutritional and hydration needs.
[2022-12-22] MEDS: QUETIAPINE 25 MG TABLET 50 MG PO (21:20)
[2022-12-22] MEDS: LORATADINE 10 MG TABLET PO (21:20)
[2022-12-23] VITALS: BP 120/72; PULSE 117; RESP 18; TEMP 37.5; O2SAT 97
--- NOTE | 2022-12-23 00:16 | PC.NURSE ---
Pt verbalizes he wants to go home with his family and not be placed in a convalescent home. He states he wants to get strong enough to go home and take care of himself like before. Pt expresses generalized feelings of being scared of falling or dying in a convalescent home. He has questions regarding who makes the decision about when I go home, why can't I just stay here, and why can't I go home. Pt states, I need medical attention because of my skin problem and my mouth being all messed up.
[2022-12-23] MEDS: hydrOXYzine pamoate 25 MG CAPSULE PO ×2 (03:53→20:48)
[2022-12-23] MEDS: OXYCODONE IR 5 MG TABLET PO ×5 (03:53→22:07)
[2022-12-23] MEDS: ACETAMINOPHEN 325 MG TABLET 650 MG PO ×4 (03:53→23:50)
[2022-12-23] MEDS: CLOTRIMAZOLE TROCHE 10 MG PO ×4 (07:06→17:11)
[2022-12-23] MEDS: ELTROMBOPAG 50 MG 50 EACH PO (07:06)
[2022-12-23 07:58] VITALS: BP 118/69; PULSE 90; RESP 17; TEMP 37.2; O2SAT 98
[2022-12-23] MEDS: NYSTATIN CREAM 30 GM 1 APPLIC TOP ×2 (09:31→20:53)
[2022-12-23] MEDS: NYSTATIN SUSP 500,000 UNIT/5 ML UDC 500000 UNIT PO ×4 (09:53→20:43)
[2022-12-23] MEDS: QUETIAPINE 25 MG TABLET PO (09:53)
[2022-12-23] MEDS: AMOXICILLIN/CLAV 875/125 MG 1 TAB PO ×2 (09:53→20:43)
[2022-12-23] MEDS: BUDESONIDE 0.5 MG/2 ML NEB INH (10:07)
--- NOTE | 2022-12-23 11:30 | CM.DPC ---
Addendum entered by Agustina Shaw R.N. 12/23/22 16:52: DCP continued:Patients daughter Morenita stated she will not be providing transportation home for her father due to the fact that her father will need help getting into his home and set up and the family is frustrated with the patients unwillingness to accept help or go to assisted living. If family wont pick patient up CM discussed BLS with patient he stated he will talk about that after his appeal is back. CM team to follow once KEPPRO appeal is returned. CM spoke with [facility] in [place] who stated they will not accept the patient due to the high cost of his oncology treatments. they are willing to accept the patient if he chooses to not have treatment while he is in rehab but if he wants to get his treatments they cannot accept the patient. this information was told to the patient and patients daughter Morenita. [facility] was discussed with the patient however he does not want to pay privately for an AFH or ENEIDA he wants to go to SNF that his insurance will pay for. however, we have not been able to find an approving facility due to patients high cost of Oncology treatments. CM team to follow up tomorrow to continue working with patient for DC once Keppro determination is returned. Agustina Shaw manager staffing Original Note: DCP continued: CM called patients daughter Morenita and left her a voice message asking her to call CM back so she can be updated on the Keppra process. CM also spoke with the patient about his discharge order that was in place. Patient was clear that Discharge orders have been placed by Dr. Arndt and that he appealed his Discharge with medicare. Patient is open to going to a SNF today if one will accept for placement today if not then home with [facility] he is okay with. YENIFER called and LVM with Linda at [facility] to see if they will accept the patient at [place]. CM will also look at other SNF facilities in [place], and [place]. CM heard back from Siena at [facility] who stated that they cannot accept the patient due to his behaviors. heard back from Ann- they cannot accept the patient due to his behaviors and acuity is to high. Inocente Combs- LVM for Corin to call me back [facility]- Spoke with naldo with intake at [facility] and [facility]- they can accept the patient either way either under hospice or under they will just need to know at DC which plan is in place. Eddie in [place] - Talked with Linda who stated she is waiting to hear back from her medical records custodian on if they can accept the patient with his use of oncology medications. Cm team will continue to follow and support DC planning needs- CM team will also follow up with Roberta once determination is made. Agustina Shaw RNpipe testing technician
--- NOTE | 2022-12-23 12:37 | ST.IPDYTX ---
Visit Care Team Role Provider Type Alexi Kurtz MD Other Providers Physician Specialty: General Surgery Address: [address] [place] [address], [address], [place], [address] Email: [email or web address] Lucia Pettit MD Emergency Provider Physician Referring Provider Specialty: Emergency Medicine Address: [address] [place] [address], [id number] Email: Brian Moore MD Attending Provider Physician Primary Care Provider Specialty: Family Practice Address: [facility], [place], [address] Email: [email or web address] Malcolm Lechuga MD Admit Provider Physician Other Providers Specialty: Internal Medicine Address: [address] [place] [address], [address], [address] Email: [email or web address] PEELER OPERATOR Dysphagia Treatment PEELER OPERATOR Dysphagia Treatment Start: 12/23/22 10:10 Freq: Status: Active Protocol: Document 12/23/22 10:11 DEVENDRA (Rec: 12/23/22 10:23 DEVENDRA [id number]) Dysphagia Treatment Session Time Visit Start Time 09:30 Visit Stop Time 10:00 Total Visit Minutes 30 Visit Information Visit Number 1 Setting Assessment Location Acute Care Visit Type Note Type Treatment Note Next Note Type Next Note Type Treatment Note Patient Information Identification Type Name,ID Wristband Subjective Observations The pt was seated upright in bed with breakfast tray in front of him when PEELER OPERATOR arrived. He was speaking with NSG about frequent loose stool and NSG was informing pt that he was severely constipated and given laxatives to help. Pt observed to repeat information to NSG and asked about agreement/disputing information several times. Treatment Liquids Trialed Thin Solids Trialed Dysphagia Mechanical Administration Type Self-Feeding Oral Strategies Upright at 90 degrees Treatment Activities Morning meal included pancakes (cut into 1-inch pieces) with syrup and eggs. Observed pt take one bite of pancakes and 1 bite of eggs. Assessment Assessment of Improvement Pt requested 3 times that PEELER OPERATOR return in about 30 minutes so pt could finish his meal, stating it had been re-heated three times already. When provided with education regarding purpose of PEELER OPERATOR visit , pt stated it was duplicating work that was already done by other providers. Education provided regarding speech therapy team and collaboration with NSG and kitchen. Pt exhibited prolonged chewing of pancake and egg, though was also speaking while chewing. Pt stated egg took less time to chew than pancake because pancake was fluffy. Discussed softening diet and pt stated softer foods are easier to chew and that he already had a team working on his diet. No coughing noted with pancake or egg. Pt requested to know what would be written about today's visit with PEELER OPERATOR, specifically requesting to know what negative thing would be written. PEELER OPERATOR summarized observations for pt and he again asked for what negative would be written about him. Repeated this exchange several times, with PEELER OPERATOR stating there are no negatives and summarizing observations from session. Recommend continued diet of dysphagia mechanical (minced and moist) solids and thin liquids. If PO intake remains low, may consider downgrading diet to puree to reduce need for chewing to reduce risk of inadequate nutrition/hydration . Diet Recommendations Recommendations Continue Current Diet Liquids Order Thin Diet Order Dysphagia Mechanical Medication Recommendations As Tolerated Additional Dietary Needs Chopped Food Aspiration Precautions Recommended Precautions Upright at 90 Degrees,Small Bites/Sips Treatment Plan Appropriate for Continued Therapy Yes Dysphagia Goals The pt will safely tolerate least restrictive diet to meet his nutrition and hydration needs.
--- NOTE | 2022-12-23 16:30 | PT.IPTN ---
Current Diagnoses Constipation, unspecified (12/13/22) Retention of urine, unspecified (12/13/22) Physical Therapy Treatment Note M2 PT-IP Current Condition Start: 12/18/22 15:28 Freq: NEEDED Status: Active Protocol: Document 12/18/22 12:15 AB (Rec: 12/18/22 15:50 AB [id number]) Physical Therapy Current Condition Current Condition Evaluation Date 12/18/22 Treatment Diagnosis thrush; constipation; generalized weakness Onset Date 12/13/22 M3 PT-IP Subjective Start: 12/18/22 15:28 Freq: NEEDED Status: Active Protocol: Document 12/23/22 16:05 LJ (Rec: 12/23/22 16:30 LJ [id number]) Subjective Physical Therapy Visit Type Type Treatment Note Visit Start Time 15:42 Visit Stop Time 16:06 Total Visit Minutes 24 Number of PAID SEARCH MANAGER Visits 1 Physical Therapy Visit Comments Patient Comments Willing to participate with PT M4 PT-IP Mobility and Gait Start: 12/18/22 15:28 Freq: NEEDED Status: Active Protocol: Document 12/23/22 16:05 LJ (Rec: 12/23/22 16:30 LJ [id number]) PT-Bed Mobility Assessment Supine to Sit Supine to Sit Minimal Assistance,1 Person Assistance,Head of Bed Elevated,Bedrails Sit to Supine Sit to Supine Minimal Assistance,1 Person Assistance,Bedrails Scooting Scooting to Edge of Bed Standby Assistance Scooting Up and Down in Bed Standby Assistance PT-Transfer Assessment Comments Mobility Comments Pt reclined in bed. Agreed to sit at the side of bed for LE exercises. Pt able to swing LEs off side of bed Nany with head of bed elevated. Attempted to put weight into LEs and lift buttocks off bed but unable. Completed 6x forward lean with using bed cane and FWW to push/pull into standiing. Donned shoes and stabilized feet and pt attempted standing x3 again. Unable to come to full standing but able to put weight into LEs. Pt then attempted knee extension sitting on side of bed but unable to fully extend knees even with assist. Pt stated he was tired and didn't think he could do any more. Nany getting LEs onto bed. Bed flattened and pt able to position self in bed using rails and bridging. Pt left in bed with all needs within reach. Gait Assessment Comments Gait Comments Unable to progress to transfers or gait at this time . Pt expresses heightened fear of falling. M5 PT-IP Objective Assessments Start: 12/18/22 15:28 Freq: NEEDED Status: Active Protocol: Document 12/18/22 12:15 AB (Rec: 12/18/22 15:50 AB [id number]) Orientation Orientation/Cognition Level of Alertness Confusional State Orientation Name,Place,Situation Safety Awareness Decreased Safety Awareness Memory Description Short Term Impaired Gross Range of Motion Lower Extremity ROM Assessment Within Functional Limits Strength Lower Extremity Strength Assessment Bilaterally Impaired Hip 3-/5 Knee 3+/5 Muscle Tone Muscle Tone WNL Yes M6 PT-IP Treatment Start: 12/18/22 15:28 Freq: NEEDED Status: Active Protocol: Document 12/23/22 16:05 LJ (Rec: 12/23/22 16:30 LJ [id number]) Physical Therapy Treatment Exercises Exercises Ankle Pumps,Gluteal Sets,Quad Sets Other Treatments Other Treatment Performed Mini crunches with HOB inclined seated nudges at side of bed for core stability-pt used UEs for stability M7 PT-IP Assessment and Plan Start: 12/18/22 15:28 Freq: NEEDED Status: Active Protocol: Document 12/23/22 16:05 LJ (Rec: 12/23/22 16:30 LJ [id number]) PT Summary Assessment and Plan Potential Rehabilitation Potential Fair Summary Impairments Pain,ROM,Strength,Balance, Coordination,Sensation,Tone, Cognition,Bed Mobility, Transfers,Gait,Activity Tolerance Progress Towards Goals Slow Progress due to Medical Issues,Slow Progress due to Activity Tolerance,Slow Progress - Other Assessment Summary Pt completed seated exercises and attempted weighting LEs in pre standing activity. Required Nany with bed mobility and Nany with prestanding activities. Will benefit from SNF or rehab to improve strength, mobility, and transfers if able. Goals Bed Mobility Goal Minimal Assistance Transfer Goal Minimal Assistance,Front Wheeled Walker Days to Meet Goals 10 Frequency of Treatment Frequency Of Treatment Once a Day Treatment Plan Physical Therapy Treatment Plan Bed Mobility Training,Transfer Training,Therapeutic Exercise ,Balance Retraining,Discharge Planning,Hot or Cold Pack, Neuromuscular Re-ed, Coordination Retraining,Manual Therapy Other Recommendations and Next Treatment demonstrate squat pivot Focus transfer; attempt to transfer Discharge Recommendations PT Discharge Recommendations SNF Rehab Other Discharge Recommendations pt may require LT care placement Transportation Needs at Discharge Wheelchair/Cabulance,Stretcher /Ambulance
[2022-12-23] MEDS: LORazepam 0.5 MG TABLET PO ×2 (17:54→23:50)
[2022-12-23 20:00] VITALS: BP 139/78; PULSE 88; RESP 19; TEMP 36.7; O2SAT 97
[2022-12-23] MEDS: LORATADINE 10 MG TABLET PO (20:43)
[2022-12-23] MEDS: QUETIAPINE 25 MG TABLET 50 MG PO (20:43)
[2022-12-24 07:45] VITALS: PULSE 96; RESP 18; O2SAT 97
[2022-12-24] MEDS: ALBUTEROL 2.5 MG/3 ML NEB (ADULT) INH ×3 (07:45→20:22)
[2022-12-24] MEDS: BUDESONIDE 0.5 MG/2 ML NEB INH ×2 (07:45→20:22)
[2022-12-24 08:46] VITALS: BP 120/68; PULSE 89; RESP 17; TEMP 36.8; O2SAT 96
--- NOTE | 2022-12-24 09:01 | DIET.CONS2 ---
Addendum entered by Clarissa Be 12/24/22 10:39: RD agrees with [employer] Manager note below. Original Note: Dietary Inpatient Consultation Note Admission Date: 12/13/2022 21:19 RD screened pt for LOS >5 days. Pt consuming 0-50% of meals. Per HIGH SCHOOL FRENCH TEACHER note, will continue with current diet modifications for dysphagia. Kitchen to start sending ONS Ensure with meals 3 x/d. Diet: 12/20/22 Dinner Low Sodium Diet (2gm) Diet Modifications: dsyphagia for now 12/22/22 Dinner Dysphagia Diet Diet Modifications: UPRIGHT for meals, small sips, small straw Liquid consistency: Normal/Thin Food texture: Dysphagia Mechanical Soft Nutrition Percent Meal Consumed 50% 12/23/22 14:00 Percent Meal Consumed 25% 12/23/22 10:45 Percent Meal Consumed 75% 12/22/22 18:00 Percent Meal Consumed 50% 12/22/22 12:03 Electronically Signed by: Martha Burkett 12/24/22 09:01 Clinical Dietitian [address] [address]
[2022-12-24] MEDS: NYSTATIN SUSP 500,000 UNIT/5 ML UDC 500000 UNIT PO ×2 (09:04→20:43)
[2022-12-24] MEDS: QUETIAPINE 25 MG TABLET PO (09:04)
[2022-12-24] MEDS: AMOXICILLIN/CLAV 875/125 MG 1 TAB PO ×2 (09:05→20:44)
[2022-12-24] MEDS: NYSTATIN CREAM 30 GM 1 APPLIC TOP ×2 (09:06→20:58)
--- NOTE | 2022-12-24 09:17 | P.PN_ITS ---
Subjective Subjective Date Patient Seen: 12/24/22 Time Patient Seen: 09:17 Interval history: Patient seen in follow-up of his discharge. Question location. Exam Vital Signs (past 8 hours): - 12/24/22 07:45 12/24/22 08:46 Temperature 98.2 F Pulse Rate 96 H 89 Respiratory Rate 18 17 Blood Pressure 120/68 Pulse Oximetry 97 96 Oxygen Delivery Method Room Air Oxygen Flow Rate 0 Fraction of Inspired Oxygen 21 SaO2/FiO2 Ratio 457 Oxygen Delivery Method Room Air Oxygen Flow Rate 0 Objective Labs 12/21/22 05:01 12/21/22 05:01 [facility] Medical History (Updated 12/17/22 @ 17:19 by Alexi Kurtz MD) Chronic ITP (idiopathic thrombocytopenic purpura) COPD (chronic obstructive pulmonary disease) Malignant melanoma, metastatic Melanoma Paroxysmal atrial fibrillation Shortness of Breath Tricompartment osteoarthritis of right knee Surgical History S/P total knee arthroplasty Social History household members: family Smoking Status: Former smoker alcohol intake: former Assessment & Plan Assessment & Plan narrative: 35 minutes spent with patient son-in-law social service discussing outcomes and situation where he is. Went through his physical therapy experience that probab ly was the biggest impact on where we are. Patient needs rehab. I believe he can get back to his regular placed which he discussed. But needs time. Will probably have to be self-pay. We went through all the options. Discussed those. Patient agreed will try to get set up. Time Spent With Patient Critical Care time: I spent a total of [] minutes of critical care time on this patient's care today; this time is exclusive of procedural time. Quality VTE Deep Vein Thrombosis/Pulmonary Embolism Present on Admission: No
--- NOTE | 2022-12-24 10:19 | ST-OP ANOTE ---
Physical, Occupational & Speech Therapy At [facility] Speech Therapy Note Per Dr. Moore, pt has been discharged and does not need to be seen by speech therapy at this time.
[2022-12-24] MEDS: ACETAMINOPHEN 325 MG TABLET 650 MG PO ×2 (10:46→23:00)
--- NOTE | 2022-12-24 11:10 | PT.IPTN ---
Current Diagnoses Constipation, unspecified (12/13/22) Retention of urine, unspecified (12/13/22) Physical Therapy Treatment Note M2 PT-IP Current Condition Start: 12/18/22 15:28 Freq: NEEDED Status: Active Protocol: Document 12/18/22 12:15 AB (Rec: 12/18/22 15:50 AB [id number]) Physical Therapy Current Condition Current Condition Evaluation Date 12/18/22 Treatment Diagnosis thrush; constipation; generalized weakness Onset Date 12/13/22 M3 PT-IP Subjective Start: 12/18/22 15:28 Freq: NEEDED Status: Active Protocol: Document 12/24/22 11:10 AB (Rec: 12/24/22 13:24 AB [email or web address]) Subjective Physical Therapy Visit Type Type Treatment Note Visit Start Time 11:10 Visit Stop Time 11:37 Total Visit Minutes 27 Number of COFOUNDER Visits 0 Physical Therapy Visit Comments Patient Comments stated: somebody told me that if i don't do what you ask, i will stay in the hospital forever, so I will do what you want me to do M4 PT-IP Mobility and Gait Start: 12/18/22 15:28 Freq: NEEDED Status: Active Protocol: Document 12/24/22 11:10 AB (Rec: 12/24/22 13:24 AB [id number]) PT-Bed Mobility Assessment Supine to Sit Supine to Sit Maximum Assistance,Head of Bed Elevated,Bedrails PT-Transfer Assessment Sit to and From Stand Sit to and from Stand Maximum Assistance,2 Person Assistance,Use of Upper Extremities Equipment Transfer Assistive Device Gait Belt,Front Wheeled Walker Orthotic/Prosthetic Devices or Brace: No Transfers Transfer Destination Chair,Bedside Commode Transfer Technique Stand Step Pivot Transfer Ability Level of Assist Maximum Assistance,2 Person Assistance,Use of Upper Extremities Comments Mobility Comments completed bed mobility supine to sit max A and max cues with HOB elevated and use of bed rail. completed sit to stand max A x 2 and max cues and step transfer to chair using FWW max Ax 2 and max cues. pt rest and agreed to walk. completed sit to stand from chair max A x 2 and max cues and able to take steps ~ 3 ft using FWW max A x 1-2 and max cues and with chair follow. assisted pt to the commode. completed sit to stand from the chair max A x 2 and max cues and completed step transfer to bedside commode max A x 2 and cues using FWW. Left pt with NAC. Gait Assessment Gait Gait Assistance Required: Maximum Assistance,1 Person Assist,2 Person Assist Distance (Feet) 3 Able to Maintain Weight Bearing Status Yes During Gait Assistive Devices Assistive Device Gait Belt,Front Wheeled Walker Orthotic/Prosthetic Devices or Brace: No Gait Deviations General Gait Pattern Decreased Stride Length, Decreased Feet Clearance,Step- to Gait Factors Limiting Gait Function Factors Limiting Gait Function Decreased Activity Tolerance, Decreased Strength,Limited Range of Motion,Poor Balance, Poor Safety Awareness M5 PT-IP Objective Assessments Start: 12/18/22 15:28 Freq: NEEDED Status: Active Protocol: Document 12/18/22 12:15 AB (Rec: 12/18/22 15:50 AB [id number]) Orientation Orientation/Cognition Level of Alertness Confusional State Orientation Name,Place,Situation Safety Awareness Decreased Safety Awareness Memory Description Short Term Impaired Gross Range of Motion Lower Extremity ROM Assessment Within Functional Limits Strength Lower Extremity Strength Assessment Bilaterally Impaired Hip 3-/5 Knee 3+/5 Muscle Tone Muscle Tone WNL Yes M6 PT-IP Treatment Start: 12/18/22 15:28 Freq: NEEDED Status: Active Protocol: Document 12/24/22 11:10 AB (Rec: 12/24/22 13:24 AB [id number]) Physical Therapy Treatment Education Education Provided Safety M7 PT-IP Assessment and Plan Start: 12/18/22 15:28 Freq: NEEDED Status: Active Protocol: Document 12/24/22 11:10 AB (Rec: 12/24/22 13:24 AB [id number]) PT Summary Assessment and Plan Potential Rehabilitation Potential Good Summary Impairments Pain,ROM,Strength,Balance, Coordination,Sensation,Tone, Cognition,Bed Mobility, Transfers,Gait,Activity Tolerance Progress Towards Goals Slow Progress due to Medical Issues,Slow Progress due to Activity Tolerance Assessment Summary pt progressing slowly and was able to transfer to the chair today. pt requiring max Ax 2 with transfers using fWW. pt will benefit from SNF rehab to improve strength and function. Goals Bed Mobility Goal Minimal Assistance Transfer Goal Minimal Assistance,Front Wheeled Walker Gait Goal Minimal Assistance,Front Wheel Walker Gait Distance 15 Days to Meet Goals 10 Frequency of Treatment Frequency Of Treatment Once a Day Treatment Plan Physical Therapy Treatment Plan Bed Mobility Training,Transfer Training,Therapeutic Exercise ,Balance Retraining,Discharge Planning,Hot or Cold Pack, Neuromuscular Re-ed, Coordination Retraining,Manual Therapy Discharge Recommendations PT Discharge Recommendations SNF Rehab Transportation Needs at Discharge Wheelchair/Cabulance
[2022-12-24 12:10] VITALS: PULSE 79; RESP 12; O2SAT 97
[2022-12-24] MEDS: hydrOXYzine pamoate 25 MG CAPSULE PO ×2 (15:10→20:44)
--- NOTE | 2022-12-24 15:27 | CM.DPNOTE ---
DCP Note Reviewed chart. Working throughout the day w/Dr Moore, patient and son in law Marc to coordinate DCP. Dtr Morenita available by phone today as needed. Determination from [facility] this morning indicates agreement with the discharging physician, patient medically ready for discharge and has until 12 noon tomorrow 2.16.23 to discharge; patient then will incur private cost of any further services while here at - this per documentation from [facility] Reviewed [facility]'s material with patient and son Marc, all in agreement Discussed plan at length w/patient and family; patient states agreement w/SNF stay and is willing to pay privately at SNF if needed, before return home Placed call to Linda Romano in admissions had been reviewing the referral and clinically accepted patient as long as patient, family and Dr Moore were agreeable to patient's oncology medication, a once monthly injection and daily promacta could be held until discharge from SNF. This is r/t the high cost of this med Inevitably, all in agreement with plan. an updated med list with amended DC Summary -indicating medical clearance for hold on meds -was sent to Linda at [facility] [address] Patient's family have decided they will transport tomorrow Plan: DC expected tomorrow morning, all SNF ppk, including [facility], [facility]
[2022-12-24 20:00] VITALS: BP 148/77; PULSE 79; RESP 19; TEMP 36.6; O2SAT 98
[2022-12-24 20:22] VITALS: PULSE 105; RESP 18; O2SAT 98
[2022-12-24] MEDS: LORATADINE 10 MG TABLET PO (20:43)
[2022-12-24] MEDS: OXYCODONE IR 5 MG TABLET PO (20:44)
[2022-12-24] MEDS: QUETIAPINE 25 MG TABLET 50 MG PO (20:44)
[2022-12-24] MEDS: LORazepam 0.5 MG TABLET PO (23:00)
[2022-12-25] MEDS: OXYCODONE IR 5 MG TABLET PO (02:58)
[2022-12-25] MEDS: ELTROMBOPAG 50 MG 50 EACH PO (05:51)
[2022-12-25 08:12] LABS: COVID19 -Nasal RAPID Negative (Negative)
[2022-12-25] MEDS: NYSTATIN SUSP 500,000 UNIT/5 ML UDC 500000 UNIT PO (09:15)
[2022-12-25] MEDS: AMOXICILLIN/CLAV 875/125 MG 1 TAB PO (09:15)
[2022-12-25] MEDS: NYSTATIN CREAM 30 GM 1 APPLIC TOP (09:15)
--- NOTE | 2022-12-25 09:49 | PT.IPTN ---
Current Diagnoses Constipation, unspecified (12/13/22) Retention of urine, unspecified (12/13/22) Physical Therapy Treatment Note M2 PT-IP Current Condition Start: 12/18/22 15:28 Freq: NEEDED Status: Active Protocol: Document 12/25/22 09:29 SP (Rec: 12/25/22 10:18 SP [id number]) Physical Therapy Current Condition Current Condition Evaluation Date 12/18/22 Treatment Diagnosis thrush; constipation; generalized weakness Onset Date 12/13/22 M3 PT-IP Subjective Start: 12/18/22 15:28 Freq: NEEDED Status: Active Protocol: Document 12/25/22 09:29 SP (Rec: 12/25/22 10:18 SP [id number]) Subjective Physical Therapy Visit Type Type Treatment Note Visit Start Time 09:29 Visit Stop Time 09:49 Total Visit Minutes 20 Notes Vitals during tx: supine: 95/74 HR 87 Seated EOB: 126/76 HR 92 Son/Grandson in room upon arrival, observed tx only, stated will be transporting pt to [facility] about 1030. Marcomaryanne Guzman stopped in discussed transportation details with family. Number of HEALTH INFORMATION CODER Visits 1 Physical Therapy Visit Comments Patient Comments Pleasant gentleman willing to mobilize with therapy. Patient Goals Willing to work with skilled SNF to get stronger to go home . Son stated willing to look into lift chair for stairs to enter home if pt unable to manage in Rehab. M4 PT-IP Mobility and Gait Start: 12/18/22 15:28 Freq: NEEDED Status: Active Protocol: Document 12/25/22 09:29 SP (Rec: 12/25/22 10:18 SP [id number]) PT-Bed Mobility Assessment Supine to Sit Supine to Sit Maximum Assistance,Head of Bed Elevated,Bedrails Scooting Scooting to Edge of Bed Contact Guard Assistance PT-Transfer Assessment Sit to and From Stand Sit to and from Stand Maximum Assistance,1 Person Assistance,Use of Upper Extremities Equipment Transfer Assistive Device Gait Belt,Front Wheeled Walker Orthotic/Prosthetic Devices or Brace: No Transfers Transfer Destination Chair Transfer Technique Stand Step Pivot Transfer Ability Level of Assist Maximum Assistance,1 Person Assistance,Use of Upper Extremities Comments Mobility Comments HEALTH INFORMATION CODER instructed BLE pre mobility AROM: AP, heel slides . LR R CGA with cues use of bed rail support. R SL >Sit Max A x1 w/ cues to push from bed to complete full sit and scoot to EOB CGA. Pt reports does sleep in lift recliner at home. HEALTH INFORMATION CODER donned gait belt pt 's trunk, with ed for pt and family importance of use for safety support mobilizing to take rehab/home. STS Max A x1 w/ FWW, SPT bed>chair Max A x1 with cues for BLE and FWW sequencing when needed/ feel back legs to chair and proper hand placement throughout tx, use UEs chair arms slow descent sit Mod/Max A x1. Scoot back in chair SBA. Pt declined further mobility stating I need to get ready to go with family. Pt had call light and all needs in reach, chair alarm donned for safety fall risk. Recommending SNF for strength functional mobility independence. Gait Assessment Gait Gait Assistance Required: Maximum Assistance,1 Person Assist Distance (Feet) 3 Able to Maintain Weight Bearing Status Yes During Gait Assistive Devices Assistive Device Gait Belt,Front Wheeled Walker Orthotic/Prosthetic Devices or Brace: No Gait Deviations General Gait Pattern Decreased Stride Length, Decreased Feet Clearance, Flexed Trunk,Lateral Trunk Lean,Step-to Gait Factors Limiting Gait Function Factors Limiting Gait Function Decreased Activity Tolerance, Decreased Strength,Difficulty Following Directions,Limited Range of Motion,Poor Balance, Poor Safety Awareness Comments Gait Comments Pt requires max cues for safety proper hand placement, support for trunk stability ( anterior/posterior) during mobility, cues sequencing stepping and positional awareness back step fully chair w/ FWW, foot clearance. Stair Climbing Assessment Comments Stair Climbing Comments Unable at this time, will need complete 8 stairs B HR to enter home. Son did say if pt unable to gain the strength to complete at SNF, willing to look into a chair lift for stairs. PT-Balance Assessment Sitting Balance and Reactions Static Sitting Balance Ability Good Dynamic Sitting Balance Ability Fair Standing Balance and Reactions Static Standing Balance Ability Poor Dynamic Standing Balance Ability Poor Device Used FWW M5 PT-IP Objective Assessments Start: 12/18/22 15:28 Freq: NEEDED Status: Active Protocol: Document 12/18/22 12:15 AB (Rec: 12/18/22 15:50 AB [id number]) Orientation Orientation/Cognition Level of Alertness Confusional State Orientation Name,Place,Situation Safety Awareness Decreased Safety Awareness Memory Description Short Term Impaired Gross Range of Motion Lower Extremity ROM Assessment Within Functional Limits Strength Lower Extremity Strength Assessment Bilaterally Impaired Hip 3-/5 Knee 3+/5 Muscle Tone Muscle Tone WNL Yes M6 PT-IP Treatment Start: 12/18/22 15:28 Freq: NEEDED Status: Active Protocol: Document 12/25/22 09:29 SP (Rec: 12/25/22 10:18 SP [id number]) Physical Therapy Treatment Exercises Exercises Ankle Pumps,Heel Slides Education Education Provided Safety M7 PT-IP Assessment and Plan Start: 12/18/22 15:28 Freq: NEEDED Status: Active Protocol: Document 12/25/22 09:29 SP (Rec: 12/25/22 10:18 SP [id number]) PT Summary Assessment and Plan Potential Rehabilitation Potential Good Status of Condition at Evaluation Evolving Summary Impairments Pain,ROM,Strength,Balance, Coordination,Sensation,Tone, Cognition,Bed Mobility, Transfers,Gait,Activity Tolerance Progress Towards Goals Slow Progress due to Activity Tolerance Assessment Summary Pt improved decrease to Max A x1 for physical support all mobility, requires safety cues for proper hand placement an d body directioning throughout tx. Will require SNF for progression strength mobility. Goals Bed Mobility Goal Minimal Assistance Transfer Goal Minimal Assistance,Front Wheeled Walker Gait Goal Minimal Assistance,Front Wheel Walker Gait Distance 15 Days to Meet Goals 10 Frequency of Treatment Frequency Of Treatment Once a Day Treatment Plan Physical Therapy Treatment Plan Bed Mobility Training,Transfer Training,Therapeutic Exercise ,Balance Retraining,Discharge Planning,Hot or Cold Pack, Neuromuscular Re-ed, Coordination Retraining,Manual Therapy Other Recommendations and Next Treatment bed mob, Focus Precautions Other Precautions falls Recommendations To Nursing Amount of Assist Needed 1 Person Assist Discharge Recommendations PT Discharge Recommendations SNF Rehab Transportation Needs at Discharge Private Vehicle,Wheelchair/ Cabulance
--- NOTE | 2022-12-25 12:50 | CM.DPNOTE ---
DC Note Discharge to [facility] today as was planned yesterday; patient and family remain agreeable to plan Confirmed pending admit w/ Linda, admissions at [facility], she confirmed she had all she needed for patient to admit to their building today Patient left via family's private auto with SNF packet in hand STORM Fowler updated throughout the morning, DC order updated by Dr Dunaway Plan: DC to [facility] via private auto ([facility] as SNF payor) JW
--- NOTE | 2023-02-17 18:04 | PM.DS.1 ---
History of Present Illness History of Present Illness Date Patient Seen: 02/17/23 Time Patient Seen: 18:05 Chief complaint: Pain all over & Urinary retention Narrative: 87-year-old male being actively treated with immunotherapy for metastatic melanoma via Oncology here at [facility] presented to the emergency department with generalized pain some slight increased dyspnea rectal pain urinary pain etcetera.? ER evaluation suggested infectious etiology had elevated lactate levels was tachycardic and tachypneic with leukocytosis.? Initial chest x-ray suggested pneumonia but follow-up CT scan did not demonstrate pneumonia.? No clear source of infection has been discovered his urine is unremarkable and again CT imaging did not support a source of infection.? He was given broad-spectrum IV antibiotics.? Repeat lactate improved significantly.? Vital signs improved some with some IV fluids although they were not given as per sepsis protocol over concerns about possible congestive heart failure etcetera.? Patient was admitted for further evaluation Patient's medical history otherwise reviewed history of COPD, paroxysmal atrial fibrillation, and chronic ITP.? Patient is tachycardic upon presentation but in a sinus tachycardia not AFib Discharge Providers Provider Date of admission: 12/13/22 21:19 Discharge Date: 12/24/22 Primary care physician: Brian Moore MD Consults: 12/14/22 08:00 Consult to Dietitian, Adult Routine Comment: Reason For Exam: decreased appetite; food aversion; poor dentition 12/15/22 14:48 Consult to Physical Therapy Evaluate & Treat Comment: Physician Instructions: Evaluate and Treat 12/16/22 08:32 Consult to Physical Therapy Evaluate & Treat Comment: Evaluation for home Physician Instructions: Evaluate and Treat 12/17/22 08:43 Consult to Physician Routine Comment: Consulting Provider: Alexi Kurtz Reason for consultation: abd distention Has provider been notified: Yes 12/18/22 08:29 Consult to Physical Therapy Evaluate & Treat Comment: Physician Instructions: Evaluate and Treat 12/20/22 14:33 Consult to Speech Therapy Evaluate & Treat Comment: aspiration Physician Instructions: Evaluate and treat Discharge provider: Brian Moore MD Summary Hospital Course Discharge Diagnosis: Leukocytosis Respiratory failure new line possible aspiration Fecal obstipation and impaction Weakness Agitation Metastatic melanoma ?urinary retention History of ITP Hospital Course: Leukocytosis patient was admitted and did have a positive lactic acid.? Initial presentation was felt to be mostly secondary to his obstipation and urinary retention neither 1 of which seem to have an infectious component.? On day 3 his white count went to 22.? Chest CT and abdominal CT showed maybe aspiration pneumonia but no other findings.? No evidence of intra-abdominal process.? Patient was placed initially on broad-spectrum antibiotics Zosyn in a attempt to cover intra or abdomen issues.? And was kept going with coverage for aspiration that is switch to Augmentin.? His white count resolve the overall seem to be doing well.? He will be discharged on no medication.? With normal white count no evidence of infection. Respiratory failure.? On day 3 patient also developed some respiratory failure.? O2 requirement.? Partial which was related to his mental status and part of the issue was related to his possible pneumonia.? It was unclear.? Patient does have history of asthma but did not appear to be flare.? He was treated with nebulizers and IV antibiotics.? And seem to resolve he was completely off oxygen and feeling well with no respiratory component.? No other changes.? Patient will be followed as an outpatient.? Fecal obstipation and impaction.? This probably was the 1. Cause of his admission.? Patient was markedly obstipated.? Do the fact that we are unable to get any movement from the superior aspect orally surgery was consulted and enemas were obtained which did not completely resolve it.? He was manually extracted on the Thursday before discharge and that seemed to work he is in had significant discharge of material the question of whether not he was going to need to be taken to the operating room was discussed we appreciate the surgeon's input but last x-ray showed significant reduction in stool volume and he will be sent home on MiraLax once a day.? Urinary obstruction.? Patient was noted to have urinary obstruction on admission.? Patient had probably been an obstruction for a while he is urinating up to 17 times a day.? He was noted not to have an infection.? He did well with catheter and do the fact that he has frequent urination would like to continue with catheter we had a long discussion about risk for infection and possible terminal infection he understands but does not want to change.? He understands.? Will be sent home with catheter. Agitation.? Patient was agitated intermittently throughout his course he was placed on 1st Ativan which made no difference and then Seroquel which actually did well.? He will be followed as an outpatient.? Weakness.? [place] to be combination of multiple issues this is probably something that has been coming on for months.? And not just acute although it certainly worsened with his current situation.? Patient was not interested in participating in physical therapy I think he is a rehab candidate but due to the fact that he will not participate adequately he was deemed not a candidate for rehab which is sad because this would have been the best thing for him and possibly gotten him home due to the fact that he is not participating he will be sent to either hospice or to self-pay rehab. Metastatic melanoma unable to treat during his course will have to follow with oncology.? Will be determined whether not he is going to hospice or not will determine where we go from here.? History of ITP.? Was unable to give medication secondary to or at risk for DVT secondary to his history.? But otherwise was stable throughout his course. Difficulty swallowing.? Question aspiration.? Was seen by speech therapy felt like he was okay with thin liquids but needed observation because he was rushing multiple swallows at a time.? Otherwise he did well. Rash.? Patient has been having pruritus for some time.? Oncologist felt it was secondary to possible treatment.? Patient's pruritus was treated with hydroxyzine, antihistamine and hydrocortisone cream.? Actually physically seem to improve although patient continues to complain rash.? No other changes.? Will continue treatment.? Oral pain.? Patient was probably reacting to oncology medication has been going on for some time.? He was treated with Mycelex troches which seem to actually help quite a bit so may have been related to thrush.? Still having some discomfort on discharge will follow as outpatient.? May try dexamethasone mouthwash depending on response. Exam Vital Signs (past 8 hours): Fraction of Inspired Oxygen 21 SaO2/FiO2 Ratio 466 Oxygen Delivery Method Room Air Oxygen Flow Rate 0 Narrative Exam Narrative: Alert elderly male in no acute distress Lungs are clear heart regular rate and rhythm abdomen much less distended from my last visit nontender no masses.? Extremities without edema. Objective Labs 12/21/22 05:01 12/21/22 05:01 [facility] [place] Medical History Acute exacerbation of chronic obstructive pulmonary disease Acute urinary retention Bladder outlet obstruction Chronic ITP (idiopathic thrombocytopenic purpura) Constipation COPD (chronic obstructive pulmonary disease) Fecal impaction in rectum Malignant melanoma, metastatic Obstipation Paroxysmal atrial fibrillation Shortness of Breath Tricompartment osteoarthritis of right knee Surgical History S/P total knee arthroplasty Social History household members: family Smoking Status: Former smoker alcohol intake: former Discharge Assessment & Plan Assessment and Plan Assessment: Ready for discharge. Plan of Treatment: Discharged to self-pay [facility] Discharge Plan Discharge Plan Patient Disposition: SNF Other facility: unkown as of now self pay Under care of provider: provider on staff Discharge orders & Medications Prescriptions: New quetiapine 25 mg Tablet 25 mg PO DAILY Qty: 30 0RF quetiapine 25 mg Tablet 50 mg PO BEDTIME Qty: 30 0RF loratadine 10 mg Tablet 10 mg PO BEDTIME Qty: 60 0RF hydroxyzine pamoate 25 mg Capsule 25 mg PO Q6HR PRN (Reason: Itching) Qty: 60 0RF polyethylene glycol 3350 17 gram Powder In Packet 17 gm PO DAILY Qty: 100 0RF Continued acetaminophen [Tylenol Extra Strength] 500 MG tablet 1,000 mg PO DAILY Qty: 0 psyllium Packet 1 packet PO TID Rx Instructions: mix into at least 8 oz of water or juice before administering ondansetron 4 mg tablet,disintegrating 4 mg PO Q4HR PRN (Reason: Nausea) Qty: 30 0RF Discontinued ondansetron 4 mg tablet,disintegrating 4 mg PO Q4HR PRN (Reason: Nausea) Qty: 30 0RF Patient Comments: pt states he no longer takes budesonide-formoterol [Symbicort] 80-4.5 mcg/actuation HFA aerosol inhaler 2 puff INHALATION DAILY No Action melatonin 3 mg Tablet 9 - 15 mg PO BEDTIME PRN (Reason: Sleep) Follow up/Referrals: Brian Moore MD [Primary Care Provider] - 2 Weeks Discharge Health Status Multidrug resistant organism: No MDRO Precautions: [place] Diet/Activity/Treatments Liquid consistency: Normal/Thin Food texture: Soft Diet comment: supervsed all meals patient to sit up at ninety degrees Activity: bed rest with bathroom priveledge Catheter: 3-way Fried Skin/Wound/Dressing Care Report to your healthcare provider any signs of infection, such as:: chills, fever, night sweats, increased pain, unusual drainage and unusual redness Special Rehabilitation Services Rehab type: Physical therapy and Occupational therapy Visit Report/Discharge Packet Stand Alone Forms: Patient Portal/API Discharge Data Primary Care Provider: Brian Moore Discharges patient from system. Discharge Date/Time: 12/25/22 11:15 Quality VTE Deep Vein Thrombosis/Pulmonary Embolism Present on Admission: No
== END 2022-12-25 11:15 | DRG 177 ==
LOC: ED 21:03 → AC 21:19
PROVIDERS: Emergency Medicine; Family Medicine; Admitting Provider Internal Medicine; Emergency Provider Emergency Medicine; PCP Family Medicine; Referring Provider Emergency Medicine; Visit Provider Family Medicine
DX: J69.0 Pneumonitis due to inhalation of food and vomit (principal); J96.90 Respiratory failure, unspecified, unspecified whether with hypoxia or hypercapnia; D69.3 Immune thrombocytopenic purpura; C43.62 Malignant melanoma of left upper limb, including shoulder; E86.0 Dehydration; K56.41 Fecal impaction; R45.1 Restlessness and agitation; I50.9 Heart failure, unspecified; N13.9 Obstructive and reflux uropathy, unspecified; R13.10 Dysphagia, unspecified; Z87.891 Personal history of nicotine dependence; Z20.822 Contact with and (suspected) exposure to COVID-19; Z66 Do not resuscitate
CPT/HCPCS: 0241U; 36415; 51798; 71045; 71260; 71275; 74018; 74019; 74177; 80048; 80053; 81001; 81015; 82550; 83605; 83690; 83880; 84145; 84484; 85025; 85027; 87040; 87635; 92526; 92610; 93005; 93010; 94640; 94760; 96361; 96365; 96366; 96367; 97110; 97162; 97530; 99223; 99231; 99232; 99285; C9803; J0696; J1940; J2405; J2543; J7613; Q9967

== ENCOUNTER 2023-02-01 11:54 | Inpatient (IN) | payer MEDICARE, SELFPAY ==
[2022-12-13 21:36] VITALS: BMI 25.4
[2023-02-01] VITALS (14 sets, daily range): BP systolic 117–150; BP diastolic 56–69; PULSE 85–111; RESP 15–38; TEMP 36.4–37.2; O2SAT 87–100; BMI 21.7
--- NOTE | 2023-02-01 12:05 | ED_ITS ---
HPI - SOB/Dyspnea General Chief Complaint: Upper Respiratory Symptoms Stated Complaint: covid positive/cough [id number] Time Seen by Provider: 02/01/23 11:55 History of Present Illness HPI Narrative: Patient is an 87-year-old male with history of metastatic malignant melanoma, COPD, ITP, previously on immunotherapy recently admitted December 13 through December 24 then he went to [facility]. About a week and a half ago they had an outbreak of COVID-19. Couple days later it sounds like patient was discharged and released home. Today home nursing came to evaluate him noted that he had some rales in his lungs and they were worried his oxygen might be low along with he might have COVID. Actually did do a home COVID test and it was positive. Daughter is at bedside and also reports that when he was admitted Hospital a Fried catheter was placed she is unsure why she reports that it has not been changed. Related Data Home Medications Medication Instructions Recorded Confirmed acetaminophen 500 mg tablet 1,000 mg PO TID ##0 12/08/17 12/13/22 (Tylenol Extra Strength) psyllium 1 packet PO TID 10/08/22 12/13/22 Previous Rx's Medication Instructions Recorded ondansetron 4 mg disintegrating 4 mg PO Q4HR PRN Nausea #30 tabs 12/03/22 tablet hydroxyzine pamoate 25 mg capsule 25 mg PO Q6HR PRN Itching #60 caps 12/22/22 loratadine 10 mg tablet 10 mg PO BEDTIME #60 tabs 12/22/22 polyethylene glycol 3350 17 gram 17 gm PO DAILY #100 ea 12/22/22 oral powder packet quetiapine 25 mg tablet 25 mg PO DAILY #30 tabs 12/22/22 quetiapine 25 mg tablet 50 mg PO BEDTIME #30 tabs 12/22/22 Allergies Allergy/AdvReac Type Severity Reaction Status Date / Time No Known Allergies Allergy Verified 12/13/22 18:27 Review of Systems Review of Systems ROS Unobtainable: All systems reviewed & are unremarkable except as noted in HPI and below Patient History Medical History Chronic ITP (idiopathic thrombocytopenic purpura) COPD (chronic obstructive pulmonary disease) Malignant melanoma, metastatic Melanoma Paroxysmal atrial fibrillation Shortness of Breath Tricompartment osteoarthritis of right knee Surgical History S/P total knee arthroplasty Social History household members: family Smoking Status: Former smoker alcohol intake: former Smoking Status: Former smoker tobacco type: cigarettes alcohol intake frequency: 0-2 drinks per day Substance Use Type: does not use Exam Initial Vital Signs Initial Vital Signs: Vital Signs Temperature 98.3 F 02/01/23 11:58 Pulse Rate 107 H 02/01/23 11:58 Respiratory Rate 20 02/01/23 11:58 Blood Pressure 134/69 02/01/23 11:58 Pulse Oximetry 96 02/01/23 11:58 Oxygen Delivery Method Room Air 02/01/23 11:58 GENERAL: Alert chronically ill 87-year-old male HEENT: Head atraumatic,EOMI, pupils reactive, face symmetric, moist mucous membranes CARDIOVASCULAR: Regular rate and rhythm without murmurs, rubs or gallops. RESPIRATORY: Breath sounds equal bilaterally, no wheezes rales or rhonchi. ABDOMEN: Soft, nontender. Normoactive bowel sounds all 4 quadrants. No guarding or rebound. EXTREMITIES: Normal range of motion, no clubbing or edema. Neurovascularly intact NEUROLOGICAL: Alert and oriented x2. Solar Project Engineer strength equal bilaterally moving lower extremity SKIN: Warm, dry, no laceration, no petechiae, no rashes or lesions. Course Orders Ordered: ED Orders 02/01/23 12:19 XR chest 1V Stat 02/01/23 12:20 Blood Culture Stat EKG-12 Lead Stat 02/01/23 12:33 Complete Blood Count AUTO DIFF Stat Comprehensive Metabolic Panel Stat D Dimer Stat Lactate (Lactic Acid) Stat NT-proBNP (BNP-Adult 18+) Stat Procalcitonin Stat Troponin & CK Cardiac Panel Stat 02/01/23 12:43 COVID19 -Nasal RAPID Stat 02/01/23 13:22 EKG-12 Lead Routine 02/01/23 13:32 Urinalysis and Microscopic Stat Urine Culture Stat 02/01/23 14:48 CT angio chest PE protocol Stat Acetaminophen (Acetaminophen 325 Mg Tablet) 650 mg PO Q6H PRN PRN Reason: Fever/Mild Pain (1-3) Al Hydrox/Mg Hydrox/Simethicone (Mag Hydrox/Alum/Simeth 30 Ml Udc) 30 ml PO Q6HR PRN PRN Reason: Dyspepsia Bisacodyl (Bisacodyl 10 Mg Supp) 10 mg FL DAILY PRN PRN Reason: Constipation Dexamethasone (Dexamethasone 10 Mg/Ml Vial) 6 mg IV DAILY [facility] Stop: 02/10/23 09:01 Piperacillin Sod/Tazobactam (Sod 3.375 gm/ Sodium Chloride) 100 mls @ 25 mls/hr IV Q8H [facility] Remdesivir 100 mg/ Sodium (Chloride) 250 mls @ 250 mls/hr IV 1400 [facility] Stop: 02/10/23 14:59 Vancomycin HCl (Vancomycin) 750 mg in 150 mls @ 150 mls/hr IV Q12H [facility] Magnesium Hydroxide (Magnesium Hydroxide 30 Ml Udc) 30 ml PO DAILY PRN PRN Reason: Constipation Naloxone HCl (Naloxone 0.4 Mg/Ml Vial) 0.2 mg IV Q2MIN PRN PRN Reason: Opiate Reversal Nf - Eltrombopag ( Promacta) 50 Mg Tablet 50 mg PO DAILY [facility] Ondansetron HCl (Ondansetron 4 Mg/2 Ml Inj) 4 mg IV Q8HR PRN PRN Reason: Nausea And Vomiting Polyethylene Glycol (Polyethylene Glycol 3350 17 Gm Powd.Pack) 17 gm PO DAILY [facility] Psyllium Hydrophilic Mucilloid (Psyllium Husk 1 Packet) 1 packet PO TID [facility] Quetiapine Fumarate (Quetiapine 25 Mg Tablet) 25 mg PO DAILY [facility] Quetiapine Fumarate (Quetiapine 25 Mg Tablet) 50 mg PO BEDTIME [facility] Vancomycin HCl (Vancomycin Trough) 1 request [facility] [id number] [facility] Stop: 02/03/23 04:31 Discontinued Medications Dexamethasone (Dexamethasone 10 Mg/Ml Vial) 6 mg IV NOW ONE Stop: 02/01/23 14:36 Last Admin: 02/01/23 14:41 Dose: 6 mg Documented By: NR Vancomycin HCl (Vancomycin) 1,000 mg in 200 mls @ 200 mls/hr IV NOW ONE Stop: 02/01/23 14:51 Piperacillin Sod/Tazobactam (Sod 4.5 gm/ Sodium Chloride) 100 mls @ 200 mls/hr IV NOW ONE Stop: 02/01/23 13:53 Last Infusion: 02/01/23 16:48 Dose: 0 mls/hr Documented By: Admin: 02/01/23 14:36 Dose: 200 mls/hr Documented By: JENNIE Sodium Chloride (Normal Saline 0.9%) 1,000 mls @ 150 mls/hr IV CONT UMA Last Admin: 02/01/23 14:37 Dose: 150 mls/hr Documented By: JENNIE Remdesivir 200 mg/ Sodium (Chloride) 250 mls @ 250 mls/hr IV NOW ONE Stop: 02/01/23 15:34 Last Infusion: 02/01/23 18:35 Dose: 0 mls/hr Documented By: Admin: 02/01/23 17:03 Dose: 250 mls/hr Documented By: TLS Vancomycin HCl (Vancomycin) 1,000 mg in 200 mls @ 200 mls/hr IV NOW ONE Stop: 02/01/23 18:34 Last Admin: 02/01/23 18:34 Dose: 200 mls/hr Documented By: TLS Vital Signs Vital signs: Vital Signs - 8 hr 02/01/23 11:58 02/01/23 11:58 02/01/23 11:58 Temperature 98.3 F Pulse Rate 107 H 108 H Respiratory Rate 20 Blood Pressure 134/69 134/69 Pulse Oximetry 96 93 Oxygen Delivery Method Room Air 02/01/23 12:00 02/01/23 12:00 02/01/23 12:30 Temperature Pulse Rate 85 106 H Respiratory Rate Blood Pressure 150/67 H Pulse Oximetry 87 L 95 Oxygen Delivery Method 02/01/23 12:38 02/01/23 12:38 02/01/23 13:00 Temperature Pulse Rate 109 H Respiratory Rate 28 H Blood Pressure 144/63 H 141/65 H Pulse Oximetry 94 Oxygen Delivery Method 02/01/23 13:00 02/01/23 13:30 02/01/23 13:30 Temperature Pulse Rate 102 H 104 H Respiratory Rate 37 H 31 H Blood Pressure 129/59 L Pulse Oximetry 94 94 Oxygen Delivery Method 02/01/23 14:00 02/01/23 14:00 02/01/23 14:30 Temperature Pulse Rate 108 H Respiratory Rate 34 H Blood Pressure 146/67 H 139/64 Pulse Oximetry 93 Oxygen Delivery Method 02/01/23 14:30 02/01/23 15:00 02/01/23 15:18 Temperature Pulse Rate 106 H 111 H Respiratory Rate 29 H Blood Pressure 127/58 L Pulse Oximetry 94 Oxygen Delivery Method 02/01/23 15:18 Temperature Pulse Rate 107 H Respiratory Rate 38 H Blood Pressure Pulse Oximetry 95 Oxygen Delivery Method MDM - SOB/Dyspnea Lab Data 02/01/23 12:33 02/01/23 12:33 Labs: Lab Results 02/01/23 02/01/23 02/01/23 Range/Units 12:33 12:33 12:33 WBC 11.9 H (4.5-11.0) X10^3/uL RBC 4.58 (4.5-5.9) X10^6/uL Hgb 10.6 L (13.5-17.5) g/dL Hct 33.4 L (41-53) % MCV 73.0 L (80-100) fL MCH 23.1 L (26-34) PG MCHC 31.6 (30-36) % RDW 18.2 H (11.6-14.8) % Plt Count 268 (150-400) X10^3/uL Neut % (Auto) 87.5 H (50-75) % Lymph % (Auto) 3.8 L (25-40) % [place] % (Auto) 7.7 (3-14) % Eos % (Auto) 0.4 L (2-4) % Baso % (Auto) 0.6 (0-2) % Neut # (Auto) 81078 H (6996-3318) /uL Lymph # (Auto) 500 L (4627-1794) /uL [place] # (Auto) 900 (0-900) /uL Eos # (Auto) 100 (0-450) /uL Baso # (Auto) 100 (0-100) /uL D-Dimer 642 H (<500) ng/ml Sodium (137-145) mmol/L Potassium (3.4-5.1) mmol/L Chloride (98-107) mmol/L Carbon Dioxide (22-32) mmol/L BUN (9-20) mg/dL Creatinine (0.66-1.25) mg/dL Estimated GFR (>60) mL/min BUN/Creatinine Ratio (6-22) Glucose (80-110) mg/dL Lactate (0.7-2.1) mmol/L Calcium (8.4-10.2) mg/dL Total Bilirubin (0.2-1.3) mg/dL AST (17-59) IU/L ALT (<50) IU/L Alkaline Phosphatase (38-126) U/L Total Creatine Kinase (55-170) U/L CK-MB (CK-2) CK-MB (CK-2) Rel Index Troponin I (0.01-0.034) ng/mL NT-Pro-B Natriuret Pep 680 H (<450) pg/mL Total Protein (6.3-8.2) g/dL Albumin (3.5-5.0) g/dL Globulin (1.7-4.1) g/dL Albumin/Globulin Ratio (1.0-2.8) Procalcitonin (<0.5) ng/mL Urine Color Urine Appearance Urine pH (4.5-8.0) Ur Specific [place] (1.000-1.035) Urine Protein (Negative) Urine Glucose (UA) (Negative) g/dL Urine Ketones (NEGATIVE) Urine Occult Blood (Negative) Urine Nitrate (Negative) Urine Bilirubin (NEGATIVE) Urine Urobilinogen (0.2) E.U./dL Ur Leukocyte Esterase (NEGATIVE) Urine RBC (0-5/HPF) Urine WBC (0-5/HPF) Amorphous Sediment Urine Bacteria (None) Ur Culture Indicated? SARS-CoV-2 (PCR) (Negative) 02/01/23 02/01/23 02/01/23 Range/Units 12:33 12:33 12:43 WBC (4.5-11.0) X10^3/uL RBC (4.5-5.9) X10^6/uL Hgb (13.5-17.5) g/dL Hct (41-53) % MCV (80-100) fL MCH (26-34) PG MCHC (30-36) % RDW (11.6-14.8) % Plt Count (150-400) X10^3/uL Neut % (Auto) (50-75) % Lymph % (Auto) (25-40) % [place] % (Auto) (3-14) % Eos % (Auto) (2-4) % Baso % (Auto) (0-2) % Neut # (Auto) (3047-2077) /uL Lymph # (Auto) (8382-3771) /uL [place] # (Auto) (0-900) /uL Eos # (Auto) (0-450) /uL Baso # (Auto) (0-100) /uL D-Dimer (<500) ng/ml Sodium 134 L (137-145) mmol/L Potassium 4.2 (3.4-5.1) mmol/L Chloride 97 L (98-107) mmol/L Carbon Dioxide 28 (22-32) mmol/L BUN 15 (9-20) mg/dL Creatinine 0.94 (0.66-1.25) mg/dL Estimated GFR > 60 (>60) mL/min BUN/Creatinine Ratio 16.0 (6-22) Glucose 124 H (80-110) mg/dL Lactate 1.9 (0.7-2.1) mmol/L Calcium 8.9 (8.4-10.2) mg/dL Total Bilirubin 0.7 (0.2-1.3) mg/dL AST 19 (17-59) IU/L ALT 14 (<50) IU/L Alkaline Phosphatase 86 (38-126) U/L Total Creatine Kinase < 20 L (55-170) U/L CK-MB (CK-2) TNP CK-MB (CK-2) Rel Index TNP Troponin I < 0.012 (0.01-0.034) ng/mL NT-Pro-B Natriuret Pep (<450) pg/mL Total Protein 7.7 (6.3-8.2) g/dL Albumin 3.8 (3.5-5.0) g/dL Globulin 3.9 (1.7-4.1) g/dL Albumin/Globulin Ratio 1.0 (1.0-2.8) Procalcitonin 0.24 (<0.5) ng/mL Urine Color Urine Appearance Urine pH (4.5-8.0) Ur Specific [place] (1.000-1.035) Urine Protein (Negative) Urine Glucose (UA) (Negative) g/dL Urine Ketones (NEGATIVE) Urine Occult Blood (Negative) Urine Nitrate (Negative) Urine Bilirubin (NEGATIVE) Urine Urobilinogen (0.2) E.U./dL Ur Leukocyte Esterase (NEGATIVE) Urine RBC (0-5/HPF) Urine WBC (0-5/HPF) Amorphous Sediment Urine Bacteria (None) Ur Culture Indicated? SARS-CoV-2 (PCR) Positive H (Negative) 02/01/23 Range/Units 13:32 WBC (4.5-11.0) X10^3/uL RBC (4.5-5.9) X10^6/uL Hgb (13.5-17.5) g/dL Hct (41-53) % MCV (80-100) fL MCH (26-34) PG MCHC (30-36) % RDW (11.6-14.8) % Plt Count (150-400) X10^3/uL Neut % (Auto) (50-75) % Lymph % (Auto) (25-40) % [place] % (Auto) (3-14) % Eos % (Auto) (2-4) % Baso % (Auto) (0-2) % Neut # (Auto) (3836-9922) /uL Lymph # (Auto) (6693-4451) /uL [place] # (Auto) (0-900) /uL Eos # (Auto) (0-450) /uL Baso # (Auto) (0-100) /uL D-Dimer (<500) ng/ml Sodium (137-145) mmol/L Potassium (3.4-5.1) mmol/L Chloride (98-107) mmol/L Carbon Dioxide (22-32) mmol/L BUN (9-20) mg/dL Creatinine (0.66-1.25) mg/dL Estimated GFR (>60) mL/min BUN/Creatinine Ratio (6-22) Glucose (80-110) mg/dL Lactate (0.7-2.1) mmol/L Calcium (8.4-10.2) mg/dL Total Bilirubin (0.2-1.3) mg/dL AST (17-59) IU/L ALT (<50) IU/L Alkaline Phosphatase (38-126) U/L Total Creatine Kinase (55-170) U/L CK-MB (CK-2) CK-MB (CK-2) Rel Index Troponin I (0.01-0.034) ng/mL NT-Pro-B Natriuret Pep (<450) pg/mL Total Protein (6.3-8.2) g/dL Albumin (3.5-5.0) g/dL Globulin (1.7-4.1) g/dL Albumin/Globulin Ratio (1.0-2.8) Procalcitonin (<0.5) ng/mL Urine Color Yellow Urine Appearance Cloudy Urine pH 8.5 H (4.5-8.0) Ur Specific [place] 1.010 (1.000-1.035) Urine Protein 1+ H (Negative) Urine Glucose (UA) Negative (Negative) g/dL Urine Ketones Negative (NEGATIVE) Urine Occult Blood 3+ H (Negative) Urine Nitrate Negative (Negative) Urine Bilirubin Negative (NEGATIVE) Urine Urobilinogen 1.0 (0.2) E.U./dL Ur Leukocyte Esterase 2+ H (NEGATIVE) Urine RBC >100/hpf H (0-5/HPF) Urine WBC 5-10/hpf H (0-5/HPF) Amorphous Sediment 1+ Urine Bacteria Few (2-10) H (None) Ur Culture Indicated? Specimen cultured SARS-CoV-2 (PCR) (Negative) Imaging Data Chest x-ray: Radiologist's Impression: PROCEDURE:? XR CHEST 1V ? INDICATIONS:? +COVID ? TECHNIQUE:? One view of the chest was acquired.? ? COMPARISON:? [facility], CR, XR CHEST 1V, 12/19/2022, 6:22. ? FINDINGS:? ? Surgical changes and devices:? None.? ? Lungs and pleura:? There is mild diffuse reticulonodular pulmonary opacity.? No pleural effusions or pneumothorax.? ? Mediastinum:? Mediastinal contours appear normal.? Heart size is normal.? ? Bones and chest wall:? No suspicious bony lesions.? Overlying soft tissues appear unremarkable.? ? IMPRESSION:? Mild atypical pneumonia. ? ? Dictated by: Caroline Schmid M.D. on 02/01/2023 at 12:43 CT scan - chest: Radiologist's Impression: PROCEDURE:? CT ANGIO CHEST PE PROTOCOL ? INDICATIONS:? covid ? TECHNIQUE:? After the administration of intravenous contrast, 2 mm thick sections acquired from the pulmonary apices to the posterior costophrenic angles.? 3-dimensional maximum intensity projection (MIP) coronal and sagittal reformats were then acquired through the thorax.? For radiation dose reduction, the following was used:? automated exposure con trol, adjustment of mA and/or kV according to patient size.? ? COMPARISON:? [facility], CT, CT CHEST ABD PEL W CON, 12/13/2022, 19:10.? [facility], CR, XR CHEST 1V, 02/01/2023, 12:30.? [facility], CR, XR CHEST 1V, 12/19/2022, 6:22.? [facility], CT, CT ANGIO CHEST PE PROTOCOL, 12/17/2022, 10:37. ? FINDINGS:? Image quality:? Excellent.? ? Pulmonary arteries:? Pulmonary arteries are normal in size, and demonstrate no intraluminal filling defects to suggest central pulmonary embolism.? ? Lungs and pleura:? Several foci patchy interstitial infiltrates can be seen, which are worst involving the right posterior right upper lobe and the right lower lobe.? Apparent atelectasis can be seen in [place] involving both lower lobes. ? Underlying emphysematous changes are seen, which are worst at the lung apices.? No pleural effusion or pneumothorax can be seen.? Areas of pleural calcification are again seen. ? Mediastinum:? Heart size is normal, without pericardial effusion.? No media stinal or hilar adenopathy.? Thoracic aorta is normal in caliber and enhancement.? Esophagus is normal in caliber, without hiatal hernia.? ? Bones and chest wall:? No suspicious bony lesions.? Ribs and thoracic spine appear intact throughout.? Thyroid gland demonstrates no significant abnormality.? No axillary or supraclavicular adenopathy.? ? Abdomen:? Nonobstructing bilateral renal stones are seen, measuring up to 3 mm each side. Incidental note is made of an accessory splenule along the hilum of the primary spleen. The visualized portions of the upper abdominal structures are otherwise unre markable for imaging technique. ? ? IMPRESSION:? Mild patchy interstitial infiltrates are seen, which are consistent with the given clinical history. ? Negative for pulmonary embolism. ? The previously seen pleural effusions have resolved. ? ? Additional findings:? Centrilobular emphysematous changes Pleural calcification is seen.? Please correlate with a history of asbestos exposure.? Nonobstructing bilateral renal stones Accessory splenule ? Dictated by: David Biggs M.D. on 02/01/2023 at 14:31 ?? ECG Data Interpretation: EKG 1. Regular narrow complex rhythm rate 105 artifact noted lead IA do see a P-wave in the 5 and V6 so likely sinus. Similar to previous no ST changes EKG 2. Sinus rhythm rate 103 FL interval 152 QRS [address] changes MDM Narrative Medical decision making narrative: Patient 79-year-old male history of metastatic melanoma with COPD recent admission for an infection and then discharged to rehab facility. Presenting today with positive COVID test at home possible increased difficulty breathing. He is found to have atypical pneumonia and COVID on his x-ray. His he is mildly tachypneic with a respiratory rate in the 30s and tachycardic with a heart rate at 104. He is not hypotensive. He has mild leukocytosis of 11.9 and a lactate of 1.9 procalcitonin 0.24. He does have bacteria and leukocytes in his urine and a pneumonia on his x-ray. With a recent hospitalization he is given vancomycin and Zosyn for hospital-acquired pneumonia along with COVID. BNP is 680 without evidence of fluid overload troponin is negative. D-dimer was also mildly elevated [address] angio negative for PE Fried catheter is changed out in the ED since it has not been changed since it was put in. He does have some bacteria and leukocytes in urine as well. Patient pneumonia severity score is recommending hospitalization. He is given remdesivir and dexamethasone for his COVID he is on 1 L of oxygen Talked to Ankush updated on patient's symptoms test results and accepts for admission PSI/PORT Score: Pneumonia Severity Index for CAP from [employer] on 02/01/2023 All calculations should be rechecked by clinician prior to use RESULT SUMMARY: 138 points Risk Class V, 27.0-29.2% mortality. Hospitalization recommended based on risk. INPUTS: Age ?> 87 years Sex ?> 0 = Male [facility] resident ?> 0 = No Neoplastic disease ?> 30 = Yes Liver disease history ?> 0 = No CHF history ?> 0 = No Cerebrovascular disease history ?> 0 = No Renal disease history ?> 0 = No Altered mental status ?> 0 = No Respiratory rate &ge;30 breaths/min ?> 20 = Yes Systolic blood pressure <90 mmHg ?> 0 = No Temperature <35&deg;C (95&deg;F) or >39.9&deg;C (103.8&deg;F) ?> 0 = No Pulse &ge;125 beats/min ?> 0 = No pH <7.35 ?> 0 = No BUN &ge;30 mg/dL or &ge;11 mmol/L ?> 0 = No Sodium <130 mmol/L ?> 0 = No Glucose &ge;250 mg/dL or &ge;14 mmol/L ?> 0 = No Hematocrit <30% ?> 0 = No Partial pressure of oxygen <60 mmHg or <8 kPa ?> 0 = No Pleural effusion on x-ray ?> 0 = No Discharge Plan Departure Patient Disposition: Admitted As Inpatient Clinical Impression: COVID-19, Pneumonia, Acute UTI Admit Date/Time: 02/01/23 15:19 Admit Provider: Malcolm Lechuga
--- NOTE | 2023-02-01 12:09 | PC.NURSE ---
daughter elen is here at bedside. she reports pt was in pt here at our hospital and then spent one month at [facility]. she had pt leave there ama due to poor living conditions. she reports he lost 38lb in the month he was there, they did not give him his meds for platelets and his platelets went too low. they reported a covid outbreak to pts and now pt has covid. EMS reports home health nurse called 911 due to pt testing positive for covid and cough. pt and EMS denied SOB, fevers, chest pain.
--- NOTE | 2023-02-01 12:18 | PC.NURSE ---
pt has cold fingers, placed warm blanket on hand with pulse oximeter
--- NOTE | 2023-02-01 12:19 | DI.RAD.S_ITS ---
PROCEDURE: XR CHEST 1V INDICATIONS: +COVID TECHNIQUE: One view of the chest was acquired. COMPARISON: [facility], CR, XR CHEST 1V, 12/19/2022, 6:22. FINDINGS: Surgical changes and devices: None. Lungs and pleura: There is mild diffuse reticulonodular pulmonary opacity. No pleural effusions or pneumothorax. Mediastinum: Mediastinal contours appear normal. Heart size is normal. Bones and chest wall: No suspicious bony lesions. Overlying soft tissues appear unremarkable. IMPRESSION: Mild atypical pneumonia. Dictated by: Caroline Schmid M.D. on 02/01/2023 at 12:43 Approved by: Caroline Schmid M.D. on 02/01/2023 at 12:44
[2023-02-01 12:44] LABS: Add Manual Diff / Slide Review NO; Basophils Absolute Auto 100 /uL (0-100); Basophils Percent Auto 0.6 % (0-2); Eosinophils Absolute Auto 100 /uL (0-450); Eosinophils Percent Auto 0.4 % (2-4); Hematocrit 33.4 % (41-53); Hemoglobin 10.6 g/dL (13.5-17.5); Lymphocytes Absolute Auto 500 /uL (1100-4500); Lymphocytes Percent Auto 3.8 % (25-40); Mean Corpuscular HGB Conc 31.6 % (30-36); Mean Corpuscular Hemoglobin 23.1 PG (26-34); Monocytes Absolute Auto 900 /uL (0-900); Monocytes Percent Auto 7.7 % (3-14); Neutrophils Absolute Auto 10400 /uL (1500-7000); Neutrophils Percent Auto 87.5 % (50-75); Platelet Count 268 X10^3/uL (150-400); Red Blood Cell Count 4.58 X10^6/uL (4.5-5.9); Red Cell Distribution Width 18.2 % (11.6-14.8); White Blood Cell Count 11.9 X10^3/uL (4.5-11.0)
[2023-02-01 12:51] LABS: D Dimer 642 ng/ml (<500)
[2023-02-01 12:55] LABS: Lactate (Lactic Acid) 1.9 mmol/L (0.7-2.1)
[2023-02-01 12:56] LABS: Alanine Aminotransferase 14 IU/L (<50); Albumin 3.8 g/dL (3.5-5.0); Alkaline Phosphatase 86 U/L (38-126); Aspartate Aminotransferase 19 IU/L (17-59); Bilirubin Total 0.7 mg/dL (0.2-1.3); Blood Urea Nitrogen 15 mg/dL (9-20); Calcium 8.9 mg/dL (8.4-10.2); Carbon Dioxide 28 mmol/L (22-32); Chloride 97 mmol/L (98-107); Creatine Kinase < 20 U/L (55-170); Estimated Glomerular Filt Rate > 60 mL/min (>60); Globulin 3.9 g/dL (1.7-4.1); Glucose 124 mg/dL (80-110); HEMOLYSIS < 15 (0-50); Potassium 4.2 mmol/L (3.4-5.1); Sodium 134 mmol/L (137-145); Total Protein 7.7 g/dL (6.3-8.2)
[2023-02-01 13:03] LABS: COVID19 -Nasal RAPID POSITIVE (Negative)
[2023-02-01 13:07] LABS: NT-proBNP (BNP-Adult 18+) 680 pg/mL (<450)
[2023-02-01 13:10] LABS: Troponin I < 0.012 ng/mL (0.01-0.034)
[2023-02-01 13:15] LABS: Procalcitonin 0.24 ng/mL (<0.5)
--- NOTE | 2023-02-01 13:19 | PC.NURSE ---
Addendum entered by Nataly Lynch R.N. 02/01/23 13:30: old catheter did not have stat lock on pt to secure it in place. also noted is tip of patient's penis is very inflammed and red. tender to touch. notified provider. Original Note: replaced pt catheter. old catheter was 16fr, removed without problems. tubing was discolored and only 5ml found to be in balloon upon removal. new catheter placed without incident, no resistance, urine returned was clear with small about of blood. after catheter insertion was over, placing stat lock on patient thigh when pt showed 8 beats of Vtach on motor vehicle light assembler. pt was AOx4 with no symptoms, no chest pain, SOB. Pt stated he felt fine. provider notifeda and RT called to do repeat EKG
[2023-02-01 13:44] LABS: Appearance Urine UA CLOUDY; Bilirubin Urine UA NEGATIVE (NEGATIVE); Color Urine UA YELLOW; Glucose Urine UA NEGATIVE (Negative); Ketones Urine UA NEGATIVE (NEGATIVE); Leukocyte Esterase Urine UA 2+ (NEGATIVE); Nitrite Urine UA NEGATIVE (Negative); Occult Blood Urine UA 3+ (Negative); Protein Urine UA 1+ (Negative); pH Urine UA 8.5 (4.5-8.0)
[2023-02-01 13:51] LABS: Amorphous Sediment Urine 1+; Bacteria Urine Few (2-10); Culture Indicated Urine Specimen Cultured; RBC Urine >100/HPF (0-5/HPF); WBC Urine 5-10/HPF (0-5/HPF)
[2023-02-01] MEDS: PIPERACILLIN/TAZO 4.5 GM in SODIUM CHLORIDE 0.9% 100 ML IV (14:36)
[2023-02-01] MEDS: SODIUM CHLORIDE 0.9% 1,000 ML 150 ML IV (14:37)
[2023-02-01] MEDS: DEXAMETHASONE 10 MG/ML VIAL 6 MG IV (14:41)
--- NOTE | 2023-02-01 14:48 | DI.CT.S_ITS ---
PROCEDURE: CT ANGIO CHEST PE PROTOCOL INDICATIONS: covid TECHNIQUE: After the administration of intravenous contrast, 2 mm thick sections acquired from the pulmonary apices to the posterior costophrenic angles. 3-dimensional maximum intensity projection (MIP) coronal and sagittal reformats were then acquired through the thorax. For radiation dose reduction, the following was used: automated exposure control, adjustment of mA and/or kV according to patient size. COMPARISON: [facility], CT, CT CHEST ABD PEL W CON, 12/13/2022, 19:10. [facility], CR, XR CHEST 1V, 02/01/2023, 12:30. [facility], CR, XR CHEST 1V, 12/19/2022, 6:22. [facility], CT, CT ANGIO CHEST PE PROTOCOL, 12/17/2022, 10:37. FINDINGS: Image quality: Excellent. Pulmonary arteries: Pulmonary arteries are normal in size, and demonstrate no intraluminal filling defects to suggest central pulmonary embolism. Lungs and pleura: Several foci patchy interstitial infiltrates can be seen, which are worst involving the right posterior right upper lobe and the right lower lobe. Apparent atelectasis can be seen in [place] involving both lower lobes. Underlying emphysematous changes are seen, which are worst at the lung apices. No pleural effusion or pneumothorax can be seen. Areas of pleural calcification are again seen. Mediastinum: Heart size is normal, without pericardial effusion. No mediastinal or hilar adenopathy. Thoracic aorta is normal in caliber and enhancement. Esophagus is normal in caliber, without hiatal hernia. Bones and chest wall: No suspicious bony lesions. Ribs and thoracic spine appear intact throughout. Thyroid gland demonstrates no significant abnormality. No axillary or supraclavicular adenopathy. Abdomen: Nonobstructing bilateral renal stones are seen, measuring up to 3 mm each side. Incidental note is made of an accessory splenule along the hilum of the primary spleen. The visualized portions of the upper abdominal structures are otherwise unremarkable for imaging technique. IMPRESSION: Mild patchy interstitial infiltrates are seen, which are consistent with the given clinical history. Negative for pulmonary embolism. The previously seen pleural effusions have resolved. Additional findings: Centrilobular emphysematous changes Pleural calcification is seen. Please correlate with a history of asbestos exposure. Nonobstructing bilateral renal stones Accessory splenule Dictated by: David Biggs M.D. on 02/01/2023 at 14:31 Approved by: David Biggs M.D. on 02/01/2023 at 14:35
--- NOTE | 2023-02-01 15:36 | PC.NURSE ---
paused zosyn for pt to go to CT. resumed upon return. inpatient room given and pt to go up stairs to start remdesivir with floor nurse
--- NOTE | 2023-02-01 15:40 | PM.HP.1 ---
History of Present Illness History of Present Illness Date Patient Seen: 02/01/23 Time Patient Seen: 15:00 Chief complaint: covid positive/cough [id number] Narrative: 87-year-old male who is admitted via the emergency department with weakness, cough, COVID positive and mild hypoxia Patient was discharged from [facility] sometime in the last 10 days after a several week stay. Home health nursing evaluated him today, day of admission, and were concerned about rales in his lungs and that he might have COVID. Home COVID test was performed which was positive. The nursing facility he had just been discharged from had an outbreak of COVID apparently although he tested negative there. In addition patient had a Fried catheter placed during his prior hospitalization which has not been changed since that hospitalization so the catheter has been in place since approximately December 14, the date of his prior admission I admitted the patient to the hospital for Dr. Moore on that date because of abdominal pain generalized weakness and possible infection with elevated markers of infection. Was found to have urinary obstruction requiring catheter placement of uncertain etiology. He is also found to be quite obstipated required a very aggressive therapies to trying get his bowels moving. Was unknown whether the constipation was a cause or effect of the urinary issues. His abdominal symptoms resolved with clearance of his urinary obstruction by placing Fried catheter, least for the most part. His abdominal pain completely resolved with movement of his bowels. He was treated with broad-spectrum antibiotics at that time although no source of infection was clearly identified. He was globally weak and was eventually discharged to [facility] on the 22 of December. Apparently he has been at [facility] until last week some time In the ER today his urine was found to be grossly infected and his Fried catheter was changed for a new 1. He has a bit of a leukocytosis, chest x-ray and chest CT demonstrating mild patchy infiltrates consistent with an atypical pneumonia (such as COVID-19 pneumonia), mild hypoxia with room air oxygen saturation 87% at a minimum, upon presentation. Lactate and procalcitonin normal. Renal function normal. Slight bump in D-dimer (hence the CT angiogram of the chest), and BNP although improved over last admission. CBC all so otherwise unremarkable including his platelet count (patient with a history of ITP) He is admitted for treatment potential serious urinary tract infection, COVID pneumonia, and possible healthcare associated pneumonia as well. He has been placed on broad-spectrum IV antibiotics emergency department as well as oxygen replacement therapy. He is also given a dose of remdesivir and Decadron in the ER for treatment of his COVID-19 pneumonia Patient History Medical History Acute exacerbation of chronic obstructive pulmonary disease Acute urinary retention Bladder outlet obstruction Chronic ITP (idiopathic thrombocytopenic purpura) Constipation COPD (chronic obstructive pulmonary disease) Fecal impaction in rectum Malignant melanoma, metastatic Obstipation Paroxysmal atrial fibrillation Shortness of Breath Tricompartment osteoarthritis of right knee Surgical History S/P total knee arthroplasty Family & Social History Social History: household members family Safety & Behavioral: Feels Safe in Current Yes Environment Been Physically Hurt or No Threatened By a Person Tobacco & Substance use: Smoking Status Former smoker alcohol intake former alcohol intake frequency 0-2 drinks per day Substance Use Type does not use Meds Home Medications and Allergies Home Medications Medication Instructions Recorded Confirmed Type acetaminophen 500 mg tablet 1,000 mg PO DAILY ##0 12/08/17 02/01/23 History (Tylenol Extra Strength) psyllium 1 packet PO TID 10/08/22 02/01/23 History ondansetron 4 mg disintegrating 4 mg PO Q4HR PRN Nausea #30 tabs 12/03/22 02/01/23 Rx tablet hydroxyzine pamoate 25 mg capsule 25 mg PO Q6HR PRN Itching #60 caps 12/22/22 02/01/23 Rx loratadine 10 mg tablet 10 mg PO BEDTIME #60 tabs 12/22/22 02/01/23 Rx polyethylene glycol 3350 17 gram 17 gm PO DAILY #100 ea 12/22/22 02/01/23 Rx oral powder packet quetiapine 25 mg tablet 25 mg PO DAILY #30 tabs 12/22/22 02/01/23 Rx quetiapine 25 mg tablet 50 mg PO BEDTIME #30 tabs 12/22/22 02/01/23 Rx melatonin 3 mg tablet 3 mg PO BEDTIME PRN Sleep 02/01/23 02/01/23 History Allergies Allergy/AdvReac Type Severity Reaction Status Date / Time No Known Allergies Allergy Verified 12/13/22 18:27 Review of Systems Review of Systems ROS: Yes All systems reviewed with the patient and are negative except as otherwise documented Exam Vital Signs (past 8 hours): - 02/01/23 11:58 02/01/23 11:58 02/01/23 11:58 Temperature 98.3 F Pulse Rate 107 H 108 H Respiratory Rate 20 Blood Pressure 134/69 134/69 Pulse Oximetry 96 93 Oxygen Delivery Method Room Air 02/01/23 12:00 02/01/23 12:00 02/01/23 12:30 Temperature Pulse Rate 85 106 H Respiratory Rate Blood Pressure 150/67 H Pulse Oximetry 87 L 95 Oxygen Delivery Method 02/01/23 12:38 02/01/23 12:38 02/01/23 13:00 Temperature Pulse Rate 109 H Respiratory Rate 28 H Blood Pressure 144/63 H 141/65 H Pulse Oximetry 94 Oxygen Delivery Method 02/01/23 13:00 02/01/23 13:30 02/01/23 13:30 Temperature Pulse Rate 102 H 104 H Respiratory Rate 37 H 31 H Blood Pressure 129/59 L Pulse Oximetry 94 94 Oxygen Delivery Method 02/01/23 14:00 02/01/23 14:00 02/01/23 14:30 Temperature Pulse Rate 108 H Respiratory Rate 34 H Blood Pressure 146/67 H 139/64 Pulse Oximetry 93 Oxygen Delivery Method 02/01/23 14:30 02/01/23 15:00 02/01/23 15:18 Temperature Pulse Rate 106 H 111 H Respiratory Rate 29 H Blood Pressure 127/58 L Pulse Oximetry 94 Oxygen Delivery Method 02/01/23 15:18 02/01/23 15:30 02/01/23 15:30 Temperature Pulse Rate 107 H 106 H Respiratory Rate 38 H 25 H Blood Pressure 117/56 L Pulse Oximetry 95 98 Oxygen Delivery Method Oxygen Delivery Method Room Air Narrative Exam Narrative: Elderly male somewhat disheveled in appearance lying in hospital bed in no obvious distress HEENT-unremarkable Lungs-scattered crackles normal breath sounds no wheezes Heart-regular rate and rhythm normal S1-S2 no murmur Abdomen-benign Extremities-no cyanosis clubbing or edema Neuro-alert oriented x3 no obvious focal defects, gait not tested Objective ECG Impression: 12 lead ECG shows sinus rhythm and is unchanged from previous tracings Imaging CT scan - chest: Radiologist's impression: [address] [address] [address] Scan Report Signed Patient: Ady Lombardo MR#: [id number] : 1935 Acct:[id number] Age/Sex: 87 / M Date of Service: 02/01/23 Loc: 90A-1 Accession Number: [id number] ?? Procedure: CT angio chest PE protocol Ordering Provider: Jacqueline Chawla D.O. PROCEDURE:? CT ANGIO CHEST PE PROTOCOL ? INDICATIONS:? covid ? TECHNIQUE:? After the administration of intravenous contrast, 2 mm thick sections acquired from the pulmonary apices to the posterior costophrenic angles.? 3-dimensional maximum intensity projection (MIP) coronal and sagittal reformats were then acquired through the thorax.? For radiation dose reduction, the following was used:? automated exposure control, adjustment of mA and/or kV according to patient size.? ? COMPARISON:? [facility], CT, CT CHEST ABD PEL W CON, 12/13/2022, 19:10.? [facility], CR, XR CHEST 1V, 02/01/2023, 12:30.? [facility], CR, XR CHEST 1V, 12/19/2022, 6:22.? [facility], CT, CT ANGIO CHEST PE PROTOCOL, 12/17/2022, 10:37. ? FINDINGS:? Image quality:? Excellent.? ? Pulmonary arteries:? Pulmonary arteries are normal in size, and demonstrate no intraluminal filling defects to suggest central pulmonary embolism.? ? Lungs and pleura:? Several foci patchy interstitial infiltrates can be seen, which are worst involving the right posterior right upper lobe and the right lower lobe.? Apparent atelectasis can be seen in [place] involving both lower lobes. ? Underlying emphysematous changes are seen, which are worst at the lung apices.? No pleural effusion or pneumothorax can be seen.? Areas of pleural calcification are again seen. ? Mediastinum:? Heart size is normal, without pericardial effusion.? No mediastinal or hilar adenopathy.? Thoracic aorta is normal in caliber and enhancement.? Esophagus is normal in caliber, without hiatal hernia.? ? Bones and chest wall:? No suspicious bony lesions.? Ribs and thoracic spine appear intact throughout.? Thyroid gland demonstrates no significant abnormality.? No axillary or supraclavicular adenopathy.? ? Abdomen:? Nonobstructing bilateral renal stones are seen, measuring up to 3 mm each side. Incidental note is made of an accessory splenule along the hilum of the primary spleen. The visualized portions of the upper abdominal structures are otherwise unremarkable for imaging technique. ? ? IMPRESSION:? Mild patchy interstitial infiltrates are seen, which are consistent with the given clinical history. ? Negative for pulmonary embolism. ? The previously seen pleural effusions have resolved. ? ? Additional findings:? Centrilobular emphysematous changes Pleural calcification is seen.? Please correlate with a history of asbestos exposure.? Nonobstructing bilateral renal stones Accessory splenule Labs 02/01/23 12:33 02/01/23 12:33 Labs: Laboratory Results - last 24 hr 02/01/23 02/01/23 02/01/23 12:33 12:33 12:33 WBC 11.9 H RBC 4.58 Hgb 10.6 L Hct 33.4 L MCV 73.0 L MCH 23.1 L MCHC 31.6 RDW 18.2 H Plt Count 268 Neut % (Auto) 87.5 H Lymph % (Auto) 3.8 L [place] % (Auto) 7.7 Eos % (Auto) 0.4 L Baso % (Auto) 0.6 Neut # (Auto) 86370 H Lymph # (Auto) 500 L [place] # (Auto) 900 Eos # (Auto) 100 Baso # (Auto) 100 D-Dimer 642 H Sodium Potassium Chloride Carbon Dioxide BUN Creatinine Estimated GFR BUN/Creatinine Ratio Glucose Lactate Calcium Total Bilirubin AST ALT Alkaline Phosphatase Total Creatine Kinase CK-MB (CK-2) CK-MB (CK-2) Rel Index Troponin I NT-Pro-B Natriuret Pep 680 H Total Protein Albumin Globulin Albumin/Globulin Ratio Procalcitonin Urine Color Urine Appearance Urine pH Ur Specific [place] Urine Protein Urine Glucose (UA) Urine Ketones Urine Occult Blood Urine Nitrate Urine Bilirubin Urine Urobilinogen Ur Leukocyte Esterase Urine RBC Urine WBC Amorphous Sediment Urine Bacteria Ur Culture Indicated? SARS-CoV-2 (PCR) 02/01/23 02/01/23 02/01/23 12:33 12:33 12:43 WBC RBC Hgb Hct MCV MCH MCHC RDW Plt Count Neut % (Auto) Lymph % (Auto) [place] % (Auto) Eos % (Auto) Baso % (Auto) Neut # (Auto) Lymph # (Auto) [place] # (Auto) Eos # (Auto) Baso # (Auto) D-Dimer Sodium 134 L Potassium 4.2 Chloride 97 L Carbon Dioxide 28 BUN 15 Creatinine 0.94 Estimated GFR > 60 BUN/Creatinine Ratio 16.0 Glucose 124 H Lactate 1.9 Calcium 8.9 Total Bilirubin 0.7 AST 19 ALT 14 Alkaline Phosphatase 86 Total Creatine Kinase < 20 L CK-MB (CK-2) TNP CK-MB (CK-2) Rel Index TNP Troponin I < 0.012 NT-Pro-B Natriuret Pep Total Protein 7.7 Albumin 3.8 Globulin 3.9 Albumin/Globulin Ratio 1.0 Procalcitonin 0.24 Urine Color Urine Appearance Urine pH Ur Specific [place] Urine Protein Urine Glucose (UA) Urine Ketones Urine Occult Blood Urine Nitrate Urine Bilirubin Urine Urobilinogen Ur Leukocyte Esterase Urine RBC Urine WBC Amorphous Sediment Urine Bacteria Ur Culture Indicated? SARS-CoV-2 (PCR) Positive H 02/01/23 13:32 WBC RBC Hgb Hct MCV MCH MCHC RDW Plt Count Neut % (Auto) Lymph % (Auto) [place] % (Auto) Eos % (Auto) Baso % (Auto) Neut # (Auto) Lymph # (Auto) [place] # (Auto) Eos # (Auto) Baso # (Auto) D-Dimer Sodium Potassium Chloride Carbon Dioxide BUN Creatinine Estimated GFR BUN/Creatinine Ratio Glucose Lactate Calcium Total Bilirubin AST ALT Alkaline Phosphatase Total Creatine Kinase CK-MB (CK-2) CK-MB (CK-2) Rel Index Troponin I NT-Pro-B Natriuret Pep Total Protein Albumin Globulin Albumin/Globulin Ratio Procalcitonin Urine Color Yellow Urine Appearance Cloudy Urine pH 8.5 H Ur Specific [place] 1.010 Urine Protein 1+ H Urine Glucose (UA) Negative Urine Ketones Negative Urine Occult Blood 3+ H Urine Nitrate Negative Urine Bilirubin Negative Urine Urobilinogen 1.0 Ur Leukocyte Esterase 2+ H Urine RBC >100/hpf H Urine WBC 5-10/hpf H Amorphous Sediment 1+ Urine Bacteria Few (2-10) H Ur Culture Indicated? Specimen cultured SARS-CoV-2 (PCR) Assessment & Plan Assessment & Plan narrative: 1. COVID-19 pneumonia-patient has a minimum oxygen requirement (an acute respiratory failure) which qualifies him for antiviral treatment as well as Decadron. These will be continued for the usual 10 day course or until discharge whichever occurs first. Fortunately does not appear toxic or severely ill from this infection 2. Possible healthcare associated pneumonia-patient with leukocytosis and evidence of pneumonia on chest x-ray and CT angiography of the chest. He does need antibiotic therapy for urinary issues (see below) and so I think broad-spectrum antibiotics for treatment of potential healthcare associated pneumonia makes sense. However his lactate and procalcitonin are normal and is white count is only minimally elevated. In addition he really has minimal respiratory effect. Maybe reasonable to tailor antibiotic therapy more towards urinary tract once cultures are available, depending on his clinical course 3. Urinary tract infection-patient with indwelling Fried that has been unchanged since early December. Catheter has now been changed but urinalysis definitely shows evidence of infection. This maybe a source of his symptoms and presentation as well. Cultures have been obtained and as above patient is on broad-spectrum antibiotics. Whether not he needs an ongoing Fried catheter is in other question. Maybe appropriate to remove this during this hospitalization see if patient can void on his own or not, once infection has been adequately treated 4. Severe constipation-patient with severe constipation which was a major contributor to his previous hospitalization. Patient was discharged on multiple bowel meds in order to ensure active bowel movements. Will need close attention to his GI tract and his bowel meds have been continued during this hospitalization 5. History of chronic ITP-patient's numbers are stable at the current time. However he would not be a candidate for any sort of heparin for VTE prophylaxis etcetera. Continue to monitor as necessary depending on clinical course 6. Paroxysmal atrial fibrillation-patient is in sinus rhythm at the current time. Continue to monitor depending on clinical course 7. VTE prophylaxis-SCDs are appropriate, but any form of heparin would be relatively contraindicated with history of ITP, so no heparin has been ordered 8. Code status-patient has previously desired no code no efforts at resuscitation in the event of a sudden cardiac or respiratory arrest including during his last hospitalization when I admitted him myself. He confirms that is his status currently as well. 9. Weakness-patient just out of [facility]. Would benefit from continued skilled therapies here in the hospital so PT and OT Services have been consulted as well. COVID-19 COVID-19 status: Positive Result date/Date tested (Pos, Neg/Pending): 02/01/23
[2023-02-01] MEDS: REMDESIVIR 200 MG in SODIUM CHLORIDE 0.9% 210 ML 250 MG IV (17:03)
[2023-02-01] MEDS: VANCOMYCIN 1,000 MG/200 ML PIGGYBACK 200 MG IV (18:34)
[2023-02-01] MEDS: PSYLLIUM HUSK 1 PACKET PO (21:06)
[2023-02-01] MEDS: ACETAMINOPHEN 325 MG TABLET 650 MG PO (21:06)
[2023-02-01] MEDS: QUETIAPINE 25 MG TABLET 50 MG PO (21:07)
[2023-02-01] MEDS: PIPERACILLIN/TAZO 3.375 GM in SODIUM CHLORIDE 0.9% 100 ML IV (21:07)
[2023-02-01] MEDS: MELATONIN 3 MG TABLET 9 MG PO (21:07)
--- NOTE | 2023-02-01 21:34 | PC.NURSE ---
area photographed is coccyx/buttocks. pt being positioned with pillows to off load pressure areas.
[2023-02-02 05:31] LABS: Add Manual Diff / Slide Review NO; Basophils Absolute Auto 0 /uL (0-100); Basophils Percent Auto 0.2 % (0-2); Eosinophils Absolute Auto 0 /uL (0-450); Hematocrit 29.4 % (41-53); Hemoglobin 9.4 g/dL (13.5-17.5); Lymphocytes Absolute Auto 400 /uL (1100-4500); Lymphocytes Percent Auto 4.8 % (25-40); Mean Corpuscular HGB Conc 31.9 % (30-36); Mean Corpuscular Hemoglobin 23.4 PG (26-34); Mean Corpuscular Volume 73.2 fL (80-100); Monocytes Absolute Auto 700 /uL (0-900); Neutrophils Absolute Auto 7900 /uL (1500-7000); Platelet Count 249 X10^3/uL (150-400); Red Blood Cell Count 4.02 X10^6/uL (4.5-5.9); Red Cell Distribution Width 18.2 % (11.6-14.8)
[2023-02-02] MEDS: VANCOMYCIN 750 MG/150 ML PIGGYBACK 150 MG IV ×2 (05:31→18:38)
[2023-02-02 05:42] LABS: BUN Creatinine Ratio 19.2 (6-22); Blood Urea Nitrogen 15 mg/dL (9-20); Calcium 8.5 mg/dL (8.4-10.2); Carbon Dioxide 23 mmol/L (22-32); Chloride 102 mmol/L (98-107); Estimated Glomerular Filt Rate > 60 mL/min (>60); Glucose 124 mg/dL (80-110); HEMOLYSIS < 15 (0-50); Potassium 4.2 mmol/L (3.4-5.1); Sodium 134 mmol/L (137-145)
[2023-02-02 05:50] LABS: NT-proBNP (BNP-Adult 18+) 940 pg/mL (<450)
[2023-02-02] MEDS: PIPERACILLIN/TAZO 3.375 GM in SODIUM CHLORIDE 0.9% 100 ML IV ×3 (06:49→22:21)
[2023-02-02 08:00] VITALS: BP 113/58; PULSE 78; RESP 17; TEMP 36.6; O2SAT 95
[2023-02-02 09:00] VITALS: O2SAT 95
[2023-02-02] MEDS: PSYLLIUM HUSK 1 PACKET PO ×2 (09:36→21:10)
[2023-02-02] MEDS: DEXAMETHASONE 10 MG/ML VIAL 6 MG IV (09:36)
[2023-02-02] MEDS: polyethylene glycoL 3350 17 GM POWD.PACK PO (09:36)
[2023-02-02] MEDS: SODIUM CHLORIDE 0.9% FLUSH 10 ML IV ×2 (09:37→21:12)
[2023-02-02] MEDS: ACETAMINOPHEN 325 MG TABLET 650 MG PO ×2 (10:04→18:40)
--- NOTE | 2023-02-02 11:21 | PT-IP ANOTE ---
Received PT orders and completed chart review. Attempted to initiate PT evaluation but pt was perseverating on his Symbicort. Per nursing, this medication is not available for the pt and he has been asking for it repeatedly. PT attempted to redirect the pt multiple times but he stated, I can't breathe without my Symbicort and I won't be doing anything without it. If I can't get my medication, just discharge me. PT educated pt that therapist only wanted to assess mobility. Pt related that he was happy with his recent SNF rehab stay but declined to comment on any progress he made. After multiple refusals, PT left and allowed pt to rest. RN aware.
--- NOTE | 2023-02-02 12:50 | CM.DANOTE ---
Patient is an 87 yo male who was admitted on 02/01/23 for COVID+. Pt has MCR and [employer] for insurance and his PCP is Dr. Brian Moore. EMR was reviewed. Per , pt with metastatic melanoma at baseline and getting immunotherapy with Oncology and admitted for COVID pneumonia, UTI and getting IV-Abx but on room air. Pt last admitted 12/13/22 for Urinary Retention/Feeling Ill/chronic constipation and discharged 12/25/22 after appealing discharge and discharge being upheld and was transported via family to [facility]. Pt recently discharged home about a week ago from [facility] with family support and [facility] called and confirmed that pt is open to services with them. Pt currently somewhat confused and on COVID precautions and SW worked with pt and family during recent admission and called pt's Dtr/CECILIA Xavier and left msg requesting call back. Pt lives in [place] and grandson moved in with him a few months ago which helps a lot when I need something or assist. Pt states he typically ambulates with a cane but has walker at home but has been having bowel issues and therefore has a commode next to my bed, next to my chair when I watch tv and typically I can make it to the toilet without having an accident. Dtr and son grazyna are very involved and check on pt daily and SW had discussed with them last month the likelihood of needing to either hire private caregivers or look into Assisted Living facilities and were given the Senior Resource Guidebook with all the local options. PT attempted to work with pt today and he refused and was perseverating on medications. Per , likely 3 days IV-Abx and then d/c home. Plan: SW to follow closely for pt progress and likely plan of return home with [facility] and family support as pt currently refusing SNF and his COVID+ would be a barrier to SNF. TERE Ellison Discharge Planning/Care Management CM Discharge Assessment Start: 02/02/23 12:35 Freq: Status: Active Protocol: Document 02/02/23 12:35 BF (Rec: 02/02/23 12:50 BF [id number]) Discharge Planning Assessment Assigned Pain Management Specialist TERE Vann/Assigned Designee Name Bina Xavier Contact Information [phone] Advance Directives? Yes Advance Directives on File No History Provided By Patient,Family Member,Medical Record Has Patient been admitted in last 30 Yes days? Comment last discharge 01/07/23 to [facility] Prior Living Arrangements House Household Members family Type of transporation used prior to Relies on Others admit Independent with ADL's No Is patient alert and oriented? Yes: some dementia/cog impairment Needs Assistance With Meal Prep,Managing Medications ,Home Chores / Shopping Caregiver for Another No Community Services used prior to Physical Therapy,Occupational admission: Therapy,Home Health Aid DME Already Rented / Owned Bath Bench,FWW / Walker, Bedside Commode Patient/Family Preference Home with Home Health Comment Open with [facility] Barriers to Discharge No Discharge Plan Home with Home Health Community Services Physical Therapy,Occupational Therapy,Home Health Aid Transportation Arrangement Likely family to transport when medically stable Referrals Initiated Home Health Additional Comment Open with [facility] If patient plan is home with home health No: [facility] : Has signed face to face form been completed? Review Status In Process Please Provide Date Initial DC 02/02/23 Assessment Was Performed Next Review Type Continued Stay Review
--- NOTE | 2023-02-02 13:46 | OT.IPNOTE ---
Pt not wanting to do OT eval as insistent on having his Symbicort and not wanting to be seen at this time. Nursing well aware of pt's wants, no charge.
[2023-02-02] MEDS: REMDESIVIR 100 MG in SODIUM CHLORIDE 0.9% 230 ML 250 MG IV (14:10)
--- NOTE | 2023-02-02 17:53 | PM.PN.1 ---
Subjective Subjective Interval history: CC: I feel better abdominal pain Feelign better today after getting good BM blowout yesterday with [place] changeout Numbers are improving however he clearly did have serious systemic infection from CLABSI Given his frailty and severity on presentation plus the fact he is barely out of rehab, I do think that getting three days of IV antibiotics in will be advisable but he may be suitable for discharge tomorrow Exam Vital Signs (past 8 hours): Oxygen Delivery Method Room Air Oxygen Flow Rate 0 Narrative Exam Narrative: alert elder in bed with family at bedside Const General: comfortable and well developed HENSD Head: normocephalic and atraumatic Resp Other: moving air ok, clear to auscultation bilaterally Cardio Other: regular rate, S1/S2, minimal pedal edema GI Other: soft nontender normal bowel sounds Other: hamilton in place draining straw yellow urine Neuro General: patient alert, patient awake and moves all extremities Other: weak needs max assist to get out of bed Objective Labs 02/02/23 05:16 02/02/23 05:16 Labs: Laboratory Results - last 24 hr 02/02/23 02/02/23 05:16 05:16 WBC 9.0 RBC 4.02 L Hgb 9.4 L Hct 29.4 L MCV 73.2 L MCH 23.4 L MCHC 31.9 RDW 18.2 H Plt Count 249 Neut % (Auto) 87.0 H Lymph % (Auto) 4.8 L [place] % (Auto) 8.0 Eos % (Auto) 0.0 L Baso % (Auto) 0.2 Neut # (Auto) 7900 H Lymph # (Auto) 400 L [place] # (Auto) 700 Eos # (Auto) 0 Baso # (Auto) 0 Sodium 134 L Potassium 4.2 Chloride 102 Carbon Dioxide 23 BUN 15 Creatinine 0.78 Estimated GFR > 60 BUN/Creatinine Ratio 19.2 Glucose 124 H Calcium 8.5 NT-Pro-B Natriuret Pep 940 H PFSH Medical History Acute exacerbation of chronic obstructive pulmonary disease Acute urinary retention Bladder outlet obstruction Chronic ITP (idiopathic thrombocytopenic purpura) Constipation COPD (chronic obstructive pulmonary disease) Fecal impaction in rectum Malignant melanoma, metastatic Obstipation Paroxysmal atrial fibrillation Shortness of Breath Tricompartment osteoarthritis of right knee Surgical History S/P total knee arthroplasty Social History household members: family Smoking Status: Former smoker alcohol intake: former Assessment & Plan Assessment & Plan narrative: #COVID-19 pneumonia Improved on antivirals tx, no longer requiring oxygen support today These will be continued for the usual 10 day course or until discharge whichever occurs first.? #HCAP, suspected #catheter associated infection on day two of broad spectrum antibiotics with some clinical improvement noted. He is doing ok on new catheter, goal of removing it this admission vs at outpt f/u still pending His WBCs were elvated ryder dmission adn they are coming down however his neutrophils remain quite high indicating continued infectious combat #Severe constipation major contributing factor to hospitalization and presentation, continue multiple bowel meds in order to ensure active bowel movements.? Will need close attention to his GI tract and his bowel meds have been continued during this hospitalization #History of chronic ITP CBC numbers are stable at the current time.? avoid heparin if possible.? Continue to monitor as necessary depending on clinical course #microcytic anemia likely ACD, but adding ferrous supplement, monitor #hx of paroxysmal atrial fibrillation stable, sinus today, monitor #weakness deconditioning just home from skilled nursin does not like to work with PT #COPD duonebs ordered, takes symbicort at home dispo: likely home with HH tomorrow after third dose of iv abx - his clinical picture is improving but he is still quite sick with multiple conditions we are treating with aggressive antibiotics. His respiratory status is only recently improved and I would like to see him 24 hours off oxygen to be more confident he will be ok at home. code: none dvt ppx: SCDs only in light of ITP hx diet: regular PCP: Oscar Tobias [facility] Deep Vein Thrombosis/Pulmonary Embolism Present on Admission: No
[2023-02-02 19:00] VITALS: BP 127/62; PULSE 91; RESP 16; TEMP 36.6; O2SAT 97
[2023-02-02] MEDS: MELATONIN 3 MG TABLET 9 MG PO (21:09)
[2023-02-02] MEDS: LORATADINE 10 MG TABLET PO (21:10)
[2023-02-02] MEDS: QUETIAPINE 25 MG TABLET 50 MG PO (21:10)
[2023-02-03 05:27] LABS: Vancomycin Trough 10.9 ug/mL (10-20)
[2023-02-03] MEDS: VANCOMYCIN 750 MG/150 ML PIGGYBACK 150 MG IV (05:38)
[2023-02-03 07:00] VITALS: O2SAT 98
[2023-02-03 08:00] VITALS: BP 129/62; PULSE 74; RESP 17; TEMP 36.2; O2SAT 98
[2023-02-03] MEDS: PIPERACILLIN/TAZO 3.375 GM in SODIUM CHLORIDE 0.9% 100 ML IV (08:07)
--- NOTE | 2023-02-03 08:56 | PM.DS.1 ---
History of Present Illness History of Present Illness Date Patient Seen: 02/03/23 Time Patient Seen: 08:57 Chief complaint: covid positive/cough [id number] Discharge Providers Provider Date of admission: 02/01/23 15:19 Discharge Date: 02/03/23 Primary care physician: Brian Moore MD Consults: 02/01/23 16:16 Consult to Discharge Planning Routine Comment: Consult to Occupational Therapy Evaluate & Treat Comment: Physician Instructions: Evaluate and treat Consult to Physical Therapy Evaluate & Treat Comment: Physician Instructions: Evaluate and Treat 02/02/23 11:57 Consult to Dietitian, Adult Routine Comment: Reason For Exam: prompted by tam scale Discharge provider: Magdalene Dunaway MD Summary Hospital Course Discharge Diagnosis: 1. COVID-19 illness 2. Possible healthcare associated pneumonia, cultures negative 3. UTI with indwelling catheter 4. COPD 5. Chronic constipation, improved 6. Chronic thrombocytopenia Hospital Course: Patient admitted to hospital with COVID-19 illness and hypoxemia. He was treated for possible healthcare associated pneumonia as he had been discharged from a skilled care facility where they had had an outbreak of COVID-19. He is treated with remdesivir and Decadron and was treated with Zosyn and vancomycin for secondary pneumonia. He quickly improved and by hospital day 3. He had been stable on room air for over 24 hours and was requesting to go home where he lives with his daughter. He was quickly weaned off oxygen. He was having normal bowel movements and eating normally. He was discharged home on hospital day 3. On Augmentin and his outpatient medications. Status at Discharge Cognitive/behavioral status at discharge: at baseline, oriented Functional status at discharge: uses cane/walker Overall status at discharge: patient is progressing back to baseline Exam Vital Signs (past 8 hours): - 02/03/23 08:00 Temperature 97.1 F L Pulse Rate 74 Respiratory Rate 17 Blood Pressure 129/62 Pulse Oximetry 98 Oxygen Flow Rate 0 Oxygen Delivery Method Room Air Oxygen Flow Rate 0 Narrative Exam Narrative: Patient is sitting upright in bed he is alert and oriented x3 and requesting to go home. He is stable with O2 sats in the mid 90s on room air. He is not coughing or struggling to breathe. Remainder of vital signs are stable. Color is good. HEENT unremarkable Neck: Supple without adenopathy Chest: Diffuse scattered rhonchi, no crackles or wheeze diminished breath sounds in the bases but overall improved from his last hospitalization Cor: Regular rate and rhythm with distant S1-S2 Abdomen: Positive bowel sounds, soft Extremities no edema, pulses intact Neurologic exam is nonfocal Objective Labs 02/02/23 05:16 02/02/23 05:16 Labs: Laboratory Results - last 24 hr 02/03/23 04:30 Vancomycin Trough 10.9 PFSH Medical History Acute exacerbation of chronic obstructive pulmonary disease Acute urinary retention Bladder outlet obstruction Chronic ITP (idiopathic thrombocytopenic purpura) Constipation COPD (chronic obstructive pulmonary disease) Fecal impaction in rectum Malignant melanoma, metastatic Obstipation Paroxysmal atrial fibrillation Shortness of Breath Tricompartment osteoarthritis of right knee Surgical History S/P total knee arthroplasty Social History household members: family Smoking Status: Former smoker alcohol intake: former Discharge Assessment & Plan Assessment and Plan Assessment: 1.? COVID-19 pneumonia, improved we will discharge home off of remdesivir and Decadron but will continue oral antibiotics 2. Possible healthcare associated pneumonia-patient with leukocytosis and evidence of pneumonia on chest x-ray and CT angiography of the chest.? Patient was quickly weaned off oxygen and has improved clinically. Blood cultures and sputum cultures have been negative. His urinary tract did grow out E coli which is pansensitive. We will discontinue Zosyn and vancomycin and will send him home on Augmentin. Suspect the majority of his respiratory symptoms were related to COVID-19 illness. 3. Urinary tract infection-patient with indwelling Fried that has been unchanged since early December.? Catheter has now been changed but urinalysis definitely shows evidence of infection.? Overall patient's condition has improved. We discussed the pros and cons of the Fried catheter and he is requesting that he continue this. I think as he continues to gain strength and mobility then we will discuss removing it. He understands that this is a risk for having recurrent infections as well as resistant infections. He will be sent home on Augmentin. 4. Severe constipation-patient with severe constipation which was a major contributor to his previous hospitalization. Markedly improved. Will continue with aggressive outpatient regimen. 5. History of chronic ITP-patient's numbers are stable at the current time. He will continue outpatient medication. 6. Paroxysmal atrial fibrillation-patient is in sinus rhythm at the current time.? Continue to monitor depending on clinical course 7.? VTE prophylaxis-SCDs are appropriate, but any form of heparin would be relatively contraindicated with history of ITP, so no heparin has been ordered 8.? Code status-patient has previously desired no code no efforts at resuscitation in the event of a sudden cardiac or respiratory arrest including during his last hospitalization when I admitted him myself.? He confirms that is his status currently as well. 9.? Weakness-patient just out of prison.? Would benefit from continued skilled therapies here in the hospital so PT and OT Services have been consulted as well. COVID-19 COVID-19 status: Positive Result date/Date tested (Pos, Neg/Pending): 02/01/23 60 minutes was spent in discharge. Reviewing his chart, meeting with patient, reviewing the workup and discussing with nursing, evaluating patient, discussing with social science research assistant, formulating a plan and documentation. Discharge Plan Discharge Plan Patient Disposition: Home Health Service Discharge orders & Medications Prescriptions: Continued acetaminophen [Tylenol Extra Strength] 500 MG tablet 1,000 mg PO DAILY Qty: 0 quetiapine 25 mg Tablet 25 mg PO DAILY Qty: 30 0RF quetiapine 25 mg Tablet 50 mg PO BEDTIME Qty: 30 0RF loratadine 10 mg Tablet 10 mg PO BEDTIME Qty: 60 0RF hydroxyzine pamoate 25 mg Capsule 25 mg PO Q6HR PRN (Reason: Itching) Qty: 60 0RF polyethylene glycol 3350 17 gram Powder In Packet 17 gm PO DAILY Qty: 100 0RF melatonin 3 mg Tablet 9 - 15 mg PO BEDTIME PRN (Reason: Sleep) psyllium Packet 1 packet PO TID Rx Instructions: mix into at least 8 oz of water or juice before administering ondansetron 4 mg tablet,disintegrating 4 mg PO Q4HR PRN (Reason: Nausea) Qty: 30 0RF Follow up/Referrals: Brian Moore MD [Primary Care Provider] - Diet/Activity/Treatments Diet: Diet as Tolerated Visit Report/Discharge Packet Stand Alone Forms: Patient Portal/API, Stroke Signs & Symptoms Discharge Data Primary Care Provider: Brian Moore Quality VTE Deep Vein Thrombosis/Pulmonary Embolism Present on Admission: No
[2023-02-03] MEDS: PSYLLIUM HUSK 1 PACKET PO (09:15)
[2023-02-03] MEDS: polyethylene glycoL 3350 17 GM POWD.PACK PO (09:15)
[2023-02-03] MEDS: QUETIAPINE 25 MG TABLET PO (09:15)
[2023-02-03] MEDS: DEXAMETHASONE 10 MG/ML VIAL 6 MG IV (09:16)
[2023-02-03] MEDS: ACETAMINOPHEN 325 MG TABLET 650 MG PO (09:17)
--- NOTE | 2023-02-03 09:21 | CM.DPC ---
DCP Discharge Home with HH Per MD, pt remains stable for d/c home today with [facility] and confirms that Dtr's request of Cortisone injection is not able to be completed while admitted to the hospital and will have to remain as an outpt procedure. RN aware and Dtr had confirmed with DCP last night that pt now has Private Caregivers at home to assist and still has local family (Dtr, son grazyna, grandson) that check on pt daily. Dtr wants [facility] and had stated that [facility] could transport home today. MANI faxed d/c summary with [facility] orders to [facility] to review and MANI called Kris at [facility] and updated on pt d/c home and she states she will notify her team. Plan: Patient to d/c home today via [facility]'s POV and private caregiver assist at home and [facility]. TERE Ellison
--- NOTE | 2023-02-03 11:33 | OT.IPNOTE ---
Pt being discharged home with caregivers, family and home health. Nursing has already has been able to move pt with [facility].
--- NOTE | 2023-02-03 15:00 | OT.IPNOTE ---
Pt waiting on his family to pick him up as has discharge orders for today. Pt to have assist from family, caregivers, and home health.
--- NOTE | 2023-02-03 15:30 | CM.MNRNOTE ---
Pt has no further questions, picked up by son-in-law @ [phone]. [facility] care and brief change prior to d/c. Wheeled out in w/c by MOBILITY DEVELOPER to private vehicle.
--- NOTE | 2023-02-05 09:30 | CM.DPNOTE ---
Late entry: Called Roxana at [facility] to let her know pt. was being discharged on 02/03. Sent final clinicals. Ramonita Larson CM Assist.
== END 2023-02-03 15:20 | disposition home health service (06) | DRG 177 ==
LOC: ED 14:37 → AC 15:20
PROVIDERS: Admitting Provider Internal Medicine; Emergency Provider Emergency Medicine; PCP Family Medicine; Referring Provider Emergency Medicine; Visit Provider Family Medicine
DX: U07.1 COVID-19 (principal); J12.82 Pneumonia due to coronavirus disease 2019; J96.00 Acute respiratory failure, unspecified whether with hypoxia or hypercapnia; T83.511A Infection and inflammatory reaction due to indwelling urethral catheter, initial encounter; N39.0 Urinary tract infection, site not specified; K59.00 Constipation, unspecified; J44.9 Chronic obstructive pulmonary disease, unspecified; D50.9 Iron deficiency anemia, unspecified; B96.20 Unspecified Escherichia coli [E. coli] as the cause of diseases classified elsewhere; Z87.891 Personal history of nicotine dependence
CPT/HCPCS: 36415; 71045; 71275; 80048; 80053; 80202; 81001; 82550; 83605; 83880; 84145; 84484; 85025; 85379; 87040; 87077; 87086; 87186; 87635; 93005; 93010; 96365; 96375; 99223; 99284; 99285; C9803; J1100; J2543; Q9967

== ENCOUNTER → 2024-04-19 13:09 | Outpatient (CLI) | payer OTHER, MEDICARE, SELFPAY ==
[2023-02-01 17:05] VITALS: BMI 21.7
== END ==
LOC: LAB 13:12
PROVIDERS: PCP Family Medicine; Referring Provider Family Medicine; Visit Provider Family Medicine
DX: C79.2 Secondary malignant neoplasm of skin (principal); R63.4 Abnormal weight loss; D69.3 Immune thrombocytopenic purpura
CPT/HCPCS: 87493

== ENCOUNTER → 2024-04-21 14:38 | Outpatient (CLI) | payer OTHER, SELFPAY ==
[2023-02-01 17:05] VITALS: BMI 21.7
[2024-04-21 21:15] LABS: Clostridium Difficile Tox PCR Negative for C. diff (Negative)
== END ==
PROVIDERS: PCP Family Medicine; Referring Provider Family Medicine; Visit Provider Family Medicine
DX: R19.7 Diarrhea, unspecified (principal)
CPT/HCPCS: 87493